=== PATIENT | male | born 1940 | race Caucasian/White ===

== ENCOUNTER → 2017-03-27 | Outpatient (CLI) | payer MEDICARE ==
[~2017-03-27] MED LIST: ASPI81TA7 PO; CARB25TA PO; CEPALOZ2 PO; FISHOIL PO; LEVO750T PO; OSEL75CA PO; TYLE325T5 PO; VIT250TA PO; VITAD1000T PO; [UNRECOGNIZED DRUG - OTHER] PO
--- NOTE | 2017-03-27 19:00 | REP ---
MRI study of the right elbow without contrast: History: Right elbow pain. Question distal biceps tendon rupture. Comparison MRI study of the forearm is from [facility] dated 03/20/2017. Comparison radiographs are from 03/13/2017. Technique: Axial, coronal, and sagittal imaging planes are utilized. T1, proton density and T2-weighted scans were obtained in the usual fashion with without fat saturation. MRI findings: Cortical and medullary bone signal intensity are normal. No fracture is seen. There is a small amount of elbow joint fluid. No cartilaginous lesion is seen. The medial and lateral collateral ligaments at the elbow are intact. There is evidence of partial disruption of the distal biceps tendon, approximately 12 mm from the insertion on the proximal radial tuberosity. There is some surrounding T2 hyperintense fluid and edema with a rounded nubbin of discontinuous tendon visible. Brachialis tendon appears to be intact. There is edema at the biceps tendon musculotendinous junction more proximally in the distal arm as well. Exam is otherwise unremarkable. Triceps tendon appears intact. Impression: High grade partial tear distal biceps tendon. Signed by Albert Osborne MD 03/27/2017 07:14 P
== END ==
LOC: M RAD 16:37
PROVIDERS: ATTEND Physician Assistant Surgical
DX: S46.111A Strain of muscle, fascia and tendon of long head of biceps, right arm, initial encounter (principal); X58.XXXA Exposure to other specified factors, initial encounter; Y92.89 Other specified places as the place of occurrence of the external cause; Y93.89 Activity, other specified; Y99.8 Other external cause status

== ENCOUNTER → 2017-03-29 | Outpatient (CLI) | payer MEDICARE ==
--- NOTE | 2017-03-29 12:27 | REP ---
THREE-PHASE BONE SCAN OF THE ARMS: HISTORY: Contusion of the right forearm. Right forearm pain for 4 weeks. TECHNIQUE: 21.5 mCi of technetium 99m MDP is injected and three-phase imaging of the arms is acquired bilaterally. FINDINGS: The anterior and posterior flow images are unremarkable. Blood pool images demonstrate an ill-defined area of increased uptake in the proximal forearm on the right near the elbow. Delayed scan images demonstrate slightly increased uptake in this region as well in the area of the proximal radius and proximal ulna just distal to the elbow. I note that this is the area of the distal biceps tendon injury seen on MRI. Also noted on delayed images is some arthritic uptake in the radial aspect of the carpus on the left. No other abnormality is observed. IMPRESSION: Increased uptake on blood pool images in the proximal forearm on the right and to a lesser extent on delayed images in the area of the known soft tissue injury. Arthritic uptake on delayed scan images in the left wrist. Signed by Albert Osborne MD 03/29/2017 03:08 P
== END ==
LOC: M RAD 07:38
PROVIDERS: ATTEND Physician Assistant Surgical
DX: S50.11XD Contusion of right forearm, subsequent encounter (principal); X58.XXXA Exposure to other specified factors, initial encounter; Y92.89 Other specified places as the place of occurrence of the external cause; Y93.89 Activity, other specified; Y99.8 Other external cause status
CPT/HCPCS: 78315; A9503

== ENCOUNTER 2017-09-16 07:21 | Observation (INO) | payer MEDICARE ==
[~2017-09-16] VITALS: Ht 167.6 cm; Wt 91.4 kg
[2017-09-16] MEDS ORDERED: MULT1TAB8 PO (07:49)
[2017-09-16] MEDS ORDERED: COQ-400C PO (07:49)
[2017-09-16] MEDS ORDERED: ARIC1TAB2 PO (07:49)
--- NOTE | 2017-09-16 08:40 | REP ---
Clinical: Trauma. Technique: Internal rotation, external rotation, and Y view of the right shoulder. Findings: Moderate to early advanced degenerative changes primarily involving the acromioclavicular joint include cortical irregularity and spurring/osteophyte formation as well as decreased sub acromial space. No acute fracture dislocation. Glenohumeral joint is normal for age. Impression: Degenerative changes at the acromioclavicular joint. No acute fracture dislocation. Signed by Juan Antonio Proctor MD 09/16/2017 08:31 A
[2017-09-16 09:53] LABS: BASO # 0.1 10^3/uL (0.0-0.2); EOS # 0.1 10^3/uL (0.0-0.50); EOS % 2.4 % (0.0-3.0); IMMATURE GRANULOCYTE % 0.2 % (0-0); LYMPH # 1.2 10^3/uL (1.5-4.5); LYMPH % 24.2 % (24.0-44.0); MEAN CORPUSCULAR HEMOGLOBIN 32.9 pg (27.0-33.0); MEAN CORPUSCULAR HGB CONC 34.4 g/dl (32.0-36.5); MEAN CORPUSCULAR VOLUME 95.6 fl (80.0-96.0); MONO # 0.4 10^3/uL (0.0-0.8); MONO % 8.1 % (0.0-5.0); NEUTROPHILS # 3.2 10^3/uL (1.8-7.7); NEUTROPHILS % 64.1 % (36.0-66.0); PLATELET COUNT, AUTOMATED 135 10^3/uL (150-450); RED CELL DISTRIBUTION WIDTH 11.9 % (11.5-14.5)
--- NOTE | 2017-09-16 10:10 | REP ---
Clinical: Headache and dizziness. Comparison: 10/10/2012 . Findings: Age-related atrophy and microvascular ischemic changes are appreciated. The ventricles and sulci are symmetric. Thompson-white differentiation is maintained. There is no evidence for acute intracranial hemorrhage, mass/mass effect, pathology or infarction. No extra-axial fluid collection. Calvarium is intact. Paranasal sinuses and mastoid air cells are clear. Impression: Age related atrophy and microvascular ischemic changes. No acute intracranial hemorrhage, infarction, or mass/mass effect. Signed by Juan Antonio Proctor MD 09/16/2017 10:01 A
[2017-09-16 10:11] LABS: ANION GAP 8 MEQ/L (8-16); BLOOD UREA NITROGEN 21 MG/DL (7-18); CALCIUM LEVEL 8.9 MG/DL (8.8-10.2); CARBON DIOXIDE LEVEL 27 MEQ/L (21-32); CHLORIDE LEVEL 108 MEQ/L (98-107); CREATININE FOR GFR 1.01 MG/DL (0.70-1.30); GLOMERULAR FILTRATION RATE > 60.0 (>42); GLUCOSE, FASTING 101 MG/DL (83-110); POTASSIUM SERUM 3.9 MEQ/L (3.5-5.1); SODIUM LEVEL 143 MEQ/L (136-145)
[2017-09-16] MEDS ORDERED: NS 500 ML IV ONE (10:45)
[2017-09-16] MEDS ORDERED: DOXA1TAB42 PO (11:38)
[2017-09-16] MEDS ORDERED: ALEV220T22 PO (11:38)
[2017-09-16] MEDS ORDERED: CARB25TA PO ×2 (11:38→11:39)
[2017-09-16] MEDS ORDERED: FISH100049 PO (11:38)
[2017-09-16] MEDS ORDERED: ACETAMINOPHEN TAB 650MG DOSE (2X325MG) PO PRN (13:45)
[2017-09-16] MEDS ORDERED: ONDANSETRON 4MG/2ML VIAL (J2405) IV PRN (13:45)
--- NOTE | 2017-09-16 15:02 | HPE ---
DATE OF ADMISSION: 09/16/2017 PRIMARY CARE PROVIDER: Dr. Sunil Kulkarni in [place] HISTORY OF PRESENT ILLNESS: This patient is a 77-year-old male with a past medical history significant for Parkinson disease, presented to [facility] on 09/16/2017 after two falls. Patient stated the falls first occurred when he tried to walk from the restroom to the kitchen. During the ambulation, he felt dizzy and he fell down and hit the right shoulder. He tried to stand up, however, he started to feel very dizzy again and then he fell down and landed on the right shoulder again. After the second fall, he had difficulty getting up, therefore, he was brought to [facility] for further evaluation. Patient stated he felt dizzy and lightheaded. When symptoms occurred, he felt the room was spinning, most significant when he tried to stand or sit up. At the time of encounter, he is resting in the bed without any recurrence of the symptoms. Headache is not elicited during different head movements. Patient had a few similar episodes in the past. Patient has a history of Parkinson disease. At home, he has been using a cane, however, today before and after those two falls, he did not use any cane. Patient does not think he hit his head. He does not feel he had loss of consciousness, but he is not 100% sure. Denies any loss of bowel or bladder control. Denies any tongue biting. Patient lives alone. Denies any recent medication changes or lifestyle changes. Denies any cardiac history or lung history. PAST MEDICAL HISTORY: Parkinson disease. PAST SURGICAL HISTORY: Cholecystectomy. SOCIAL HISTORY: Patient denies smoking, drinks beer one almost daily. No recreational drug use. ALLERGIES: No known drug allergies. HOME MEDICATIONS: - Tylenol 650 mg by mouth every 4 hours as needed - aspirin 81 mg by mouth daily - carbidopa/levodopa 25 /100 mg 0.5 tab by mouth twice a day - carbidopa/levodopa 25/100 mg two tabs by mouth five times a day - Aricept 10 mg by mouth nightly - doxazosin 1 mg by mouth nightly - vitamin D 1000 unit by mouth daily - multivitamin one tab by mouth daily REVIEW OF SYSTEMS: GENERAL: Denies any fever or chill. HEENT: No vision changes No auditory changes. CARDIOVASCULAR: Denies any chest pain or palpitations. GASTROINTESTINAL (GI): No nausea. No vomiting. No abdominal pain. MUSCULOSKELETAL: Some muscle pain of the right shoulder, occurred after the fall. NEUROLOGICAL: Patient has fallen twice today prior to admission. Patient had been feeling dizzy and lightheadedness. Patient does have a history of Parkinson disease. OBJECTIVE: VITAL SIGNS: Temperature is 97, pulse 67, respirations 18, blood pressure 122/56, pulse oximetry 95% on room air. GENERAL: Fatigue. Alert and oriented times three. HEENT: Normocephalic. Atraumatic. Extraocular muscles grossly intact. CARDIOVASCULAR: Distant heart sounds. Positive S1, S2, regular rate. LUNGS: Clear to auscultation bilaterally. ABDOMEN: Soft, nontender, nondistended. Bowel sounds present. No rebound or guarding. EXTREMITIES: No edema. No cyanosis. NEUROLOGICAL: Sensation to fine touch grossly intact. Muscle strength 5/5. LABORATORY DATA: WBC is 5, hemoglobin 14.1, hematocrit 41, platelet count is 135. Sodium is 143, potassium 3.9, chloride 108, carbon dioxide 27, BUN 21, creatinine 1.01, GFR greater than 60, fasting glucose is 101, calcium is 8.9, total CK is 140, troponin I is less than 0.02. IMAGING STUDIES: A shoulder x-ray showed degenerative changes at the acromioclavicular joint. No acute fracture or dislocation. A CT of the head without contrast showed age-related atrophy and microvascular ischemic changes. No acute intracranial hemorrhage, infarction, or mass/mass effect. ASSESSMENT AND PLAN: 1. Near syncope with frequent falls. Patient admitted to medical-surgical with telemetry. Continue to rule out a possible cardiac cause for the fall. Based on the history, patient will have orthostatic measurement every 8 hours. Imaging studies were performed. There is no right shoulder fracture resulting from the fall, and there is no significant finding noted on CT of the brain. Patient will be working with physical therapy to assess function. 2. Parkinson disease. Patient's home medication will be reviewed and adjust accordingly if needed. 3. Deep venous thrombosis (DVT) prophylaxis. On heparin. MTDD
[2017-09-16 15:30] VITALS: BP 125/69
[2017-09-16] MEDS: SINEMET 25-100 MG TAB PO SCH ×3 (15:55→19:51)
[2017-09-16] MEDS: HEPARIN SOD (PORCINE) 5000 UNITS/ML VIAL SC SCH ×2 (15:56→22:05)
[2017-09-16] MEDS: VITAMIN D 1,000 INTERNATIONAL UNITS TABLET PO SCH (15:59)
[2017-09-16] MEDS: ASPIRIN 81 MG ENTERIC TAB PO SCH (16:00)
[2017-09-16 18:54] VITALS: BP 140/75
[2017-09-16] MEDS: DOXAZOSIN MESYLATE 1 MG TAB PO SCH (19:51)
[2017-09-16] MEDS: DONEPEZIL 5 MG TAB PO SCH (19:52)
[2017-09-16 22:00] VITALS: BP 163/82
[2017-09-17 06:00] VITALS: BP 155/82
[2017-09-17 06:02] LABS: MEAN CORPUSCULAR HEMOGLOBIN 32.5 pg (27.0-33.0); MEAN CORPUSCULAR HGB CONC 33.7 g/dl (32.0-36.5); MEAN CORPUSCULAR VOLUME 96.3 fl (80.0-96.0); PLATELET COUNT, AUTOMATED 153 10^3/uL (150-450); RED CELL DISTRIBUTION WIDTH 11.9 % (11.5-14.5); WHITE BLOOD COUNT 3.8 10^3/uL (4.0-10.0)
[2017-09-17 06:19] LABS: ANION GAP 8 MEQ/L (8-16); BLOOD UREA NITROGEN 17 MG/DL (7-18); CALCIUM LEVEL 9.1 MG/DL (8.8-10.2); CARBON DIOXIDE LEVEL 25 MEQ/L (21-32); CHLORIDE LEVEL 108 MEQ/L (98-107); CREATININE FOR GFR 0.92 MG/DL (0.70-1.30); GLOMERULAR FILTRATION RATE > 60.0 (>42); GLUCOSE, FASTING 91 MG/DL (83-110); POTASSIUM SERUM 3.9 MEQ/L (3.5-5.1); SODIUM LEVEL 141 MEQ/L (136-145)
[2017-09-17] MEDS: HEPARIN SOD (PORCINE) 5000 UNITS/ML VIAL SC SCH ×3 (06:36→21:57)
[2017-09-17] MEDS: SINEMET 25-100 MG TAB PO SCH ×7 (06:36→18:25)
[2017-09-17 06:53] VITALS: BP_SYST 150; BP_SYST 162; BP_SYST 164; BP_DIAS 79; BP_DIAS 85; BP_DIAS 88
--- NOTE | 2017-09-17 09:03 | ECGEPIP ---
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
[2017-09-17] MEDS: VITAMIN D 1,000 INTERNATIONAL UNITS TABLET PO SCH (10:25)
[2017-09-17] MEDS: LISINOPRIL 10 MG TAB PO SCH (10:26)
[2017-09-17] MEDS: ASPIRIN 81 MG ENTERIC TAB PO SCH (10:26)
[2017-09-17 14:00] VITALS: BP 122/62
[2017-09-17 15:45] VITALS: BP_SYST 135; BP_SYST 136; BP_SYST 140; BP_DIAS 76; BP_DIAS 82; BP_DIAS 85
--- NOTE | 2017-09-17 18:36 | IPN ---
DATE: 09/17/2017 SUBJECTIVE: The patient is seen and examined in the room today. The patient denies any recurrence of the lightheadedness. The patient is sitting comfortably in a chair. This morning during the encounter, the patient stated that the nurse told him that he already took his Parkinson's medication, but he does not feel that he actually got the dose this morning. Later we had a discussion for home medication use, the patient admits that there are incidents that he actually overdosed himself on the Parkinson's medication. There are a lot of time that he already took the medication at the scheduled time but he forgot that he actually did that and therefore he took an additional dose of the medication. OBJECTIVE: VITAL SIGNS: Temperature is 97.7, pulse is 75, respirations 18, blood pressure is 164/85, pulse oximetry is 96% on room air. GENERAL: No sign of acute distress. Alert and oriented times three. HEENT: Normocephalic, atraumatic. Extraocular motors are grossly intact. CARDIOVASCULAR: Positive S1, S2. Regular rate. LUNGS: Clear to auscultation bilaterally. ABDOMEN: Soft, nontender, nondistended. Bowel sounds present. No rebound or guarding. EXTREMITIES: No edema. No cyanosis. LABORATORY DATA: WBC 3.8, hemoglobin 13.9, hematocrit 41.2, platelet count is 153. Sodium is 141, potassium 3.9, chloride is 108, carbon dioxide is 25, BUN is 17, creatinine 0.92, GFR greater than 60, fasting glucose 91, calcium is 9.1, magnesium is 2. ASSESSMENT AND PLAN: 1. Near syncope episode. Based on the history and the objective findings and results, it seems that it is related to the patient's inconsistent usage of the Parkinson's medications. The patient admits that there are a few times that he took extra doses of the Parkinson's medication. He does have a caregiver. However, there are a few times that he feels that she has not been consistent in helping him in taking the correct medication at the correct time. The patient remains orthostatic negative. Vitals are stable. The patient continues to work with physical therapy (PT). 2. Hypertension. On Lisinopril. 3. Deep vein thrombosis (DVT) prophylaxis. On heparin.
[2017-09-17] MEDS: DONEPEZIL 5 MG TAB PO SCH (21:55)
[2017-09-17] MEDS: DOXAZOSIN MESYLATE 1 MG TAB PO SCH (21:56)
[2017-09-17 22:00] VITALS: BP 145/74
[2017-09-18] VITALS (7 sets, daily range): BP systolic 72–168; BP diastolic 40–83
[2017-09-18 06:23] LABS: MEAN CORPUSCULAR HEMOGLOBIN 32.7 pg (27.0-33.0); MEAN CORPUSCULAR HGB CONC 33.8 g/dl (32.0-36.5); MEAN CORPUSCULAR VOLUME 96.7 fl (80.0-96.0); PLATELET COUNT, AUTOMATED 154 10^3/uL (150-450); WHITE BLOOD COUNT 5.2 10^3/uL (4.0-10.0)
[2017-09-18] MEDS: SINEMET 25-100 MG TAB PO SCH ×7 (06:34→19:05)
[2017-09-18] MEDS: HEPARIN SOD (PORCINE) 5000 UNITS/ML VIAL SC SCH ×3 (06:34→21:09)
[2017-09-18 06:40] LABS: ANION GAP 9 MEQ/L (8-16); BLOOD UREA NITROGEN 19 MG/DL (7-18); CALCIUM LEVEL 9.5 MG/DL (8.8-10.2); CARBON DIOXIDE LEVEL 27 MEQ/L (21-32); CHLORIDE LEVEL 108 MEQ/L (98-107); CREATININE FOR GFR 1.05 MG/DL (0.70-1.30); GLOMERULAR FILTRATION RATE > 60.0 (>42); GLUCOSE, FASTING 92 MG/DL (83-110); MAGNESIUM LEVEL 2.1 MG/DL (1.8-2.4); POTASSIUM SERUM 3.9 MEQ/L (3.5-5.1); SODIUM LEVEL 144 MEQ/L (136-145)
[2017-09-18] MEDS ORDERED: INFLUENZA VIRUS VACCINE HIGH DOSE 0.5 ML SYRINGE (90662) IM ONE (09:00)
[2017-09-18] MEDS: VITAMIN D 1,000 INTERNATIONAL UNITS TABLET PO SCH (10:00)
[2017-09-18] MEDS: ASPIRIN 81 MG ENTERIC TAB PO SCH (10:00)
[2017-09-18] MEDS: LISINOPRIL 10 MG TAB PO SCH (10:01)
--- NOTE | 2017-09-18 17:57 | IPNPDOC ---
Text Note Date of Service The patient was seen on 09/18/17. NOTE SUBJECTIVE: The patient is seen and examined in the room today. The patient denies any recurrence of the lightheadedness. Patient just finished physical therapy section. The patient is sitting comfortably in a chair. No event is reported overnight OBJECTIVE: VITAL SIGNS: Listed below GENERAL: No sign of acute distress. Alert and oriented times three. HEENT: Normocephalic, atraumatic. Extraocular motors are grossly intact. CARDIOVASCULAR: Positive S1, S2. Regular rate. LUNGS: Clear to auscultation bilaterally. ABDOMEN: Soft, nontender, nondistended. Bowel sounds present. No rebound or guarding. EXTREMITIES: No edema. No cyanosis. LABORATORY DATA: Listed below ASSESSMENT AND PLAN: 1. Near syncope episode. Based on the history and the objective findings and results, it seems that it is related to the patient's inconsistent usage of the Parkinson's medications. The patient admits that there are a few times that he took extra doses of the Parkinson's medication. He does have a caregiver. However, there are a few times that he feels that she has not been consistent in helping him in taking the correct medication at the correct time. The patient remains orthostatic negative. Vitals are stable. The patient continues to work with physical therapy (PT). Physical therapy has not cleared the patient for discharge. 2. Hypertension. On Lisinopril. 3. Deep vein thrombosis (DVT) prophylaxis. On heparin. VS,Fishbone, I+O VS, Fishbone, I+O Laboratory Tests 09/18/17 05:29 Red Blood Count 4.19 L, Mean Corpuscular Volume 96.7 H, Mean Corpuscular Hemoglobin 32.7, Mean Corpuscular Hemoglobin Concent 33.8, Red Cell Distribution Width 12.0, Calcium Level 9.5 Vital Signs Date Time Temp Pulse Resp B/P (MAP) Pulse Ox O2 Delivery O2 Flow Rate FiO2 09/18/17 14:00 96.4 67 17 101/67 (78) 94 Room Air I&O- Last 24 Hours up to 6 AM 09/19/17 06:00 Intake Total 840 ml Output Total 700 ml Balance 140 ml SANDRA BABCOCK DO Sep 18, 2017 17:57
[2017-09-18] MEDS: DONEPEZIL 5 MG TAB PO SCH (21:08)
[2017-09-18] MEDS: DOXAZOSIN MESYLATE 1 MG TAB PO SCH (21:09)
[2017-09-19] VITALS (7 sets, daily range): BP systolic 117–168; BP diastolic 63–86
[2017-09-19 06:06] LABS: MEAN CORPUSCULAR HEMOGLOBIN 32.5 pg (27.0-33.0); MEAN CORPUSCULAR HGB CONC 33.9 g/dl (32.0-36.5); MEAN CORPUSCULAR VOLUME 95.7 fl (80.0-96.0); PLATELET COUNT, AUTOMATED 152 10^3/uL (150-450); RED CELL DISTRIBUTION WIDTH 11.9 % (11.5-14.5); WHITE BLOOD COUNT 5.1 10^3/uL (4.0-10.0)
[2017-09-19 06:23] LABS: ANION GAP 8 MEQ/L (8-16); BLOOD UREA NITROGEN 18 MG/DL (7-18); CALCIUM LEVEL 8.9 MG/DL (8.8-10.2); CARBON DIOXIDE LEVEL 26 MEQ/L (21-32); CHLORIDE LEVEL 110 MEQ/L (98-107); CREATININE FOR GFR 1.05 MG/DL (0.70-1.30); GLOMERULAR FILTRATION RATE > 60.0 (>42); GLUCOSE, FASTING 85 MG/DL (83-110); POTASSIUM SERUM 3.8 MEQ/L (3.5-5.1); SODIUM LEVEL 144 MEQ/L (136-145)
[2017-09-19] MEDS: SINEMET 25-100 MG TAB PO SCH ×7 (06:38→18:23)
[2017-09-19] MEDS: HEPARIN SOD (PORCINE) 5000 UNITS/ML VIAL SC SCH ×3 (06:38→21:32)
[2017-09-19] MEDS: LISINOPRIL 10 MG TAB PO SCH (09:00)
[2017-09-19] MEDS: VITAMIN D 1,000 INTERNATIONAL UNITS TABLET PO SCH (09:38)
[2017-09-19] MEDS: ASPIRIN 81 MG ENTERIC TAB PO SCH (09:38)
--- NOTE | 2017-09-19 10:17 | ECGEPIP ---
Stationary ECG Study [facility] Test Date: 2017-09-18 Pat Name: MILEY RICHARDSON Department: Room: [place] [address] Gender: M Casting Room Helper: EDELMIRA : 1940 Requested By: SANDRA BABCOCK Order Number: [id number] Reading MD: Gabriella Pettit Measurements Intervals [place] Rate: 54 P: 43 MD: 192 QRS: 102 QRSD: 183 T: 86 QT: 450 QTc: 427 Interpretive Statements SINUS BRADYCARDIA MARKED RIGHT AXIS DEVIATION RIGHT BUNDLE BRANCH BLOCK LPHB 1st DEEGREE BLOCK TRIFASICULAR BLOCK Left anterior fascicular block RESOLVED LPHB 1st DEGREE BLOCK NEW NEW ST ABN laterally Electronically Signed On 09-19-2017 10:17:34 EST by Gabriella Pettit
[2017-09-19] MEDS ORDERED: LISI10TA4 PO (16:02)
--- NOTE | 2017-09-19 18:25 | MHCR ---
DATE OF CONSULTATION: 09/19/2017 CONSULTATION REPORT FOR: Dr. Julisa Cheng HISTORY: I have been asked to evaluate this patient for capacity. He is a 77-year-old male with history of Parkinson's disease and a brain CT scan that shows microvascular ischemic changes who was admitted to the medical floor on 09/16/2017 after two falls. Apparently, the patient forgot that he already had taken the Parkinson medication and repeated the dosage again so he felt dizzy and fell to the floor. The patient admits to the above. The patient also says that he has a person that has been helping for the last eight years to take care of him. This person is no longer going to be able to so since she is moving to another state. The patient reports that he has a primary care provider, Dr. Sunil Kulkarni, in [place] and also has a psychologist, Dr. Otoole, that he feels very comfortable working with them. Today, I was called because the patient wanted to leave the hospital. During the interview, the patient reports that he is very upset with the treatment that he is getting and wants to go home. I discussed with the patient the fact that now he does not nobody to take care of him and the family is not living nearby and I asked him how he is going to manage if he needs help. He says that he has the device that he can press the button or the device detects automatically if he falls and he wants to get back home. I explore his memory, attention and concentration and they are within normal limits at this time based on the age and the fact that he has Parkinson's and these microvascular ischemic changes. The patient denies any feelings of depression. The patient denies suicidal or homicidal ideation. There is no evidence of psychotic symptoms. No auditory or visual hallucinations. The patient would like to continue to live independently at this point. PAST PSYCHIATRIC HISTORY: The patient denies any psychiatric problems. PAST MEDICAL HISTORY: The patient has been diagnosed with Parkinson's disease and again CT scan shows microvascular ischemic changes and atrophic changes typical of his age. SOCIAL HISTORY: The patient lives alone. The patient is fairly active. He says that he drives, that he goes to physical therapy. He goes to his Parkinson's support groups and keeps himself active. SUBSTANCE ABUSE HISTORY: The patient denies any current or past problems with drugs or alcohol. MENTAL STATUS EXAMINATION: The patient is dressed in casual clothes. The patient is calm and cooperative. His speech is somewhat slow but coherent and is spontaneous. The patient has fair eye contact. Mood is euthymic. Affect is somewhat restricted due to Parkinson's. Memory, attention and concentration are appropriate for his age. He is able to recall three objects in five minutes. He is oriented times four. He does not have auditory or visual hallucinations. The patient does not have paranoid, persecutory, somatic, grandiose, or restoration delusions. The patient is denying suicidal or homicidal ideation. Insight and judgment are fair. DIAGNOSES: AXIS I: No psychiatric diagnosis. AXIS II: Deferred. AXIS III: Parkinson's disease. RECOMMENDATIONS: After talking to the patient, the patient was agreeable to wait until tomorrow until the health and social care teacher can get a hold of the family, and he and the family have a meeting and decide how the aftercare is going to be managed. At this point, the patient prefers to live independently. The patient does not want to be placed in a jail. The patient says that he wants to continue with his normal lifestyle as he was before coming to the hospital and go to physical therapy as outpatient and to his Parkinson's support group. He is planning to get an appointment with Dr. Kulkarni in [place] and also an appointment with Dr. Torito Otoole, who is his psychologist.
--- NOTE | 2017-09-19 18:47 | IPNPDOC ---
Text Note Date of Service The patient was seen on 09/19/17. NOTE SUBJECTIVE: The patient is seen and examined in the room today. Patient does complain about intermittent dizziness. There multiple incidences where patient does not remember if he already take his Parkinson's disease medications. OBJECTIVE: VITAL SIGNS: Listed below GENERAL: No sign of acute distress. Alert and oriented times three. HEENT: Normocephalic, atraumatic. Extraocular motors are grossly intact. CARDIOVASCULAR: Positive S1, S2. Regular rate. LUNGS: Clear to auscultation bilaterally. ABDOMEN: Soft, nontender, nondistended. Bowel sounds present. No rebound or guarding. EXTREMITIES: No edema. No cyanosis. LABORATORY DATA: Listed below ASSESSMENT AND PLAN: 1. Near syncope episode. Based on the history and the objective findings and results, it seems that it is related to the patient's inconsistent usage of the Parkinson's medications. The patient admitted previously that there were a few times that he took extra doses of the Parkinson's medication. Patient is cleared by PT and OT for discharge on 09/19/17. However, there is concern for home safety. Patient lives alone. Daughter lives close by. When reaching out to the daughter , she states she would not be able to provide care to the patient. There are multiple incidences when patient demonstrate sign of memory issue. There is concern for capacity and discharge safety. Therefore, psychiatrist was consulted. After long discussion, patient finally agrees for stay in hospital. Tomorrow there will be a meeting with patient, patient's family and social service to discuss home situation. 2. Hypertension. On Lisinopril. 3. Deep vein thrombosis (DVT) prophylaxis. On heparin. Disposition: currently home safety is uncertain. Patient has high chance of re- admission. Will arrange family meeting tomorrow. VS,Fishbone, I+O VS, Fishbone, I+O Laboratory Tests 09/19/17 05:19 Red Blood Count 4.16 L, Mean Corpuscular Volume 95.7, Mean Corpuscular Hemoglobin 32.5, Mean Corpuscular Hemoglobin Concent 33.9, Red Cell Distribution Width 11.9, Calcium Level 8.9 Vital Signs Date Time Temp Pulse Resp B/P (MAP) Pulse Ox O2 Delivery O2 Flow Rate FiO2 09/19/17 14:00 97.1 83 16 136/65 (88) 99 Room Air I&O- Last 24 Hours up to 6 AM 09/20/17 06:00 Intake Total 1000 ml Output Total 0 ml Balance 1000 ml SANDRA BABCOCK DO Sep 19, 2017 18:47
[2017-09-19] MEDS: DOXAZOSIN MESYLATE 1 MG TAB PO SCH (20:23)
[2017-09-19] MEDS: DONEPEZIL 5 MG TAB PO SCH (20:31)
[2017-09-20 02:00] VITALS: BP 136/82
[2017-09-20 05:56] LABS: MEAN CORPUSCULAR HEMOGLOBIN 32.2 pg (27.0-33.0); MEAN CORPUSCULAR HGB CONC 33.7 g/dl (32.0-36.5); MEAN CORPUSCULAR VOLUME 95.5 fl (80.0-96.0); PLATELET COUNT, AUTOMATED 141 10^3/uL (150-450); WHITE BLOOD COUNT 5.2 10^3/uL (4.0-10.0)
[2017-09-20 06:00] VITALS: BP 145/87
[2017-09-20] MEDS: SINEMET 25-100 MG TAB PO SCH ×6 (06:13→16:32)
[2017-09-20] MEDS: HEPARIN SOD (PORCINE) 5000 UNITS/ML VIAL SC SCH ×2 (06:13→14:22)
[2017-09-20 06:17] LABS: ANION GAP 6 MEQ/L (8-16); BLOOD UREA NITROGEN 22 MG/DL (7-18); CALCIUM LEVEL 8.7 MG/DL (8.8-10.2); CARBON DIOXIDE LEVEL 28 MEQ/L (21-32); CHLORIDE LEVEL 111 MEQ/L (98-107); CREATININE FOR GFR 1.09 MG/DL (0.70-1.30); GLOMERULAR FILTRATION RATE > 60.0 (>42); GLUCOSE, FASTING 84 MG/DL (83-110); POTASSIUM SERUM 3.7 MEQ/L (3.5-5.1); SODIUM LEVEL 145 MEQ/L (136-145)
[2017-09-20 09:25] VITALS: BP 149/74
[2017-09-20] MEDS: ASPIRIN 81 MG ENTERIC TAB PO SCH (09:25)
[2017-09-20] MEDS: LISINOPRIL 10 MG TAB PO SCH (09:25)
[2017-09-20] MEDS: VITAMIN D 1,000 INTERNATIONAL UNITS TABLET PO SCH (09:25)
[2017-09-20 10:00] VITALS: BP 149/74
[2017-09-20 12:00] VITALS: BP_SYST 145; BP_SYST 146; BP_SYST 148; BP_DIAS 76; BP_DIAS 77; BP_DIAS 80
[2017-09-20 14:00] VITALS: BP 133/67
--- NOTE | 2017-09-25 22:16 | DSES ---
DATE OF ADMISSION: 09/16/2017 DATE OF DISCHARGE: 09/20/2017 PRIMARY CARE PROVIDER: Sunil Kulkarni in [place]. DISCHARGE DIAGNOSES: 1. Near syncope episode secondary to Parkinson's medications. 2. Hypertension. 3. Parkinson's disease. HOSPITALIZATION COURSE: The patient is a 77-year-old male, presented to [facility] on 09/16/2017 with a near syncope episode and a history of frequent falls. The patient was admitted to the medical-surgical floor with telemetry. Through the history and physical, it seems the patient is likely to have those frequent falls and near syncopal episodes due to his Parkinson medications. The patient's regimen is confirmed by the pharmacy. The patient was instructed to take the Parkinson medication five times a day. However, the patient admitted there were multiple incidents he forgot he already took his Parkinson medication; therefore it resulted in additional medications taken than instructed. During the hospitalization stay, the patient was evaluated by physical therapy. Due to signs of dementia related to his baseline Parkinson's, psychiatry has been consulted to evaluate the patient. Multiple meetings were arranged with the patient's family to ensure the safe home environment and on 09/20/2017, the patient was discharged home. VITAL SIGNS ON THE DAY OF DISCHARGE: Temperature 97.4, pulse is 69, respirations 18, blood pressure 133/67, pulse oximetry is 97% in room air. LABORATORY DATA: WBC 5.2, hemoglobin 13.6, hematocrit 40.4, platelet count is 141. Sodium is 145, potassium 3.7, chloride is 111, carbon dioxide is 28, BUN is 22, creatinine 1.09, GFR greater than 60, fasting glucose is 84, calcium is 8.7, magnesium 2. IMAGING STUDIES: Complete right shoulder x-ray showed degenerative changes at the acromioclavicular joint. No acute fracture or dislocation. CT of the head without contrast showed age-related atrophy and microvascular ischemic changes. No acute intracranial hemorrhage, infarction or mass/mass effect. DISCHARGE MEDICATIONS: - lisinopril 10 mg by mouth daily - Tylenol 650 mg by mouth every 4 hours as needed - Aleve 220 mg by mouth twice a day as needed for pain - aspirin 81 mg by mouth daily - carbidopa-levadopa 25-100, two tablets by mouth five times a day - carbidopa-levadopa 25-100, 0.5 mg tablet by mouth twice a day - CoQ10 daily - Aricept 10 mg by mouth nightly - doxazosin 1 mg by mouth nightly - multivitamin one tablet by mouth daily DISCHARGE INSTRUCTIONS: Discontinue line. Discharge home with home services. Activity as tolerated. Diet as tolerated. Patient should followup with his primary care provider in 1-2 weeks. DISCHARGE CONDITION: Stable. DISCHARGE TIME: Greater than 30 minutes.
== END 2017-09-20 17:26 | disposition home health service (06) ==
LOC: EDBD 07:21 → M ED 07:21 → INTOOBSV 12:11 → M ED INP 12:11 → M MS5PR 14:58 → M MSPAV 18:29
PROVIDERS: ADMIT Internal Medicine; ATTEND Internal Medicine
DX: R55 Syncope and collapse (principal); I10 Essential (primary) hypertension; G20 Parkinson's disease; S40.011A Contusion of right shoulder, initial encounter; W19.XXXA Unspecified fall, initial encounter; Y92.098 Other place in other non-institutional residence as the place of occurrence of the external cause; Y93.01 Activity, walking, marching and hiking; Y99.8 Other external cause status; Z91.14 Patient's other noncompliance with medication regimen; Z79.899 Other long term (current) drug therapy; Z79.82 Long term (current) use of aspirin
CPT/HCPCS: 36415; 70450; 73030; 80048; 82550; 82553; 82746; 83735; 84425; 84484; 85025; 85027; 93005; 93041; 94760; 96372; 97161; 97165; 97530; 97535; 99285; G0378; G8978; G8979; G8980; G8987; G8988; G8989

== ENCOUNTER 2018-10-16 17:17 | Inpatient (IN) | payer MEDICARE ==
[~2018-10-16] VITALS: Ht 167.6 cm; Wt 101.3 kg
[~2018-10-16 17:17] MED LIST changes: +ALEV220T22 PO; +ARIC1TAB2 PO; +CARB25TA9 PO; +COQ-400C PO; +DOXA1TAB42 PO; +FISH100049 PO; +LISI10TA4 PO; +MULT1TAB8 PO
[2018-10-16] MEDS ORDERED: ONDANSETRON 4MG/2ML VIAL (J2405) IV ONE (17:45)
[2018-10-16] MEDS ORDERED: MORPHINE 2 MG/ML 1ML SYRINGE (J2270) IV ONE (17:45)
--- NOTE | 2018-10-16 18:05 | REP ---
Clinical: Trauma. Technique: AP view of the pelvis with neutral and cross-table views of the left hip. Findings: There is a minimally displaced transverse fracture through the left femoral neck and possible nondisplaced fracture along the left greater trochanter. Diffuse osteopenia and degenerative changes noted throughout the pelvis and hips. Impression: Transverse minimally displaced fracture through the left femoral neck and possible nondisplaced fracture of the left greater trochanter. Electronically Signed by Juan Antonio Proctor MD 10/16/2018 05:56 P
--- NOTE | 2018-10-16 18:06 | REP ---
Clinical: Trauma. Preoperative assessment . Comparison: 10/28/2017 . Findings: The mediastinum and cardiac silhouette are stable and within normal limits for portable technique. The lung viramontes demonstrate chronic changes without acute consolidation, effusion, or pneumothorax. Skeletal structures are intact. Impression: No acute cardiopulmonary process appreciated. Electronically Signed by Juan Antonio Proctor MD 10/16/2018 05:57 P
[2018-10-16 18:46] LABS: BASO % 0.2 % (0.0-1.0); EOS % 0.2 % (0.0-3.0); HEMATOCRIT 41.5 % (42.0-52.0); HEMOGLOBIN 14.3 g/dl (13.5-17.5); LYMPH # 0.8 10^3/uL (1.5-4.5); LYMPH % 5.8 % (24.0-44.0); MEAN CORPUSCULAR HEMOGLOBIN 32.2 pg (27.0-33.0); MEAN CORPUSCULAR HGB CONC 34.5 g/dl (32.0-36.5); MEAN CORPUSCULAR VOLUME 93.5 fl (80.0-96.0); MONO # 0.6 10^3/uL (0.0-0.8); MONO % 4.7 % (0.0-5.0); NEUTROPHILS # 11.7 10^3/uL (1.8-7.7); NEUTROPHILS % 88.6 % (36.0-66.0); PLATELET COUNT, AUTOMATED 130 10^3/uL (150-450); RED BLOOD COUNT 4.44 10^6/uL (4.30-6.10); WHITE BLOOD COUNT 13.2 10^3/uL (4.0-10.0)
[2018-10-16 18:58] LABS: INR 1.06; PARTIAL THROMBOPLASTIN TIME 28.5 SECONDS (25.4-37.6)
[2018-10-16 19:07] LABS: BLOOD UREA NITROGEN 28 MG/DL (7-18); CALCIUM LEVEL 8.8 MG/DL (8.8-10.2); CARBON DIOXIDE LEVEL 23 MEQ/L (21-32); CHLORIDE LEVEL 110 MEQ/L (98-107); CPK CREATINE PHOSPHOKINASE 171 U/L (39-308); CREATININE FOR GFR 1.12 MG/DL (0.70-1.30); GLOMERULAR FILTRATION RATE > 60.0 (>42); GLUCOSE, FASTING 136 MG/DL (70-100); MB/CK RELATIVE INDEX 1.17 (< OR =4); POTASSIUM SERUM 4.1 MEQ/L (3.5-5.1); SODIUM LEVEL 141 MEQ/L (136-145); TROPONIN I < 0.02 NG/ML (< 0.10)
--- NOTE | 2018-10-16 19:23 | REP ---
Clinical: Trauma. Technique: AP and cross-table lateral views of the femur. Findings: There is a minimally displaced transverse fracture through the femoral neck. Age-related osteopenia and degenerative changes are noted throughout the visualized left hip. Impression: Transverse minimally displaced femoral neck fracture. Electronically Signed by Juan Antonio Proctor MD 10/16/2018 07:15 P
[2018-10-16] MEDS ORDERED: NS 1,000 ML IV SCH (20:06)
[2018-10-16] MEDS ORDERED: BISACODYL 5 MG TAB PO PRN (20:15)
[2018-10-16] MEDS ORDERED: BISACODYL 10 MG SUPP PR PRN (20:15)
[2018-10-16] MEDS ORDERED: ONDANSETRON 4MG/2ML VIAL (J2405) IV PRN (20:15)
--- NOTE | 2018-10-16 20:37 | HPEPDOC ---
[facility] Medical History & Physical Date of Admission Oct 16, 2018 Attending Physician: TERI LOPES MD History and Physical CHIEF COMPLAINT: [Left hip pain] HISTORY OF PRESENT ILLNESS: [78-year-old gentleman was in a few past medical history of Parkinson's disease only who had right hip fracture in the past status post surgical intervention who presented today after falling in complaining of left hip pain. Patient was going to his wall to adjust his furnace on the wall monitor when he fell and landed on the left side. Subsequently he had pain on this left side therefore came to the emergency room for further evaluation. Patient denies of any precipitating factors such as chest pain, shortness of breath, dizziness, headache, or any pain demented contributed to this. Patient also denies of any prodrome illness recently the chest fever, cough, abdominal pain, diarrhea or dysuria admitted injury to his fall today. Patient does usually template with a walker. He believes that he just had a mechanical fall due to loss of balance. Patient today had physical therapy which she uses 2-3 times a week. Patient on occasion will have shortness of breath versus with severe activity at PT but otherwise no complaint of chest pain. Patient states that he tolerates going to physical therapy without any difficulty. Patient denies any history of stroke, denies of any diabetes, denies of any CVA, denies of any CHF history, and also denies of any renal dysfunction. Patient does not smoke. Currently patient is resting comfortably in the emergency room with any complaining of shortness of breath or chest pain. Review system: 12 point review systems negative other than those described in HPI Past medical history: Parkinson Surgical history: Cholecystectomy, right hip fracture status post surgery, eye surgery does not) cataract surgery Social history:Denies of smoking, occasionally will drink but not recent consum ption, denies of any IV drug abuse Family medical history: Noncontributory ALLERGIES: Please see below. HOME MEDICATIONS: Please see below. PHYSICAL EXAMINATION: VITAL SIGNS: Please see below GENERAL APPEARANCE: Resting comfortably HEENT: Normocephalic, PERRLA, Mucous moist, CARDIOVASCULAR: S1,S2, pulse present, regularly, regular LUNGS: Equal air entry b/l, no wheezes or crackle ABDOMEN: Soft, BS present, no tenderness, no guarding EXTREMITIES: B/L minimal trace edema, capillary refill present SKIN: Warm, No fever NEUROLOGICAL: Cranial nerves grossly intact PSYCHIATRIC: Normal mood and affect for current situation, granddaughter at the bedside HOME MEDICATIONS: Please see below. LABORATORY DATA: See below. IMAGING: [CXR:No acute cardiopulmonary process appreciated. Left femur xray:Transverse minimally displaced femoral neck fracture. Hip/pelvic fracture Transverse minimally displaced fracture through the left femoral neck and possible nondisplaced fracture of the left greater trochanter. EKG: Heart rate of 100, sinus tachycardia, right bundle branch block, LVH MICROBIOLOGY: Please see below. Assessment and plan Pleasant 78-year-old gentleman with only past medical history of Parkinson and is currently in physical therapy 2-3 times a week (had physical therapy today) to see who had a mechanical fall resulting in the left hip fracture. Left hip fracture Further management as per Dr. Chrsi orthopedic surgeon Plan for surgery 10/17/2018 Nothing by mouth after midnight Patient able to work with physical therapy 2-3 times a week and had PT today Patient no history of CVA, diabetes, CAD, CHF, renal dysfunction, nonsmoker Patient medically optimized but this possible for this low to moderate risk patient for intermediate surgery Hold asa, defer anti-coagulant to ortho HTN treat pain Murillo PRN hydralazine Parkinson Resume home regimen DVT prophylaxis as per surgery Vital Signs Vital Signs Date Time Temp Pulse Resp B/P (MAP) Pulse Ox O2 Delivery O2 Flow Rate FiO2 10/16/18 19:00 101 20 172/79 (110) 96 Room Air 10/16/18 17:36 96.2 Laboratory Data Labs 24H Laboratory Tests 2 10/16/18 18:33: Immature Granulocyte % (Auto) 0.5, White Blood Count 13.2H, Red Blood Count 4.44, Hemoglobin 14.3, Hematocrit 41.5L, Mean Corpuscular Volume 93.5, Mean Corpuscular Hemoglobin 32.2, Mean Corpuscular Hemoglobin Concent 34.5, Red Cell Distribution Width 12.3, Platelet Count 130L, Neutrophils (%) (Auto) 88.6H, Lymphocytes (%) (Auto) 5.8L, Monocytes (%) (Auto) 4.7, Eosinophils (%) (Auto) 0.2, Basophils (%) (Auto) 0.2, Neutrophils # (Auto) 11.7H, Lymphocytes # (Auto) 0.8L, Monocytes # (Auto) 0.6, Eosinophils # (Auto) 0.0, Basophils # (Auto) 0.0, Nucleated Red Blood Cells % (auto) 0.0, Prothrombin Time 14.0, Prothromb Time International Ratio 1.06, Activated Partial Thromboplast Time 28.5, Anion Gap 8, Glomerular Filtration Rate > 60.0, Blood Urea Nitrogen 28H, Creatinine 1.12, Sodium Level 141, Potassium Level 4.1, Chloride Level 110H, Carbon Dioxide Level 23, Calcium Level 8.8, Total Creatine Kinase 171, Creatine Kinase MB 2.0, Creatine Kinase MB Relative Index 1.17, Troponin I < 0.02 CBC/BMP Laboratory Tests 10/16/18 18:33 Red Blood Count 4.44, Mean Corpuscular Volume 93.5, Mean Corpuscular Hemoglobin 32.2, Mean Corpuscular Hemoglobin Concent 34.5, Red Cell Distribution Width 12.3, Neutrophils (%) (Auto) 88.6 H, Lymphocytes (%) (Auto) 5.8 L, Monocytes (%) (Auto) 4.7, Eosinophils (%) (Auto) 0.2, Basophils (%) (Auto) 0.2, Neutrophils # (Auto) 11.7 H, Lymphocytes # (Auto) 0.8 L, Monocytes # (Auto) 0.6, Eosinophils # (Auto) 0.0, Basophils # (Auto) 0.0, Calcium Level 8.8, Total Creatine Kinase 171 Home Medications Scheduled (Multi Vitamin Daily) 1 Tab Tab, 1 TAB PO DAILY Aspirin (Aspir-81) 81 Mg Tab, 81 MG PO DAILY Carbidopa/Levodopa (Carbidopa/Levodopa 25-100 mg) 1 Tab Tab, 2 TAB PO 5XD TAKES AT 0700/1000/1300/1500/1900 Cholecalciferol (Vitamin D-3) 2,000 Unit Tab, 2,000 UNIT PO DAILY Coenzyme Q10 (Co Q 10) 10 Mg Cap, 40 MG PO DAILY Allergies Coded Allergies: No Known Drug Allergy (Verified Allergy, Unknown, 01/24/13) ROGERS JEAN MD Oct 16, 2018 20:37
[2018-10-16] MEDS: MORPHINE 4 MG/ML 1ML VIAL/SYRINGE (J2270) IV PRN ×2 (20:53→23:21)
[2018-10-16 21:20] VITALS: BP 157/96
[2018-10-16] MEDS: hydrALAZINE INJ 20 MG/ML VIAL IV PRN (22:03)
[2018-10-16 22:22] VITALS: BP 142/74
[2018-10-16] MEDS: ACETAMINOPHEN TAB 650MG DOSE (2X325MG) PO PRN (22:42)
[2018-10-16] MEDS ORDERED: VITA200038 PO (23:12)
[2018-10-16] MEDS ORDERED: ASPI81TA85 PO (23:12)
[2018-10-16] MEDS ORDERED: CO Q10CA PO (23:12)
[2018-10-17] VITALS (12 sets, daily range): BP systolic 126–178; BP diastolic 68–98
[2018-10-17] MEDS: MORPHINE 4 MG/ML 1ML VIAL/SYRINGE (J2270) IV PRN ×5 (03:48→14:49)
[2018-10-17] MEDS: hydrALAZINE INJ 20 MG/ML VIAL IV PRN ×2 (05:24→22:50)
[2018-10-17 05:54] LABS: HEMATOCRIT 41.8 % (42.0-52.0); HEMOGLOBIN 13.9 g/dl (13.5-17.5); MEAN CORPUSCULAR HEMOGLOBIN 31.7 pg (27.0-33.0); MEAN CORPUSCULAR HGB CONC 33.3 g/dl (32.0-36.5); MEAN CORPUSCULAR VOLUME 95.4 fl (80.0-96.0); PLATELET COUNT, AUTOMATED 114 10^3/uL (150-450); RED BLOOD COUNT 4.38 10^6/uL (4.30-6.10); WHITE BLOOD COUNT 9.5 10^3/uL (4.0-10.0)
[2018-10-17] MEDS: SINEMET 25-100 MG TAB PO SCH ×5 (06:00→23:16)
[2018-10-17 06:14] LABS: BLOOD UREA NITROGEN 26 MG/DL (7-18); CALCIUM LEVEL 8.7 MG/DL (8.8-10.2); CARBON DIOXIDE LEVEL 24 MEQ/L (21-32); CHLORIDE LEVEL 109 MEQ/L (98-107); CREATININE FOR GFR 0.94 MG/DL (0.70-1.30); GLOMERULAR FILTRATION RATE > 60.0 (>42); GLUCOSE, FASTING 120 MG/DL (70-100); POTASSIUM SERUM 3.8 MEQ/L (3.5-5.1); SODIUM LEVEL 141 MEQ/L (136-145)
[2018-10-17] MEDS: ACETAMINOPHEN TAB 650MG DOSE (2X325MG) PO PRN (06:40)
--- NOTE | 2018-10-17 09:00 | REP ---
Clinical: Evaluate for possible fracture of the greater trochanter. Technique: Axial noncontrast images through the left hip with coronal and sagittal re-formations. Findings: There is a transverse minimally angulated fracture through the femoral neck. Underlying age-related osteodystrophy and degenerative changes are appreciated. There is no fracture of the greater trochanter and the suspected nondisplaced fracture of the greater trochanter on initial x-ray evaluation likely represented irregular lucency and cortical irregularities related to underlying arthritic changes and overlying soft tissue densities. The surrounding musculature and soft tissues of the hip are essentially intact and there is no obvious significant hematoma. Incidental note is made of a fat containing left inguinal hernia extending into the left silvia scrotum. Moderate fecal impaction at the rectum which is distended to approximately 7.1 cm noted along with Murillo catheter in collapsed bladder. Impression: Mildly angulated transverse fracture through the femoral neck. Underlying osteopenia and degenerative changes noted. No evidence for greater trochanter fracture to the proximal femur. Electronically Signed by Juan Antonio Proctor MD 10/17/2018 08:51 A
--- NOTE | 2018-10-17 13:09 | ECGEPIP ---
Stationary ECG Study [facility] - ED Test Date: 2018-10-16 Pat Name: MILEY RICHARDSON Department: Room: [place] [address] Gender: M [place] Man: clarice : [id number] Requested By: Marcello Calderón Order Number: [id number] Reading MD: Marcello Hernandez Measurements Intervals [place] Rate: 100 P: 23 [place]: 194 QRS: -47 QRSD: 170 T: -23 QT: 380 QTc: 492 Interpretive Statements SINUS TACHYCARDIA RIGHT BUNDLE BRANCH BLOCK LEFT ANTERIOR FASCICULAR BLOCK MINIMAL VOLTAGE CRITERIA FOR LVH, CONSIDER NORMAL VARIANT SIMILAR TO 10/28/17 Electronically Signed On 10-17-2018 13:08:37 EST by Marcello Hernandez
--- NOTE | 2018-10-17 13:51 | IPNPDOC ---
Subjective Date Seen The patient was seen on 10/17/18. Subjective Chief Complaint/HPI Patient seen and examined at bedside. Reports that his left hip pain is relatively well controlled. He is scheduled for the OR at some point today. Objective Physical Examination General Exam: Positive: Alert, Cooperative, No Acute Distress ENT Exam: Positive: Atraumatic, Mucous membr. moist/pink Neck Exam: Negative: JVD Chest Exam: Positive: Clear to auscultation, Normal air movement Heart Exam: Positive: Rate Normal, Normal S1, Normal S2 Abdomen Exam: Positive: Soft; Negative: Tenderness Extremity Exam: Positive: Other (left hip with limited range of motion secondary to fracture. Extremity neurovascularly intact distally.) Assessment /Plan Plan/VTE VTE Prophylaxis Ordered?: Yes Plan Left hip fracture 2/2 Mechanical Fall Surgical Intervention, DVT Prophylaxis, and Pain mgmt as per Ortho HTN Cont regimen as ordered Parkinson Resume home regimen DVT prophylaxis As per surgery VS, I&O, 24H, Fishbone Vital Signs/I&O Vital Signs Date Time Temp Pulse Resp B/P (MAP) Pulse Ox O2 Delivery O2 Flow Rate FiO2 10/17/18 11:21 18 Room Air 10/17/18 08:44 95.0 10/17/18 08:00 97.9 93 158/76 (103) 95 I&O- Last 24 Hours up to 6 AM 10/17/18 06:00 Intake Total 220 ml Output Total 350 ml Balance -130 ml Laboratory Data 24H LABS Laboratory Tests 2 10/16/18 18:33: Immature Granulocyte % (Auto) 0.5, White Blood Count 13.2H, Red Blood Count 4.44, Hemoglobin 14.3, Hematocrit 41.5L, Mean Corpuscular Volume 93.5, Mean Co rpuscular Hemoglobin 32.2, Mean Corpuscular Hemoglobin Concent 34.5, Red Cell Distribution Width 12.3, Platelet Count 130L, Neutrophils (%) (Auto) 88.6H, Lymphocytes (%) (Auto) 5.8L, Monocytes (%) (Auto) 4.7, Eosinophils (%) (Auto) 0.2, Basophils (%) (Auto) 0.2, Neutrophils # (Auto) 11.7H, Lymphocytes # (Auto) 0.8L, Monocytes # (Auto) 0.6, Eosinophils # (Auto) 0.0, Basophils # (Auto) 0.0, Nucleated Red Blood Cells % (auto) 0.0, Prothrombin Time 14.0, Prothromb Time International Ratio 1.06, Activated Partial Thromboplast Time 28.5, Anion Gap 8, Glomerular Filtration Rate > 60.0, Blood Urea Nitrogen 28H, Creatinine 1.12, Sodium Level 141, Potassium Level 4.1, Chloride Level 110H, Carbon Dioxide Level 23, Calcium Level 8.8, Total Creatine Kinase 171, Creatine Kinase MB 2.0, Creatine Kinase MB Relative Index 1.17, Troponin I < 0.02 10/17/18 05:20: Nucleated Red Blood Cells % (auto) 0.0, Anion Gap 8, Glomerular Filtration Rate > 60.0, Blood Urea Nitrogen 26H, Creatinine 0.94, Sodium Level 141, Potassium Level 3.8, Chloride Level 109H, Carbon Dioxide Level 24, Calcium Level 8.7L CBC/BMP Laboratory Tests 10/16/18 18:33 Red Blood Count 4.44, Mean Corpuscular Volume 93.5, Mean Corpuscular Hemoglobin 32.2, Mean Corpuscular Hemoglobin Concent 34.5, Red Cell Distribution Width 12.3, Neutrophils (%) (Auto) 88.6 H, Lymphocytes (%) (Auto) 5.8 L, Monocytes (%) (Auto) 4.7, Eosinophils (%) (Auto) 0.2, Basophils (%) (Auto) 0.2, Neutrophils # (Auto) 11.7 H, Lymphocytes # (Auto) 0.8 L, Monocytes # (Auto) 0.6, Eosinophils # (Auto) 0.0, Basophils # (Auto) 0.0, Calcium Level 8.8, Total Creatine Kinase 171 10/17/18 05:20 Red Blood Count 4.38, Mean Corpuscular Volume 95.4, Mean Corpuscular Hemoglobin 31.7, Mean Corpuscular Hemoglobin Concent 33.3, Red Cell Distribution Width 12.4, Calcium Level 8.7 L TERI LOPES MD Oct 17, 2018 13:51
[2018-10-17] MEDS ORDERED: NS 1,000 ML IV SCH (16:30)
[2018-10-17] MEDS ORDERED: BUPIVACAINE/EPIN 0.25% 30 ML VIAL As Ordered ONE (18:02)
[2018-10-17] MEDS ORDERED: EPINEPHrine INJ 1 MG/ML 1ML AMP As Ordered ONE ×2 (18:02→19:39)
[2018-10-17] MEDS ORDERED: ceFAZolin 1GM INJ (J0690 PER 500MG) As Ordered ONE (18:02)
[2018-10-17] MEDS ORDERED: TRANEXAMIC ACID 100 MG/ML 10ML VIAL As Ordered ONE (18:02)
[2018-10-17] MEDS ORDERED: LIDOCAINE 2% INJ 100 MG/5 ML SDV (FOR ANES.) As Ordered ONE (18:55)
[2018-10-17] MEDS ORDERED: PROPOFOL 200 MG/20 ML VIAL As Ordered ONE (18:55)
[2018-10-17] MEDS ORDERED: KETAMINE HCL 200 MG/20 ML VIAL As Ordered ONE (18:55)
[2018-10-17] MEDS ORDERED: MIDAZOLAM INJ 2 MG/2 ML VIAL (J2250) As Ordered ONE (18:55)
[2018-10-17] MEDS ORDERED: fentaNYL 100 MCG/2 ML INJECTION (J3010) As Ordered ONE (18:55)
[2018-10-17] MEDS ORDERED: BUPIVACAINE HCL 0.5% 30 ML VIAL As Ordered ONE (19:32)
[2018-10-17] MEDS ORDERED: HYDROMORPHONE HCL 0.5 MG/ 0.5 ML SYRINGE (J1170 PER 1) IV PRN (21:00)
[2018-10-17] MEDS ORDERED: PERCOCET 5MG/325MG TAB PO PRN (21:00)
[2018-10-17] MEDS ORDERED: ONDANSETRON 4MG/2ML VIAL (J2405) IV PRN (21:00)
[2018-10-17] MEDS ORDERED: LR 1,000 ML IV SCH (21:00)
[2018-10-17] MEDS ORDERED: fentaNYL 100 MCG/2 ML INJECTION (J3010) IV PRN (21:00)
[2018-10-17] MEDS: NS 1,000 ML IV SCH (21:45)
[2018-10-18] VITALS (9 sets, daily range): BP systolic 92–148; BP diastolic 60–78
[2018-10-18] MEDS: PERCOCET 5MG/325MG TAB PO PRN ×4 (00:21→19:26)
[2018-10-18] MEDS: ceFAZolin SOD 1 GM in D5W MINI-BAG PLUS 50 ML IV SCH ×2 (02:00→09:35)
[2018-10-18 02:42] LABS: APPEARANCE, URINE CLEAR (CLEAR); BACTERIA, URINE AUTO NEGATIVE (NEGATIVE); BILIRUBIN, URINE AUTO NEGATIVE (NEGATIVE); BLOOD, URINE BLOOD 1+ (NEGATIVE); COLOR, URINE AMBER (YELLOW); GLUCOSE, URINE (UA) AUTO NEGATIVE (NEGATIVE); KETONE, URINE AUTO 1+ mg/dL (NEGATIVE); LEUKOCYTE ESTERASE, URINE AUTO NEGATIVE (NEGATIVE); MUCUS, URINE SMALL (NEGATIVE); NITRITE, URINE AUTO NEGATIVE (NEGATIVE); PROTEIN, URINE AUTO 1+ mg/dL (NEGATIVE); RBC, URINE AUTO 27 /HPF (0-3); SQUAMOUS EPITHELIAL CELL UR AU 0 /HPF (0-6); UROBILINOGEN, URINE AUTO 0.2 mg/dL (0.0-2.0); WBC, URINE AUTO 4 /HPF (0-3)
[2018-10-18 06:04] LABS: HEMATOCRIT 36.8 % (42.0-52.0); HEMOGLOBIN 12.1 g/dl (13.5-17.5); MEAN CORPUSCULAR HEMOGLOBIN 32.3 pg (27.0-33.0); MEAN CORPUSCULAR HGB CONC 32.9 g/dl (32.0-36.5); MEAN CORPUSCULAR VOLUME 98.1 fl (80.0-96.0); PLATELET COUNT, AUTOMATED 104 10^3/uL (150-450); RED BLOOD COUNT 3.75 10^6/uL (4.30-6.10); WHITE BLOOD COUNT 10.4 10^3/uL (4.0-10.0)
[2018-10-18] MEDS: SINEMET 25-100 MG TAB PO SCH ×5 (06:14→20:17)
[2018-10-18 06:25] LABS: BLOOD UREA NITROGEN 21 MG/DL (7-18); CALCIUM LEVEL 8.1 MG/DL (8.8-10.2); CARBON DIOXIDE LEVEL 22 MEQ/L (21-32); CHLORIDE LEVEL 111 MEQ/L (98-107); CREATININE FOR GFR 0.95 MG/DL (0.70-1.30); GLOMERULAR FILTRATION RATE > 60.0 (>42); GLUCOSE, FASTING 102 MG/DL (70-100); POTASSIUM SERUM 3.7 MEQ/L (3.5-5.1); SODIUM LEVEL 142 MEQ/L (136-145)
--- NOTE | 2018-10-18 08:01 | REP ---
Clinical: Status post arthroplasty. Technique: AP and cross-table lateral views. Findings: The patient is status post left hip replacement with normal positioning and appearance to the femoral and acetabular components. Overlying postsurgical changes appreciated. Impression: Satisfactory left hip replacement radiographs. Electronically Signed by Juan Antonio Proctor MD 10/18/2018 07:52 A
--- NOTE | 2018-10-18 08:28 | HPE ---
DATE OF ADMISSION: 10/16/2018 CHIEF COMPLAINT: Left hip pain. HISTORY OF PRESENT ILLNESS: The patient at about 2:30 this afternoon fell at home, tripped over some carpet injuring his left hip. He was unable to bear weight after that and the caregiver called the ambulance and brought him to [facility]. He is complaining of pain isolated to the left hip joint. He has significant Parkinson's disease but he does typically ambulate at home with the use of a walker. PAST MEDICAL HISTORY: As above. PAST SURGICAL HISTORY: He had right hip fracture repair approximately 1 year ago and did recover fairly well from that. Additionally, he has had eye surgery and gallbladder surgery. MEDICATIONS: He takes a combination levodopa/carbidopa 25/100. ALLERGIES: None known. SOCIAL HISTORY: Denies tobacco or alcohol use currently. His white blood cell count is slightly elevated at 13.2, a hemoglobin 14.3, hematocrit of 41.5, platelets of 130. INR 1.06. EXAMINATION: He is awake, alert and oriented times three, resting comfortably in bed. His speech is quite slow typical with Parkinson's but there is no sign of dementia or change in his mental status. Cardiovascular: Regular rate and rhythm. Pulmonary: No increased work of breathing. Abdomen is soft, nontender, nondistended. Focus examination of the left lower extremity there is swelling and low grade tenderness about the left hip joint. Distally he has 2+ dorsalis pedis and posterior tibialis pulse with sensation intact to light touch in all of his toes. He is able to dorsiflex and plantar flex his left foot freely, somewhat limited due to his Parkinson's but at his baseline. The ipsilateral thigh, knee, leg and foot is grossly nontender and atraumatic and he does have a positive log roll on the left. The right lower extremity negative log roll, negative heel tap. He is grossly neurovascular intact into the right foot. The bilateral upper extremities, he is moving his shoulders, elbow, wrist and hand at his baseline. Cervical spine range of motion is full normal and pain free. X-rays of the pelvis and left hip show displaced left femoral neck fracture. There is postsurgical changes on the right hip consistent with fracture repair with slight varus deformity with no acute fracture seen there. It does appear to be well remodeled. Additionally on the left hip, there is suggestion of a possible nondisplaced fracture of the tip of the greater trochanter. Left femur x-rays otherwise negative. ASSESSMENT: Left femoral neck fracture. Patient with Parkinson's disease. PLAN: Discussion with the hospitalist, they will admit the patient. He should be medically cleared to proceed forward with surgery. They will manage his medical issues as well. I discussed the risks and benefits of operative and nonoperative management with the patient as well as this caregivers and one of his daughters and he has elected to go forward with left hip hemiarthroplasty to optimize his chances for good pain control and the ability to mobilize again back to his baseline using the walker. He is not n.p.o. and so the plan is that he will be kept n.p.o. past midnight and will proceed with surgical planning possibly for tomorrow or as soon as possible. All of his questions were answered and he is satisfied with the treatment at this time.
[2018-10-18] MEDS: MORPHINE 4 MG/ML 1ML VIAL/SYRINGE (J2270) IV PRN ×2 (09:36→16:33)
[2018-10-18] MEDS: MOM 30ML SUSPENSION UDC PO SCH (09:37)
[2018-10-18] MEDS: SENOKOT S TAB PO SCH ×2 (09:37→20:24)
[2018-10-18] MEDS: MIRALAX *UNIT DOSE* 17GM PACKET PO SCH (09:37)
[2018-10-18] MEDS: NS 1,000 ML IV SCH ×2 (09:38→19:59)
--- NOTE | 2018-10-18 14:40 | HPE ---
DATE OF ADMISSION: 10/16/2018 CHIEF COMPLAINT: Left hip pain status post fall. HISTORY OF PRESENT ILLNESS: The patient on the day of admission to the hospital tripped at home on a rug. Following this, he was unable to bear weight and he was brought promptly into the emergency room by his caregiver. He does have 24-hour care due to significant Parkinson's disease and was brought in complaining of pain isolated left hip joint. X-rays were obtained which diagnosed a left femoral neck fracture and I was contacted for evaluation to see the patient promptly. Yesterday, I did dictate a note as well at that time, but this appears to have been lost in the dictation system and so this is a back up dictation to that. On my examination, yesterday, the patient was complaining of pain isolated to the left hip joint. No other active complaints. He typically is an ambulator at home with the use of a walker. PAST MEDICAL HISTORY: Significant for Parkinson's disease. PAST SURGICAL HISTORY: He has had eye surgery, gallbladder and additionally had a right hip fracture repair approximately 1 year ago and he did recover fairly well from that. MEDICATIONS: He takes combination levodopa/carbidopa. ALLERGIES: No known drug allergies. SOCIAL HISTORY: Denies tobacco or alcohol use. EXAMINATION Awake, alert and oriented times three, well-appearing male. He does have advanced Parkinson's and communication is quite difficult, but he is at his baseline mental status with no significant dementia at this time as confirmed by his caregiver and his daughter. CARDIOVASCULAR: Regular rate and rhythm. PULMONARY: No increased work of breathing. ABDOMEN: Soft, nontender, nondistended. FOCUSED EXAMINATION OF LEFT LOWER EXTREMITY: There is pain and tenderness and low grade swelling about the left hip joint. The left lower extremity is held in a somewhat shortened externally rotated position. Distally he has 2+ dorsalis pedis and posterior tibialis pulse with sensation intact to light touch and less than 2 seconds capillary refill on all of his toes. He is able to dorsiflex and plantar flex his foot, somewhat limited due to his Parkinson's disease, but does appear to be neurovascularly intact in the left lower extremity. The right lower extremity is quite rigid and stiff, but fairly pain free log roll and heel tap and there is no tenderness about the right hip joint at his previous surgical site. The pelvis is stable. BILATERAL UPPER EXTREMITY EXAMINATION: He is grossly moving his bilateral upper extremities at baseline freely and without obvious pain. Cervical spine range of motion is full, normal and pain free. X-rays and CT scan of the left hip show a displaced femoral neck fracture. Followup CT scan did show no evidence of greater trochanteric fracture. There are postsurgical changes on the right consistent with cephalomedullary nailing with abundant remodeling and callus formation. ASSESSMENT: Left femoral neck fracture in a patient with Parkinson's disease. PLAN: The patient was admitted on the day of presentation to the hospital by the hospitalist, Dr. Ernst who did medically optimize the patient and her note is available for review in the electronic medical record. He was kept n.p.o. overnight and I did discuss the risks and benefits of operative and nonoperative management with the patient as well as his caregiver and his daughter. He did sign the surgical consent electing to go forward with left hip cemented hemiarthroplasty and we will proceed forward with that when available.
--- NOTE | 2018-10-18 15:02 | IPNPDOC ---
Subjective Date Seen The patient was seen on 10/18/18. Subjective Chief Complaint/HPI Patient seen and examined at the bedside. Status post surgical intervention by orthopedic team yesterday. No acute overnight events noted. Objective Physical Examination General Exam: Positive: Alert, Cooperative, No Acute Distress ENT Exam: Positive: Atraumatic, Mucous membr. moist/pink Neck Exam: Negative: JVD Chest Exam: Positive: Clear to auscultation, Normal air movement Heart Exam: Positive: Rate Normal, Normal S1, Normal S2 Abdomen Exam: Positive: Soft; Negative: Tenderness Extremity Exam: Positive: Other (left hip with limited range of motion seconda ry to fracture repair. Extremity neurovascularly intact distally.) Assessment /Plan Plan/VTE VTE Prophylaxis Ordered?: Yes Plan Left hip fracture 2/2 Mechanical Fall Post-operative follow up, DVT Prophylaxis, and Pain mgmt as per Ortho HTN Cont regimen as ordered Parkinson Resume home regimen DVT prophylaxis Xarelto as per surgery VS, I&O, 24H, Fishbone Vital Signs/I&O Vital Signs Date Time Temp Pulse Resp B/P (MAP) Pulse Ox O2 Delivery O2 Flow Rate FiO2 10/18/18 14:54 18 10/18/18 12:00 99.9 104 124/76 (92) 95 Room Air 10/17/18 22:40 1.0 I&O- Last 24 Hours up to 6 AM 10/18/18 06:00 Intake Total 2825 ml Output Total 1075 ml Balance 1750 ml Laboratory Data 24H LABS Laboratory Tests 2 10/18/18 02:29: Urine Appearance CLEAR, Urine Color RADHA, Urine pH 5.0, Urine Specific [place] 1.030, Urine Protein 1+H, Urine Glucose (UA) NEGATIVE, Urine Ketones 1+H, Urine Urobilinogen 0.2, Urine Bilirubin NEGATIVE, Urine Leukocyte Esterase NEGATIVE, Urine Blood 1+H, Urine Nitrite NEGATIVE, Urine WBC (Auto) 4H, Urine RBC (Auto) 27H, Urine Hyaline Casts (Auto) 0, Urine Bacteria (Auto) NEGATIVE, Urine Squamous Epithelial Cells 0, Urine Mucus (Auto) SMALL, Urine Sperm (Auto) 10/18/18 05:40: Nucleated Red Blood Cells % (auto) 0.0, Anion Gap 9, Glomerular Filtration Rate > 60.0, Blood Urea Nitrogen 21H, Creatinine 0.95, Sodium Level 142, Potassium Level 3.7, Chloride Level 111H, Carbon Dioxide Level 22, Calcium Level 8.1L CBC/BMP Laboratory Tests 10/18/18 05:40 Red Blood Count 3.75 L, Mean Corpuscular Volume 98.1 H, Mean Corpuscular Hemoglobin 32.3, Mean Corpuscular Hemoglobin Concent 32.9, Red Cell Distribution Width 12.5, Calcium Level 8.1 L TERI LOPES MD Oct 18, 2018 15:02
[2018-10-18] MEDS ORDERED: SLF 3 ML SYR IV PRN (16:00)
[2018-10-18] MEDS: RIVAROXABAN 10 MG TAB (XARELTO) PO SCH (16:32)
[2018-10-18 18:19] LABS: APPEARANCE, URINE HAZY (CLEAR); BACTERIA, URINE AUTO NEGATIVE (NEGATIVE); BILIRUBIN, URINE AUTO NEGATIVE (NEGATIVE); BLOOD, URINE BLOOD 1+ (NEGATIVE); COLOR, URINE AMBER (YELLOW); GLUCOSE, URINE (UA) AUTO NEGATIVE (NEGATIVE); KETONE, URINE AUTO 1+ mg/dL (NEGATIVE); LEUKOCYTE ESTERASE, URINE AUTO NEGATIVE (NEGATIVE); MUCUS, URINE SMALL (NEGATIVE); NITRITE, URINE AUTO NEGATIVE (NEGATIVE); PROTEIN, URINE AUTO 1+ mg/dL (NEGATIVE); RBC, URINE AUTO 5 /HPF (0-3); SPECIFIC GRAVITY URINE AUTO 1.025 (1.002-1.035); SQUAMOUS EPITHELIAL CELL UR AU 0 /HPF (0-6); UROBILINOGEN, URINE AUTO 0.2 mg/dL (0.0-2.0); WBC, URINE AUTO 2 /HPF (0-3)
[2018-10-18] MEDS ORDERED: NS 1,000 ML IV ONE (18:30)
[2018-10-18 18:34] LABS: HEMATOCRIT 36.2 % (42.0-52.0); HEMOGLOBIN 12.3 g/dl (13.5-17.5); MEAN CORPUSCULAR HEMOGLOBIN 32.4 pg (27.0-33.0); MEAN CORPUSCULAR VOLUME 95.3 fl (80.0-96.0); WHITE BLOOD COUNT 11.7 10^3/uL (4.0-10.0)
[2018-10-18 18:35] LABS: PLATELET COUNT, AUTOMATED 74 10^3/uL (150-450)
--- NOTE | 2018-10-18 18:38 | IPNPDOC ---
Text Note Date of Service The patient was seen on 10/18/18. NOTE I was paged to patient, because patient had a heart rate of 140 on monitor, with a temperature 101, blood pressure was 92/60. On evaluation patient was arousable, oriented to location and place, however, had difficulty answering other questions. He was lying in bed. He denied any chest pain, denies any breathing issues, denied any cough, denied any nausea and vomiting. PE GENERAL APPEARANCE: Arousable, lying in bed SKIN: Warm, well perfused. ENT: Dry mucous membranes THORAX: Symmetrical. LUNGS: Clear to auscultation bilaterally. HEART: Normal S1, S2. No murmurs, no rubs, no gallops ABDOMEN: Soft. No masses. Bowel sounds are present. EXTREMITIES: Moves all extremities equally. No gross deformities. PULSES: 2+ upper and lower extremity Assessment and plan Patient is a 78-year-old man status post left hip fracture from mechanical fall, status post left hip hemiarthroplasty performed on October 18, by Dr. Torito Chris. , Now presenting with a fever of 101. --EKG showed a rate of 144, that was sinus tachycardia, --Rule out infection with UA (negative), chest x-ray, blood cultures, CBC and BMP have been order -- Lactic acid order --Started on Zosyn for empiric coverage --1 L bolus of normal saline ordered, followed by normal saline. He rate of 100 mL per hour --DVT is unlikely given patients compression stockings, as well as Xarelto -- Use acetaminophen for temperature control. VS,Terabone, I+O VS, Fishbone, I+O Laboratory Tests 10/18/18 05:40 Red Blood Count 3.75 L, Mean Corpuscular Volume 98.1 H, Mean Corpuscular Hemoglobin 32.3, Mean Corpuscular Hemoglobin Concent 32.9, Red Cell Distribution Width 12.5, Calcium Level 8.1 L Vital Signs Date Time Temp Pulse Resp B/P (MAP) Pulse Ox O2 Delivery O2 Flow Rate FiO2 10/18/18 16:33 20 Room Air 10/18/18 16:00 101.1 75 140/62 (88) 91 10/17/18 22:40 1.0 I&O- Last 24 Hours up to 6 AM 10/18/18 06:00 Intake Total 2825 ml Output Total 1075 ml Balance 1750 ml GME ATTESTATION GME ATTESTATION My faculty preceptor for this patient encounter was physically present during the encounter and was fully available. All aspects of the patient interview, examination, medical decision making process, and medical care plan development were reviewed and approved by the faculty preceptor. The faculty preceptor is aware and concurs with the plan as stated in the body of this note and will attest to such by his/her cosignature. PHIL RIOJAS DO Oct 18, 2018 18:38
--- NOTE | 2018-10-18 19:04 | REP ---
Clinical: Fever. Comparison: 10/16/2018. Findings: Examination is limited by portable technique, underpenetration, and poor inspiratory effort which accentuate the pulmonary vasculature and interstitium. As such, pulmonary vascular congestion and interstitial edema cannot definitively be excluded. No effusion. No obvious consolidation. No pneumothorax. Skeletal structures intact. Impression: Limited examination. No obvious acute process. Electronically Signed by Juan Antonio Proctor MD 10/18/2018 06:55 P
[2018-10-18 19:07] LABS: BLOOD UREA NITROGEN 19 MG/DL (7-18); CALCIUM LEVEL 8.5 MG/DL (8.8-10.2); CARBON DIOXIDE LEVEL 20 MEQ/L (21-32); CHLORIDE LEVEL 109 MEQ/L (98-107); CREATININE FOR GFR 1.04 MG/DL (0.70-1.30); GLOMERULAR FILTRATION RATE > 60.0 (>42); GLUCOSE, FASTING 107 MG/DL (70-100); SODIUM LEVEL 139 MEQ/L (136-145)
[2018-10-18] MEDS: PIPERACILLIN/TAZOBACTAM SOD 3.375 GM in D5W MINI-BAG PLUS 50 ML IV SCH (20:17)
[2018-10-18] MEDS: SLF 3 ML SYR IV SCH (21:56)
[2018-10-19] VITALS (7 sets, daily range): BP systolic 112–150; BP diastolic 57–84
[2018-10-19] MEDS: PIPERACILLIN/TAZOBACTAM SOD 3.375 GM in D5W MINI-BAG PLUS 50 ML IV SCH ×2 (00:04→06:03)
[2018-10-19] MEDS: SLF 3 ML SYR IV SCH ×3 (05:27→21:54)
[2018-10-19] MEDS: SINEMET 25-100 MG TAB PO SCH ×5 (06:03→18:22)
--- NOTE | 2018-10-19 07:28 | ECGEPIP ---
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
--- NOTE | 2018-10-19 08:17 | IPNPDOC ---
Date Seen The patient was seen on 10/19/18. Progress Note Orthopedic post op consult note Procedure: L hip hemiarthroplasty DOS 17 Oct 2018 SUBJECTIVE: Patient is a 78 y/o male s/p above procedure. Yesterday patient had a one time temperature of 101.1 F and was placed on broad spectrum antibiotics and had fever workup which is pending. Patient denies any increased pain to the left hip, and has no acute complaints this morning. OBJECTIVE PHYSICAL EXAMINATION: VITAL SIGNS: Please see below. GENERAL: Lying comfortably in bed, no acute complaints CARDIOVASCULAR: RRR, 2+ DP/PT pulse LLE. RESPIRATORY: nonlabored breathing. EXTREMITIES: L hip dressing in place, c/d/i. No surrounding erythema or drainage. No induration. Able to independently flex/extend toes. LABORATORY DATA, IMAGING STUDIES, MICROBIOLOGY: Please see below. DVT prophylaxis ordered?: yes ASSESSMENT: This is a 78 y/o male s/p above procedure, with one measured temp 101 F in acute post op phase. This likely represents an acute phase inflammatory response and not a post op infection Recommendations: 1. Recommend discontinuing antibiotics unless there is a confirmed alternate source of infection. Temperature up to 101.6 in acute postop phase is normal and extremely unlikely to represent an acute post op infection with a normal looking wound. 2. Recommend against any advanced imaging of hip. This is a normal acute phase reaction and should normalize 3. WBAT LLE 4. Daily PT as prescribed 5. Will continue to follow peripherally while in house. Staple removal required in 10-14 days DISPOSITION: Discharge per medicine team when criteria met. VS, I&O, 24H, Fishbone Vital Signs/I&O Vital Signs Date Time Temp Pulse Resp B/P (MAP) Pulse Ox O2 Delivery O2 Flow Rate FiO2 10/19/18 06:11 2.0 10/19/18 04:10 20 10/19/18 04:00 99.3 94 150/84 (106) 96 Nasal Cannula I&O- Last 24 Hours up to 6 AM 10/19/18 06:00 Intake Total 1530 ml Output Total 1325 ml Balance 205 ml Laboratory Data 24H LABS Laboratory Tests 2 10/18/18 18:02: Urine Appearance HAZY, Urine Color RADHA, Urine pH 5.0, Urine Specific [place] 1.025, Urine Protein 1+H, Urine Glucose (UA) NEGATIVE, Urine Ketones 1+H, Urine Urobilinogen 0.2, Urine Bilirubin NEGATIVE, Urine Leukocyte Esterase NEGATIVE, Urine Blood 1+H, Urine Nitrite NEGATIVE, Urine WBC (Auto) 2, Urine RBC (Auto) 5H, Urine Hyaline Casts (Auto) 0, Urine Bacteria (Auto) NEGATIVE, Urine Squamous Epithelial Cells 0, Urine Mucus (Auto) SMALL, Urine Sperm (Auto) 10/18/18 18:22: Nucleated Red Blood Cells % (auto) 0.0, Immature Platelet Fraction 1.2, Anion Gap 10, Glomerular Filtration Rate > 60.0, Blood Urea Nitrogen 19H, Creatinine 1.04, Sodium Level 139, Potassium Level 4.0, Chloride Level 109H, Carbon Dioxide Level 20L, Calcium Level 8.5L 10/18/18 18:24: Lactic Acid Level 1.8 CBC/BMP Laboratory Tests 10/18/18 18:22 Red Blood Count 3.80 L, Mean Corpuscular Volume 95.3, Mean Corpuscular Hemoglobin 32.4, Mean Corpuscular Hemoglobin Concent 34.0, Red Cell Distribution Width 12.7, Calcium Level 8.5 L Microbiology Microbiology 10/18/18 Blood Culture, Received Pending 10/18/18 Respiratory Virus Panel (PCR) (NADINE) - Final, Complete PITA VENTURA MD Oct 19, 2018 08:08
[2018-10-19] MEDS: MOM 30ML SUSPENSION UDC PO SCH (09:00)
[2018-10-19] MEDS: MIRALAX *UNIT DOSE* 17GM PACKET PO SCH (09:00)
[2018-10-19] MEDS: SENOKOT S TAB PO SCH ×2 (09:00→21:54)
[2018-10-19] MEDS: NS 1,000 ML IV SCH (09:15)
[2018-10-19 09:27] LABS: HEMOGLOBIN 10.8 g/dl (13.5-17.5); MEAN CORPUSCULAR HEMOGLOBIN 32.2 pg (27.0-33.0); MEAN CORPUSCULAR HGB CONC 33.8 g/dl (32.0-36.5); MEAN CORPUSCULAR VOLUME 95.5 fl (80.0-96.0); PLATELET COUNT, AUTOMATED 102 10^3/uL (150-450); RED BLOOD COUNT 3.35 10^6/uL (4.30-6.10)
[2018-10-19 09:47] LABS: BLOOD UREA NITROGEN 16 MG/DL (7-18); CALCIUM LEVEL 8.1 MG/DL (8.8-10.2); CARBON DIOXIDE LEVEL 21 MEQ/L (21-32); CHLORIDE LEVEL 111 MEQ/L (98-107); CREATININE FOR GFR 0.94 MG/DL (0.70-1.30); GLOMERULAR FILTRATION RATE > 60.0 (>42); GLUCOSE, FASTING 108 MG/DL (70-100); POTASSIUM SERUM 3.7 MEQ/L (3.5-5.1); SODIUM LEVEL 142 MEQ/L (136-145)
[2018-10-19] MEDS: PERCOCET 5MG/325MG TAB PO PRN ×2 (10:04→18:22)
--- NOTE | 2018-10-19 12:53 | IPNPDOC ---
Subjective Date Seen The patient was seen on 10/19/18. Subjective Chief Complaint/HPI Patient seen and examined at the bedside this morning. He does not offer any acute complaints aside from generalized weakness. He notes that his pain is relatively controlled at this time. Of note, the patient did spike a temperature of 101.1 yesterday, additionally the patient was also noted to be tachycardic with a heart rate of 144, and a blood pressure of 90/60 systolic. A sepsis workup was ordered, the patient was started on empiric antibiotic therapy. However, at this time there has been no focal source of infection identified, and the patient's hemodynamic parameters have normalized. Empiric IV Abx coverage has been discontinued. Objective Physical Examination General Exam: Positive: Alert, Cooperative, No Acute Distress ENT Exam: Positive: Atraumatic, Mucous membr. moist/pink Neck Exam: Negative: JVD Chest Exam: Positive: Clear to auscultation, Normal air movement Heart Exam: Positive: Rate Normal, Normal S1, Normal S2 Abdomen Exam: Positive: Soft; Negative: Tenderness Extremity Exam: Positive: Other (left hip with limited range of motion s econdary to fracture repair. Extremity neurovascularly intact distally.) Assessment /Plan Plan/VTE VTE Prophylaxis Ordered?: Yes Plan Episode of Fever, Tachycardia, Hypotension, and Disorientation of Unclear Etiology, Resolved Sepsis work up unrevealing Patient feeling better this morning, and his hemodynamic parameters, as well as his fever curve has normalized IV Abx therapy has been discontinued Left hip fracture 2/2 Mechanical Fall Post-operative follow up, DVT Prophylaxis, and Pain mgmt as per Ortho HTN Cont regimen as ordered Parkinson Resume home regimen DVT prophylaxis Xarelto as per surgery VS, I&O, [facility] Vital Signs/I&O Vital Signs Date Time Temp Pulse Resp B/P (MAP) Pulse Ox O2 Delivery O2 Flow Rate FiO2 10/19/18 12:02 2.0 10/19/18 12:00 98.6 82 20 132/64 (86) 97 Nasal Cannula I&O- Last 24 Hours up to 6 AM 10/19/18 06:00 Intake Total 1530 ml Output Total 1325 ml Balance 205 ml Laboratory Data 24H LABS Laboratory Tests 2 10/18/18 18:02: Urine Appearance HAZY, Urine Color RADHA, Urine pH 5.0, Urine Specific [place] 1.025, Urine Protein 1+H, Urine Glucose (UA) NEGATIVE, Urine Ketones 1+H, Urine Urobilinogen 0.2, Urine Bilirubin NEGATIVE, Urine Leukocyte Esterase NEGATIVE, Urine Blood 1+H, Urine Nitrite NEGATIVE, Urine WBC (Auto) 2, Urine RBC (Auto) 5H, Urine Hyaline Casts (Auto) 0, Urine Bacteria (Auto) NEGATIVE, Urine Squamous Epithelial Cells 0, Urine Mucus (Auto) SMALL, Urine Sperm (Auto) 10/18/18 18:22: Nucleated Red Blood Cells % (auto) 0.0, Immature Platelet Fraction 1.2, Anion Gap 10, Glomerular Filtration Rate > 60.0, Blood Urea Nitrogen 19H, Creatinine 1.04, Sodium Level 139, Potassium Level 4.0, Chloride Level 109H, Carbon Dioxide Level 20L, Calcium Level 8.5L 10/18/18 18:24: Lactic Acid Level 1.8 10/19/18 08:56: Nucleated Red Blood Cells % (auto) 0.0, Anion Gap 10, Glomerular Filtration Rate > 60.0, Blood Urea Nitrogen 16, Creatinine 0.94, Sodium Level 142, Potassium Level 3.7, Chloride Level 111H, Carbon Dioxide Level 21, Calcium Level 8.1L CBC/BMP Laboratory Tests 10/18/18 18:22 Red Blood Count 3.80 L, Mean Corpuscular Volume 95.3, Mean Corpuscular Hemoglobin 32.4, Mean Corpuscular Hemoglobin Concent 34.0, Red Cell Distribution Width 12.7, Calcium Level 8.5 L 10/19/18 08:56 Red Blood Count 3.35 L, Mean Corpuscular Volume 95.5, Mean Corpuscular Hemoglobin 32.2, Mean Corpuscular Hemoglobin Concent 33.8, Red Cell Distribution Width 12.5, Calcium Level 8.1 L Microbiology Microbiology 10/18/18 Blood Culture, Received Pending 10/18/18 Respiratory Virus Panel (PCR) (NADINE) - Final, Complete TERI LOPES MD Oct 19, 2018 12:53
[2018-10-19] MEDS: RIVAROXABAN 10 MG TAB (XARELTO) PO SCH (18:19)
[2018-10-20] MEDS: PERCOCET 5MG/325MG TAB PO PRN ×3 (02:41→14:25)
[2018-10-20 06:00] VITALS: BP 170/87
[2018-10-20] MEDS: SLF 3 ML SYR IV SCH ×3 (06:00→20:55)
[2018-10-20] MEDS: SINEMET 25-100 MG TAB PO SCH ×5 (06:05→17:29)
[2018-10-20 06:17] LABS: HEMOGLOBIN 10.2 g/dl (13.5-17.5); MEAN CORPUSCULAR HEMOGLOBIN 31.7 pg (27.0-33.0); MEAN CORPUSCULAR HGB CONC 32.9 g/dl (32.0-36.5); MEAN CORPUSCULAR VOLUME 96.3 fl (80.0-96.0); PLATELET COUNT, AUTOMATED 108 10^3/uL (150-450); RED BLOOD COUNT 3.22 10^6/uL (4.30-6.10); WHITE BLOOD COUNT 8.2 10^3/uL (4.0-10.0)
[2018-10-20 06:43] LABS: BLOOD UREA NITROGEN 17 MG/DL (7-18); CALCIUM LEVEL 8.3 MG/DL (8.8-10.2); CARBON DIOXIDE LEVEL 25 MEQ/L (21-32); CHLORIDE LEVEL 110 MEQ/L (98-107); GLOMERULAR FILTRATION RATE > 60.0 (>42); GLUCOSE, FASTING 93 MG/DL (70-100); POTASSIUM SERUM 3.6 MEQ/L (3.5-5.1); SODIUM LEVEL 141 MEQ/L (136-145)
--- NOTE | 2018-10-20 08:36 | IPNPDOC ---
Date Seen The patient was seen on 10/20/18. Progress Note Orthopedic post op consult note Procedure: L hip hemiarthroplasty DOS 17 Oct 2018 SUBJECTIVE: Patient is a 78 y/o male s/p above procedure. Overnight, patient reportedly had episodes of confusion, but no deviation in vital signs. This morning, patient inquiring about length of hospital stay and has concerns about overall treatment course. States no issues with hip. Has not yet gotten up to ambulate. Antibiotics were discontinued yesterday and patient has has no fevers or worsening symptoms. OBJECTIVE PHYSICAL EXAMINATION: VITAL SIGNS: Please see below. GENERAL: Lying comfortably in bed, no acute complaints CARDIOVASCULAR: RRR, 2+ DP/PT pulse LLE. RESPIRATORY: nonlabored breathing. EXTREMITIES: L hip dressing in place, c/d/i. No surrounding erythema or drainage. No induration. Able to independently flex/extend toes and ankle. No pain with logroll LABORATORY DATA, IMAGING STUDIES, MICROBIOLOGY: Please see below. DVT prophylaxis ordered?: yes ASSESSMENT: This is a 78 y/o male s/p above procedure, with likely post op delirium, alert this morning. No new fevers after discontinuing antibiotics. Recommendations: 1. WBAT LLE 2. Daily PT as prescribed. Patient encouraged on importance of mobilization to minimize risks of complications related to immobilization/ 3. OOBTC TID 4. Will continue to follow peripherally while in house. DISPOSITION: Discharge per medicine team when criteria met. VS, [facility]&O, [facility]O Vital Signs Date Time Temp Pulse Resp B/P (MAP) Pulse Ox O2 Delivery O2 Flow Rate FiO2 10/20/18 06:00 97.2 88 20 170/87 (114) 96 Nasal Cannula 2.0 I&O- Last 24 Hours up to 6 AM 10/20/18 05:59 Intake Total 1335 ml Output Total 550 ml Balance 785 ml Laboratory Data 24H LABS Laboratory Tests 2 10/19/18 08:56: Nucleated Red Blood Cells % (auto) 0.0, Anion Gap 10, Glomerular Filtration Rate > 60.0, Blood Urea Nitrogen 16, Creatinine 0.94, Sodium Level 142, Potassium Level 3.7, Chloride Level 111H, Carbon Dioxide Level 21, Calcium Level 8.1L 10/20/18 05:41: Nucleated Red Blood Cells % (auto) 0.0, Anion Gap 6L, Glomerular Filtration Rate > 60.0, Blood Urea Nitrogen 17, Creatinine 0.90, Sodium Level 141, Potassium Level 3.6, Chloride Level 110H, Carbon Dioxide Level 25, Calcium Level 8.3L CBC/BMP Laboratory Tests 10/19/18 08:56 Red Blood Count 3.35 L, Mean Corpuscular Volume 95.5, Mean Corpuscular Hemoglobin 32.2, Mean Corpuscular Hemoglobin Concent 33.8, Red Cell Distribution Width 12.5, Calcium Level 8.1 L 10/20/18 05:41 Red Blood Count 3.22 L, Mean Corpuscular Volume 96.3 H, Mean Corpuscular H emoglobin 31.7, Mean Corpuscular Hemoglobin Concent 32.9, Red Cell Distribution Width 12.2, Calcium Level 8.3 L Microbiology Microbiology 10/18/18 Blood Culture - Preliminary, Resulted No growth after 24 hours . All specim... 10/18/18 Respiratory Virus Panel (PCR) (NADINE) - Final, Complete PITA VENTURA MD Oct 20, 2018 08:36
[2018-10-20] MEDS: SENOKOT S TAB PO SCH ×2 (08:38→20:55)
[2018-10-20] MEDS: MOM 30ML SUSPENSION UDC PO SCH (08:38)
[2018-10-20] MEDS: MIRALAX *UNIT DOSE* 17GM PACKET PO SCH (08:38)
[2018-10-20 10:00] VITALS: BP 158/81
--- NOTE | 2018-10-20 12:16 | IPNPDOC ---
Subjective Date Seen The patient was seen on 10/20/18. Subjective Chief Complaint/HPI Patient seen and examined at the bedside. Denies any acute complaints at this time. He remained afebrile and hemodynamically stable overnight. Objective Physical Examination General Exam: Positive: Alert, Cooperative, No Acute Distress ENT Exam: Positive: Atraumatic, Mucous membr. moist/pink Neck Exam: Negative: JVD Chest Exam: Positive: Clear to auscultation, Normal air movement Heart Exam: Positive: Rate Normal, Normal S1, Normal S2 Abdomen Exam: Positive: Soft; Negative: Tenderness Extremity Exam: Positive: Other (left hip with limited range of motion sec ondary to fracture repair. Extremity neurovascularly intact distally.) Assessment /Plan Plan/VTE VTE Prophylaxis Ordered?: Yes Plan Left hip fracture 2/2 Mechanical Fall Post-operative follow up, DVT Prophylaxis, and Pain mgmt as per Ortho HTN Cont regimen as ordered Parkinson Resume home regimen DVT prophylaxis Xarelto as per surgery VS, I&O, 24H, Fishbone Vital Signs/I&O Vital Signs Date Time Temp Pulse Resp B/P (MAP) Pulse Ox O2 Delivery O2 Flow Rate FiO2 10/20/18 10:00 98.7 81 20 158/81 (106) 97 Nasal Cannula 2.0 I&O- Last 24 Hours up to 6 AM 10/20/18 06:00 Intake Total 1695 ml Output Total 1200 ml Balance 495 ml Laboratory Data 24H LABS Laboratory Tests 2 10/20/18 05:41: Nucleated Red Blood Cells % (auto) 0.0, Anion Gap 6L, Glomerular Filtration Rate > 60.0, Blood Urea Nitrogen 17, Creatinine 0.90, Sodium Level 141, Potassium Level 3.6, Chloride Level 110H, Carbon Dioxide Level 25, Calcium Level 8.3L CBC/BMP Laboratory Tests 10/20/18 05:41 Red Blood Count 3.22 L, Mean Corpuscular Volume 96.3 H, Mean Corpuscular Hemoglobin 31.7, Mean Corpuscular Hemoglobin Concent 32.9, Red Cell Distribution Width 12.2, Calcium Level 8.3 L Microbiology Microbiology 10/18/18 Blood Culture - Preliminary, Resulted No growth after 24 hours . All specim... 10/18/18 Respiratory Virus Panel (PCR) (NADINE) - Final, Complete TERI LOPES MD Oct 20, 2018 12:16
[2018-10-20 14:00] VITALS: BP 146/67
[2018-10-20] MEDS: RIVAROXABAN 10 MG TAB (XARELTO) PO SCH (17:29)
[2018-10-20] MEDS: ACETAMINOPHEN TAB 650MG DOSE (2X325MG) PO PRN (20:55)
[2018-10-20] MEDS ORDERED: ANALGESIC BALM CRM 120 GM TOP SCH (21:00)
[2018-10-20 22:00] VITALS: BP 136/63
[2018-10-20] MEDS ORDERED: CHLORASEPTIC SPRAY MT PRN (23:30)
[2018-10-21 02:00] VITALS: BP 143/70
[2018-10-21 06:00] VITALS: BP 135/74
--- NOTE | 2018-10-21 06:02 | RO ---
DATE OF PROCEDURE: 10/17/2018 PREPROCEDURE DIAGNOSIS: Left hip femoral neck fracture. POSTPROCEDURE DIAGNOSIS: Left hip femoral neck fracture. PROCEDURE: Left hip hemiarthroplasty. SURGEON: Dr. Austin Jain. DEMOLITIONIST: Dr. Torito Chris. ANESTHESIA: Spinal. ESTIMATED BLOOD LOSS: Less than 200 mL replaced with Crystalloid. COMPLICATIONS: None. COMPONENTS USED INCLUDE: DePuy [place] system cemented hemiarthroplasty size 5 femoral component, size 0 neck length, size 52 mm femoral head. The appropriate cementralizer and cement restrictor is also utilized. Tobramycin cement was utilized. INDICATIONS: 78-year-old gentleman with severe Parkinson's but previous ambulator who fell fracturing his hip. Consent reviewed in detail with the patient's power of staff attorney as well as the patient when he was cognitive and he wanted to proceed with surgical intervention. OPERATIVE COURSE: Identified in holding area, site side verified, brought to the operating room. Once spinal anesthesia was administered, he was positioned by Dr. Chris and myself on the Adam table for the modified [place] approach in the lateral position exposing the left hip. Next, once I and the circus hand were comfortable with the patient's positioning, he was then sterilely prepped and draped in the usual fashion for the modified [place] approach. Next, incision was outlined with a marking pen infiltrated with 0.25% Marcaine and with epinephrine. Dr. Chris made the incision with a #10 blade knife and we developed the incision down through skin and subcuticular tissues to the lateral fascia over the hip. A hot knife was utilized to create a rent in the lateral fashion. I continued this dissection using a Osborne scissor proximally and distally splitting lateral fascia. Once this was accomplished, we were able to split the abductor mechanism at the anterior one-third position and continued the dissection down the femoral neck splitting the minimus and capsular tissues. Next a cuff of tissue was left on the greater trochanter for later repair as the abductor mechanism was reflected anteriorly. Vastus lateralis was also split longitudinally to expose the lesser trochanter. Next, we were able to sublux and position the greater trochanter, allow for retrieval of the femoral head using the corkscrew device. The femoral head was measured for a size 52. We inspected the acetabulum and removed the acetabular ligament fragment. Next the canal opening reamer was then utilized followed by the canal finding reamer and the canal lateralizing reamer. We then placed the template. I made the femoral neck cut using the oscillating saw so that the lesser trochanter could be palpated to be about one fingerbreadths. Rasps were utilized through a size 5 rasp which seemed to fit appropriately. We trialed off with a size 5 with a -3 neck length as well as a zero neck length, zero neck length fit appropriately. Next, once this was accomplished, we used a calcar planer to further contour the calcar. We placed the cement restrictor size 3. Dr. Chris then packed the femoral canal with an epinephrine soaked vag pack while I prepared the bone cement. Next we pressurized the bone cement into the femoral canal when it was the appropriate consistency and placed the non-trial size 5 cemented stem. Excess cement was cleared with curettes. Next the non-trial femoral head and neck collar were secured and impacted when the cement hard hardened. The hip was reduced. Legs were placed through range of motion assured to be stable. Next, irrigation was accomplished using pulse lavage as well as TXA solution. The capsule and minimus tissues were reapproximated with interrupted stitch and the abductor mechanism was reapproximated to the greater trochanter using interrupted stitch. Vastus lateralis reapproximated using interrupted stitch. Lateral fascia was reapproximated using interrupted stitch as well as a running Stratafix stitch. Deep dermis was reapproximated using interrupted stitch. Pernio dressing applied. At the conclusion the case, the patient was removed from the [place] table, moved to the supine position on the hospital bed and was able to be moved to the recovery room in good condition. For further details, please refer to the medical record.
[2018-10-21 06:22] LABS: HEMATOCRIT 30.8 % (42.0-52.0); HEMOGLOBIN 10.5 g/dl (13.5-17.5); MEAN CORPUSCULAR HEMOGLOBIN 32.2 pg (27.0-33.0); MEAN CORPUSCULAR HGB CONC 34.1 g/dl (32.0-36.5); MEAN CORPUSCULAR VOLUME 94.5 fl (80.0-96.0); PLATELET COUNT, AUTOMATED 129 10^3/uL (150-450); RED BLOOD COUNT 3.26 10^6/uL (4.30-6.10); WHITE BLOOD COUNT 7.1 10^3/uL (4.0-10.0)
[2018-10-21] MEDS: SINEMET 25-100 MG TAB PO SCH ×3 (06:27→12:39)
[2018-10-21] MEDS: ACETAMINOPHEN TAB 650MG DOSE (2X325MG) PO PRN (06:27)
[2018-10-21] MEDS: SLF 3 ML SYR IV SCH (06:28)
[2018-10-21 06:49] LABS: BLOOD UREA NITROGEN 16 MG/DL (7-18); CALCIUM LEVEL 8.5 MG/DL (8.8-10.2); CARBON DIOXIDE LEVEL 23 MEQ/L (21-32); CHLORIDE LEVEL 109 MEQ/L (98-107); CREATININE FOR GFR 0.83 MG/DL (0.70-1.30); GLOMERULAR FILTRATION RATE > 60.0 (>42); GLUCOSE, FASTING 104 MG/DL (70-100); POTASSIUM SERUM 3.4 MEQ/L (3.5-5.1); SODIUM LEVEL 140 MEQ/L (136-145)
[2018-10-21] MEDS ORDERED: XARE10TA PO (07:44)
[2018-10-21] MEDS: MOM 30ML SUSPENSION UDC PO SCH (09:19)
[2018-10-21] MEDS: MIRALAX *UNIT DOSE* 17GM PACKET PO SCH (09:20)
[2018-10-21] MEDS: SENOKOT S TAB PO SCH (09:20)
[2018-10-21 10:00] VITALS: BP 122/69
[2018-10-21] MEDS ORDERED: POTASSIUM CHLORIDE 10% LIQ 20 MEQ/15 ML UDC PO ONE (10:00)
--- NOTE | 2018-10-21 13:28 | DS.PDOC ---
Discharge Summary General Date of Admission Oct 16, 2018 at 20:01 Date of Discharge 10/21/18 Specialist/Consultants Involve Dr. Corona and Dr. Jain of Orthopedic Surgery Discharge Summary PROCEDURES PERFORMED DURING STAY: Left Hip Fracture Repair by Dr. Jain of Orthopedic Surgery ADMITTING/DISCHARGE DIAGNOSES: Left hip fracture secondary to mechanical fall Hypertension Parkinson's disease COMPLICATIONS/CHIEF COMPLAINT: Hip Fx, Left. HISTORY OF PRESENT ILLNESS: . 78-year-old male with past medical history of Parkinson's disease presents to the ER with left hip pain. The patient stated that he was adjusting the furnace thermostat when he fell and landed on his left side. The patient states that he had a mechanical fall, and denied any prodromal symptoms of lightheadedness, dizziness, chest pain, palpitations, abdominal pain, abdominal pain, or any nausea/vomiting/diarrhea. In the ER, imaging revealed a left hip fracture. The patient was admitted under the hospitalist service, and a consult was placed for orthopedic surgery for further evaluation and management. During hospitalization, the patient underwent repair of the left hip on 10/18 by orthopedic surgery. There were no significant postoperative complications. At this time, physical therapy has recommended continued rehabilitation. The patient will be transferred to the acute rehabilitation unit. I have advised patient follow-up with primary care physician within 7 days. The patient is also to follow up with orthopedic surgery as scheduled. Lastly, the patient has been advised to return to the ER for any acute emergencies. DISCHARGE MEDICATIONS: Please see below. ALLERGIES: Please see below. PHYSICAL EXAMINATION ON DISCHARGE: VITAL SIGNS: Please see below. General Exam: Positive: Alert, Cooperative, No Acute Distress ENT Exam: Positive: Atraumatic, Mucous membr. moist/pink Neck Exam: Negative: JVD Chest Exam: Positive: Clear to auscultation, Normal air movement Heart Exam: Positive: Rate Normal, Normal S1, Normal S2 Abdomen Exam: Positive: Soft; Negative: Tenderness Extremity Exam: Positive: Other (left hip with limited range of motion secondary to fracture repair. Extremity neurovascularly intact distally.) LABORATORY DATA: Please see below. IMAGING: Clinical: Trauma. Preoperative assessment . Comparison: 10/28/2017 . Findings: The mediastinum and cardiac silhouette are stable and within normal limits for portable technique. The lung viramontes demonstrate chronic changes without acute consolidation, effusion, or pneumothorax. Skeletal structures are intact. Impression: No acute cardiopulmonary process appreciated. Clinical: Trauma. Technique: AP and cross-table lateral views of the femur. Findings: There is a minimally displaced transverse fracture through the femoral neck. Age-related osteopenia and degenerative changes are noted throughout the visualized left hip. Impression: Transverse minimally displaced femoral neck fracture. Clinical: Evaluate for possible fracture of the greater trochanter. Technique: Axial noncontrast images through the left hip with coronal and sagittal re-formations. Findings: There is a transverse minimally angulated fracture through the femoral neck. Underlying age-related osteodystrophy and degenerative changes are appreciated. There is no fracture of the greater trochanter and the suspected nondisplaced fracture of the greater trochanter on initial x-ray evaluation likely represented irregular lucency and cortical irregularities related to underlying arthritic changes and overlying soft tissue densities. The surrounding musculature and soft tissues of the hip are essentially intact and there is no obvious significant hematoma. Incidental note is made of a fat containing left inguinal hernia extending into the left silvia scrotum. Moderate fecal impaction at the rectum which is distended to approximately 7.1 cm noted along with Murillo catheter in collapsed bladder. Impression: Mildly angulated transverse fracture through the femoral neck. Underlying osteopenia and degenerative changes noted. No evidence for greater trochanter fracture to the proximal femur. Clinical: Status post arthroplasty. Technique: AP and cross-table lateral views. Findings: The patient is status post left hip replacement with normal positioning and appearance to the femoral and acetabular components. Overlying postsurgical changes appreciated. Impression: Satisfactory left hip replacement radiographs. Clinical: Fever. Comparison: 10/16/2018. Findings: Examination is limited by portable technique, underpenetration, and poor inspiratory effort which accentuate the pulmonary vasculature and interstitium. As such, pulmonary vascular congestion and interstitial edema cannot definitively be excluded. No effusion. No obvious consolidation. No pneumothorax. Skeletal structures intact. Impression: Limited examination. No obvious acute process. Clinical: Trauma. Technique: AP view of the pelvis with neutral and cross-table views of the left hip. Findings: There is a minimally displaced transverse fracture through the left femoral neck and possible nondisplaced fracture along the left greater trochanter. Diffuse osteopenia and degenerative changes noted throughout the pelvis and hips. Impression: Transverse minimally displaced fracture through the left femoral neck and possible nondisplaced fracture of the left greater trochanter. PROGNOSIS: Fair ACTIVITY: As tolerated. DIET: 2 g low sodium diet DISCHARGE PLAN: DISPOSITION: . ARU DISCHARGE INSTRUCTIONS: The patient will be transferred to the acute rehabilitation unit. I have advised patient follow-up with primary care physician within 7 days. The patient is also to follow up with orthopedic surgery as scheduled. Lastly, the patient has been advised to return to the ER for any acute emergencies. DISCHARGE CONDITION: Stable. TIME SPENT ON DISCHARGE: Greater than 30 minutes. Vital Signs/I&Os Vital Signs Date Time Temp Pulse Resp B/P (MAP) Pulse Ox O2 Delivery O2 Flow Rate FiO2 10/21/18 10:00 97.9 85 20 122/69 (86) 94 Room Air 10/20/18 14:00 2.0 I&O- Last 24 Hours up to 6 AM 10/21/18 05:59 Intake Total 1680 ml Output Total 1250 ml Balance 430 ml Laboratory Data Labs 24H Laboratory Tests 2 10/21/18 05:57: Nucleated Red Blood Cells % (auto) 0.0, Anion Gap 8, Glomerular Filtration Rate > 60.0, Blood Urea Nitrogen 16, Creatinine 0.83, Sodium Level 140, Potassium Level 3.4L, Chloride Level 109H, Carbon Dioxide Level 23, Calcium Level 8.5L CBC/BMP Laboratory Tests 10/21/18 05:57 Red Blood Count 3.26 L, Mean Corpuscular Volume 94.5, Mean Corpuscular Hemoglobin 32.2, Mean Corpuscular Hemoglobin Concent 34.1, Red Cell Distribution Width 12.1, Calcium Level 8.5 L Microbiology Microbiology 10/18/18 Blood Culture - Preliminary, Resulted No Growth after 48 hours. All Specime... 10/18/18 Respiratory Virus Panel (PCR) (NADINE) - Final, Complete Discharge Medications Scheduled (Multi Vitamin Daily) 1 Tab Tab, 1 TAB PO DAILY, (Reported) Carbidopa/Levodopa (Carbidopa/Levodopa 25-100 mg) 1 Tab Tab, 2 TAB PO 5XD, (Reported) TAKES AT 0700/1000/1300/1500/1900 Cholecalciferol (Vitamin D-3) 2,000 Unit Tab, 2,000 UNIT PO DAILY, (Reported) Coenzyme Q10 (Co Q 10) 10 Mg Cap, 40 MG PO DAILY, (Reported) Rivaroxaban (Xarelto) 10 Mg Tab, 10 MG PO DAILY Allergies Coded Allergies: No Known Drug Allergy (Verified Allergy, Unknown, 01/24/13) TERI LOPES MD Oct 21, 2018 13:28
== END 2018-10-21 13:50 | DRG 470 ==
LOC: EDBD 17:17 → M ED 17:17 → M ED INP 20:01 → M PCU 21:19 → M MS5PR 10-19 18:47
PROVIDERS: ADMIT Internal Medicine; ATTEND Internal Medicine
PROC: 0SRS0J9 Replacement of Left Hip Joint, Femoral Surface with Synthetic Substitute, Cemented, Open Approach (ICD-10-PCS; principal; 2018-10-17 19:00)
DX: S72.402A Unspecified fracture of lower end of left femur, initial encounter for closed fracture (principal); F05 Delirium due to known physiological condition; W18.09XA Striking against other object with subsequent fall, initial encounter; Y92.019 Unspecified place in single-family (private) house as the place of occurrence of the external cause; R50.82 Postprocedural fever; G20 Parkinson's disease; I10 Essential (primary) hypertension; Z79.82 Long term (current) use of aspirin; Z98.49 Cataract extraction status, unspecified eye; Z79.899 Other long term (current) drug therapy

== ENCOUNTER 2018-10-21 13:04 | Inpatient (IN) | payer MEDICARE ==
[~2018-10-21] VITALS: Ht 167.6 cm; Wt 84.7 kg
[~2018-10-21 13:04] MED LIST changes: +ASPI81TA85 PO; +CO Q10CA PO; +VITA200038 PO; +XARE10TA PO
[2018-10-21 13:55] VITALS: BP_SYST 125; BP_SYST 130; BP_DIAS 62; BP_DIAS 64
[2018-10-21] MEDS ORDERED: ONDANSETRON 4 MG TAB (S0181) PO PRN (15:45)
[2018-10-21] MEDS ORDERED: BISACODYL 10 MG SUPP PR PRN (15:45)
[2018-10-21] MEDS ORDERED: IPRATROPIUM 0.5MG/ALBUTEROL 2.5MG INH SOL UD 3ML (DUONEB)(J7620) NEB PRN (15:45)
[2018-10-21] MEDS ORDERED: ACETAMINOPHEN TAB 650MG DOSE (2X325MG) PO PRN (15:45)
[2018-10-21] MEDS ORDERED: SINEMET 25-100 MG TAB PO SCH (15:45)
[2018-10-21] MEDS ORDERED: PERCOCET 5MG/325MG TAB PO PRN (15:45)
[2018-10-21] MEDS ORDERED: CHLORASEPTIC SPRAY MT PRN (15:45)
--- NOTE | 2018-10-21 16:24 | HPEPDOC ---
[facility] Note DATE OF ADMISSION: Oct 21, 2018 at 13:55 SOURCE OF ADMISSION INFORMATION: Patient and [facility] records CHIEF COMPLAINT: left hip fracture HISTORY OF PRESENT ILLNESS: 78M pmh Parkinsons disease who fell at home onto his left side on 10-16-18 and was brought to [facility] ED complaining of hip pain and unable to bear weight. X-ray of his hip showed, Transverse minimally displaced fracture through the left femoral neck and possible nondisplaced fracture of the left greater trochanter. He was evaluated by orthopedics and decided to undergo a left hip silvia- arthroplasty. CT LE on 10-17-18 showed, Mildly angulated transverse fracture through the femoral neck. Underlying osteopenia and degenerative changes noted. No evidence for greater trochanter fracture to the proximal femur. He was cleared by medicine, EKG showing sinus tachycardia with a right bundle branch block, and he underwent the silvia-arthroplasty on 10-17-18 without significant complications. Follow-up X-ray showed, The patient is status post left hip replacement with normal positioning and appearance to the femoral and acetabular components. He had some blood loss anemia and leukocytosis, was started on Xarelto for DVT prophylaxis, CXR and blood cultures negative. He also was found to have significant ambulation and ADL deficits, so deemed medically appropriate for discharge to ARU on 10-21-18 REVIEW OF SYSTEMS: The following is a completed review of systems and has been reviewed. Review of systems otherwise unremarkable. PAIN: left hip pain EYES: Negative EARS, NOSE, & THROAT:+ sore throat CARDIOVASCULAR: ni chest pain or palpitations PULMONARY: Negative. Denies shortness of breath GASTROINTESTINAL: Negative for urinary or fecal incontinence, negative constipation, +loose stools GENITOURINARY: Negative urinary retention or dysuria MUSCULOSKELETAL: left hip silvia-arthroplasty NEUROLOGICAL: +Parkinsons with hallucinations, athetosis HEMATOLOGICAL: +Bilat upper extremity ecchymosis SKIN: +left hip incision All other review of systems found to be negative. PAST MEDICAL HISTORY: Parkinson's PAST SURGICAL HISTORY: right hip fracture s/p repair, cholecystectomy ALLERGIES: Please see below. MEDICATIONS: Please see below. SOCIAL HISTORY: Lives alone with [facility] care, retired [employer], denies ETOH, smoking, or illicit drugs DIET:mechanical soft PHYSICAL EXAMINATION: VITAL SIGNS: Please see below. GENERAL: Pleasant and cooperative. No acute distress. HEENT: PERRL. Extraocular grossly movements intact. Clear conjunctiva CARDIOVASCULAR: Regular rate and rhythm. No murmurs, rubs, or gallops. LUNGS: Clear to auscultation bilaterally. No wheezes. No rhonchi. ABDOMEN:Soft, nontender, mildly distended. Positive bowel sounds NEUROLOGICAL: Alert and oriented to self and place, not to time Cranial nerves II through XII grossly intact. Sensation grossly intact +athetosis and tardive dyskinesia EXTREMITIES:5/5 strength bilateral upper extremities. 5-\5 strength right lower extremity. 5-/5 strength in left lower extremity, hip flexion not tested given recent surgery . SKIN: left hip incision C/D/I IMAGING: Imaging documentation personally reviewed by record. FUNCTIONAL STATUS: Premorbid: Ambulate with RW and has some assistance with ADLs, 24h home supervis ion On Admission: Moderate assist for functional transfers, able to ambulate 25 ft with RW with moderate assist. Goals: Mod-I for ambulation, stair negotiation, upper and lower body dressing, grooming, bathing. Family training, medical optimization, assess for DME needs. ASSESSMENT:78-year-old M with past medical history of Parkinson's who presents status post fall with left femur fracture. PLAN: 1. Rehab: PT/OT, assess for DME 2. Neuro: pmh Parkinsons, continue Sinemet 5x a day and titrate as needed -remove any deliriogenic medications -concerned about tardive dyskinesia and hallucinations, per raj his Sinemet dose ahd been decreased then increased, will discuss medcations with [facility] neurologist 3. Ortho: s/p left hip silvia-arthroplasty, Total hip precautions, WBAT, ortho consult 4. Cardio: no significant pmh, monitor BPs- will consult medicine 5. Resp: prevent atelectasis with incentive spirometry 6. Heme: recent blood loss anemia, monitor and add Iron 7. DVT ppx: on xarelto 10 mg, will order Doppler to r/o DVT 8. : f/u admission UA and Ucx, monitor PVRs 9. Pain: Tylenol and Percocet prn 10. GI ppx: Protonix POST ADMISSION PHYSICIAN EVALUATION: Medical and functional status: Description of medical status, medical assessment: As above. Rehabilitation diagnosis and current and prior cold morbid medical conditions as above. Risk of complications and plans to mitigate them as above. Description of functional status current status is as above. Prior status as above. Status compared to preadmission: There are no clinically significant differences between the patient's current status and the information described on the preadmission screening document. Treatment plan anticipated: Treatment plan is as described above. Required disciplines including physical therapy, occupational therapy, others as noted above Intensity of services: 3hours a day, 6 days a week. Special considerations: There are no specific special or safety considerations that would likely preclude immediate implementation of an intensive rehabilitation program or subsequently influence the plan of care ATTESTATION: Considering all the information above, it is my best judgment that this patient requires intensive rehabilitation therapy as described above and an inpatient hospital environment due to the complexity of nursing, medical, and rehabilitation needs required by the patient. Furthermore, this patient can reasonably be expected to participate in an benefit from an inpatient rehabilitation stay with an interdisciplinary team approach to the delivery of rehabilitation care under the direction and supervision of rehabilitation physician PROGNOSIS: good ESTIMATED LENGTH OF STAY:14-18 days. PROJECTED DISCHARGE DESTINATION: Home with family support and any durable medical equipment required to increase functional safety and mobility TIME SPENT COUNSELING AND COORDINATING INITIAL CARE: Greater than 70 minutes. Vital Signs Vital Sign - Last 24 Hours 10/21/18 13:55 Temp 97.7 Pulse 84 Resp 19 B/P (MAP) 130/62 (84) Home Medications Scheduled (Multi Vitamin Daily) 1 Tab Tab, 1 TAB PO DAILY, (Reported) Carbidopa/Levodopa (Carbidopa/Levodopa 25-100 mg) 1 Tab Tab, 2 TAB PO 5XD, (Reported) TAKES AT 0700/1000/1300/1500/1900 Cholecalciferol (Vitamin D-3) 2,000 Unit Tab, 2,000 UNIT PO DAILY, (Reported) Coenzyme Q10 (Co Q 10) 10 Mg Cap, 40 MG PO DAILY, (Reported) Rivaroxaban (Xarelto) 10 Mg Tab, 10 MG PO DAILY Allergies Coded Allergies: No Known Drug Allergy (Verified Allergy, Unknown, 01/24/13) JALEN SCHUMACHER MD Oct 21, 2018 15:36
[2018-10-21] MEDS: SINEMET 25-100 MG TAB PO SCH ×2 (16:48→21:19)
--- NOTE | 2018-10-21 17:45 | REP ---
Clinical: Hip surgery . Technique: Thompson scale and color Doppler evaluation using linear high frequency transducer. Findings: Ultrasound examination of the right and left lower extremity deep venous structures from the common femoral vein to the popliteal vein demonstrates normal compressibility flow and wave patterns in response to respiration and augmentation. There is no evidence for deep venous thrombosis. Impression: No evidence for deep venous thrombosis bilateral lower extremities . Electronically Signed by Juan Antonio Proctor MD 10/21/2018 05:37 P
[2018-10-21] MEDS: RIVAROXABAN 10 MG TAB (XARELTO) PO SCH (18:00)
[2018-10-21] MEDS: FUROSEMIDE 20 MG TAB PO SCH (18:00)
[2018-10-21 20:00] VITALS: BP 155/73
[2018-10-21] MEDS: FERROUS GLUCONATE 324 MG TAB PO SCH (21:19)
[2018-10-21] MEDS: SENNA 8.6 MG TAB (SENOKOT) PO SCH (21:19)
[2018-10-21] MEDS: ACETAMINOPHEN 500 MG TAB PO SCH (21:20)
[2018-10-21] MEDS: SENOKOT S TAB PO SCH (21:20)
[2018-10-22] MEDS: traZODone 25MG PER 1/2 TABLET PO PRN ×2 (00:56→20:19)
[2018-10-22] MEDS: SINEMET 25-100 MG TAB PO SCH ×5 (05:56→18:37)
[2018-10-22 06:00] VITALS: BP 150/80
[2018-10-22 07:15] LABS: BASO % 0.5 % (0.0-1.0); EOS # 0.2 10^3/uL (0.0-0.50); EOS % 2.8 % (0.0-3.0); HEMATOCRIT 33.3 % (42.0-52.0); HEMOGLOBIN 11.1 g/dl (13.5-17.5); LYMPH % 12.9 % (24.0-44.0); MEAN CORPUSCULAR HEMOGLOBIN 31.8 pg (27.0-33.0); MEAN CORPUSCULAR HGB CONC 33.3 g/dl (32.0-36.5); MEAN CORPUSCULAR VOLUME 95.4 fl (80.0-96.0); MONO # 0.8 10^3/uL (0.0-0.8); NEUTROPHILS # 5.5 10^3/uL (1.8-7.7); PLATELET COUNT, AUTOMATED 176 10^3/uL (150-450); RED BLOOD COUNT 3.49 10^6/uL (4.30-6.10); WHITE BLOOD COUNT 7.5 10^3/uL (4.0-10.0)
[2018-10-22 07:31] LABS: ALBUMIN 2.7 GM/DL (3.2-5.2); ALT/SGPT 7 U/L (12-78); BLOOD UREA NITROGEN 18 MG/DL (7-18); CALCIUM LEVEL 8.6 MG/DL (8.8-10.2); CARBON DIOXIDE LEVEL 27 MEQ/L (21-32); CHLORIDE LEVEL 106 MEQ/L (98-107); CREATININE FOR GFR 0.94 MG/DL (0.70-1.30); GLOMERULAR FILTRATION RATE > 60.0 (>42); GLUCOSE, FASTING 105 MG/DL (70-100); POTASSIUM SERUM 3.5 MEQ/L (3.5-5.1); SODIUM LEVEL 142 MEQ/L (136-145); TOTAL PROTEIN 6.8 GM/DL (6.4-8.2)
[2018-10-22] MEDS ORDERED: MULTIVITAMINS/MINERALS THERAP 1 TAB PO SCH (09:00)
[2018-10-22] MEDS: PYRIDOXINE 50 MG TAB PO SCH (09:18)
[2018-10-22] MEDS: CO-ENZYME Q10 50 MG CAP PO SCH (09:18)
[2018-10-22] MEDS: MULTIVITAMINS/MINERALS THERAP 1 TAB PO SCH (09:18)
[2018-10-22] MEDS: SENOKOT S TAB PO SCH ×2 (09:19→20:17)
[2018-10-22] MEDS: PANTOPRAZOLE 40MG TAB (PROTONIX) PO SCH (09:19)
[2018-10-22] MEDS: FUROSEMIDE 20 MG TAB PO SCH (09:19)
[2018-10-22] MEDS: FERROUS GLUCONATE 324 MG TAB PO SCH ×2 (09:20→20:19)
[2018-10-22] MEDS: ACETAMINOPHEN 500 MG TAB PO SCH ×3 (09:20→20:19)
[2018-10-22 10:46] LABS: APPEARANCE, URINE CLEAR (CLEAR); BACTERIA, URINE AUTO NEGATIVE (NEGATIVE); BILIRUBIN, URINE AUTO NEGATIVE (NEGATIVE); BLOOD, URINE BLOOD NEGATIVE (NEGATIVE); COLOR, URINE YELLOW (YELLOW); GLUCOSE, URINE (UA) AUTO NEGATIVE (NEGATIVE); KETONE, URINE AUTO TRACE mg/dL (NEGATIVE); LEUKOCYTE ESTERASE, URINE AUTO NEGATIVE (NEGATIVE); MUCUS, URINE SMALL (NEGATIVE); NITRITE, URINE AUTO NEGATIVE (NEGATIVE); PROTEIN, URINE AUTO NEGATIVE (NEGATIVE); RBC, URINE AUTO 1 /HPF (0-3); SPECIFIC GRAVITY URINE AUTO 1.018 (1.002-1.035); SQUAMOUS EPITHELIAL CELL UR AU 0 /HPF (0-6); UROBILINOGEN, URINE AUTO 0.2 mg/dL (0.0-2.0); WBC, URINE AUTO 0 /HPF (0-3)
[2018-10-22 13:58] VITALS: BP 129/67
--- NOTE | 2018-10-22 15:23 | IPN ---
DATE: 10/22/2018 SUBJECTIVE: The patient is seen and examined in the room today. The patient does not have any acute complaints. OBJECTIVE: VITAL SIGNS: Temperature is 97.7, pulse is 81, respiratory rate is 18, blood pressure 150/80, oxygen saturation is 97% in room air. GENERAL: The patient is alert and awake. HEENT: Normocephalic, atraumatic. Extraocular motor grossly intact. CARDIOVASCULAR: Positive S1, S2, regular rate. LUNGS: Clear to auscultation bilaterally. ABDOMEN: Soft, nontender, nondistended. Bowel sounds present. EXTREMITIES: No edema appreciated. LABORATORY DATA: WBC is 7.5, hemoglobin 11.1, hematocrit 33.3, platelet count is 176. Sodium is 142, potassium 3.5, chloride 106, carbon dioxide 27, BUN 18, creatinine 0.94, GFR greater than 60, fasting glucose 105, calcium is 8.6, total bilirubin is 1, AST 41, ALT 7, alkaline phosphatase is 77, total protein 6.7, albumin 2.7. ASSESSMENT AND PLAN: 1. Left hip fracture. The patient is in acute rehabilitation unit (ARU) for acute rehabilitation. Activity per rehabilitation instructions. The patient had left hemiarthroplasty on 10/17/2018. 2. Hypertension. Blood pressure in the satisfactory range. The patient is on Lasix. 3. Parkinson's disease. Continue home medications. 4. Deep vein thrombosis (DVT) prophylaxis. The patient is on Xarelto.
[2018-10-22] MEDS: RIVAROXABAN 10 MG TAB (XARELTO) PO SCH (17:12)
[2018-10-22 20:00] VITALS: BP 143/74
[2018-10-22] MEDS: SENNA 8.6 MG TAB (SENOKOT) PO SCH (20:17)
[2018-10-23 05:56] VITALS: BP 146/66
[2018-10-23] MEDS: SINEMET 25-100 MG TAB PO SCH ×5 (06:39→18:01)
[2018-10-23] MEDS: MULTIVITAMINS/MINERALS THERAP 1 TAB PO SCH (08:02)
[2018-10-23] MEDS: PANTOPRAZOLE 40MG TAB (PROTONIX) PO SCH (08:02)
[2018-10-23] MEDS: FUROSEMIDE 20 MG TAB PO SCH (08:03)
[2018-10-23] MEDS: ACETAMINOPHEN 500 MG TAB PO SCH ×3 (08:03→20:38)
[2018-10-23] MEDS: SENOKOT S TAB PO SCH ×2 (08:03→20:38)
[2018-10-23] MEDS: FERROUS GLUCONATE 324 MG TAB PO SCH ×2 (08:03→20:38)
[2018-10-23] MEDS: CO-ENZYME Q10 50 MG CAP PO SCH (08:03)
[2018-10-23] MEDS: PYRIDOXINE 50 MG TAB PO SCH (08:04)
--- NOTE | 2018-10-23 13:16 | IPNPDOC ---
Date Seen The patient was seen on 10/23/18. Progress Note HPI: 78-year-old male with past medical history of Parkinson's disease presents to the ER with left hip pain. The patient stated that he was adjusting the furnace thermostat when he fell and landed on his left side. The patient denied any prodromal symptoms of lightheadedness, dizziness, chest pain, palpitations, abdominal pain, abdominal pain, or any nausea/vomiting/diarrhea. In the ER, imaging revealed a left hip fracture, s/p repair as per Orthopedic surgery. The pt was transferred to the care of [facility], 10/21/18. No acute medical complaints today. The pt is OOB to chair. Denies any fevers, chills, weakness, fatigue, Headache, Chest Pain, Shortness of breath, cough, palpitations, abdominal pain, N/V/D or changes in bowel or bladder habits. PMHx: Parkinson's disease HTN Unsteady gait PSHX: right hip fracture s/p repair, cholecystectomy PE: GEN: 78yoM, appears stated age. No acute distress. Alert and oriented x 3. HEENT: Normocephalic, atraumatic. Pupils are equal, round, and reactive to l ight. Extraocular movements are intact. No nystagmus appreciated. Sclera are nonicteric. No facial asymmetry. Moist mucous membranes.Pharynx pink and moist, no cobblestoning. Neck supple, trachea midline. No lymphadenopathy or thyromegaly appreciated. CHEST: Regular rate and rhythm, +S1, +S2 LUNGS: Clear to auscultation bilaterally. No wheezes, rales, or rhonchi. Breathing appears symmetric and easy. Patient is speaking in full sentences. No accessory muscle use. ABD: Round, soft, non-tender, non-distended. +Bowel sounds throughout. No rebound or guarding. No costovertebral angle tenderness. EXT: Pulses 2+ bilaterally dorsalis pedis and radial. No lower extremity edema appreciated. SKIN: [place], dry, warm. Capillary refill <2sec. No rashes. NEURO: Reduced facial expressions, no tremor noted. No focal deficits appreciated. A&P: 78-year-old male with past medical history of Parkinson's disease presents to the ER with left hip pain. The patient stated that he was adjusting the furnace thermostat when he fell and landed on his left side. The patient denied any prodromal symptoms of lightheadedness, dizziness, chest pain, palpitations, abdominal pain, abdominal pain, or any nausea/vomiting/diarrhea. In the ER, imaging revealed a left hip fracture, s/p repair as per Orthopedic surgery. The pt was transferred to the care of Dr Bender, [facility], 10/21/18. 1. Left hip fracture/ S/P left hemiarthroplasty 10/17/2018. Mgmt as per Orthopedic Surgery. Mgmt as per ARU. PT/OT as per ARU ST as per ARU pain control as per ARU Bowel care as per ARU DVT px. Pt is on Xarelto. 2. Hypertension. SBP 129-146. Lasix on hold. 3. Parkinson's disease. Continue home medications. 4. GERD. Protonix. 5. Anemia. Likely acute blood loss. Hgb trend improved. Fe supplement BID. Monitor. VS, I&O, 24H, Fishbone Vital Signs/I&O Vital Signs Date Time Temp Pulse Resp B/P (MAP) Pulse Ox O2 Delivery O2 Flow Rate FiO2 10/23/18 05:56 98.3 73 18 146/66 (92) 96 Room Air I&O- Last 24 Hours up to 6 AM 10/23/18 05:59 Intake Total 920 ml Output Total 1276 ml Balance -356 ml Laboratory Data Microbiology Microbiology 10/22/18 Urine Culture - Final, Complete Shanice Cox Oct 23, 2018 13:16
[2018-10-23 14:09] VITALS: BP 109/88
--- NOTE | 2018-10-23 14:51 | IPNPDOC ---
PM&R Progress Note DATE OF SERVICE: Oct 23, 2018 [employer] Progress Note Subjective: Patient reports very little pain, has a good appetite and reports he is enjoying therapy. REVIEW OF SYSTEMS: The following is a completed review of systems and has been reviewed. Review of systems otherwise unremarkable. PAIN: left hip pain EYES: Negative EARS, NOSE, & THROAT:+ sore throat CARDIOVASCULAR: no chest pain or palpitations PULMONARY: Negative. Denies shortness of breath GASTROINTESTINAL: Negative for urinary or fecal incontinence, negative constipation GENITOURINARY: Negative urinary retention or dysuria, +incontinence MUSCULOSKELETAL: left hip silvia-arthroplasty NEUROLOGICAL: +Parkinsons with hallucinations, athetosis HEMATOLOGICAL: +Bilat upper extremity ecchymosis SKIN: +left hip incision All other review of systems found to be negative. PHYSICAL EXAMINATION: VITAL SIGNS: Please see below. GENERAL: Pleasant and cooperative. No acute distress. HEENT: PERRL. Extraocular grossly movements intact. Clear conjunctiva CARDIOVASCULAR: Regular rate and rhythm. No murmurs, rubs, or gallops. LUNGS: Clear to auscultation bilaterally. No wheezes. No rhonchi. ABDOMEN:Soft, nontender, mildly distended. Positive bowel sounds NEUROLOGICAL: Alert and oriented to self and place, not to time Cranial nerves II through XII grossly intact. Sensation grossly intact +athetosis and tardive dyskinesia EXTREMITIES:5/5 strength bilateral upper extremities. 5-\5 strength right lower extremity. 5-/5 strength in left lower extremity, hip flexion not tested given recent surgery . SKIN: left hip incision C/D/I ASSESSMENT:78-year-old M with past medical history of Parkinson's who presents status post fall with left femur fracture. PLAN: 1. Rehab: PT/OT, assess for DME- PATIENT ACCOUNT REPRESENTATIVE ordered today 2. Neuro: pmh Parkinsons, continue Sinemet 5x a day and titrate as needed -remove any deliriogenic medications -concerned about tardive dyskinesia and hallucinations, per daughter his Sinemet dose had been decreased then increased, will discuss medications with [place] neurologist- will decrease evening dose -started B6 for tardive dyskinesia- off label treatment and monitor -will start Donepezil for dementia 3. Ortho: s/p left hip silvia-arthroplasty, Total hip precautions, WBAT, ortho consult 4. Cardio: no significant pmh, monitor BPs- will consult medicine 5. Resp: prevent atelectasis with incentive spirometry 6. Heme: recent blood loss anemia, monitor and continue Iron 7. DVT ppx: on xarelto 10 mg, admission Doppler negative for DVT 8. : admission UA and Ucx negative, monitor PVRs 9. Pain: Tylenol prn 10. GI ppx: Protonix 11. Dispo: tbd Allergies Coded Allergies: No Known Drug Allergy (Verified Allergy, Unknown, 01/24/13) Vital Signs Vital Signs Date Time Temp Pulse Resp B/P (MAP) Pulse Ox O2 Delivery O2 Flow Rate FiO2 10/23/18 14:09 97.8 85 18 109/88 (95) 96 Room Air Microbiology Microbiology 10/22/18 Urine Culture - Final, Complete Current Medications Current Medications Current Medications Acetaminophen (Tylenol Tab) 650 mg Q4HP PRN PO fever/ MILD PAIN (PS 1-4); Start 10/21/18 at 15:45; Stop 10/21/18 at 16:30; Status DC Acetaminophen (Tylenol Tab) 1,000 mg TID PO Last administered on 10/23/18at 08:03; Start 10/21/18 at 21:00 Albuterol/ Ipratropium (Duoneb (Ipr 0.5mg/Alb 2.5mg)) 3 ml Q4HP PRN NEB SOB /WHEEZING; Start 10/21/18 at 15:45 Bisacodyl (Dulcolax Suppository) 10 mg DAILYPRN PRN [place] CONSTIPATION; Start 10/21/18 at 15:45 Carbidopa/Levodopa (Sinemet 25/100) 1 tab ASDIRECTED PO ; Start 10/21/18 at 15:45; Stop 10/21/18 at 15:50; Status DC Carbidopa/Levodopa (Sinemet 25/100) 2 tab 0700,1000,1300 PO Last administered on 10/23/18at 12:57; Start 10/22/18 at 07:00 Carbidopa/Levodopa (Sinemet 25/100) 2 tab 1600,1900 PO Last administered on 10/22/18at 18:37; Start 10/21/18 at 16:00 Coenzyme Q10 (Coenzyme Q10) 50 mg DAILY PO Last administered on 10/23/18at 08:03; Start 10/22/18 at 09:00; Stop 11/21/18 at 08:59 Ferrous Gluconate (Fergon) 324 mg BID PO Last administered on 10/23/18 08:03; Start 10/21/18 at 21:00 Furosemide (Lasix) 20 mg DAILY PO Last administered on 10/23/18 08:03; Start 10/21/18 at 16:00; Stop 10/23/18 at 09:01; Status DC Home Med (Med Rec Complete!) ASDIRECTED XX ; Start 10/22/18 at 10:45; Stop 10/22/18 at 10:45; Status DC Multivitamins (Theragram-M) 1 tab DAILY PO Last administered on 10/23/18 08:02; Start 10/22/18 at 09:00 Multivitamins (Theragram-M) 1 tab DAILY PO ; Start 10/22/18 at 09:00; Status UNV Ondansetron HCl (Zofran) 4 mg Q6HP PRN PO NAUSEA; Start 10/21/18 at 15:45 Oxycodone/ Acetaminophen (Percocet 5mg/ 325mg Tablet) 1 tab Q4HP PRN PO MODERATE PAIN (PS 7-10); Start 10/21/18 at 15:45; Stop 10/21/18 at 16:30; Status DC Pantoprazole Sodium (Protonix) 40 mg DAILY PO Last administered on 10/23/18 08:02; Start 10/22/18 at 09:00 Phenol (Chloraseptic [place]) 1 spray Q2HP PRN [place] SORE THROAT; Start 10/21/18 at 15:45 Pyridoxine HCl (Vitamin B6) 50 mg DAILY PO Last administered on 10/23/18 08:04; Start 10/22/18 at 09:00 Rivaroxaban (Xarelto) 10 mg DAILY@1800 PO Last administered on 10/22/18at 17:12; Start 10/21/18 at 18:00 Senna (Senokot) 1 tab QHS PO Last administered on 10/21/18at 21:19; Start 10/21/18 at 21:00 Senna/Docusate Sodium (Senokot S) 1 tab BID PO Last administered on 10/23/18 08:03; Start 10/21/18 at 21:00 Trazodone HCl (Desyrel) 25 mg QHSP PRN PO INSOMNIA Last administered on 10/22/18at 20:19; Start 10/21/18 at 16:00 JALEN SCHUMACHER MD Oct 23, 2018 14:51
[2018-10-23] MEDS: DONEPEZIL 5 MG TAB PO SCH (15:24)
--- NOTE | 2018-10-23 16:24 | CR ---
DATE OF CONSULTATION: 10/23/2018 REQUESTING PHYSICIAN: Dr. Bender This is a 78-year-old male with a history of Parkinson's disease who fell at home and sustained a fracture of his left hip. He underwent a hemiarthroplasty on 10/17/2018 without complication. He was placed on Xarelto for deep vein thrombosis (DVT) prophylaxis and he was hemodynamically stable and discharged to the acute rehabilitation unit for rehabilitation on 10/21/2018. ALLERGIES: No known drug allergies. PAST MEDICAL HISTORY: 1. Parkinson's disease. 2. Hypertension. HOME MEDICATIONS: - aspirin 81 mg by mouth daily - carbidopa levodopa 25/100 two tablets by mouth five times a day - vitamin D 2000 units daily - CoQ10 11 mg by mouth daily PAST SURGICAL HISTORY: 1. Cholecystectomy. 2. Right hip fracture, status post repair. 3. Left hip fracture, status post repair. SOCIAL HISTORY: He lives alone. He has 24-hour care. He does not smoke cigarettes. He does not drink alcohol and does not use recreational drugs. REVIEW OF SYSTEMS: Essentially unremarkable other than left hip discomfort. PHYSICAL EXAMINATION: 78-year-old cooperative male in no acute distress. Blood pressure is 130/62, pulse 84, respirations 20, temperature 97. The patient is alert and oriented. HEENT: Pharynx, gums and tongue pink and moist. Tongue is midline. NECK: Supple without lymphadenopathy. CHEST: Clear to auscultation . HEART: Regular. ABDOMEN: Benign. Bowel sounds positive. GENITOURINARY/RECTAL: Not done. EXTREMITIES: No clubbing, cyanosis, and edema. Left hip dressing dry and intact. Peripheral pulses palpable bilaterally. IMPRESSION/PLAN: 1. Status post left hip fracture. Activity as per rehabilitation. 2. Hypertension. Blood pressure is stable. Continue Lasix. 3. Parkinson's disease. Continue Sinemet and home medications. 4. Deep vein thrombosis (DVT) prophylaxis. The patient is on Xarelto. We will follow as needed. The patient will be followed by Dr. Cheng hospitalist. DLEMA
[2018-10-23] MEDS: RIVAROXABAN 10 MG TAB (XARELTO) PO SCH (18:01)
[2018-10-23 20:00] VITALS: BP 156/70
[2018-10-23] MEDS: SENNA 8.6 MG TAB (SENOKOT) PO SCH (20:38)
[2018-10-24 06:00] VITALS: BP_SYST 147; BP_SYST 158; BP_DIAS 79; BP_DIAS 80
[2018-10-24] MEDS: SINEMET 25-100 MG TAB PO SCH ×5 (06:16→20:41)
[2018-10-24 06:44] LABS: BASO # 0.1 10^3/uL (0.0-0.2); BASO % 0.7 % (0.0-1.0); EOS # 0.3 10^3/uL (0.0-0.50); EOS % 4.2 % (0.0-3.0); HEMATOCRIT 31.7 % (42.0-52.0); HEMOGLOBIN 10.6 g/dl (13.5-17.5); LYMPH # 1.5 10^3/uL (1.5-4.5); MEAN CORPUSCULAR HEMOGLOBIN 31.3 pg (27.0-33.0); MEAN CORPUSCULAR HGB CONC 33.4 g/dl (32.0-36.5); MEAN CORPUSCULAR VOLUME 93.5 fl (80.0-96.0); MONO # 0.6 10^3/uL (0.0-0.8); MONO % 8.6 % (0.0-5.0); NEUTROPHILS # 4.5 10^3/uL (1.8-7.7); NEUTROPHILS % 64.9 % (36.0-66.0); PLATELET COUNT, AUTOMATED 212 10^3/uL (150-450); RED BLOOD COUNT 3.39 10^6/uL (4.30-6.10)
[2018-10-24 07:05] LABS: BLOOD UREA NITROGEN 16 MG/DL (7-18); CALCIUM LEVEL 8.7 MG/DL (8.8-10.2); CARBON DIOXIDE LEVEL 27 MEQ/L (21-32); CHLORIDE LEVEL 106 MEQ/L (98-107); CREATININE FOR GFR 1.02 MG/DL (0.70-1.30); GLOMERULAR FILTRATION RATE > 60.0 (>42); GLUCOSE, FASTING 105 MG/DL (70-100); POTASSIUM SERUM 3.6 MEQ/L (3.5-5.1); SODIUM LEVEL 141 MEQ/L (136-145)
[2018-10-24] MEDS: MULTIVITAMINS/MINERALS THERAP 1 TAB PO SCH (08:27)
[2018-10-24] MEDS: DONEPEZIL 5 MG TAB PO SCH (08:28)
[2018-10-24] MEDS: PYRIDOXINE 50 MG TAB PO SCH (08:28)
[2018-10-24] MEDS: CO-ENZYME Q10 50 MG CAP PO SCH (08:28)
[2018-10-24] MEDS: ACETAMINOPHEN 500 MG TAB PO SCH ×3 (08:28→20:42)
[2018-10-24] MEDS: PANTOPRAZOLE 40MG TAB (PROTONIX) PO SCH (08:28)
[2018-10-24] MEDS: SENOKOT S TAB PO SCH ×2 (08:28→20:40)
[2018-10-24] MEDS: FERROUS GLUCONATE 324 MG TAB PO SCH ×2 (08:28→20:40)
[2018-10-24 14:00] VITALS: BP 103/57
--- NOTE | 2018-10-24 14:05 | NUR ---
Pt w/ mild oral phase dysphagia characterized by poor oral motor coordination and bolus formation. Pt w/ impulsive bite size and difficulty using utensils to cut food. Recommend level 3 mechanical soft diet (NDD) w/ food cut bite size. Recommend thin liquids. Dysphagia tx to f/u diet tolerance and for family education regarding diet modifications. Addendum: 10/24/[address] [facility] Amended: Links added.
--- NOTE | 2018-10-24 14:18 | NUR ---
Pt w/ moderate cognitive impairment. Per daughter, deficits in memory and orientation which are a decline from his baseline cognitive status. Recommend cognitive tx targeting memory, problem-solving, attention, orientation, and safety awareness. Addendum: 10/24/18 at [address] [facility] Amended: Links added.
[2018-10-24] MEDS: RIVAROXABAN 10 MG TAB (XARELTO) PO SCH (17:27)
[2018-10-24 20:00] VITALS: BP 139/73
--- NOTE | 2018-10-24 20:07 | IPNPDOC ---
PM&R Progress Note DATE OF SERVICE: Oct 24, 2018 [employer] Specialist Progress Note Subjective: Patient would like his children to visit him. He would like to give evening dose of Amantadine a try and recalls being on it at the beginning of his Parkinso nisms, but cannot recall why he stopped taking it. REVIEW OF SYSTEMS: The following is a completed review of systems and has been reviewed. Review of systems otherwise unremarkable. PAIN: left hip pain EYES: Negative EARS, NOSE, & THROAT:+ sore throat CARDIOVASCULAR: no chest pain or palpitations PULMONARY: Negative. Denies shortness of breath GASTROINTESTINAL: Negative for urinary or fecal incontinence, negative constipation GENITOURINARY: Negative urinary retention or dysuria, +incontinence MUSCULOSKELETAL: left hip silvia-arthroplasty NEUROLOGICAL: +Parkinsons with hallucinations, athetosis HEMATOLOGICAL: +Bilat upper extremity ecchymosis SKIN: +left hip incision All other review of systems found to be negative. PHYSICAL EXAMINATION: VITAL SIGNS: Please see below. GENERAL: Pleasant and cooperative. No acute distress. HEENT: PERRL. Extraocular grossly movements intact. Clear conjunctiva CARDIOVASCULAR: Regular rate and rhythm. No murmurs, rubs, or gallops. LUNGS: Clear to auscultation bilaterally. No wheezes. No rhonchi. ABDOMEN:Soft, nontender, mildly distended. Positive bowel sounds NEUROLOGICAL: Alert and oriented to self and place, not to time Cranial nerves II through XII grossly intact. Sensation grossly intact +athetosis and tardive dyskinesia EXTREMITIES:5/5 strength bilateral upper extremities. 5-\5 strength right lower extremity. 5-/5 strength in left lower extremity, hip flexion not tested given recent surgery . SKIN: left hip incision C/D/I ASSESSMENT:78-year-old M with past medical history of Parkinson's who presents status post fall with left femur fracture. PLAN: 1. Rehab: PT/OT, assess for DME- HIV COUNSELOR, able to do sit to stands with SBA today in his room 2. 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 Ortho: s/p left hip silvia-arthroplasty, Total hip precautions, WBAT, ortho consult 4. Cardio: no significant pmh, monitor BPs- consult medicine 5. Resp: prevent atelectasis with incentive spirometry 6. Heme: recent blood loss anemia, monitor and continue Iron 7. DVT ppx: on xarelto 10 mg, admission Doppler negative for DVT 8. : admission UA and Ucx negative, monitor PVRs 9. Pain: Tylenol prn 10. GI ppx: Protonix 11. Dispo: tbd, progressing towards goals Allergies Coded Allergies: No Known Drug Allergy (Verified Allergy, Unknown, 01/24/13) Vital Signs Vital Signs Date Time Temp Pulse Resp B/P (MAP) Pulse Ox O2 Delivery O2 Flow Rate FiO2 10/24/18 06:00 98.5 72 18 158/79 (105) 96 Room Air Laboratory Data CBC/BMP Laboratory Tests 10/24/18 06:24 Red Blood Count 3.39 L, Mean Corpuscular Volume 93.5, Mean Corpuscular Hemoglobin 31.3, Mean Corpuscular Hemoglobin Concent 33.4, Red Cell Distribution Width 12.1, Neutrophils (%) (Auto) 64.9, Lymphocytes (%) (Auto) 21.0 L, Monocytes (%) (Auto) 8.6 H, Eosinophils (%) (Auto) 4.2 H, Basophils (%) (Auto) 0.7, Neutrophils # (Auto) 4.5, Lymphocytes # (Auto) 1.5, Monocytes # (Auto) 0.6, Eosinophils # (Auto) 0.3, Basophils # (Auto) 0.1, Calcium Level 8.7 L Labs 24H Laboratory Tests 2 10/24/18 06:24: Immature Granulocyte % (Auto) 0.6, White Blood Count 7.0, Red Blood Count 3.39L, Hemoglobin 10.6L, Hematocrit 31.7L, Mean Corpuscular Volume 93.5, Mean Corpuscular Hemoglobin 31.3, Mean Corpuscular Hemoglobin Concent 33.4, Red Cell Distribution Width 12.1, Platelet Count 212, Neutrophils (%) (Auto) 64.9, Lymphocytes (%) (Auto) 21.0L, Monocytes (%) (Auto) 8.6H, Eosinophils (%) (Auto) 4.2H, Basophils (%) (Auto) 0.7, Neutrophils # (Auto) 4.5, Lymphocytes # (Auto) 1.5, Monocytes # (Auto) 0.6, Eosinophils # (Auto) 0.3, Basophils # (Auto) 0.1, Nucleated Red Blood Cells % (auto) 0.0, Anion Gap 8, Glomerular Filtration Rate > 60.0, Blood Urea Nitrogen 16, Creatinine 1.02, Sodium Level 141, Potassium Level 3.6, Chloride Level 106, Carbon Dioxide Level 27, Calcium Level 8.7L Microbiology Microbiology 10/22/18 Urine Culture - Final, Complete Current Medications Current Medications Current Medications Acetaminophen (Tylenol Tab) 650 mg Q4HP PRN PO fever/ MILD PAIN (PS 1-4); Start 10/21/18 at 15:45; Stop 10/21/18 at 16:30; Status DC Acetaminophen (Tylenol Tab) 1,000 mg TID PO Last administered on 10/24/18at 17:27; Start 10/21/18 at 21:00 Albuterol/ Ipratropium (Duoneb (Ipr 0.5mg/Alb 2.5mg)) 3 ml Q4HP PRN NEB SOB/W HEEZING; Start 10/21/18 at 15:45 Amantadine HCl (Symmetrel) 100 mg QHS PO ; Start 10/24/18 at 21:00 Bisacodyl (Dulcolax Suppository) 10 mg DAILYPRN PRN [place] CONSTIPATION; Start 10/21/18 at 15:45 Carbidopa/Levodopa (Sinemet 25/100) 1 tab 1600,1900 PO Last administered on 10/24/18at 17:27; Start 10/23/18 at 16:00 Carbidopa/Levodopa (Sinemet 25/100) 1 tab ASDIRECTED PO ; Start 10/21/18 at 15:45; Stop 10/21/18 at 15:50; Status DC Carbidopa/Levodopa (Sinemet 25/100) 2 tab 0700,1000,1300 PO Last administered on 10/24/18 12:38; Start 10/22/18 at 07:00 Carbidopa/Levodopa (Sinemet 25/100) 2 tab 1600,1900 PO Last administered on 10/22/18 18:37; Start 10/21/18 at 16:00; Stop 10/23/18 at 14:53; Status DC Coenzyme Q10 (Coenzyme Q10) 50 mg DAILY PO Last administered on 10/24/18 08:28; Start 10/22/18 at 09:00; Stop 11/21/18 at 08:59 Donepezil HCl (AriCEPT) 5 mg DAILY PO Last administered on 10/24/18 08:28; Start 10/23/18 at 09:00 Ferrous Gluconate (Fergon) 324 mg BID PO Last administered on 10/24/18 08:28; Start 10/21/18 at 21:00 Furosemide (Lasix) 20 mg DAILY PO Last administered on 10/23/18 08:03; Start 10/21/18 at 16:00; Stop 10/23/18 at 09:01; Status DC Home Med (Med Rec Complete!) ASDIRECTED XX ; Start 10/22/18 at 10:45; Stop 10/22/18 at 10:45; Status DC Multivitamins (Theragram-M) 1 tab DAILY PO Last administered on 10/24/18 08:27; Start 10/22/18 at 09:00 Multivitamins (Theragram-M) 1 tab DAILY PO ; Start 10/22/18 at 09:00; Status UNV Ondansetron HCl (Zofran) 4 mg Q6HP PRN PO NAUSEA; Start 10/21/18 at 15:45 Oxycodone/ Acetaminophen (Percocet 5mg/ 325mg Tablet) 1 tab Q4HP PRN PO MODERATE PAIN (PS 7-10); Start 10/21/18 at 15:45; Stop 10/21/18 at 16:30; Status DC Pantoprazole Sodium (Protonix) 40 mg DAILY PO Last administered on 10/24/18 08:28; Start 10/22/18 at 09:00 Phenol (Chloraseptic [place]) 1 spray Q2HP PRN MT SORE THROAT; Start 10/21/18 at 15:45 Pyridoxine HCl (Vitamin B6) 50 mg DAILY PO Last administered on 10/24/18 08:28; Start 10/22/18 at 09:00 Rivaroxaban (Xarelto) 10 mg DAILY@1800 PO Last administered on 10/24/18 17:27; Start 10/21/18 at 18:00 Senna (Senokot) 1 tab QHS PO Last administered on 10/23/18 20:38; Start 10/21/18 at 21:00 Senna/Docusate Sodium (Senokot S) 1 tab BID PO Last administered on 10/24/18 08:28; Start 10/21/18 at 21:00 Trazodone HCl (Desyrel) 25 mg QHSP PRN PO INSOMNIA Last administered on 10/22/18 20:19; Start 10/21/18 at 16:00 JALEN SCHUMACHER MD Oct 24, 2018 20:07
[2018-10-24] MEDS ORDERED: traZODone 50 MG TAB PO PRN (20:15)
[2018-10-24] MEDS: AMANTADINE 100 MG CAP PO SCH (20:40)
[2018-10-24] MEDS: SENNA 8.6 MG TAB (SENOKOT) PO SCH (20:40)
[2018-10-25 06:00] VITALS: BP 140/65
[2018-10-25] MEDS: SINEMET 25-100 MG TAB PO SCH ×5 (06:12→20:36)
[2018-10-25] MEDS: MULTIVITAMINS/MINERALS THERAP 1 TAB PO SCH (08:52)
[2018-10-25] MEDS: ACETAMINOPHEN 500 MG TAB PO SCH ×3 (08:53→20:35)
[2018-10-25] MEDS: SENOKOT S TAB PO SCH ×2 (08:53→20:35)
[2018-10-25] MEDS: PANTOPRAZOLE 40MG TAB (PROTONIX) PO SCH (08:53)
[2018-10-25] MEDS: PYRIDOXINE 50 MG TAB PO SCH (08:53)
[2018-10-25] MEDS: CO-ENZYME Q10 50 MG CAP PO SCH (08:53)
[2018-10-25] MEDS: FERROUS GLUCONATE 324 MG TAB PO SCH ×2 (08:54→20:36)
[2018-10-25] MEDS: DONEPEZIL 5 MG TAB PO SCH (08:54)
--- NOTE | 2018-10-25 09:49 | IPNPDOC ---
Text Note Date of Service The patient was seen on 10/25/18. NOTE SUBJECTIVE: Patient was examined at bedside. He had no complaints. OBJECTIVE: GENERAL: The patient is alert and awake. HEENT: Normocephalic, atraumatic. Extraocular motor grossly intact. CARDIOVASCULAR: Positive S1, S2, regular rate. LUNGS: Clear to auscultation bilaterally. ABDOMEN: Soft, nontender, nondistended. Bowel sounds present. EXTREMITIES: No edema appreciated. ASSESSMENT AND PLAN: 1. Left hip fracture. left hemiarthroplasty on 10/17/2018. Continues rehab 2. Hypertension. -well controlled 3. Parkinson's disease. Continue home medications. 4. Deep vein thrombosis (DVT) prophylaxis. The patient is on Xarelto. VS,Fishbone, I+O VS, Fishbone, I+O Vital Signs Date Time Temp Pulse Resp B/P (MAP) Pulse Ox O2 Delivery O2 Flow Rate FiO2 10/25/18 06:00 98.1 68 18 140/65 (90) 93 Room Air I&O- Last 24 Hours up to 6 AM 10/25/18 06:00 Intake Total 720 ml Output Total 200 ml Balance 520 ml GME ATTESTATION GME ATTESTATION My faculty preceptor for this patient encounter was physically present during the encounter and was fully available. All aspects of the patient interview, examination, medical decision making process, and medical care plan development were reviewed and approved by the faculty preceptor. The faculty preceptor is aware and concurs with the plan as stated in the body of this note and will attest to such by his/her cosignature. PHIL RIOJAS DO Oct 25, 2018 08:15
[2018-10-25 14:00] VITALS: BP 115/61
--- NOTE | 2018-10-25 15:13 | IPNPDOC ---
PM&R Progress Note DATE OF SERVICE: Oct 25, 2018 [employer] Progress Note Subjective: Patient rpeorts he did not sleep well, but was feeling well overall today with less tardive dyskinesia. REVIEW OF SYSTEMS: The following is a completed review of systems and has been reviewed. Review of systems otherwise unremarkable. PAIN: left hip pain EYES: Negative EARS, NOSE, & THROAT: no rinorrhea, no more throat pain CARDIOVASCULAR: no chest pain or palpitations PULMONARY: Negative. Denies shortness of breath GASTROINTESTINAL: Negative for urinary or fecal incontinence, negative const ipation GENITOURINARY: Negative urinary retention or dysuria MUSCULOSKELETAL: left hip silvia-arthroplasty NEUROLOGICAL: +Parkinsons with hallucinations, athetosis(improved today) HEMATOLOGICAL: +Bilat upper extremity ecchymosis SKIN: +left hip incision All other review of systems found to be negative. PHYSICAL EXAMINATION: VITAL SIGNS: Please see below. GENERAL: Pleasant and cooperative. No acute distress. HEENT: PERRL. Extraocular grossly movements intact. Clear conjunctiva CARDIOVASCULAR: Regular rate and rhythm. No murmurs, rubs, or gallops. LUNGS: Clear to auscultation bilaterally. No wheezes. No rhonchi. ABDOMEN:Soft, nontender, mildly distended. Positive bowel sounds NEUROLOGICAL: Alert and oriented to self and place, not to time Cranial nerves II through XII grossly intact. Sensation grossly intact +athetosis and tardive dyskinesia EXTREMITIES:5/5 strength bilateral upper extremities. 5-\5 strength right lower extremity. 5-/5 strength in left lower extremity, hip flexion not tested given recent surgery . SKIN: left hip incision C/D/I ASSESSMENT:78-year-old M with past medical history of Parkinson's who presents status post fall with left femur fracture. PLAN: 1. Rehab: PT/OT, assess for DME- MORNING SHOW HOST, able to do sit to stands with SBA today in his room, ambulating a few feet with RW 2. 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 Ortho: s/p left hip silvia-arthroplasty, Total hip precautions, WBAT, ortho consult 4. Cardio: no significant pmh, monitor BPs- consult medicine 5. Resp: prevent atelectasis with incentive spirometry 6. Heme: recent blood loss anemia, monitor and continue Iron 7. DVT ppx: on xarelto 10 mg, admission Doppler negative for DVT 8. : admission UA and Ucx negative, monitor PVRs 9. Pain: Tylenol prn 10. GI ppx: Protonix 11. insomnia: temazepam and trazodone prn 11. Dispo: tbd, progressing towards goals Allergies Coded Allergies: No Known Drug Allergy (Verified Allergy, Unknown, 01/24/13) Vital Signs Vital Signs Date Time Temp Pulse Resp B/P (MAP) Pulse Ox O2 Delivery O2 Flow Rate FiO2 10/25/18 14:00 97.3 84 18 115/61 (79) 93 Room Air Microbiology Microbiology 10/22/18 Urine Culture - Final, Complete Current Medications Current Medications Current Medications Acetaminophen (Tylenol Tab) 650 mg Q4HP PRN PO fever/ MILD PAIN (PS 1-4); Start 10/21/18 at 15:45; Stop 10/21/18 at 16:30; Status DC Acetaminophen (Tylenol Tab) 1,000 mg TID PO Last administered on 10/25/18at 08:53; Start 10/21/18 at 21:00 Albuterol/ Ipratropium (Duoneb (Ipr 0.5mg/Alb 2.5mg)) 3 ml Q4HP PRN NEB SOB/WHEEZING; Start 10/21/18 at 15:45 Amantadine HCl (Symmetrel) 100 mg QHS PO Last administered on 10/24/18at 20:40; Start 10/24/18 at 21:00 Bisacodyl (Dulcolax Suppository) 10 mg DAILYPRN PRN [place] CONSTIPATION; Start 10/21/18 at 15:45 Carbidopa/Levodopa (Sinemet 25/100) 1 tab 1600,1900 PO Last administered on 10/24/18at 20:41; Start 10/23/18 at 16:00 Carbidopa/Levodopa (Sinemet 25/100) 1 tab ASDIRECTED PO ; Start 10/21/18 at 15:45; Stop 10/21/18 at 15:50; Status DC Carbidopa/Levodopa (Sinemet 25/100) 2 tab 0700,1000,1300 PO Last administered on 10/25/18at 13:12; Start 10/22/18 at 07:00 Carbidopa/Levodopa (Sinemet 25/100) 2 tab 1600,1900 PO Last administered on 10/22/18 18:37; Start 10/21/18 at 16:00; Stop 10/23/18 at 14:53; Status DC Coenzyme Q10 (Coenzyme Q10) 50 mg DAILY PO Last administered on 10/25/18 08:53; Start 10/22/18 at 09:00; Stop 11/21/18 at 08:59 Donepezil HCl (AriCEPT) 5 mg DAILY PO Last administered on 10/25/18 08:54; Start 10/23/18 at 09:00 Ferrous Gluconate (Fergon) 324 mg BID PO Last administered on 10/25/18 08:54; Start 10/21/18 at 21:00 Furosemide (Lasix) 20 mg DAILY PO Last administered on 10/23/18 08:03; Start 10/21/18 at 16:00; Stop 10/23/18 at 09:01; Status DC Home Med (Med Rec Complete!) ASDIRECTED XX ; Start 10/22/18 at 10:45; Stop 10/22/18 at 10:45; Status DC Multivitamins (Theragram-M) 1 tab DAILY PO Last administered on 10/25/18 08:52; Start 10/22/18 at 09:00 Multivitamins (Theragram-M) 1 tab DAILY PO ; Start 10/22/18 at 09:00; Status UNV Ondansetron HCl (Zofran) 4 mg Q6HP PRN PO NAUSEA; Start 10/21/18 at 15:45; Stop 10/24/18 at 20:03; Status DC Oxycodone/ Acetaminophen (Percocet 5mg/ 325mg Tablet) 1 tab Q4HP PRN PO MODERATE PAIN (PS 7-10); Start 10/21/18 at 15:45; Stop 10/21/18 at 16:30; Status DC Pantoprazole Sodium (Protonix) 40 mg DAILY PO Last administered on 10/25/18 08:53; Start 10/22/18 at 09:00 Phenol (Chloraseptic [place]) 1 spray Q2HP PRN [place] SORE THROAT; Start 10/21/18 at 15:45 Pyridoxine HCl (Vitamin B6) 50 mg DAILY PO Last administered on 10/25/18 08:53; Start 10/22/18 at 09:00 Rivaroxaban (Xarelto) 10 mg DAILY@1800 PO Last administered on 10/24/18 17:27; Start 10/21/18 at 18:00 Senna (Senokot) 1 tab QHS PO Last administered on 10/24/18 20:40; Start 10/21/18 at 21:00 Senna/Docusate Sodium (Senokot S) 1 tab BID PO Last administered on 10/25/18 08:53; Start 10/21/18 at 21:00 Trazodone HCl (Desyrel) 25 mg QHSP PRN PO INSOMNIA Last administered on 10/22/18 20:19; Start 10/21/18 at 16:00 Trazodone HCl (Desyrel) 50 mg Q4HP PRN PO AGITATION; Start 10/24/18 at 20:15 JALEN SCHUMACHER MD Oct 25, 2018 15:13
[2018-10-25] MEDS: RIVAROXABAN 10 MG TAB (XARELTO) PO SCH (18:00)
[2018-10-25 20:00] VITALS: BP 139/69
[2018-10-25] MEDS: TEMAZEPAM 7.5 MG CAP PO SCH (20:35)
[2018-10-25] MEDS: SENNA 8.6 MG TAB (SENOKOT) PO SCH (20:35)
[2018-10-25] MEDS: AMANTADINE 100 MG CAP PO SCH (20:35)
[2018-10-26 06:00] VITALS: BP 144/70
[2018-10-26] MEDS: SINEMET 25-100 MG TAB PO SCH ×5 (06:04→18:48)
[2018-10-26] MEDS: FERROUS GLUCONATE 324 MG TAB PO SCH ×2 (08:24→20:50)
[2018-10-26] MEDS: DONEPEZIL 5 MG TAB PO SCH (08:24)
[2018-10-26] MEDS: CO-ENZYME Q10 50 MG CAP PO SCH (08:24)
[2018-10-26] MEDS: PANTOPRAZOLE 40MG TAB (PROTONIX) PO SCH (08:25)
[2018-10-26] MEDS: SENOKOT S TAB PO SCH ×2 (08:25→20:51)
[2018-10-26] MEDS: PYRIDOXINE 50 MG TAB PO SCH (08:25)
[2018-10-26] MEDS: ACETAMINOPHEN 500 MG TAB PO SCH ×3 (08:25→20:50)
[2018-10-26] MEDS: MULTIVITAMINS/MINERALS THERAP 1 TAB PO SCH (08:25)
--- NOTE | 2018-10-26 10:04 | IPNPDOC ---
Text Note Date of Service The patient was seen on 10/26/18. NOTE SUBJECTIVE: Patient was examined at bedside. He complained of hip pain, about 7 out of 10. States that his pain medication helps OBJECTIVE: GENERAL: Alert, elderly gentleman CARDIOVASCULAR: Positive S1, S2, regular rate. LUNGS: Clear to auscultation bilaterally. ABDOMEN: Soft, nontender, nondistended. Bowel sounds present. EXTREMITIES: No edema appreciated. ASSESSMENT AND PLAN: 1. Left hip fracture. left hemiarthroplasty on 10/17/2018. Continues rehab. 2. Hypertension. -well controlled 3. Parkinson's disease. Continue home medications. -Follow with out patient at [facility] 4. Deep vein thrombosis (DVT) prophylaxis. The patient is on Xarelto. 5. Dementia -Continue Donepezil VS,Fishbone, I+O VS, Fishbone, I+O Vital Signs Date Time Temp Pulse Resp B/P (MAP) Pulse Ox O2 Delivery O2 Flow Rate FiO2 10/26/18 06:00 97.6 62 18 144/70 (94) 99 Room Air I&O- Last 24 Hours up to 6 AM 10/26/18 06:00 Intake Total 720 ml Output Total 125 ml Balance 595 ml GME ATTESTATION GME ATTESTATION My faculty preceptor for this patient encounter was physically present during the encounter and was fully available. All aspects of the patient interview, examination, medical decision making process, and medical care plan development were reviewed and approved by the faculty preceptor. The faculty preceptor is aware and concurs with the plan as stated in the body of this note and will attest to such by his/her cosignature. PHIL RIOJAS DO Oct 26, 2018 10:04 SANDRA BABCOCK DO Nov 12, 2018 21:30
[2018-10-26 14:00] VITALS: BP 132/67
[2018-10-26] MEDS: RIVAROXABAN 10 MG TAB (XARELTO) PO SCH (17:56)
[2018-10-26 20:00] VITALS: BP 113/64
[2018-10-26] MEDS: TEMAZEPAM 7.5 MG CAP PO SCH (20:50)
[2018-10-26] MEDS: AMANTADINE 100 MG CAP PO SCH (20:50)
[2018-10-26] MEDS: SENNA 8.6 MG TAB (SENOKOT) PO SCH (20:51)
[2018-10-27 06:00] VITALS: BP 146/69
[2018-10-27] MEDS: SINEMET 25-100 MG TAB PO SCH ×5 (06:18→20:10)
[2018-10-27] MEDS: MULTIVITAMINS/MINERALS THERAP 1 TAB PO SCH (09:17)
[2018-10-27] MEDS: SENOKOT S TAB PO SCH ×2 (09:17→20:10)
[2018-10-27] MEDS: DONEPEZIL 5 MG TAB PO SCH (09:17)
[2018-10-27] MEDS: PANTOPRAZOLE 40MG TAB (PROTONIX) PO SCH (09:17)
[2018-10-27] MEDS: PYRIDOXINE 50 MG TAB PO SCH (09:17)
[2018-10-27] MEDS: CO-ENZYME Q10 50 MG CAP PO SCH (09:17)
[2018-10-27] MEDS: ACETAMINOPHEN 500 MG TAB PO SCH ×3 (09:17→20:11)
[2018-10-27] MEDS: FERROUS GLUCONATE 324 MG TAB PO SCH ×2 (09:17→20:10)
[2018-10-27 14:00] VITALS: BP 141/69
[2018-10-27] MEDS: RIVAROXABAN 10 MG TAB (XARELTO) PO SCH (17:27)
[2018-10-27 20:00] VITALS: BP 156/76
[2018-10-27] MEDS: SENNA 8.6 MG TAB (SENOKOT) PO SCH (20:10)
[2018-10-27] MEDS: TEMAZEPAM 7.5 MG CAP PO SCH (20:10)
[2018-10-27] MEDS: AMANTADINE 100 MG CAP PO SCH (20:10)
[2018-10-28 06:00] VITALS: BP 156/87
[2018-10-28] MEDS: SINEMET 25-100 MG TAB PO SCH ×5 (06:22→20:38)
[2018-10-28] MEDS: FERROUS GLUCONATE 324 MG TAB PO SCH ×2 (08:18→20:38)
[2018-10-28] MEDS: PYRIDOXINE 50 MG TAB PO SCH (08:18)
[2018-10-28] MEDS: DONEPEZIL 5 MG TAB PO SCH (08:18)
[2018-10-28] MEDS: MULTIVITAMINS/MINERALS THERAP 1 TAB PO SCH (08:18)
[2018-10-28] MEDS: PANTOPRAZOLE 40MG TAB (PROTONIX) PO SCH (08:18)
[2018-10-28] MEDS: SENOKOT S TAB PO SCH ×2 (08:18→20:39)
[2018-10-28] MEDS: ACETAMINOPHEN 500 MG TAB PO SCH ×3 (08:18→20:39)
[2018-10-28] MEDS: CO-ENZYME Q10 50 MG CAP PO SCH (08:18)
[2018-10-28 14:00] VITALS: BP 126/75
--- NOTE | 2018-10-28 15:59 | IPN ---
DATE OF VISIT: 10/27/2018 SUBJECTIVE: The patient is seen and examined in the room in the afternoon. The patient was taking a nap at the time. The patient denied any acute complaints. He denied any fevers or chills. The left hip pain is under control. No issues with oral intake. OBJECTIVE: VITAL SIGNS: Temperature 97.8, pulse is 65, respirations 18, blood pressure is 146/69, pulse oximetry is 98% on room air. GENERAL: No signs of acute distress. The patient is alert and awake. Comfortable. HEENT: Normocephalic, atraumatic. Extraocular motor grossly intact. The patient wears corrective lenses. CARDIOVASCULAR: Positive S1, S2, regular rate. RESPIRATORY: Clear to auscultation bilaterally. ABDOMEN: Soft, nontender, nondistended. EXTREMITIES: No edema. LABORATORY DATA: The most recent laboratory data was from October 24, 2018. Laboratory results reviewed. ASSESSMENT AND PLAN: 1. Left hip fracture status post hemiarthroplasty on October 17, 2018. Continue acute rehabilitation. 2. A history of hypertension. Blood pressure in the satisfactory range. Currently, the patient is not on any blood pressure medications. 3. Parkinson's disease. Sinemet. 4. Deep venous thrombosis (DVT) prophylaxis: On Xarelto.
[2018-10-28] MEDS ORDERED: traZODone 50 MG TAB PO PRN (16:30)
--- NOTE | 2018-10-28 16:31 | IPNPDOC ---
PM&R Progress Note DATE OF SERVICE: Oct 28, 2018 [employer] Progress Note Subjective: Patient reports he is sleeping well and feels much better overall with the addition of amantadine. REVIEW OF SYSTEMS: The following is a completed review of systems and has been reviewed. Review of systems otherwise unremarkable. PAIN: left hip pain EYES: Negative EARS, NOSE, & THROAT: no rinorrhea, no more throat pain CARDIOVASCULAR: no chest pain or palpitations PULMONARY: Negative. Denies shortness of breath GASTROINTESTINAL: Negative for urinary or fecal incontinence, negative constipation GENITOURINARY: Negative urinary retention or dysuria MUSCULOSKELETAL: left hip silvia-arthroplasty NEUROLOGICAL: +Parkinsons with hallucinations, athetosis(improved today) HEMATOLOGICAL: +Bilat upper extremity ecchymosis SKIN: +left hip incision All other review of systems found to be negative. PHYSICAL EXAMINATION: VITAL SIGNS: Please see below. GENERAL: Pleasant and cooperative. No acute distress. HEENT: PERRL. Extraocular grossly movements intact. Clear conjunctiva CARDIOVASCULAR: Regular rate and rhythm. No murmurs, rubs, or gallops. LUNGS: Clear to auscultation bilaterally. No wheezes. No rhonchi. ABDOMEN:Soft, nontender, mildly distended. Positive bowel sounds NEUROLOGICAL: Alert and oriented to self and place, not to time Cranial nerves II through XII grossly intact. Sensation grossly intact +athetosis and tardive dyskinesia EXTREMITIES:5/5 strength bilateral upper extremities. 5-\5 strength right lower extremity. 5-/5 strength in left lower extremity, hip flexion not tested given recent surgery . SKIN: left hip incision C/D/I ASSESSMENT:78-year-old M with past medical history of Parkinson's who presents status post fall with left femur fracture. PLAN: 1. 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 Neuro: pmh Parkinsons with Van body features such as significant dementia with visual hallucinations complicated by akathisias and tardive dyskniesia -remove any deliriogenic medications -started B6 for tardive dyskinesia- off label treatment and monitor -will increase Donepezil for dementia to 10mg daily -continue Amantadine for L-dopa induced dyskinesia while tapering Sinemet, recommended dose 247mg qHS, started at 100mg qHS without significant side effects, dyskinesias improving, will trial 150mg qHS tonight and continue to taper down Sinemet 3. Ortho: s/p left hip silvia-arthroplasty, Total hip precautions, WBAT, ortho consult 4. Cardio: no significant pmh, monitor BPs- consult medicine, recs appreciated 5. Resp: prevent atelectasis with incentive spirometry 6. Heme: recent blood loss anemia, monitor and continue Iron 7. DVT ppx: on xarelto 10 mg, admission Doppler negative for DVT 8. : admission UA and Ucx negative, monitor PVRs 9. Pain: Tylenol prn 10. GI ppx: Protonix 11. insomnia: temazepam and trazodone prn 11. Dispo: 11-12-18 , progressing towards goals Allergies Coded Allergies: No Known Drug Allergy (Verified Allergy, Unknown, 01/24/13) Vital Signs Vital Signs Date Time Temp Pulse Resp B/P (MAP) Pulse Ox O2 Delivery O2 Flow Rate FiO2 10/28/18 14:00 97.7 94 18 126/75 (92) 99 Room Air Microbiology Microbiology 10/22/18 Urine Culture - Final, Complete Current Medications Current Medications Current Medications Acetaminophen (Tylenol Tab) 650 mg Q4HP PRN PO fever/ MILD PAIN (PS 1-4); Start 10/21/18 at 15:45; Stop 10/21/18 at 16:30; Status DC Acetaminophen (Tylenol Tab) 1,000 mg TID PO Last administered on 10/28/18at 08:18; Start 10/21/18 at 21:00 Albuterol/ Ipratropium (Duoneb (Ipr 0.5mg/Alb 2.5mg)) 3 ml Q4HP PRN NEB SOB/WHEEZING; Start 10/21/18 at 15:45 Amantadine HCl (Symmetrel) 100 mg QHS PO Last administered on 10/27/18at 20:10; Start 10/24/18 at 21:00 Bisacodyl (Dulcolax Suppository) 10 mg DAILYPRN PRN [place] CONSTIPATION; Start 10/21/18 at 15:45 Carbidopa/Levodopa (Sinemet 25/100) 1 tab 1600,1900 PO Last administered on 10/27/18at 20:10; Start 10/23/18 at 16:00 Carbidopa/Levodopa (Sinemet 25/100) 1 tab ASDIRECTED PO ; Start 10/21/18 at 15:45; Stop 10/21/18 at 15:50; Status DC Carbidopa/Levodopa (Sinemet 25/100) 2 tab 0700,1000,1300 PO Last administered on 10/28/18at 12:41; Start 10/22/18 at 07:00 Carbidopa/Levodopa (Sinemet 25/100) 2 tab 1600,1900 PO Last administered on 10/22/18at 18:37; Start 10/21/18 at 16:00; Stop 10/23/18 at 14:53; Status DC Coenzyme Q10 (Coenzyme Q10) 50 mg DAILY PO Last administered on 10/28/18 08:18; Start 10/22/18 at 09:00; Stop 11/21/18 at 08:59 Donepezil HCl (AriCEPT) 5 mg DAILY PO Last administered on 10/28/18 08:18; Start 10/23/18 at 09:00 Ferrous Gluconate (Fergon) 324 mg BID PO Last administered on 10/28/18 08:18; Start 10/21/18 at 21:00 Furosemide (Lasix) 20 mg DAILY PO Last administered on 10/23/18 08:03; Start 10/21/18 at 16:00; Stop 10/23/18 at 09:01; Status DC Home Med (Med Rec Complete!) ASDIRECTED XX ; Start 10/22/18 at 10:45; Stop 10/22/18 at 10:45; Status DC Miscellaneous (Unresolved Clarification Entry) SEE LABEL COMMENTS DAILY XX ; Start 10/27/18 at 09:00; Stop 10/28/18 at 11:32; Status DC Multivitamins (Theragram-M) 1 tab DAILY PO Last administered on 10/28/18at 08:18; Start 10/22/18 at 09:00 Multivitamins (Theragram-M) 1 tab DAILY PO ; Start 10/22/18 at 09:00; Status UNV Ondansetron HCl (Zofran) 4 mg Q6HP PRN PO NAUSEA; Start 10/21/18 at 15:45; Stop 10/24/18 at 20:03; Status DC Oxycodone/ Acetaminophen (Percocet 5mg/ 325mg Tablet) 1 tab Q4HP PRN PO MODERATE PAIN (PS 7-10); Start 10/21/18 at 15:45; Stop 10/21/18 at 16:30; Status DC Pantoprazole Sodium (Protonix) 40 mg DAILY PO Last administered on 10/28/18 08:18; Start 10/22/18 at 09:00 Phenol (Chloraseptic [place]) 1 spray Q2HP PRN [place] SORE THROAT; Start 10/21/18 at 15:45 Pyridoxine HCl (Vitamin B6) 50 mg DAILY PO Last administered on 10/28/18 08:18; Start 10/22/18 at 09:00 Rivaroxaban (Xarelto) 10 mg DAILY@1800 PO Last administered on 10/27/18 17:27; Start 10/21/18 at 18:00 Senna (Senokot) 1 tab QHS PO Last administered on 10/27/18 20:10; Start 10/21/18 at 21:00 Senna/Docusate Sodium (Senokot S) 1 tab BID PO Last administered on 10/28/18 08:18; Start 10/21/18 at 21:00 Temazepam (Restoril) 7.5 mg QHS PO Last administered on 10/27/18 20:10; Start 10/25/18 at 21:00 Trazodone HCl (Desyrel) 25 mg QHSP PRN PO INSOMNIA Last administered on 10/22/18 20:19; Start 10/21/18 at 16:00 Trazodone HCl (Desyrel) 50 mg Q4HP PRN PO AGITATION; Start 10/24/18 at 20:15 JALEN SCHUMACHER MD Oct 28, 2018 16:31
[2018-10-28] MEDS: RIVAROXABAN 10 MG TAB (XARELTO) PO SCH (17:07)
[2018-10-28] MEDS: AMANTADINE 100MG/10ML SYRUP UDC PO SCH (20:37)
[2018-10-28] MEDS: TEMAZEPAM 7.5 MG CAP PO SCH (20:38)
[2018-10-28] MEDS: SENNA 8.6 MG TAB (SENOKOT) PO SCH (20:40)
[2018-10-29 06:00] VITALS: BP 136/72
[2018-10-29] MEDS: SINEMET 25-100 MG TAB PO SCH ×5 (06:11→18:08)
[2018-10-29] MEDS: PANTOPRAZOLE 40MG TAB (PROTONIX) PO SCH (09:26)
[2018-10-29] MEDS: CO-ENZYME Q10 50 MG CAP PO SCH (09:26)
[2018-10-29] MEDS: PYRIDOXINE 50 MG TAB PO SCH (09:26)
[2018-10-29] MEDS: FERROUS GLUCONATE 324 MG TAB PO SCH ×2 (09:26→21:24)
[2018-10-29] MEDS: DONEPEZIL 5 MG TAB PO SCH (09:27)
[2018-10-29] MEDS: SENOKOT S TAB PO SCH ×2 (09:28→21:00)
[2018-10-29] MEDS: MULTIVITAMINS/MINERALS THERAP 1 TAB PO SCH (09:28)
[2018-10-29] MEDS: ACETAMINOPHEN 500 MG TAB PO SCH ×3 (09:28→21:25)
--- NOTE | 2018-10-29 13:43 | IPNPDOC ---
Date Seen The patient was seen on 10/29/18. Progress Note HPI: 78-year-old male with past medical history of Parkinson's disease presents to the ER with left hip pain. The patient stated that he was adjusting the furnace thermostat when he fell and landed on his left side. The patient denied any prodromal symptoms of lightheadedness, dizziness, chest pain, palpitations, abdominal pain, abdominal pain, or any nausea/vomiting/diarrhea. In the ER, imaging revealed a left hip fracture, s/p repair as per Orthopedic surgery. The pt was transferred to the care of CONSTANCE Swift, 10/21/18. The pt is OOB to chair. No verbalized concerns. Denies any fevers, chills, weakness, fatigue, Headache, Chest Pain, Shortness of breath, cough, palpitations, abdominal pain, N/V/D or changes in bowel or bladder habits. PMHx: Parkinson's disease HTN Unsteady gait PSHX: right hip fracture s/p repair, cholecystectomy PE: GEN: 78yoM, appears stated age. No acute distress. Alert and oriented x 3. HEENT: Normocephalic, atraumatic. Sclera are nonicteric. No facial asymmetry. Moist mucous membranes.Pharynx pink and moist. CHEST: Regular rate and rhythm, +S1, +S2 LUNGS: Clear to auscultation bilaterally. No wheezes, rales, or rhonchi. Breathing appears symmetric and easy. Patient is speaking in full sentences. No accessory muscle use. ABD: Round, soft, non-tender, non-distended. +Bowel sounds throughout. No rebound or guarding. No costovertebral angle tenderness. EXT: Pulses 2+ bilaterally dorsalis pedis and radial. No lower extremity edema appreciated. SKIN: [place], dry, warm. No rashes. NEURO: Reduced facial expressions, no tremor noted. No focal deficits appreciated. A&P: 78-year-old male with past medical history of Parkinson's disease presents to the ER with left hip pain. The patient stated that he was adjusting the furnace thermostat when he fell and landed on his left side. The patient denied any prodromal symptoms of lightheadedness, dizziness, chest pain, palpitations, abdominal pain, abdominal pain, or any nausea/vomiting/diarrhea. In the ER, imaging revealed a left hip fracture, s/p repair as per Orthopedic surgery. The pt was transferred to the care of Dr Bendre, ARU, 10/21/18. 1. Left hip fracture/ S/P left hemiarthroplasty 10/17/2018. Mgmt as per Orthopedic Surgery. Mgmt as per ARU. PT/OT as per ARU ST as per ARU pain control as per ARU Bowel care as per ARU DVT px. Pt is on Xarelto. 2. Hypertension. SBP 129-146. Lasix remains on hold. 3. Parkinson's disease. Continue home medications. 4. GERD. Protonix. 5. Anemia. Likely acute blood loss. Hgb 10.6. Fe supplement VS, I&O, 24H, Fishbone Vital Signs/I&O Vital Signs Date Time Temp Pulse Resp B/P (MAP) Pulse Ox O2 Delivery O2 Flow Rate FiO2 10/29/18 06:00 98.1 95 18 136/72 (93) 98 Room Air I&O- Last 24 Hours up to 6 AM 10/29/18 06:00 Intake Total 1050 ml Output Total 725 ml Balance 325 ml Laboratory Data Microbiology Microbiology 10/22/18 Urine Culture - Final, Complete Shanice Cox Oct 29, 2018 13:43
[2018-10-29 14:00] VITALS: BP 114/65
[2018-10-29] MEDS ORDERED: ACETAMINOPHEN TAB 650MG DOSE (2X325MG) PO PRN (14:15)
--- NOTE | 2018-10-29 16:48 | IPNPDOC ---
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 REVIEW OF SYSTEMS: The following is a completed review of systems and has been reviewed. Review of systems otherwise unremarkable. PAIN: left hip pain-improving EYES: Negative EARS, NOSE, & THROAT: no rinorrhea, no more throat pain CARDIOVASCULAR: no chest pain or palpitations PULMONARY: Negative. Denies shortness of breath GASTROINTESTINAL: Negative for urinary or fecal incontinence, negative constipation GENITOURINARY: Negative urinary retention or dysuria MUSCULOSKELETAL: left hip silvia-arthroplasty NEUROLOGICAL: +Parkinsons with hallucinations-resolved, athetosis-resolved HEMATOLOGICAL: +Bilat upper extremity ecchymosis SKIN: +left hip incision All other review of systems found to be negative. PHYSICAL EXAMINATION: VITAL SIGNS: Please see below. GENERAL: Pleasant and cooperative. No acute distress. HEENT: PERRL. Extraocular grossly movements intact. Clear conjunctiva CARDIOVASCULAR: Regular rate and rhythm. No murmurs, rubs, or gallops. LUNGS: Clear to auscultation bilaterally. No wheezes. No rhonchi. ABDOMEN:Soft, nontender, mildly distended. Positive bowel sounds NEUROLOGICAL: Alert and oriented to self and place, not to time Cranial nerves II through XII grossly intact. Sensation grossly intact no akathisias or athetosis EXTREMITIES:5/5 strength bilateral upper extremities. 5-\5 strength right lower extremity. 5-/5 strength in left lower extremity, hip flexion not tested given recent surgery . SKIN: left hip incision C/D/I ASSESSMENT:78-year-old M with past medical history of Parkinson's who presents status post fall with left femur fracture. PLAN: 1. 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 Neuro: [facility] Parkinsons with Lewy body features such as significant dementia with visual hallucinations complicated by akathisias and tardive dyskniesia -remove any deliriogenic medications -continue B6 for tardive dyskinesia- off label treatment and monitor- improving -will increase Donepezil for dementia to 10mg daily -continue Amantadine for L-dopa induced dyskinesia while tapering Sinemet, recommended dose 247mg qHS, started at 100mg qHS without significant side effects, dyskinesias improving, continue at higher [id number] qHS and continue to taper down Sinemet-patient tolerating well 3. Ortho: s/p left hip silvia-arthroplasty, Total hip precautions, WBAT, ortho consult 4. Cardio: no significant pmh, monitor BPs- consult medicine, recs appreciated 5. Resp: prevent atelectasis with incentive spirometry 6. Heme: recent blood loss anemia, monitor and continue Iron 7. DVT ppx: on xarelto 10 mg, admission Doppler negative for DVT 8. : admission UA and Ucx negative, monitor PVRs 9. Pain: Tylenol prn 10. GI ppx: Protonix 11. insomnia: temazepam and trazodone prn 11. Dispo: 11-12-18 , progressing towards goals Allergies Coded Allergies: No Known Drug Allergy (Verified Allergy, Unknown, 01/24/13) Vital Signs Vital Signs Date Time Temp Pulse Resp B/P (MAP) Pulse Ox O2 Delivery O2 Flow Rate FiO2 10/29/18 14:00 97.5 90 16 114/65 (81) 98 Room Air Microbiology Microbiology 10/22/18 Urine Culture - Final, Complete Current Medications Current Medications Current Medications Acetaminophen (Tylenol Tab) 650 mg DAILY PRN PO pain ; Start 10/29/18 at 14:15 Acetaminophen (Tylenol Tab) 650 mg Q4HP PRN PO fever/ MILD PAIN (PS 1-4); Start 10/21/18 at 15:45; Stop 10/21/18 at 16:30; Status DC Acetaminophen (Tylenol Tab) 1,000 mg TID PO Last administered on 10/29/18at 15:06; Start 10/21/18 at 21:00 Albuterol/ Ipratropium (Duoneb (Ipr 0.5mg/Alb 2.5mg)) 3 ml Q4HP PRN NEB S OB/WHEEZING; Start 10/21/18 at 15:45 Amantadine HCl (Symmetrel Syrup) 150 mg QHS PO Last administered on 10/28/18at 20:37; Start 10/28/18 at 21:00 Amantadine HCl (Symmetrel) 100 mg QHS PO Last administered on 10/27/18at 20:10; Start 10/24/18 at 21:00; Stop 10/28/18 at 16:26; Status DC Bisacodyl (Dulcolax Suppository) 10 mg DAILYPRN PRN [place] CONSTIPATION; Start 10/21/18 at 15:45 Carbidopa/Levodopa (Sinemet 25/100) 1 tab 1600,1900 PO Last administered on 10/29/18at 15:05; Start 10/23/18 at 16:00 Carbidopa/Levodopa (Sinemet 25/100) 1 tab ASDIRECTED PO ; Start 10/21/18 at 15:45; Stop 10/21/18 at 15:50; Status DC Carbidopa/Levodopa (Sinemet 25/100) 1 tab DAILY@1300 PO Last administered on 10/29/18 12:42; Start 10/29/18 at 13:00 Carbidopa/Levodopa (Sinemet 25/100) 2 tab 0700,1000 PO Last administered on 10/29/18 09:26; Start 10/29/18 at 07:00 Carbidopa/Levodopa (Sinemet 25/100) 2 tab 0700,1000,1300 PO Last administered on 10/28/18at 12:41; Start 10/22/18 at 07:00; Stop 10/28/18 at 16:33; Status DC Carbidopa/Levodopa (Sinemet 25/100) 2 tab 1600,1900 PO Last administered on 10/22/18 18:37; Start 10/21/18 at 16:00; Stop 10/23/18 at 14:53; Status DC Coenzyme Q10 (Coenzyme Q10) 50 mg DAILY PO Last administered on 10/29/18 09:26; Start 10/22/18 at 09:00; Stop 11/21/18 at 08:59 Donepezil HCl (AriCEPT) 5 mg DAILY PO Last administered on 10/28/18 08:18; Start 10/23/18 at 09:00; Stop 10/28/18 at 16:26; Status DC Donepezil HCl (AriCEPT) 10 mg DAILY PO Last administered on 10/29/18 09:27; Start 10/29/18 at 09:00 Ferrous Gluconate (Fergon) 324 mg BID PO Last administered on 10/29/18 09:26; Start 10/21/18 at 21:00 Furosemide (Lasix) 20 mg DAILY PO Last administered on 10/23/18 08:03; Start 10/21/18 at 16:00; Stop 10/23/18 at 09:01; Status DC Home Med (Med Rec Complete!) ASDIRECTED XX ; Start 10/22/18 at 10:45; Stop 10/22/18 at 10:45; Status DC Miscellaneous (Unresolved Clarification Entry) SEE LABEL COMMENTS DAILY XX ; Start 10/27/18 at 09:00; Stop 10/28/18 at 11:32; Status DC Multivitamins (Theragram-M) 1 tab DAILY PO Last administered on 10/29/18 09:28; Start 10/22/18 at 09:00 Multivitamins (Theragram-M) 1 tab DAILY PO ; Start 10/22/18 at 09:00; Status UNV Ondansetron HCl (Zofran) 4 mg Q6HP PRN PO NAUSEA; Start 10/21/18 at 15:45; Stop 10/24/18 at 20:03; Status DC Oxycodone/ Acetaminophen (Percocet 5mg/ 325mg Tablet) 1 tab Q4HP PRN PO MODERATE PAIN (PS 7-10); Start 10/21/18 at 15:45; Stop 10/21/18 at 16:30; Status DC Pantoprazole Sodium (Protonix) 40 mg DAILY PO Last administered on 10/29/18at 09:26; Start 10/22/18 at 09:00 Phenol (Chloraseptic [place]) 1 spray Q2HP PRN MT SORE THROAT; Start 10/21/18 at 15:45 Pyridoxine HCl (Vitamin B6) 50 mg DAILY PO Last administered on 10/29/18 09:26; Start 10/22/18 at 09:00 Rivaroxaban (Xarelto) 10 mg DAILY@1800 PO Last administered on 10/28/18 17:07; Start 10/21/18 at 18:00 Senna (Senokot) 1 tab QHS PO Last administered on 10/27/18at 20:10; Start 10/21/18 at 21:00 Senna/Docusate Sodium (Senokot S) 1 tab BID PO Last administered on 10/28/18at 08:18; Start 10/21/18 at 21:00 Temazepam (Restoril) 7.5 mg QHS PO Last administered on 10/28/18at 20:38; Start 10/25/18 at 21:00 Trazodone HCl (Desyrel) 25 mg QHSP PRN PO INSOMNIA Last administered on 10/22/18at 20:19; Start 10/21/18 at 16:00; Stop 10/28/18 at 16:26; Status DC Trazodone HCl (Desyrel) 50 mg Q4HP PRN PO AGITATION; Start 10/24/18 at 20:15 Trazodone HCl (Desyrel) 50 mg QHSP PRN PO INSOMNIA; Start 10/28/18 at 16:30 JALEN SCHUMACHER MD Oct 29, 2018 16:48
[2018-10-29] MEDS: RIVAROXABAN 10 MG TAB (XARELTO) PO SCH (18:08)
[2018-10-29 20:22] VITALS: BP 117/65
[2018-10-29] MEDS: SENNA 8.6 MG TAB (SENOKOT) PO SCH (21:00)
[2018-10-29] MEDS: AMANTADINE 100MG/10ML SYRUP UDC PO SCH (21:00)
[2018-10-29] MEDS: TEMAZEPAM 7.5 MG CAP PO SCH (21:24)
[2018-10-30] MEDS: SINEMET 25-100 MG TAB PO SCH ×5 (06:02→20:53)
[2018-10-30 06:05] VITALS: BP 148/72
[2018-10-30 07:07] LABS: BASO # 0.1 10^3/uL (0.0-0.2); BASO % 0.8 % (0.0-1.0); EOS # 0.2 10^3/uL (0.0-0.50); EOS % 3.1 % (0.0-3.0); HEMATOCRIT 34.2 % (42.0-52.0); HEMOGLOBIN 11.2 g/dl (13.5-17.5); LYMPH # 1.5 10^3/uL (1.5-4.5); LYMPH % 20.5 % (24.0-44.0); MEAN CORPUSCULAR HEMOGLOBIN 31.1 pg (27.0-33.0); MEAN CORPUSCULAR HGB CONC 32.7 g/dl (32.0-36.5); MONO # 0.5 10^3/uL (0.0-0.8); MONO % 7.1 % (0.0-5.0); NEUTROPHILS # 4.9 10^3/uL (1.8-7.7); NEUTROPHILS % 67.9 % (36.0-66.0); PLATELET COUNT, AUTOMATED 315 10^3/uL (150-450); WHITE BLOOD COUNT 7.2 10^3/uL (4.0-10.0)
[2018-10-30 07:29] LABS: BLOOD UREA NITROGEN 15 MG/DL (7-18); CALCIUM LEVEL 8.9 MG/DL (8.8-10.2); CARBON DIOXIDE LEVEL 27 MEQ/L (21-32); CHLORIDE LEVEL 109 MEQ/L (98-107); CREATININE FOR GFR 0.93 MG/DL (0.70-1.30); GLOMERULAR FILTRATION RATE > 60.0 (>42); GLUCOSE, FASTING 105 MG/DL (70-100); POTASSIUM SERUM 3.8 MEQ/L (3.5-5.1); SODIUM LEVEL 141 MEQ/L (136-145)
[2018-10-30] MEDS: PANTOPRAZOLE 40MG TAB (PROTONIX) PO SCH (08:31)
[2018-10-30] MEDS: FERROUS GLUCONATE 324 MG TAB PO SCH ×2 (08:31→20:53)
[2018-10-30] MEDS: PYRIDOXINE 50 MG TAB PO SCH (08:31)
[2018-10-30] MEDS: CO-ENZYME Q10 50 MG CAP PO SCH (08:31)
[2018-10-30] MEDS: SENOKOT S TAB PO SCH ×3 (08:31→20:54)
[2018-10-30] MEDS: MULTIVITAMINS/MINERALS THERAP 1 TAB PO SCH (08:31)
[2018-10-30] MEDS: DONEPEZIL 5 MG TAB PO SCH (08:31)
[2018-10-30] MEDS: ACETAMINOPHEN 500 MG TAB PO SCH ×3 (08:32→20:54)
[2018-10-30] MEDS: SENNA 8.6 MG TAB (SENOKOT) PO SCH ×2 (09:15→20:54)
[2018-10-30 14:00] VITALS: BP 121/58
[2018-10-30] MEDS ORDERED: NS 1,000 ML IV ONE (14:00)
--- NOTE | 2018-10-30 14:41 | IPNPDOC ---
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 He says he feels restless and had loose stools with abdominal discomfort today. He was instructed to rest and will be given IVF. REVIEW OF SYSTEMS: The following is a completed review of systems and has been reviewed. Review of systems otherwise unremarkable. PAIN: left hip pain-improving EYES: Negative EARS, NOSE, & THROAT: no rinorrhea, no more throat pain CARDIOVASCULAR: no chest pain or palpitations PULMONARY: Negative. Denies shortness of breath GASTROINTESTINAL: Negative for urinary or fecal incontinence, negative constipation, +diarrhea and nausea GENITOURINARY: Negative urinary retention or dysuria MUSCULOSKELETAL: left hip silvia-arthroplasty NEUROLOGICAL: +Parkinsons with hallucinations-resolved, athetosis-resolved HEMATOLOGICAL: +Bilat upper extremity ecchymosis SKIN: +left hip incision All other review of systems found to be negative. PHYSICAL EXAMINATION: VITAL SIGNS: Please see below. GENERAL: Pleasant and cooperative. No acute distress. HEENT: PERRL. Extraocular grossly movements intact. Clear conjunctiva CARDIOVASCULAR: Regular rate and rhythm. No murmurs, rubs, or gallops. LUNGS: Clear to auscultation bilaterally. No wheezes. No rhonchi. ABDOMEN:Soft, nontender, mildly distended. Positive bowel sounds NEUROLOGICAL: Alert and oriented to self and place, not to time Cranial nerves II through XII grossly intact. Sensation grossly intact no akathisias or athetosis EXTREMITIES:5/5 strength bilateral upper extremities. 5-\5 strength right lower extremity. 5-/5 strength in left lower extremity, hip flexion not tested given recent surgery . SKIN: left hip incision C/D/I ASSESSMENT:78-year-old M with past medical history of Parkinson's who presents status post fall with left femur fracture. PLAN: 1. 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 Neuro: pm Parkinsons with Lewy body features such as significant dementia with visual hallucinations complicated by akathisias and tardive dyskniesia -remove any deliriogenic medications -continue B6 for tardive dyskinesia- off label treatment and monitor- improving -will increase Donepezil for dementia to 10mg daily -continue Amantadine for L-dopa induced dyskinesia while tapering Sinemet, recommended dose 247mg qHS, started at 100mg qHS without significant side effects, dyskinesias improving, letty doing ok at higher dose 150mg qHS, however having difficulty sleeping, will decrease back to 100mg and optimize sleep aids at this time, continue to taper down Sinemet- 3. Ortho: s/p left hip silvia-arthroplasty, Total hip precautions, WBAT, ortho consult 4. Cardio: no significant pmh, monitor BPs- consult medicine, recs appreciated 5. Resp: prevent atelectasis with incentive spirometry 6. Heme: recent blood loss anemia, monitor and continue Iron 7. DVT ppx: on xarelto 10 mg, admission Doppler negative for DVT 8. : admission UA and Ucx negative, monitor PVRs- will repeat UA 9. Pain: Tylenol prn 10. GI ppx: Protonix, patient with loose stool and reports feeling nauseous, will give IVF and monitor for leukocytosis, not concerned for C. diff at this time 11. insomnia: poor sleep, will increase Temazepam to 15mg 11. Dispo: 11-12-18 , progressing towards goals Allergies Coded Allergies: No Known Drug Allergy (Verified Allergy, Unknown, 01/24/13) Vital Signs Vital Signs Date Time Temp Pulse Resp B/P (MAP) Pulse Ox O2 Delivery O2 Flow Rate FiO2 10/30/18 06:05 97.6 66 18 148/72 (97) 96 Room Air Laboratory Data CBC/BMP Laboratory Tests 10/30/18 06:34 Red Blood Count 3.60 L, Mean Corpuscular Volume 95.0, Mean Corpuscular Hemoglobin 31.1, Mean Corpuscular Hemoglobin Concent 32.7, Red Cell Distribution Width 12.0, Neutrophils (%) (Auto) 67.9 H, Lymphocytes (%) (Auto) 20.5 L, Monocytes (%) (Auto) 7.1 H, Eosinophils (%) (Auto) 3.1 H, Basophils (%) (Auto) 0.8, Neutrophils # (Auto) 4.9, Lymphocytes # (Auto) 1.5, Monocytes # (Auto) 0.5, Eosinophils # (Auto) 0.2, Basophils # (Auto) 0.1, Calcium Level 8.9 Labs 24H Laboratory Tests 2 10/30/18 06:34: Immature Granulocyte % (Auto) 0.6, White Blood Count 7.2, Red Blood Count 3.60L, Hemoglobin 11.2L, Hematocrit 34.2L, Mean Corpuscular Volume 95.0, Mean Corpuscular Hemoglobin 31.1, Mean Corpuscular Hemoglobin Concent 32.7, Red Cell Distribution Width 12.0, Platelet Count 315, Neutrophils (%) (Auto) 67.9H, Lymphocytes (%) (Auto) 20.5L, Monocytes (%) (Auto) 7.1H, Eosinophils (%) (Auto) 3.1H, Basophils (%) (Auto) 0.8, Neutrophils # (Auto) 4.9, Lymphocytes # (Auto) 1.5, Monocytes # (Auto) 0.5, Eosinophils # (Auto) 0.2, Basophils # (Auto) 0.1, Nucleated Red Blood Cells % (auto) 0.0, Anion Gap 5L, Glomerular Filtration Rate > 60.0, Blood Urea Nitrogen 15, Creatinine 0.93, Sodium Level 141, Potassium Level 3.8, Chloride Level 109H, Carbon Dioxide Level 27, Calcium Level 8.9 Microbiology Microbiology 10/22/18 Urine Culture - Final, Complete Current Medications Current Medications Current Medications Acetaminophen (Tylenol Tab) 650 mg DAILY PRN PO pain ; Start 10/29/18 at 14:15 Acetaminophen (Tylenol Tab) 650 mg Q4HP PRN PO fever/ MILD PAIN (PS 1-4); Start 10/21/18 at 15:45; Stop 10/21/18 at 16:30; Status DC Acetaminophen (Tylenol Tab) 1,000 mg TID PO Last administered on 10/30/18at 08:3 2; Start 10/21/18 at 21:00 Albuterol/ Ipratropium (Duoneb (Ipr 0.5mg/Alb 2.5mg)) 3 ml Q4HP PRN NEB SOB/WHEEZING; Start 10/21/18 at 15:45 Amantadine HCl (Symmetrel Syrup) 100 mg QHS PO ; Start 10/30/18 at 21:00 Amantadine HCl (Symmetrel Syrup) 150 mg QHS PO Last administered on 10/29/18at 21:00; Start 10/28/18 at 21:00; Stop 10/30/18 at 13:45; Status DC Amantadine HCl (Symmetrel) 100 mg QHS PO Last administered on 10/27/18at 20:10; Start 10/24/18 at 21:00; Stop 10/28/18 at 16:26; Status DC Bisacodyl (Dulcolax Suppository) 10 mg DAILYPRN PRN [place] CONSTIPATION; Start 10/21/18 at 15:45 Carbidopa/Levodopa (Sinemet 25/100) 1 tab 1600,1900 PO Last administered on 10/29/18 18:08; Start 10/23/18 at 16:00 Carbidopa/Levodopa (Sinemet 25/100) 1 tab ASDIRECTED PO ; Start 10/21/18 at 15:45; Stop 10/21/18 at 15:50; Status DC Carbidopa/Levodopa (Sinemet 25/100) 1 tab DAILY@1300 PO Last administered on 10/30/18 12:21; Start 10/29/18 at 13:00 Carbidopa/Levodopa (Sinemet 25/100) 2 tab 0700,1000 PO Last administered on 10/30/18 09:15; Start 10/29/18 at 07:00 Carbidopa/Levodopa (Sinemet 25/100) 2 tab 0700,1000,1300 PO Last administered on 10/28/18 12:41; Start 10/22/18 at 07:00; Stop 10/28/18 at 16:33; Status DC Carbidopa/Levodopa (Sinemet 25/100) 2 tab 1600,1900 PO Last administered on 10/22/18 18:37; Start 10/21/18 at 16:00; Stop 10/23/18 at 14:53; Status DC Coenzyme Q10 (Coenzyme Q10) 50 mg DAILY PO Last administered on 10/30/18 08:31; Start 10/22/18 at 09:00; Stop 11/21/18 at 08:59 Donepezil HCl (AriCEPT) 5 mg DAILY PO Last administered on 10/28/18 08:18; Start 10/23/18 at 09:00; Stop 10/28/18 at 16:26; Status DC Donepezil HCl (AriCEPT) 10 mg DAILY PO Last administered on 10/30/18 08:31; Start 10/29/18 at 09:00 Ferrous Gluconate (Fergon) 324 mg BID PO Last administered on 10/30/18 08:31; Start 10/21/18 at 21:00 Furosemide (Lasix) 20 mg DAILY PO Last administered on 10/23/18 08:03; Start 10/21/18 at 16:00; Stop 10/23/18 at 09:01; Status DC Home Med (Med Rec Complete!) ASDIRECTED XX ; Start 10/22/18 at 10:45; Stop 10/22/18 at 10:45; Status DC Miscellaneous (Unresolved Clarification Entry) SEE LABEL COMMENTS DAILY XX ; Start 10/27/18 at 09:00; Stop 10/28/18 at 11:32; Status DC Multivitamins (Theragram-M) 1 tab DAILY PO Last administered on 10/30/18 08:31; Start 10/22/18 at 09:00 Multivitamins (Theragram-M) 1 tab DAILY PO ; Start 10/22/18 at 09:00; Status UNV Ondansetron HCl (Zofran) 4 mg Q6HP PRN PO NAUSEA; Start 10/21/18 at 15:45; Stop 10/24/18 at 20:03; Status DC Oxycodone/ Acetaminophen (Percocet 5mg/ 325mg Tablet) 1 tab Q4HP PRN PO MODERATE PAIN (PS 7-10); Start 10/21/18 at 15:45; Stop 10/21/18 at 16:30; Status DC Pantoprazole Sodium (Protonix) 40 mg DAILY PO Last administered on 10/30/18 08:31; Start 10/22/18 at 09:00 Phenol (Chloraseptic [place]) 1 spray Q2HP PRN MT SORE THROAT; Start 10/21/18 at 15:45 Pyridoxine HCl (Vitamin B6) 50 mg DAILY PO Last administered on 10/30/18 08:31; Start 10/22/18 at 09:00 Rivaroxaban (Xarelto) 10 mg DAILY@1800 PO Last administered on 10/29/18 18:08; Start 10/21/18 at 18:00 Senna (Senokot) 1 tab QHS PO Last administered on 10/27/18at 20:10; Start 10/21/18 at 21:00 Senna/Docusate Sodium (Senokot S) 1 tab BID PO Last administered on 10/28/18at 08:18; Start 10/21/18 at 21:00 Temazepam (Restoril) 7.5 mg QHS PO Last administered on 10/29/18at 21:24; Start 10/25/18 at 21:00; Stop 10/30/18 at 13:45; Status DC Temazepam (Restoril) 15 mg QHS PO ; Start 10/30/18 at 21:00 Trazodone HCl (Desyrel) 25 mg QHSP PRN PO INSOMNIA Last administered on 10/22/18at 20:19; Start 10/21/18 at 16:00; Stop 10/28/18 at 16:26; Status DC Trazodone HCl (Desyrel) 50 mg Q4HP PRN PO AGITATION; Start 10/24/18 at 20:15; Stop 10/30/18 at 13:45; Status DC Trazodone HCl (Desyrel) 50 mg QHSP PRN PO INSOMNIA; Start 10/28/18 at 16:30; Stop 10/30/18 at 13:45; Status DC JALEN SCHUMACHER MD Oct 30, 2018 14:41
[2018-10-30] MEDS: RIVAROXABAN 10 MG TAB (XARELTO) PO SCH (17:35)
[2018-10-30] MEDS ORDERED: TEMAZEPAM 15 MG CAP PO PRN (18:30)
[2018-10-30 20:00] VITALS: BP 124/68
[2018-10-30] MEDS: AMANTADINE 100 MG CAP PO SCH (20:53)
[2018-10-30] MEDS: TEMAZEPAM 7.5 MG CAP PO SCH (20:53)
[2018-10-30] MEDS: ANALGESIC BALM CRM 120 GM TOP SCH (20:54)
[2018-10-30] MEDS ORDERED: AMANTADINE 100MG/10ML SYRUP UDC PO SCH (21:00)
[2018-10-31 06:00] VITALS: BP 137/74
[2018-10-31] MEDS: ACETAMINOPHEN 500 MG TAB PO SCH ×3 (06:14→21:01)
[2018-10-31] MEDS: SINEMET 25-100 MG TAB PO SCH ×5 (06:14→19:55)
[2018-10-31] MEDS: ANALGESIC BALM CRM 120 GM TOP SCH ×3 (09:00→21:02)
[2018-10-31] MEDS: PANTOPRAZOLE 40MG TAB (PROTONIX) PO SCH (09:53)
[2018-10-31] MEDS: MULTIVITAMINS/MINERALS THERAP 1 TAB PO SCH (09:54)
[2018-10-31] MEDS: SENOKOT S TAB PO SCH ×2 (09:54→21:00)
[2018-10-31] MEDS: CO-ENZYME Q10 50 MG CAP PO SCH (09:55)
[2018-10-31] MEDS: FERROUS GLUCONATE 324 MG TAB PO SCH ×2 (09:55→21:01)
[2018-10-31] MEDS: DONEPEZIL 5 MG TAB PO SCH (09:55)
[2018-10-31] MEDS: PYRIDOXINE 50 MG TAB PO SCH (09:55)
--- NOTE | 2018-10-31 12:11 | IPNPDOC ---
Date Seen The patient was seen on 10/31/18. Progress Note HPI: 78-year-old male with past medical history of Parkinson's disease presents to the ER with left hip pain. The patient stated that he was adjusting the furnace thermostat when he fell and landed on his left side. The patient denied any prodromal symptoms of lightheadedness, dizziness, chest pain, palpitations, abdominal pain, abdominal pain, or any nausea/vomiting/diarrhea. In the ER, imaging revealed a left hip fracture, s/p repair as per Orthopedic surgery. The pt was transferred to the care of CONST[facility] Swift, 10/21/18. The pt is OOB to W/C and just finished OT session. No verbalized concerns. Denies any fevers, chills, weakness, fatigue, Headache, Chest Pain, Shortness of breath, cough, palpitations, abdominal pain, N/V/D or changes in bowel or bladder habits. PMHx: Parkinson's disease HTN Unsteady gait PSHX: right hip fracture s/p repair, cholecystectomy PE: GEN: 78yoM, appears stated age. Alert and oriented x 3. HEENT: Normocephalic, atraumatic. Sclera are nonicteric. No facial asymmetry. Moist mucous membranes.Pharynx pink and moist. CHEST: Regular rate and rhythm, +S1, +S2 LUNGS: Clear to auscultation bilaterally. No wheezes, rales, or rhonchi. ABD: Round, soft, non-tender, non-distended. +Bowel sounds throughout. No rebound or guarding. EXT: No lower extremity edema appreciated. SKIN: [place], dry, warm. No rashes. NEURO: Reduced facial expressions, no tremor noted. No focal deficits appreciated. A&P: 78-year-old male with past medical history of Parkinson's disease presents to the ER with left hip pain. The patient stated that he was adjusting the furnace thermostat when he fell and landed on his left side. The patient denied any prodromal symptoms of lightheadedness, dizziness, chest pain, palpitations, abdominal pain, abdominal pain, or any nausea/vomiting/diarrhea. In the ER, imaging revealed a left hip fracture, s/p repair as per Orthopedic surgery. The pt was transferred to the care of CONSTANCE Swift, 10/21/18. 1. Left hip fracture/ S/P left hemiarthroplasty 10/17/2018. Mgmt as per Orthopedic Surgery. Mgmt as per ARU. PT/OT as per ARU ST as per ARU pain control as per ARU Bowel care as per ARU DVT px. Pt is on Xarelto. 2. Hypertension. SBP 121-148. Lasix remains on hold. S/P IVF x [address] Bender 10/30/18. No signs of decompensation at this time, continue to monitor. 3. Parkinson's disease. Sinemet, Aricept, Amantadine. Dr Bender adjusting. 4. GERD. Protonix. 5. Anemia. Likely acute blood loss. Hgb 11.2. Fe supplement VS, I&O, 24H, Fishbone Vital Signs/I&O Vital Signs Date Time Temp Pulse Resp B/P (MAP) Pulse Ox O2 Delivery O2 Flow Rate FiO2 10/31/18 06:00 97.4 69 17 137/74 (95) 99 Room Air I&O- Last 24 Hours up to 6 AM0 10/31/18 06:00 Intake Total 660 ml Output Total 825 ml Balance -165 ml Laboratory Data Microbiology Microbiology 10/22/18 Urine Culture - Final, Complete Shanice Cox Oct 31, 2018 12:11
[2018-10-31 14:00] VITALS: BP 140/73
[2018-10-31] MEDS: RIVAROXABAN 10 MG TAB (XARELTO) PO SCH (19:55)
[2018-10-31 20:00] VITALS: BP_SYST 105; BP_SYST 169; BP_DIAS 60; BP_DIAS 70
[2018-10-31] MEDS: SENNA 8.6 MG TAB (SENOKOT) PO SCH (21:00)
[2018-10-31] MEDS: TEMAZEPAM 7.5 MG CAP PO SCH (21:01)
[2018-10-31] MEDS: AMANTADINE 100 MG CAP PO SCH (21:01)
[2018-11-01 06:00] VITALS: BP 169/74
[2018-11-01] MEDS: SINEMET 25-100 MG TAB PO SCH ×5 (06:03→18:35)
[2018-11-01] MEDS: ACETAMINOPHEN 500 MG TAB PO SCH ×3 (06:04→20:31)
[2018-11-01] MEDS: FERROUS GLUCONATE 324 MG TAB PO SCH ×2 (08:51→20:31)
[2018-11-01] MEDS: PANTOPRAZOLE 40MG TAB (PROTONIX) PO SCH (08:51)
[2018-11-01] MEDS: CO-ENZYME Q10 50 MG CAP PO SCH (08:51)
[2018-11-01] MEDS: SENOKOT S TAB PO SCH ×2 (08:51→20:32)
[2018-11-01] MEDS: MULTIVITAMINS/MINERALS THERAP 1 TAB PO SCH (08:51)
[2018-11-01] MEDS: DONEPEZIL 5 MG TAB PO SCH (08:51)
[2018-11-01] MEDS: ANALGESIC BALM CRM 120 GM TOP SCH ×3 (08:52→20:33)
[2018-11-01] MEDS: PYRIDOXINE 50 MG TAB PO SCH (08:52)
--- NOTE | 2018-11-01 10:55 | IPNPDOC ---
Date Seen The patient was seen on 11/01/18. Progress Note HPI: 78-year-old male with past medical history of Parkinson's disease presents to the ER with left hip pain. The patient stated that he was adjusting the furnace thermostat when he fell and landed on his left side. The patient denied any prodromal symptoms of lightheadedness, dizziness, chest pain, palpitations, abdominal pain, abdominal pain, or any nausea/vomiting/diarrhea. In the ER, imaging revealed a left hip fracture, s/p repair as per Orthopedic surgery. The pt was transferred to the care of CONSTANCE Swift, 10/21/18. The pt is OOB with PT. Denies any fevers, chills, weakness, fatigue, Headache, Chest Pain, Shortness of breath, cough, palpitations, abdominal pain, N/V/D or changes in bowel or bladder habits. PMHx: Parkinson's disease HTN Unsteady gait PSHX: right hip fracture s/p repair, cholecystectomy PE: GEN: 78yoM, appears stated age. Alert and oriented x 3. HEENT: Normocephalic, atraumatic. Sclera are nonicteric. No facial asymmetry. Moist mucous membranes.Pharynx pink and moist. CHEST: Regular rate and rhythm, +S1, +S2 LUNGS: Clear to auscultation bilaterally. No wheezes, rales, or rhonchi. ABD: Round, soft, non-tender, non-distended. +Bowel sounds throughout. No rebound or guarding. EXT: No lower extremity edema appreciated. SKIN: [place], dry, warm. No rashes. NEURO: Reduced facial expressions, no tremor noted. No focal deficits appreciated. A&P: 78-year-old male with past medical history of Parkinson's disease presents to the ER with left hip pain. The patient stated that he was adjusting the furnace thermostat when he fell and landed on his left side. The patient denied any prodromal symptoms of lightheadedness, dizziness, chest pain, palpitations, abdominal pain, abdominal pain, or any nausea/vomiting/diarrhea. In the ER, imaging revealed a left hip fracture, s/p repair as per Orthopedic surgery. The pt was transferred to the care of CONSTANCE Swift, 10/21/18. 1. Left hip fracture/ S/P left hemiarthroplasty 10/17/2018. Mgmt as per Orthopedic Surgery. Mgmt as per ARU. PT/OT as per ARU ST as per ARU pain control as per ARU Bowel care as per ARU DVT px. Pt is on Xarelto. 2. Hypertension. SBP 121-148. Lasix remains on hold. S/P IVF x [address] Bender 10/30/18. No signs of decompensation at this time, continue to monitor. 3. Parkinson's disease. Sinemet, Aricept, Amantadine. Dr Bender has been adjusting meds for his parkinson's. Today the Pt reports he felt as though he was doing better on his previous regimen of Sinemet 2 tab 5 x per day at 7A/10A/1P/3P/7P. Pt follows with [facility] [place]. 4. GERD. Protonix. 5. Anemia. Likely acute blood loss. Hgb 11.2. Fe supplement VS, I&O, 24H, Fishbone Vital Signs/I&O Vital Signs Date Time Temp Pulse Resp B/P (MAP) Pulse Ox O2 Delivery O2 Flow Rate FiO2 11/01/18 06:00 97.5 69 18 169/74 (105) 99 Room Air I&O- Last 24 Hours up to 6 AM 11/01/18 06:00 Intake Total 1110 ml Output Total 1150 ml Balance -40 ml Laboratory Data Microbiology Microbiology 10/22/18 Urine Culture - Final, Complete Shanice Cox Nov 01, 2018 10:55
--- NOTE | 2018-11-01 12:44 | IPNPDOC ---
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 REVIEW OF SYSTEMS: The following is a completed review of systems and has been reviewed. Review of systems otherwise unremarkable. PAIN: left hip pain-improving EYES: Negative EARS, NOSE, & THROAT: no rhinorrhea, no more throat pain CARDIOVASCULAR: no chest pain or palpitations PULMONARY: Negative. Denies shortness of breath GASTROINTESTINAL: Negative for urinary or fecal incontinence, negative constipation, +diarrhea and nausea GENITOURINARY: Negative urinary retention or dysuria MUSCULOSKELETAL: left hip silvia-arthroplasty NEUROLOGICAL: +Parkinsons with hallucinations-resolved, athetosis-resolved HEMATOLOGICAL: +Bilat upper extremity ecchymosis SKIN: +left hip incision All other review of systems found to be negative. PHYSICAL EXAMINATION: VITAL SIGNS: Please see below. GENERAL: Pleasant and cooperative. No acute distress. HEENT: PERRL. Extraocular grossly movements intact. Clear conjunctiva CARDIOVASCULAR: Regular rate and rhythm. No murmurs, rubs, or gallops. LUNGS: Clear to auscultation bilaterally. No wheezes. No rhonchi. ABDOMEN:Soft, nontender, mildly distended. Positive bowel sounds NEUROLOGICAL: Alert and oriented to self and place, not to time Cranial nerves II through XII grossly intact. Sensation grossly intact no akathisias or athetosis EXTREMITIES:5/5 strength bilateral upper extremities. 5-\5 strength right lower extremity. 5-/5 strength in left lower extremity, hip flexion not tested given recent surgery . SKIN: left hip incision C/D/I ASSESSMENT:78-year-old M with past medical history of Parkinson's who presents status post fall with left femur fracture. PLAN: 1. 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 Neuro: pmh Parkinsons with Lewy body features such as significant dementia with visual hallucinations complicated by akathisias and tardive dyskniesia -remove any deliriogenic medications -continue B6 for tardive dyskinesia- off label treatment and monitor- improving -will increase Donepezil for dementia to 10mg daily -continue Amantadine for L-dopa induced dyskinesia while tapering Sinemet, recommended dose 247mg qHS, started at 100mg qHS without significant side effects, dyskinesias improving, was doing ok at higher dose 150mg qHS, however having difficulty sleeping, will decrease back to 100mg and optimize sleep aids at this time, continue to taper down Sinemet- 3. Ortho: s/p left hip silvia-arthroplasty, Total hip precautions, WBAT, ortho consult 4. Cardio: no significant pmh, monitor BPs- consult medicine, recs appreciated 5. Resp: prevent atelectasis with incentive spirometry 6. Heme: recent blood loss anemia, monitor and continue Iron 7. DVT ppx: on xarelto 10 mg, admission Doppler negative for DVT 8. : admission UA and Ucx negative, monitor PVRs- repeat UA negative 9. Pain: Tylenol prn 10. GI ppx: Protonix, loose stool resolved, feeling better today 11. insomnia: sleep better, continue Temazepam to 15mg and additional 15mg prn 11. Dispo: 11-12-18 , progressing towards goals Allergies Coded Allergies: No Known Drug Allergy (Verified Allergy, Unknown, 01/24/13) Vital Signs Vital Signs Date Time Temp Pulse Resp B/P (MAP) Pulse Ox O2 Delivery O2 Flow Rate FiO2 11/01/18 06:00 97.5 69 18 169/74 (105) 99 Room Air Microbiology Microbiology 10/22/18 Urine Culture - Final, Complete Current Medications Current Medications Current Medications Acetaminophen (Tylenol Tab) 650 mg DAILY PRN PO pain Last administered on 10/31/18at 09:53; Start 10/29/18 at 14:15 Acetaminophen (Tylenol Tab) 650 mg Q4HP PRN PO fever/ MILD PAIN (PS 1-4); Start 10/21/18 at 15:45; Stop 10/21/18 at 16:30; Status DC Acetaminophen (Tylenol Tab) 1,000 mg TID PO Last administered on 10/30/18at 17:35; Start 10/21/18 at 21:00; Stop 10/30/18 at 18:15; Status DC Acetaminophen (Tylenol Tab) 1,000 mg TID@0600,1400,2000 PO Last administered on 11/01/18at 06:04; Start 10/30/18 at 20:00 Albuterol/ Ipratropium (Duoneb (Ipr 0.5mg/Alb 2.5mg)) 3 ml Q4HP PRN NEB SOB/WHEEZING; Start 10/21/18 at 15:45 Amantadine HCl (Symmetrel Syrup) 100 mg QHS PO ; Start 10/30/18 at 21:00; Stop 10/30/18 at 21:00; Status DC Amantadine HCl (Symmetrel Syrup) 150 mg QHS PO Last administered on 10/29/18at 21:00; Start 10/28/18 at 21:00; Stop 10/30/18 at 13:45; Status DC Amantadine HCl (Symmetrel) 100 mg QHS PO Last administered on 10/27/18at 20:10; Start 10/24/18 at 21:00; Stop 10/28/18 at 16:26; Status DC Amantadine HCl (Symmetrel) 100 mg QHS PO Last administered on 10/31/18at 21:01; Start 10/30/18 at 21:00 Bisacodyl (Dulcolax Suppository) 10 mg DAILYPRN PRN [place] CONSTIPATION; Start 10/21/18 at 15:45 Carbidopa/Levodopa (Sinemet 25/100) 1 tab 1600,1900 PO Last administered on 10/31/18at 19:55; Start 10/23/18 at 16:00 Carbidopa/Levodopa (Sinemet 25/100) 1 tab ASDIRECTED PO ; Start 10/21/18 at 15:45; Stop 10/21/18 at 15:50; Status DC Carbidopa/Levodopa (Sinemet 25/100) 1 tab DAILY@1300 PO Last administered on 10/31/18at 14:10; Start 10/29/18 at 13:00 Carbidopa/Levodopa (Sinemet 25/100) 2 tab 0700,1000 PO Last administered on 11/01/18at 08:51; Start 10/29/18 at 07:00 Carbidopa/Levodopa (Sinemet 25/100) 2 tab 0700,1000,1300 PO Last administered on 10/28/18at 12:41; Start 10/22/18 at 07:00; Stop 10/28/18 at 16:33; Status DC Carbidopa/Levodopa (Sinemet 25/100) 2 tab 1600,1900 PO Last administered on 10/22/18at 18:37; Start 10/21/18 at 16:00; Stop 10/23/18 at 14:53; Status DC Coenzyme Q10 (Coenzyme Q10) 50 mg DAILY PO Last administered on 11/01/18 08:51; Start 10/22/18 at 09:00; Stop 11/21/18 at 08:59 Donepezil HCl (AriCEPT) 5 mg DAILY PO Last administered on 10/28/18at 08:18; Start 10/23/18 at 09:00; Stop 10/28/18 at 16:26; Status DC Donepezil HCl (AriCEPT) 10 mg DAILY PO Last administered on 11/01/18 08:51; Start 10/29/18 at 09:00 Ferrous Gluconate (Fergon) 324 mg BID PO Last administered on 11/01/18 08:51; Start 10/21/18 at 21:00 Furosemide (Lasix) 20 mg DAILY PO Last administered on 10/23/18 08:03; Start 10/21/18 at 16:00; Stop 10/23/18 at 09:01; Status DC Home Med (Med Rec Complete!) ASDIRECTED XX ; Start 10/22/18 at 10:45; Stop 10/22/18 at 10:45; Status DC Menthol/Methyl Salicylate (Bengay Cream) low back TID TOP Last administered on 11/01/18at 08:52; Start 10/30/18 at 21:00 Miscellaneous (Unresolved Clarification Entry) SEE LABEL COMMENTS DAILY XX ; Start 10/27/18 at 09:00; Stop 10/28/18 at 11:32; Status DC Multivitamins (Theragram-M) 1 tab DAILY PO Last administered on 11/01/18at 08:51; Start 10/22/18 at 09:00 Multivitamins (Theragram-M) 1 tab DAILY PO ; Start 10/22/18 at 09:00; Status UNV Ondansetron HCl (Zofran) 4 mg Q6HP PRN PO NAUSEA; Start 10/21/18 at 15:45; Stop 10/24/18 at 20:03; Status DC Oxycodone/ Acetaminophen (Percocet 5mg/ 325mg Tablet) 1 tab Q4HP PRN PO MODERATE PAIN (PS 7-10); Start 10/21/18 at 15:45; Stop 10/21/18 at 16:30; Status DC Pantoprazole Sodium (Protonix) 40 mg DAILY PO Last administered on 11/01/18 08 :51; Start 10/22/18 at 09:00 Phenol (Chloraseptic [place]) 1 spray Q2HP PRN [place] SORE THROAT; Start 10/21/18 at 15:45 Pyridoxine HCl (Vitamin B6) 50 mg DAILY PO Last administered on 11/01/18 08:52; Start 10/22/18 at 09:00 Rivaroxaban (Xarelto) 10 mg DAILY@1800 PO Last administered on 10/31/18 19:55; Start 10/21/18 at 18:00 Senna (Senokot) 1 tab QHS PO Last administered on 10/27/18 20:10; Start 10/21/18 at 21:00 Senna/Docusate Sodium (Senokot S) 1 tab BID PO Last administered on 11/01/18 08:51; Start 10/21/18 at 21:00 Temazepam (Restoril) 7.5 mg QHS PO Last administered on 10/29/18at 21:24; Start 10/25/18 at 21:00; Stop 10/30/18 at 13:45; Status DC Temazepam (Restoril) 15 mg QHS PO Last administered on 10/31/18 21:01; Start 10/30/18 at 21:00 Temazepam (Restoril) 15 mg QHSP PRN PO INSOMNIA; Start 10/30/18 at 18:30 Trazodone HCl (Desyrel) 25 mg QHSP PRN PO INSOMNIA Last administered on 10/22/18 20:19; Start 10/21/18 at 16:00; Stop 10/28/18 at 16:26; Status DC Trazodone HCl (Desyrel) 50 mg Q4HP PRN PO AGITATION; Start 10/24/18 at 20:15; Stop 10/30/18 at 13:45; Status DC Trazodone HCl (Desyrel) 50 mg QHSP PRN PO INSOMNIA; Start 10/28/18 at 16:30; Stop 10/30/18 at 13:45; Status DC JALEN SCHUMACHER MD Nov 01, 2018 12:44
--- NOTE | 2018-11-01 12:46 | IPNPDOC ---
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 REVIEW OF SYSTEMS: The following is a completed review of systems and has been reviewed. Review of systems otherwise unremarkable. PAIN: left hip pain-improving EYES: Negative EARS, NOSE, & THROAT: no rhinorrhea, no more throat pain CARDIOVASCULAR: no chest pain or palpitations PULMONARY: Negative. Denies shortness of breath GASTROINTESTINAL: Negative for urinary or fecal incontinence, negative constipation, +diarrhea and nausea GENITOURINARY: Negative urinary retention or dysuria MUSCULOSKELETAL: left hip silvia-arthroplasty NEUROLOGICAL: +Parkinsons with hallucinations-resolved, athetosis-resolved HEMATOLOGICAL: +Bilat upper extremity ecchymosis SKIN: +left hip incision All other review of systems found to be negative. PHYSICAL EXAMINATION: VITAL SIGNS: Please see below. GENERAL: Pleasant and cooperative. No acute distress. HEENT: PERRL. Extraocular grossly movements intact. Clear conjunctiva CARDIOVASCULAR: Regular rate and rhythm. No murmurs, rubs, or gallops. LUNGS: Clear to auscultation bilaterally. No wheezes. No rhonchi. ABDOMEN:Soft, nontender, mildly distended. Positive bowel sounds NEUROLOGICAL: Alert and oriented to self and place, not to time Cranial nerves II through XII grossly intact. Sensation grossly intact no akathisias or athetosis EXTREMITIES:5/5 strength bilateral upper extremities. 5-\5 strength right lower extremity. 5-/5 strength in left lower extremity, hip flexion not tested given recent surgery . SKIN: left hip incision C/D/I ASSESSMENT:78-year-old M with past medical history of Parkinson's who presents status post fall with left femur fracture. PLAN: 1. 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 Neuro: [facility] Parkinsons with Lewy body features such as significant dementia with visual hallucinations complicated by akathisias and tardive dyskniesia -remove any deliriogenic medications -continue B6 for tardive dyskinesia- off label treatment and monitor- improving -will increase Donepezil for dementia to 10mg daily -continue Amantadine for L-dopa induced dyskinesia while tapering Sinemet, recommended dose 247mg qHS, started at 100mg qHS without significant side effects, dyskinesias improving, was doing ok at higher dose 150mg qHS, however having difficulty sleeping, decreased back to 100mg, however tardive dyskinesia worse today,w ill return to 150mg and optimize sleep aids at this time- and co ntinue adjusting Sinemet 3. Ortho: s/p left hip silvia-arthroplasty, Total hip precautions, WBAT, ortho consult 4. Cardio: no significant pmh, monitor BPs- consult medicine, recs appreciated 5. Resp: prevent atelectasis with incentive spirometry 6. Heme: recent blood loss anemia, monitor and continue Iron 7. DVT ppx: on xarelto 10 mg, admission Doppler negative for DVT 8. : admission UA and Ucx negative, monitor PVRs- repeat UA negative 9. Pain: Tylenol prn 10. GI ppx: Protonix, loose stool resolved, feeling better today 11. insomnia: slept better continue Temazepam to 15mg and additional 15mg prn 11. Dispo: 11-12-18 , progressing towards goals Allergies Coded Allergies: No Known Drug Allergy (Verified Allergy, Unknown, 01/24/13) Vital Signs Vital Signs Date Time Temp Pulse Resp B/P (MAP) Pulse Ox O2 Delivery O2 Flow Rate FiO2 11/01/18 06:00 97.5 69 18 169/74 (105) 99 Room Air Microbiology Microbiology 10/22/18 Urine Culture - Final, Complete Current Medications Current Medications Current Medications Acetaminophen (Tylenol Tab) 650 mg DAILY PRN PO pain Last administered on 10/31/18at 09:53; Start 10/29/18 at 14:15 Acetaminophen (Tylenol Tab) 650 mg Q4HP PRN PO fever/ MILD PAIN (PS 1-4); Start 10/21/18 at 15:45; Stop 10/21/18 at 16:30; Status DC Acetaminophen (Tylenol Tab) 1,000 mg TID PO Last administered on 10/30/18at 17:35; Start 10/21/18 at 21:00; Stop 10/30/18 at 18:15; Status DC Acetaminophen (Tylenol Tab) 1,000 mg TID@0600,1400,2000 PO Last administered on 11/01/18at 06:04; Start 10/30/18 at 20:00 Albuterol/ Ipratropium (Duoneb (Ipr 0.5mg/Alb 2.5mg)) 3 ml Q4HP PRN NEB SOB/WHEEZING; Start 10/21/18 at 15:45 Amantadine HCl (Symmetrel Syrup) 100 mg QHS PO ; Start 10/30/18 at 21:00; Stop 10/30/18 at 21:00; Status DC Amantadine HCl (Symmetrel Syrup) 150 mg QHS PO Last administered on 10/29/18at 21:00; Start 10/28/18 at 21:00; Stop 10/30/18 at 13:45; Status DC Amantadine HCl (Symmetrel) 100 mg QHS PO Last administered on 10/27/18at 20:10; Start 10/24/18 at 21:00; Stop 10/28/18 at 16:26; Status DC Amantadine HCl (Symmetrel) 100 mg QHS PO Last administered on 10/31/18at 21:01; Start 10/30/18 at 21:00 Bisacodyl (Dulcolax Suppository) 10 mg DAILYPRN PRN [place] CONSTIPATION; Start 10/21/18 at 15:45 Carbidopa/Levodopa (Sinemet 25/100) 1 tab 1600,1900 PO Last administered on 10/31/18at 19:55; Start 10/23/18 at 16:00 Carbidopa/Levodopa (Sinemet 25/100) 1 tab ASDIRECTED PO ; Start 10/21/18 at 15:45; Stop 10/21/18 at 15:50; Status DC Carbidopa/Levodopa (Sinemet 25/100) 1 tab DAILY@1300 PO Last administered on 10/31/18at 14:10; Start 10/29/18 at 13:00 Carbidopa/Levodopa (Sinemet 25/100) 2 tab 0700,1000 PO Last administered on 11/01/18at 08:51; Start 10/29/18 at 07:00 Carbidopa/Levodopa (Sinemet 25/100) 2 tab 0700,1000,1300 PO Last administered on 10/28/18at 12:41; Start 10/22/18 at 07:00; Stop 10/28/18 at 16:33; Status DC Carbidopa/Levodopa (Sinemet 25/100) 2 tab 1600,1900 PO Last administered on 10/22/18at 18:37; Start 10/21/18 at 16:00; Stop 10/23/18 at 14:53; Status DC Coenzyme Q10 (Coenzyme Q10) 50 mg DAILY PO Last administered on 11/01/18at 08:51; Start 10/22/18 at 09:00; Stop 11/21/18 at 08:59 Donepezil HCl (AriCEPT) 5 mg DAILY PO Last administered on 10/28/18at 08:18; Start 10/23/18 at 09:00; Stop 10/28/18 at 16:26; Status DC Donepezil HCl (AriCEPT) 10 mg DAILY PO Last administered on 11/01/18 08:51; Start 10/29/18 at 09:00 Ferrous Gluconate (Fergon) 324 mg BID PO Last administered on 11/01/18 08:51; Start 10/21/18 at 21:00 Furosemide (Lasix) 20 mg DAILY PO Last administered on 10/23/18 08:03; Start 10/21/18 at 16:00; Stop 10/23/18 at 09:01; Status DC Home Med (Med Rec Complete!) ASDIRECTED XX ; Start 10/22/18 at 10:45; Stop 10/22/18 at 10:45; Status DC Menthol/Methyl Salicylate (Bengay Cream) low back TID TOP Last administered on 11/01/18at 08:52; Start 10/30/18 at 21:00 Miscellaneous (Unresolved Clarification Entry) SEE LABEL COMMENTS DAILY XX ; Start 10/27/18 at 09:00; Stop 10/28/18 at 11:32; Status DC Multivitamins (Theragram-M) 1 tab DAILY PO Last administered on 11/01/18at 08:51; Start 10/22/18 at 09:00 Multivitamins (Theragram-M) 1 tab DAILY PO ; Start 10/22/18 at 09:00; Status UNV Ondansetron HCl (Zofran) 4 mg Q6HP PRN PO NAUSEA; Start 10/21/18 at 15:45; Stop 10/24/18 at 20:03; Status DC Oxycodone/ Acetaminophen (Percocet 5mg/ 325mg Tablet) 1 tab Q4HP PRN PO MODERATE PAIN (PS 7-10); Start 10/21/18 at 15:45; Stop 10/21/18 at 16:30; Status DC Pantoprazole Sodium (Protonix) 40 mg DAILY PO Last administered on 11/01/18 08:51; Start 10/22/18 at 09:00 Phenol (Chloraseptic [place]) 1 spray Q2HP PRN [place] SORE THROAT; Start 10/21/18 at 15:45 Pyridoxine HCl (Vitamin B6) 50 mg DAILY PO Last administered on 11/01/18 08:52; Start 10/22/18 at 09:00 Rivaroxaban (Xarelto) 10 mg DAILY@1800 PO Last administered on 10/31/18 19:55; Start 10/21/18 at 18:00 Senna (Senokot) 1 tab QHS PO Last administered on 10/27/18 20:10; Start 10/21/18 at 21:00 Senna/Docusate Sodium (Senokot S) 1 tab BID PO Last administered on 11/01/18 08:51; Start 10/21/18 at 21:00 Temazepam (Restoril) 7.5 mg QHS PO Last administered on 10/29/18 21:24; Start 10/25/18 at 21:00; Stop 10/30/18 at 13:45; Status DC Temazepam (Restoril) 15 mg QHS PO Last administered on 10/31/18 21:01; Start 10/30/18 at 21:00 Temazepam (Restoril) 15 mg QHSP PRN PO INSOMNIA; Start 10/30/18 at 18:30 Trazodone HCl (Desyrel) 25 mg QHSP PRN PO INSOMNIA Last administered on 10/22/18 20:19; Start 10/21/18 at 16:00; Stop 10/28/18 at 16:26; Status DC Trazodone HCl (Desyrel) 50 mg Q4HP PRN PO AGITATION; Start 10/24/18 at 20:15; Stop 10/30/18 at 13:45; Status DC Trazodone HCl (Desyrel) 50 mg QHSP PRN PO INSOMNIA; Start 10/28/18 at 16:30; Stop 10/30/18 at 13:45; Status DC JALEN SCHUMACHER MD Nov 01, 2018 12:46
[2018-11-01 14:00] VITALS: BP 137/75
[2018-11-01] MEDS: RIVAROXABAN 10 MG TAB (XARELTO) PO SCH (17:29)
[2018-11-01 20:30] VITALS: BP 140/84
[2018-11-01] MEDS: TEMAZEPAM 7.5 MG CAP PO SCH (20:31)
[2018-11-01] MEDS: SENNA 8.6 MG TAB (SENOKOT) PO SCH (20:32)
[2018-11-01] MEDS: AMANTADINE 100MG/10ML SYRUP UDC PO SCH ×2 (20:32→20:37)
[2018-11-02 06:00] VITALS: BP 158/82
[2018-11-02] MEDS: ACETAMINOPHEN 500 MG TAB PO SCH ×3 (06:20→20:22)
[2018-11-02] MEDS: SINEMET 25-100 MG TAB PO SCH ×5 (06:20→18:33)
[2018-11-02] MEDS: PANTOPRAZOLE 40MG TAB (PROTONIX) PO SCH (09:51)
[2018-11-02] MEDS: FERROUS GLUCONATE 324 MG TAB PO SCH ×2 (09:51→20:22)
[2018-11-02] MEDS: MULTIVITAMINS/MINERALS THERAP 1 TAB PO SCH (09:51)
[2018-11-02] MEDS: CO-ENZYME Q10 50 MG CAP PO SCH (09:52)
[2018-11-02] MEDS: SENOKOT S TAB PO SCH ×2 (09:52→20:24)
[2018-11-02] MEDS: PYRIDOXINE 50 MG TAB PO SCH (09:52)
[2018-11-02] MEDS: DONEPEZIL 5 MG TAB PO SCH (09:52)
[2018-11-02] MEDS: ANALGESIC BALM CRM 120 GM TOP SCH ×3 (09:52→20:24)
[2018-11-02 14:00] VITALS: BP 138/69
[2018-11-02] MEDS: RIVAROXABAN 10 MG TAB (XARELTO) PO SCH (18:33)
[2018-11-02 20:00] VITALS: BP 150/79
[2018-11-02] MEDS: LIDOCAINE 5% (LIDODERM) PATCH TD SCH (20:20)
[2018-11-02] MEDS: TEMAZEPAM 7.5 MG CAP PO SCH (20:23)
[2018-11-02] MEDS: AMANTADINE 100MG/10ML SYRUP UDC PO SCH (20:23)
[2018-11-02] MEDS: SENNA 8.6 MG TAB (SENOKOT) PO SCH (20:24)
[2018-11-02] MEDS ORDERED: **NOTE PATIENT COMMENT** MISC XX SCH (21:00)
[2018-11-03] MEDS: SINEMET 25-100 MG TAB PO SCH ×5 (05:21→18:40)
[2018-11-03] MEDS: ACETAMINOPHEN 500 MG TAB PO SCH ×3 (05:22→20:00)
[2018-11-03] MEDS: PYRIDOXINE 50 MG TAB PO SCH (09:18)
[2018-11-03] MEDS: CO-ENZYME Q10 50 MG CAP PO SCH (09:19)
[2018-11-03] MEDS: FERROUS GLUCONATE 324 MG TAB PO SCH ×2 (09:19→20:14)
[2018-11-03] MEDS: DONEPEZIL 5 MG TAB PO SCH (09:19)
[2018-11-03] MEDS: SENOKOT S TAB PO SCH (09:19)
[2018-11-03] MEDS: MULTIVITAMINS/MINERALS THERAP 1 TAB PO SCH (09:19)
[2018-11-03] MEDS: ANALGESIC BALM CRM 120 GM TOP SCH ×3 (09:19→20:18)
[2018-11-03] MEDS: PANTOPRAZOLE 40MG TAB (PROTONIX) PO SCH (09:19)
[2018-11-03] MEDS: **NOTE PATIENT COMMENT** MISC XX SCH (09:20)
[2018-11-03 14:00] VITALS: BP 110/68
[2018-11-03] MEDS ORDERED: LOPERAMIDE 2 MG CAP PO PRN (17:00)
[2018-11-03] MEDS: RIVAROXABAN 10 MG TAB (XARELTO) PO SCH (18:40)
[2018-11-03 20:00] VITALS: BP 142/84
[2018-11-03] MEDS: SENNA 8.6 MG TAB (SENOKOT) PO SCH (20:14)
[2018-11-03] MEDS: LIDOCAINE 5% (LIDODERM) PATCH TD SCH (20:15)
[2018-11-03] MEDS: TEMAZEPAM 7.5 MG CAP PO SCH (20:15)
[2018-11-03] MEDS: AMANTADINE 100MG/10ML SYRUP UDC PO SCH (21:41)
[2018-11-04 06:00] VITALS: BP 175/84
[2018-11-04] MEDS: ACETAMINOPHEN 500 MG TAB PO SCH ×3 (06:24→20:00)
[2018-11-04] MEDS: SINEMET 25-100 MG TAB PO SCH ×5 (06:24→18:32)
[2018-11-04 06:30] LABS: BASO # 0.1 10^3/uL (0.0-0.2); BASO % 1.1 % (0.0-1.0); EOS # 0.2 10^3/uL (0.0-0.50); EOS % 3.2 % (0.0-3.0); HEMOGLOBIN 11.3 g/dl (13.5-17.5); LYMPH % 27.2 % (24.0-44.0); MEAN CORPUSCULAR HGB CONC 33.2 g/dl (32.0-36.5); MEAN CORPUSCULAR VOLUME 93.4 fl (80.0-96.0); MONO # 0.6 10^3/uL (0.0-0.8); MONO % 8.5 % (0.0-5.0); NEUTROPHILS # 4.3 10^3/uL (1.8-7.7); NEUTROPHILS % 59.6 % (36.0-66.0); PLATELET COUNT, AUTOMATED 285 10^3/uL (150-450); RED BLOOD COUNT 3.64 10^6/uL (4.30-6.10); WHITE BLOOD COUNT 7.2 10^3/uL (4.0-10.0)
[2018-11-04 06:41] LABS: BLOOD UREA NITROGEN 18 MG/DL (7-18); CALCIUM LEVEL 8.9 MG/DL (8.8-10.2); CARBON DIOXIDE LEVEL 26 MEQ/L (21-32); CHLORIDE LEVEL 107 MEQ/L (98-107); CREATININE FOR GFR 0.98 MG/DL (0.70-1.30); GLOMERULAR FILTRATION RATE > 60.0 (>42); GLUCOSE, FASTING 95 MG/DL (70-100); SODIUM LEVEL 141 MEQ/L (136-145)
[2018-11-04] MEDS: ANALGESIC BALM CRM 120 GM TOP SCH ×3 (06:47→20:42)
[2018-11-04] MEDS: PANTOPRAZOLE 40MG TAB (PROTONIX) PO SCH (08:31)
[2018-11-04] MEDS: PYRIDOXINE 50 MG TAB PO SCH (08:31)
[2018-11-04] MEDS: CO-ENZYME Q10 50 MG CAP PO SCH (08:31)
[2018-11-04] MEDS: FERROUS GLUCONATE 324 MG TAB PO SCH ×2 (08:31→20:41)
[2018-11-04] MEDS: MULTIVITAMINS/MINERALS THERAP 1 TAB PO SCH (08:31)
[2018-11-04] MEDS: DONEPEZIL 5 MG TAB PO SCH (08:32)
[2018-11-04] MEDS: **NOTE PATIENT COMMENT** MISC XX SCH (08:32)
--- NOTE | 2018-11-04 12:55 | IPNPDOC ---
Date Seen The patient was seen on 11/04/18. Progress Note HPI: 78-year-old male with past medical history of Parkinson's disease presents to the ER with left hip pain. The patient stated that he was adjusting the furnace thermostat when he fell and landed on his left side. The patient denied any prodromal symptoms of lightheadedness, dizziness, chest pain, palpitations, abdominal pain, abdominal pain, or any nausea/vomiting/diarrhea. In the ER, imaging revealed a left hip fracture, s/p repair as per Orthopedic surgery. The pt was transferred to the care of CONSTANCE Swift, 10/21/18. The pt states he is doing well, denies any concerns at this time. Denies any fevers, chills, weakness, fatigue, Headache, Chest Pain, Shortness of breath, cough, palpitations, abdominal pain, N/V/D or changes in bowel or bladder habits. PMHx: Parkinson's disease HTN Unsteady gait PSHX: right hip fracture s/p repair, cholecystectomy PE: GEN: 78yoM, appears stated age. Alert and oriented x 3. HEENT: Normocephalic, atraumatic. Sclera are nonicteric. No facial asymmetry. Moist mucous membranes.Pharynx pink and moist. CHEST: Regular rate and rhythm, +S1, +S2 LUNGS: Clear to auscultation bilaterally. No wheezes, rales, or rhonchi. ABD: Round, soft, non-tender, non-distended. +Bowel sounds throughout. No rebound or guarding. EXT: No lower extremity edema appreciated. SKIN: [place], dry, warm. No rashes. NEURO: Reduced facial expressions, no tremor noted. No focal deficits appreciated. A&P: 78-year-old male with past medical history of Parkinson's disease presents to the ER with left hip pain. The patient stated that he was adjusting the furnace thermostat when he fell and landed on his left side. The patient denied any prodromal symptoms of lightheadedness, dizziness, chest pain, palpitations, abdominal pain, abdominal pain, or any nausea/vomiting/diarrhea. In the ER, imaging revealed a left hip fracture, s/p repair as per Orthopedic surgery. The pt was transferred to the care of CONSTANCE Swift, 12/31/18. 1. Left hip fracture/ S/P left hemiarthroplasty 10/17/2018. Mgmt as per Orthopedic Surgery. Mgmt as per ARU. PT/OT as per ARU ST as per ARU pain control as per ARU Bowel care as per ARU DVT px. Pt is on Xarelto. 2. Hypertension. BP 110-158. Lasix remains on hold. S/P IVF x [address] Bender 10/30/18. No signs of decompensation at this time, continue to monitor. 3. Parkinson's disease. Sinemet, Aricept, Amantadine. Dr Bender has been adjusting his Parkinson's regimen. Previous outpt regimen was Sinemet 2 tab 5 x per day at 7A/10A/1P/3P/7P. Pt follows with [facility] [place]. 4. GERD. Protonix. 5. Anemia. Likely acute blood loss. Hgb 11.3. Fe supplement VS, I&O, 24H, Fishbone Vital Signs/I&O Vital Signs Date Time Temp Pulse Resp B/P (MAP) Pulse Ox O2 Delivery O2 Flow Rate FiO2 11/04/18 06:00 97.3 69 20 175/84 (114) 98 Room Air I&O- Last 24 Hours up to 6 AM 11/04/18 06:00 Intake Total 940 ml Output Total 150 ml Balance 790 ml Laboratory Data 24H LABS Laboratory Tests 2 11/04/18 05:55: Immature Granulocyte % (Auto) 0.4, White Blood Count 7.2, Red Blood Count 3.64L, Hemoglobin 11.3L, Hematocrit 34.0L, Mean Corpuscular Volume 93.4, Mean Corpuscular Hemoglobin 31.0, Mean Corpuscular Hemoglobin Concent 33.2, Red Cell Distribution Width 12.4, Platelet Count 285, Neutrophils (%) (Auto) 59.6, Ly mphocytes (%) (Auto) 27.2, Monocytes (%) (Auto) 8.5H, Eosinophils (%) (Auto) 3.2H, Basophils (%) (Auto) 1.1H, Neutrophils # (Auto) 4.3, Lymphocytes # (Auto) 2.0, Monocytes # (Auto) 0.6, Eosinophils # (Auto) 0.2, Basophils # (Auto) 0.1, Nucleated Red Blood Cells % (auto) 0.0, Anion Gap 8, Glomerular Filtration Rate > 60.0, Blood Urea Nitrogen 18, Creatinine 0.98, Sodium Level 141, Potassium Level 4.0, Chloride Level 107, Carbon Dioxide Level 26, Calcium Level 8.9 CBC/BMP Laboratory Tests 11/04/18 05:55 Red Blood Count 3.64 L, Mean Corpuscular Volume 93.4, Mean Corpuscular Hemoglobin 31.0, Mean Corpuscular Hemoglobin Concent 33.2, Red Cell Distribution Width 12.4, Neutrophils (%) (Auto) 59.6, Lymphocytes (%) (Auto) 27.2, Monocytes (%) (Auto) 8.5 H, Eosinophils (%) (Auto) 3.2 H, Basophils (%) (Auto) 1.1 H, Neutrophils # (Auto) 4.3, Lymphocytes # (Auto) 2.0, Monocytes # (Auto) 0.6, Eosinophils # (Auto) 0.2, Basophils # (Auto) 0.1, Calcium Level 8.9 Shanice Cox Nov 04, 2018 12:55
[2018-11-04 14:05] VITALS: BP 150/81
[2018-11-04] MEDS: RIVAROXABAN 10 MG TAB (XARELTO) PO SCH (17:00)
[2018-11-04 20:00] VITALS: BP 143/60
[2018-11-04] MEDS: AMANTADINE 100MG/10ML SYRUP UDC PO SCH (20:41)
[2018-11-04] MEDS: LIDOCAINE 5% (LIDODERM) PATCH TD SCH (20:42)
[2018-11-04] MEDS: TEMAZEPAM 15 MG CAP PO SCH (20:52)
[2018-11-04] MEDS: TEMAZEPAM 7.5 MG CAP PO SCH (20:52)
[2018-11-04] MEDS: SENNA 8.6 MG TAB (SENOKOT) PO SCH (20:52)
[2018-11-05 06:00] VITALS: BP 148/88
[2018-11-05] MEDS: ACETAMINOPHEN 500 MG TAB PO SCH ×3 (06:00→20:00)
[2018-11-05] MEDS: SINEMET 25-100 MG TAB PO SCH ×5 (06:43→18:03)
[2018-11-05] MEDS: PYRIDOXINE 50 MG TAB PO SCH (09:45)
[2018-11-05] MEDS: PANTOPRAZOLE 40MG TAB (PROTONIX) PO SCH (09:45)
[2018-11-05] MEDS: DONEPEZIL 5 MG TAB PO SCH (09:45)
[2018-11-05] MEDS: CO-ENZYME Q10 50 MG CAP PO SCH (09:45)
[2018-11-05] MEDS: MULTIVITAMINS/MINERALS THERAP 1 TAB PO SCH (09:45)
[2018-11-05] MEDS: FERROUS GLUCONATE 324 MG TAB PO SCH ×2 (09:45→21:00)
[2018-11-05] MEDS: ANALGESIC BALM CRM 120 GM TOP SCH ×3 (09:46→21:23)
[2018-11-05] MEDS: **NOTE PATIENT COMMENT** MISC XX SCH (09:46)
--- NOTE | 2018-11-05 10:47 | IPNPDOC ---
Date Seen The patient was seen on 11/05/18. Progress Note HPI: 78-year-old male with past medical history of Parkinson's disease presents to the ER with left hip pain. The patient stated that he was adjusting the furnace thermostat when he fell and landed on his left side. The patient denied any prodromal symptoms of lightheadedness, dizziness, chest pain, palpitations, abdominal pain, abdominal pain, or any nausea/vomiting/diarrhea. In the ER, imaging revealed a left hip fracture, s/p repair as per Orthopedic surgery. The pt was transferred to the care of [facility], 10/21/18. The pt is OOB to chair, states he feels tired. Denies any fevers, chills, weakness, fatigue, Headache, Chest Pain, Shortness of breath, cough, palpitations, abdominal pain, N/V/D or changes in bowel or bladder habits. PMHx: Parkinson's disease HTN Unsteady gait PSHX: right hip fracture s/p repair, cholecystectomy PE: GEN: 78yoM, appears stated age. Alert and oriented x 3. HEENT: Normocephalic, atraumatic. Sclera are nonicteric. No facial asymmetry. Moist mucous membranes.Pharynx pink and moist. CHEST: Regular rate and rhythm, +S1, +S2 LUNGS: Clear to auscultation bilaterally. No wheezes, rales, or rhonchi. ABD: Round, soft, non-tender, non-distended. +Bowel sounds throughout. No rebound or guarding. EXT: No lower extremity edema appreciated. SKIN: No rashes. NEURO: Reduced facial expressions, no tremor noted. No focal deficits appreciated. A&P: 78-year-old male with past medical history of Parkinson's disease presents to the ER with left hip pain. The patient stated that he was adjusting the furnace thermostat when he fell and landed on his left side. The patient denied any prodromal symptoms of lightheadedness, dizziness, chest pain, palpitations, abdominal pain, abdominal pain, or any nausea/vomiting/diarrhea. In the ER, imaging revealed a left hip fracture, s/p repair as per Orthopedic surgery. The pt was transferred to the care of [facility], 10/21/18. 1. Left hip fracture/ S/P left hemiarthroplasty 10/17/2018. Mgmt as per Orthopedic Surgery. Mgmt as per ARU. PT/OT as per ARU ST as per ARU pain control as per ARU Bowel care as per ARU DVT px. Pt is on Xarelto. 2. Hypertension. Lasix remains on hold. S/P IVF x [address] Bender 10/30/18. No signs of decompensation at this time, continue to monitor. 3. Parkinson's disease. Sinemet, Aricept, Amantadine. Dr Bender has been adjusting his Parkinson's regimen. Previous outpt regimen was Sinemet 2 tab 5 x per day at 7A/10A/1P/3P/7P. Pt follows with [facility]. 4. GERD. Protonix. 5. Anemia. Likely acute blood loss. Hgb 11.3. Continue Fe supplement Update CBC in AM. VS, I&O, 24H, Fishbone Vital Signs/I&O Vital Signs Date Time Temp Pulse Resp B/P (MAP) Pulse Ox O2 Delivery O2 Flow Rate FiO2 11/05/18 06:00 97.3 74 18 148/88 (108) 95 Room Air I&O- Last 24 Hours up to 6 AM 11/05/18 06:00 Intake Total 1080 ml Output Total 675 ml Balance 405 ml Shanice Cox Nov 05, 2018 10:47
[2018-11-05] MEDS ORDERED: PYRIDOXINE 50 MG TAB PO SCH (12:00)
--- NOTE | 2018-11-05 12:44 | IPNPDOC ---
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 REVIEW OF SYSTEMS: The following is a completed review of systems and has been reviewed. Review of systems otherwise unremarkable. PAIN: left hip pain-improving EYES: Negative EARS, NOSE, & THROAT: no rhinorrhea, no more throat pain CARDIOVASCULAR: no chest pain or palpitations PULMONARY: Negative. Denies shortness of breath GASTROINTESTINAL: Negative for urinary or fecal incontinence, negative constipation, +diarrhea and nausea GENITOURINARY: Negative urinary retention or dysuria MUSCULOSKELETAL: left hip silvia-arthroplasty NEUROLOGICAL: +Parkinsons with hallucinations-resolved, athetosis-resolved HEMATOLOGICAL: +Bilat upper extremity ecchymosis SKIN: +left hip incision All other review of systems found to be negative. PHYSICAL EXAMINATION: VITAL SIGNS: Please see below. GENERAL: Pleasant and cooperative. No acute distress. HEENT: PERRL. Extraocular grossly movements intact. Clear conjunctiva CARDIOVASCULAR: Regular rate and rhythm. No murmurs, rubs, or gallops. LUNGS: Clear to auscultation bilaterally. No wheezes. No rhonchi. ABDOMEN:Soft, nontender, mildly distended. Positive bowel sounds NEUROLOGICAL: Alert and oriented to self and place, not to time Cranial nerves II through XII grossly intact. Sensation grossly intact no akathisias or athetosis EXTREMITIES:5/5 strength bilateral upper extremities. 5-\5 strength right lower extremity. 5-/5 strength in left lower extremity, hip flexion not tested given recent surgery . SKIN: left hip incision C/D/I ASSESSMENT:78-year-old M with past medical history of Parkinson's who presents status post fall with left femur fracture. PLAN: 1. Rehab: PT/OT, assess for DME- [employer], ambulating about 100-120 ft with RW,improving transfers 2. Neuro: pmh Parkinsons with Lewy body features such as significant dementia with visual hallucinations complicated by akathisias and tardive dyskniesia -remove any deliriogenic medications -continue B6 for tardive dyskinesia- off label treatment and monitor- improving -continue Donepezil for dementia to 10mg daily -continue Amantadine for L-dopa induced dyskinesia while tapering Sinemet, recommended dose 247mg qHS, stable now at 150 qHS 3. Ortho: s/p left hip silvia-arthroplasty, Total hip precautions, WBAT, ortho consult 4. Cardio: no significant pmh, monitor BPs- consult medicine, recs appreciated 5. Resp: prevent atelectasis with incentive spirometry 6. Heme: recent blood loss anemia, monitor and continue Iron- stable 7. DVT ppx: on xarelto 10 mg, admission Doppler negative for DVT 8. : admission UA and Ucx negative, monitor PVRs- repeat UA negative 9. Pain: Tylenol standing and lidoderm patch for low back 10. GI ppx: Protonix, loose stool resolved, stopped laxatives 11. insomnia: sleeping better with 22.5mg Temazepam 11. Dispo: 11-12-18 , progressing towards goals Allergies Coded Allergies: No Known Drug Allergy (Verified Allergy, Unknown, 01/24/13) Vital Signs Vital Signs Date Time Temp Pulse Resp B/P (MAP) Pulse Ox O2 Delivery O2 Flow Rate FiO2 11/05/18 06:00 97.3 74 18 148/88 (108) 95 Room Air Current Medications Current Medications Current Medications Acetaminophen (Tylenol Tab) 650 mg DAILY PRN PO pain Last administered on 10/31/18at 09:53; Start 10/29/18 at 14:15 Acetaminophen (Tylenol Tab) 650 mg Q4HP PRN PO fever/ MILD PAIN (PS 1-4); Start 10/21/18 at 15:45; Stop 10/21/18 at 16:30; Status DC Acetaminophen (Tylenol Tab) 1,000 mg TID PO Last administered on 10/30/18at 17:35; Start 10/21/18 at 21:00; Stop 10/30/18 at 18:15; Status DC Acetaminophen (Tylenol Tab) 1,000 mg TID@0600,1400,2000 PO Last administered on 11/04/18at 13:09; Start 10/30/18 at 20:00 Albuterol/ Ipratropium (Duoneb (Ipr 0.5mg/Alb 2.5mg)) 3 ml Q4HP PRN NEB SOB/WHEEZING; Start 10/21/18 at 15:45 Amantadine HCl (Symmetrel Syrup) 100 mg QHS PO ; Start 10/30/18 at 21:00; Stop 10/30/18 at 21:00; Status DC Amantadine HCl (Symmetrel Syrup) 150 mg QHS PO Last administered on 11/04/18at 20:41; Start 11/01/18 at 21:00 Amantadine HCl (Symmetrel Syrup) 150 mg QHS PO Last administered on 10/29/18at 21:00; Start 10/28/18 at 21:00; Stop 10/30/18 at 13:45; Status DC Amantadine HCl (Symmetrel) 100 mg QHS PO Last administered on 10/27/18at 20:10; Start 10/24/18 at 21:00; Stop 10/28/18 at 16:26; Status DC Amantadine HCl (Symmetrel) 100 mg QHS PO Last administered on 10/31/18at 21:01; Start 10/30/18 at 21:00; Stop 11/01/18 at 12:42; Status DC Bisacodyl (Dulcolax Suppository) 10 mg DAILYPRN PRN [place] CONSTIPATION; Start 10/21/18 at 15:45 Carbidopa/Levodopa (Sinemet 25/100) 1 tab 1600,1900 PO Last administered on 11/04/18at 18:32; Start 10/23/18 at 16:00 Carbidopa/Levodopa (Sinemet 25/100) 1 tab ASDIRECTED PO ; Start 10/21/18 at 15:45; Stop 10/21/18 at 15:50; Status DC Carbidopa/Levodopa (Sinemet 25/100) 1 tab DAILY@1300 PO Last administered on 10/31/18at 14:10; Start 10/29/18 at 13:00; Stop 11/01/18 at 12:42; Status DC Carbidopa/Levodopa (Sinemet 25/100) 2 tab 0700,1000 PO Last administered on 11/05/18 09:45; Start 10/29/18 at 07:00 Carbidopa/Levodopa (Sinemet 25/100) 2 tab 0700,1000,1300 PO Last administered on 10/28/18at 12:41; Start 10/22/18 at 07:00; Stop 10/28/18 at 16:33; Status DC Carbidopa/Levodopa (Sinemet 25/100) 2 tab 1600,1900 PO Last administered on 10/22/18 18:37; Start 10/21/18 at 16:00; Stop 10/23/18 at 14:53; Status DC Carbidopa/Levodopa (Sinemet 25/100) 2 tab DAILY@1300 PO Last administered on 11/04/18at 13:09; Start 11/01/18 at 13:00 Coenzyme Q10 (Coenzyme Q10) 50 mg DAILY PO Last administered on 11/05/18 09:45; Start 10/22/18 at 09:00; Stop 11/21/18 at 08:59 Donepezil HCl (AriCEPT) 5 mg DAILY PO Last administered on 10/28/18at 08:18; Start 10/23/18 at 09:00; Stop 10/28/18 at 16:26; Status DC Donepezil HCl (AriCEPT) 10 mg DAILY PO Last administered on 11/05/18at 09:45; Start 10/29/18 at 09:00 Ferrous Gluconate (Fergon) 324 mg BID PO Last administered on 11/04/18at 20:41; Start 10/21/18 at 21:00 Furosemide (Lasix) 20 mg DAILY PO Last administered on 10/23/18 08:03; Start 10/21/18 at 16:00; Stop 10/23/18 at 09:01; Status DC Home Med (Med Rec Complete!) ASDIRECTED XX ; Start 10/22/18 at 10:45; Stop 10/22/18 at 10:45; Status DC Lidocaine (Lidoderm Patch) 1 patch QHS TD Last administered on 11/04/18at 20:42; Start 11/02/18 at 21:00 Loperamide HCl (Imodium) 2 mg ASDIRECTED PRN PO DIARRHEA; Start 11/03/18 at 17:00 Menthol/Methyl Salicylate (Bengay Cream) low back TID TOP Last administered on 11/05/18at 09:46; Start 10/30/18 at 21:00 Miscellaneous (Unresolved Clarification Entry) SEE LABEL COMMENTS DAILY XX ; Start 11/03/18 at 09:00; Stop 11/03/18 at 16:13; Status DC Miscellaneous (Unresolved Clarification Entry) SEE LABEL COMMENTS DAILY XX ; Start 10/27/18 at 09:00; Stop 10/28/18 at 11:32; Status DC Multivitamins (Theragram-M) 1 tab DAILY PO Last administered on 11/05/18at 09:45; Start 10/22/18 at 09:00 Multivitamins (Theragram-M) 1 tab DAILY PO ; Start 10/22/18 at 09:00; Status UNV Non-Formulary Medication ( See Comment Field Below ) REMOVE LIDODERM PATCH DAILY@0900 XX Last administered on 11/05/18at 09:46; Start 11/03/18 at 09:00 Non-Formulary Medication ( See Comment Field Below ) REMOVE LIDODERM PATCH DAILY@21 XX ; Start 11/02/18 at 21:00; Stop 11/02/18 at 21:39; Status DC Ondansetron HCl (Zofran) 4 mg Q6HP PRN PO NAUSEA; Start 10/21/18 at 15:45; Stop 10/24/18 at 20:03; Status DC Oxycodone/ Acetaminophen (Percocet 5mg/ 325mg Tablet) 1 tab Q4HP PRN PO MODERA TE PAIN (PS 7-10); Start 10/21/18 at 15:45; Stop 10/21/18 at 16:30; Status DC Pantoprazole Sodium (Protonix) 40 mg DAILY PO Last administered on 11/04/18at 08:31; Start 10/22/18 at 09:00 Phenol (Chloraseptic [place]) 1 spray Q2HP PRN MT SORE THROAT; Start 10/21/18 at 15:45 Pyridoxine HCl (Vitamin B6) 50 mg DAILY PO Last administered on 11/04/18at 08:31; Start 10/22/18 at 09:00 Rivaroxaban (Xarelto) 10 mg DAILY@1800 PO Last administered on 11/04/18 17:00; Start 10/21/18 at 18:00 Senna (Senokot) 1 tab QHS PO Last administered on 10/27/18at 20:10; Start 10/21/18 at 21:00 Senna/Docusate Sodium (Senokot S) 1 tab BID PO Last administered on 11/03/18 09:19; Start 10/21/18 at 21:00; Stop 11/03/18 at 16:54; Status DC Temazepam (Restoril) 7.5 mg QHS PO Last administered on 11/04/18at 20:52; Start 11/04/18 at 21:00 Temazepam (Restoril) 7.5 mg QHS PO Last administered on 10/29/18 21:24; Start 10/25/18 at 21:00; Stop 10/30/18 at 13:45; Status DC Temazepam (Restoril) 15 mg QHS PO Last administered on 11/04/18at 20:52; Start 11/04/18 at 21:00 Temazepam (Restoril) 15 mg QHS PO Last administered on 11/01/18at 20:31; Start 10/30/18 at 21:00; Stop 11/02/18 at 14:50; Status DC Temazepam (Restoril) 15 mg QHSP PRN PO INSOMNIA; Start 10/30/18 at 18:30; Status Cancel Temazepam (Restoril) 22.5 mg QHS PO Last administered on 11/03/18at 20:15; Start 11/02/18 at 21:00; Stop 11/04/18 at 20:23; Status DC Trazodone HCl (Desyrel) 25 mg QHSP PRN PO INSOMNIA Last administered on 10/22/18 20:19; Start 10/21/18 at 16:00; Stop 10/28/18 at 16:26; Status DC Trazodone HCl (Desyrel) 50 mg Q4HP PRN PO AGITATION; Start 10/24/18 at 20:15; Stop 10/30/18 at 13:45; Status DC Trazodone HCl (Desyrel) 50 mg QHSP PRN PO INSOMNIA; Start 10/28/18 at 16:30; Stop 10/30/18 at 13:45; Status DC JALEN SCHUMACHER MD Nov 05, 2018 12:44
[2018-11-05 14:00] VITALS: BP 107/52
[2018-11-05] MEDS: RIVAROXABAN 10 MG TAB (XARELTO) PO SCH (18:03)
[2018-11-05 20:00] VITALS: BP 146/65
[2018-11-05] MEDS: TEMAZEPAM 15 MG CAP PO SCH (21:00)
[2018-11-05] MEDS: TEMAZEPAM 7.5 MG CAP PO SCH (21:00)
[2018-11-05] MEDS: AMANTADINE 100MG/10ML SYRUP UDC PO SCH (21:22)
[2018-11-05] MEDS: LIDOCAINE 5% (LIDODERM) PATCH TD SCH (21:22)
[2018-11-06 06:00] VITALS: BP 153/82
[2018-11-06] MEDS: ACETAMINOPHEN 500 MG TAB PO SCH ×3 (06:00→21:15)
[2018-11-06] MEDS: SINEMET 25-100 MG TAB PO SCH ×5 (06:38→18:00)
[2018-11-06] MEDS: DONEPEZIL 5 MG TAB PO SCH (08:21)
[2018-11-06] MEDS: CO-ENZYME Q10 50 MG CAP PO SCH (08:21)
[2018-11-06] MEDS: ANALGESIC BALM CRM 120 GM TOP SCH ×3 (08:22→21:00)
[2018-11-06] MEDS: FERROUS GLUCONATE 324 MG TAB PO SCH ×2 (08:22→21:00)
[2018-11-06] MEDS: MULTIVITAMINS/MINERALS THERAP 1 TAB PO SCH (08:22)
[2018-11-06] MEDS: **NOTE PATIENT COMMENT** MISC XX SCH (08:27)
[2018-11-06] MEDS: PYRIDOXINE 50 MG TAB PO SCH (12:41)
[2018-11-06 14:00] VITALS: BP 92/70
[2018-11-06] MEDS: RIVAROXABAN 10 MG TAB (XARELTO) PO SCH (17:59)
--- NOTE | 2018-11-06 18:08 | IPNPDOC ---
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 He felt his caregiver training went well today and is feeling optimistic about returning home. REVIEW OF SYSTEMS: The following is a completed review of systems and has been reviewed. Review of systems otherwise unremarkable. PAIN: left hip pain-improving EYES: Negative EARS, NOSE, & THROAT: no rhinorrhea, no more throat pain CARDIOVASCULAR: no chest pain or palpitations PULMONARY: Negative. Denies shortness of breath GASTROINTESTINAL: Negative for urinary or fecal incontinence, negative constipation, +diarrhea and nausea GENITOURINARY: Negative urinary retention or dysuria MUSCULOSKELETAL: left hip silvia-arthroplasty NEUROLOGICAL: +Parkinsons with hallucinations-resolved, athetosis-resolved HEMATOLOGICAL: +Bilat upper extremity ecchymosis SKIN: +left hip incision All other review of systems found to be negative. PHYSICAL EXAMINATION: VITAL SIGNS: Please see below. GENERAL: Pleasant and cooperative. No acute distress. HEENT: PERRL. Extraocular grossly movements intact. Clear conjunctiva CARDIOVASCULAR: Regular rate and rhythm. No murmurs, rubs, or gallops. LUNGS: Clear to auscultation bilaterally. No wheezes. No rhonchi. ABDOMEN:Soft, nontender, mildly distended. Positive bowel sounds NEUROLOGICAL: Alert and oriented to self and place, not to time Cranial nerves II through XII grossly intact. Sensation grossly intact no akathisias or athetosis EXTREMITIES:5/5 strength bilateral upper extremities. 5-\5 strength right lower extremity. 5-/5 strength in left lower extremity, hip flexion not tested given recent surgery . SKIN: left hip incision C/D/I ASSESSMENT:78-year-old M with past medical history of Parkinson's who presents status post fall with left femur fracture. PLAN: 1. Rehab: PT/OT, assess for DME- [employer], ambulating about 100-120 ft with RW,improving transfers, freezing with stairs, however caregiver training underway 2. Neuro: pmh Parkinsons with Lewy body features such as significant dementia with visual hallucinations complicated by akathisias and tardive dyskniesia -remove any deliriogenic medications -continue B6 for tardive dyskinesia- off label treatment and monitor- and continue Amantadine for L-dopa induced dyskinesia while tapering Sinemet, recommended dose 247mg qHS, stable now at 150 qHS -continue Donepezil for dementia to 10mg daily 3. Ortho: s/p left hip silvia-arthroplasty, Total hip precautions, WBAT, ortho consult 4. Cardio: no significant pmh, monitor BPs- consult medicine, recs appreciated 5. Resp: prevent atelectasis with incentive spirometry 6. Heme: recent blood loss anemia, monitor and continue Iron- stable 7. DVT ppx: on xarelto 10 mg, admission Doppler negative for DVT 8. : admission UA and Ucx negative, monitor PVRs- repeat UA negative 9. Pain: Tylenol standing and lidoderm patch for low back- improving 10. GI ppx: Protonix, loose stool resolved, stopped laxatives 11. insomnia: sleeping better with 22.5mg Temazepam 11. Dispo: 11-12-18 , progressing towards goals Allergies Coded Allergies: No Known Drug Allergy (Verified Allergy, Unknown, 01/24/13) Vital Signs Vital Signs Date Time Temp Pulse Resp B/P (MAP) Pulse Ox O2 Delivery O2 Flow Rate FiO2 11/06/18 14:00 97.6 95 16 92/70 (77) 96 Room Air Current Medications Current Medications Current Medications Acetaminophen (Tylenol Tab) 650 mg DAILY PRN PO pain Last administered on 10/31/18at 09:53; Start 10/29/18 at 14:15 Acetaminophen (Tylenol Tab) 650 mg Q4HP PRN PO fever/ MILD PAIN (PS 1-4); Start 10/21/18 at 15:45; Stop 10/21/18 at 16:30; Status DC Acetaminophen (Tylenol Tab) 1,000 mg TID PO Last administered on 10/30/18at 17:35; Start 10/21/18 at 21:00; Stop 10/30/18 at 18:15; Status DC Acetaminophen (Tylenol Tab) 1,000 mg TID@0600,1400,2000 PO Last administered on 11/04/18at 13:09; Start 10/30/18 at 20:00 Albuterol/ Ipratropium (Duoneb (Ipr 0.5mg/Alb 2.5mg)) 3 ml Q4HP PRN NEB SOB/WHEEZING; Start 10/21/18 at 15:45 Amantadine HCl (Symmetrel Syrup) 100 mg QHS PO ; Start 10/30/18 at 21:00; Stop 10/30/18 at 21:00; Status DC Amantadine HCl (Symmetrel Syrup) 150 mg QHS PO Last administered on 11/05/18at 21:22; Start 11/01/18 at 21:00 Amantadine HCl (Symmetrel Syrup) 150 mg QHS PO Last administered on 10/29/18at 21:00; Start 10/28/18 at 21:00; Stop 10/30/18 at 13:45; Status DC Amantadine HCl (Symmetrel) 100 mg QHS PO Last administered on 10/27/18at 20:10; Start 10/24/18 at 21:00; Stop 10/28/18 at 16:26; Status DC Amantadine HCl (Symmetrel) 100 mg QHS PO Last administered on 10/31/18at 21:01; Start 10/30/18 at 21:00; Stop 11/01/18 at 12:42; Status DC Bisacodyl (Dulcolax Suppository) 10 mg DAILYPRN PRN [place] CONSTIPATION; Start 10/21/18 at 15:45 Carbidopa/Levodopa (Sinemet 25/100) 1 tab 1600,1900 PO Last administered on 11/06/18at 18:00; Start 10/23/18 at 16:00 Carbidopa/Levodopa (Sinemet 25/100) 1 tab ASDIRECTED PO ; Start 10/21/18 at 15:45; Stop 10/21/18 at 15:50; Status DC Carbidopa/Levodopa (Sinemet 25/100) 1 tab DAILY@1300 PO Last administered on 10/31/18at 14:10; Start 10/29/18 at 13:00; Stop 11/01/18 at 12:42; Status DC Carbidopa/Levodopa (Sinemet 25/100) 2 tab 0700,1000 PO Last administered on 11/06/18at 09:47; Start 10/29/18 at 07:00 Carbidopa/Levodopa (Sinemet 25/100) 2 tab 0700,1000,1300 PO Last administered on 10/28/18at 12:41; Start 10/22/18 at 07:00; Stop 10/28/18 at 16:33; Status DC Carbidopa/Levodopa (Sinemet 25/100) 2 tab 1600,1900 PO Last administered on 10/22/18 18:37; Start 10/21/18 at 16:00; Stop 10/23/18 at 14:53; Status DC Carbidopa/Levodopa (Sinemet 25/100) 2 tab DAILY@1300 PO Last administered on 11/06/18at 12:41; Start 11/01/18 at 13:00 Coenzyme Q10 (Coenzyme Q10) 50 mg DAILY PO Last administered on 11/06/18at 08:21; Start 10/22/18 at 09:00; Stop 11/21/18 at 08:59 Donepezil HCl (AriCEPT) 5 mg DAILY PO Last administered on 10/28/18 08:18; Start 10/23/18 at 09:00; Stop 10/28/18 at 16:26; Status DC Donepezil HCl (AriCEPT) 10 mg DAILY PO Last administered on 11/06/18 08:21; Start 10/29/18 at 09:00 Ferrous Gluconate (Fergon) 324 mg BID PO Last administered on 11/04/18at 20:41; Start 10/21/18 at 21:00 Furosemide (Lasix) 20 mg DAILY PO Last administered on 10/23/18 08:03; Start 10/21/18 at 16:00; Stop 10/23/18 at 09:01; Status DC Home Med (Med Rec Complete!) ASDIRECTED XX ; Start 10/22/18 at 10:45; Stop 10/22/18 at 10:45; Status DC Lidocaine (Lidoderm Patch) 1 patch QHS TD Last administered on 11/05/18at 21:22; Start 11/02/18 at 21:00 Loperamide HCl (Imodium) 2 mg ASDIRECTED PRN PO DIARRHEA; Start 11/03/18 at 1 7:00 Menthol/Methyl Salicylate (Bengay Cream) low back TID TOP Last administered on 11/06/18at 15:24; Start 10/30/18 at 21:00 Miscellaneous (Unresolved Clarification Entry) SEE LABEL COMMENTS DAILY XX ; Start 11/03/18 at 09:00; Stop 11/03/18 at 16:13; Status DC Miscellaneous (Unresolved Clarification Entry) SEE LABEL COMMENTS DAILY XX ; Start 10/27/18 at 09:00; Stop 10/28/18 at 11:32; Status DC Multivitamins (Theragram-M) 1 tab DAILY PO Last administered on 11/06/18at 08:22; Start 10/22/18 at 09:00 Multivitamins (Theragram-M) 1 tab DAILY PO ; Start 10/22/18 at 09:00; Status UNV Non-Formulary Medication ( See Comment Field Below ) REMOVE LIDODERM PATCH DAILY@0900 XX Last administered on 11/06/18at 08:27; Start 11/03/18 at 09:00 Non-Formulary Medication ( See Comment Field Below ) REMOVE LIDODERM PATCH DAILY@21 XX ; Start 11/02/18 at 21:00; Stop 11/02/18 at 21:39; Status DC Ondansetron HCl (Zofran) 4 mg Q6HP PRN PO NAUSEA; Start 10/21/18 at 15:45; Stop 10/24/18 at 20:03; Status DC Oxycodone/ Acetaminophen (Percocet 5mg/ 325mg Tablet) 1 tab Q4HP PRN PO MODERATE PAIN (PS 7-10); Start 10/21/18 at 15:45; Stop 10/21/18 at 16:30; Status DC Pantoprazole Sodium (Protonix) 40 mg DAILY PO Last administered on 11/04/18at 08:31; Start 10/22/18 at 09:00; Stop 11/05/18 at 12:42; Status DC Phenol (Chloraseptic [place]) 1 spray Q2HP PRN MT SORE THROAT; Start 10/21/18 at 15:45 Pyridoxine HCl (Vitamin B6) 50 mg DAILY PO Last administered on 11/04/18at 08:31; Start 10/22/18 at 09:00; Stop 11/05/18 at 12:42; Status DC Pyridoxine HCl (Vitamin B6) 50 mg DAILY@1200 PO ; Start 11/05/18 at 12:00; Stop 11/05/18 at 12:50; Status DC Pyridoxine HCl (Vitamin B6) 50 mg DAILY@1200 PO Last administered on 11/06/18at 12:41; Start 11/06/18 at 12:00 Rivaroxaban (Xarelto) 10 mg DAILY@1800 PO Last administered on 11/06/18at 17:59; Start 10/21/18 at 18:00 Senna (Senokot) 1 tab QHS PO Last administered on 10/27/18 20:10; Start 10/21/18 at 21:00; Stop 11/05/18 at 12:42; Status DC Senna/Docusate Sodium (Senokot S) 1 tab BID PO Last administered on 11/03/18 09:19; Start 10/21/18 at 21:00; Stop 11/03/18 at 16:54; Status DC Temazepam (Restoril) 7.5 mg QHS PO Last administered on 11/04/18 20:52; Start 11/04/18 at 21:00 Temazepam (Restoril) 7.5 mg QHS PO Last administered on 10/29/18 21:24; Start 10/25/18 at 21:00; Stop 10/30/18 at 13:45; Status DC Temazepam (Restoril) 15 mg QHS PO Last administered on 11/04/18at 20:52; Start 11/04/18 at 21:00 Temazepam (Restoril) 15 mg QHS PO Last administered on 11/01/18at 20:31; Start 10/30/18 at 21:00; Stop 11/02/18 at 14:50; Status DC Temazepam (Restoril) 15 mg QHSP PRN PO INSOMNIA; Start 10/30/18 at 18:30; Status Cancel Temazepam (Restoril) 22.5 mg QHS PO Last administered on 11/03/18 20:15; Start 11/02/18 at 21:00; Stop 11/04/18 at 20:23; Status DC Trazodone HCl (Desyrel) 25 mg QHSP PRN PO INSOMNIA Last administered on 10/22/18 20:19; Start 10/21/18 at 16:00; Stop 10/28/18 at 16:26; Status DC Trazodone HCl (Desyrel) 50 mg Q4HP PRN PO AGITATION; Start 10/24/18 at 20:15; Stop 10/30/18 at 13:45; Status DC Trazodone HCl (Desyrel) 50 mg QHSP PRN PO INSOMNIA; Start 10/28/18 at 16:30; Stop 10/30/18 at 13:45; Status DC JALEN SCHUMACHER MD Nov 06, 2018 18:08
[2018-11-06 20:15] VITALS: BP 139/77
[2018-11-06] MEDS: TEMAZEPAM 7.5 MG CAP PO SCH (21:14)
[2018-11-06] MEDS: TEMAZEPAM 15 MG CAP PO SCH (21:14)
[2018-11-06] MEDS: LIDOCAINE 5% (LIDODERM) PATCH TD SCH (21:16)
[2018-11-06] MEDS: AMANTADINE 100MG/10ML SYRUP UDC PO SCH (21:16)
[2018-11-07] MEDS: ACETAMINOPHEN 500 MG TAB PO SCH ×3 (05:24→20:00)
[2018-11-07 06:00] VITALS: BP 152/79
[2018-11-07] MEDS: SINEMET 25-100 MG TAB PO SCH ×5 (06:16→17:56)
[2018-11-07] MEDS: CO-ENZYME Q10 50 MG CAP PO SCH (07:55)
[2018-11-07] MEDS: FERROUS GLUCONATE 324 MG TAB PO SCH ×2 (07:55→21:00)
[2018-11-07] MEDS: DONEPEZIL 5 MG TAB PO SCH (07:55)
[2018-11-07] MEDS: MULTIVITAMINS/MINERALS THERAP 1 TAB PO SCH (07:55)
[2018-11-07] MEDS: **NOTE PATIENT COMMENT** MISC XX SCH (07:56)
[2018-11-07] MEDS: ANALGESIC BALM CRM 120 GM TOP SCH ×3 (07:56→21:00)
[2018-11-07] MEDS: PYRIDOXINE 50 MG TAB PO SCH (10:35)
[2018-11-07 14:00] VITALS: BP 115/61
[2018-11-07] MEDS: RIVAROXABAN 10 MG TAB (XARELTO) PO SCH (17:56)
[2018-11-07 19:59] VITALS: BP 131/63
--- NOTE | 2018-11-07 20:55 | IPNPDOC ---
PM&R Progress Note DATE OF SERVICE: Nov 07, 2018 [employer] Progress Note Subjective: Patient reports he slept well and felt alert this morning. He is concerned about his Calcium levels and would like to know if he needs to take supplements. REVIEW OF SYSTEMS: The following is a completed review of systems and has been reviewed. Review of systems otherwise unremarkable. PAIN: left hip pain-improving EYES: Negative EARS, NOSE, & THROAT: no rhinorrhea, no more throat pain CARDIOVASCULAR: no chest pain or palpitations PULMONARY: Negative. Denies shortness of breath GASTROINTESTINAL: Negative for urinary or fecal incontinence, negative constipation, +diarrhea and nausea GENITOURINARY: Negative urinary retention or dysuria MUSCULOSKELETAL: left hip silvia-arthroplasty NEUROLOGICAL: +Parkinsons with hallucinations-resolved, athetosis-resolved HEMATOLOGICAL: +Bilat upper extremity ecchymosis SKIN: +left hip incision All other review of systems found to be negative. PHYSICAL EXAMINATION: VITAL SIGNS: Please see below. GENERAL: Pleasant and cooperative. No acute distress. HEENT: PERRL. Extraocular grossly movements intact. Clear conjunctiva CARDIOVASCULAR: Regular rate and rhythm. No murmurs, rubs, or gallops. LUNGS: Clear to auscultation bilaterally. No wheezes. No rhonchi. ABDOMEN:Soft, nontender, mildly distended. Positive bowel sounds NEUROLOGICAL: Alert and oriented to self and place, not to time Cranial nerves II through XII grossly intact. Sensation grossly intact no akathisias or athetosis EXTREMITIES:5/5 strength bilateral upper extremities. 5-\5 strength right lower extremity. 5-/5 strength in left lower extremity, hip flexion not tested given recent surgery . SKIN: left hip incision C/D/I ASSESSMENT:78-year-old M with past medical history of Parkinson's who presents status post fall with left femur fracture. PLAN: 1. Rehab: PT/OT, assess for DME- [employer], ambulating about 100-120 ft with RW,improving transfers, freezing with stairs, however caregiver training underway- will trial weighted ankle training to improve scissoring when ambulating 2. Neuro: pmh Parkinsons with Lewy body features such as significant dementia with visual hallucinations complicated by akathisias and tardive dyskniesia -remove any deliriogenic medications -continue B6 for tardive dyskinesia- off label treatment and monitor- and continue Amantadine for L-dopa induced dyskinesia while tapering Sinemet, recommended dose 247mg qHS, stable now at 150 qHS, decreased 1pm dose to 1 tab out of concern of low sBPs at 2pm, will check for increased freezing, otherwise stable -continue Donepezil for dementia to 10mg daily 3. Ortho: s/p left hip silvia-arthroplasty, Total hip precautions, WBAT, ortho consult 4. Cardio: no significant pmh, monitor BPs- consult medicine, recs appreciated 5. Resp: prevent atelectasis with incentive spirometry 6. Heme: recent blood loss anemia, monitor and continue Iron- stable 7. DVT ppx: on xarelto 10 mg, admission Doppler negative for DVT 8. : admission UA and Ucx negative, monitor PVRs- repeat UA negative 9. Pain: Tylenol standing and lidoderm patch for low back- improving 10. GI ppx: Protonix, loose stool resolved, stopped laxatives 11. insomnia: sleeping better with 22.5mg Temazepam 11. Dispo: 11-12-18 , progressing towards goals Allergies Coded Allergies: No Known Drug Allergy (Verified Allergy, Unknown, 01/24/13) Vital Signs Vital Signs Date Time Temp Pulse Resp B/P (MAP) Pulse Ox O2 Delivery O2 Flow Rate FiO2 11/07/18 19:59 97.7 90 18 131/63 (85) 97 Room Air Current Medications Current Medications Current Medications Acetaminophen (Tylenol Tab) 650 mg DAILY PRN PO pain Last administered on 10/31/18at 09:53; Start 10/29/18 at 14:15 Acetaminophen (Tylenol Tab) 650 mg Q4HP PRN PO fever/ MILD PAIN (PS 1-4); Start 10/21/18 at 15:45; Stop 10/21/18 at 16:30; Status DC Acetaminophen (Tylenol Tab) 1,000 mg TID PO Last administered on 10/30/18at 17:35; Start 10/21/18 at 21:00; Stop 10/30/18 at 18:15; Status DC Acetaminophen (Tylenol Tab) 1,000 mg TID@0600,1400,2000 PO Last administered on 11/07/18at 07:55; Start 10/30/18 at 20:00 Albuterol/ Ipratropium (Duoneb (Ipr 0.5mg/Alb 2.5mg)) 3 ml Q4HP PRN NEB SOB/WHEEZING; Start 10/21/18 at 15:45 Amantadine HCl (Symmetrel Syrup) 100 mg QHS PO ; Start 10/30/18 at 21:00; Stop 10/30/18 at 21:00; Status DC Amantadine HCl (Symmetrel Syrup) 150 mg QHS PO Last administered on 11/06/18at 21:16; Start 11/01/18 at 21:00 Amantadine HCl (Symmetrel Syrup) 150 mg QHS PO Last administered on 10/29/18at 21:00; Start 10/28/18 at 21:00; Stop 10/30/18 at 13:45; Status DC Amantadine HCl (Symmetrel) 100 mg QHS PO Last administered on 10/27/18at 20:10; Start 10/24/18 at 21:00; Stop 10/28/18 at 16:26; Status DC Amantadine HCl (Symmetrel) 100 mg QHS PO Last administered on 10/31/18at 21:01; Start 10/30/18 at 21:00; Stop 11/01/18 at 12:42; Status DC Bisacodyl (Dulcolax Suppository) 10 mg DAILYPRN PRN MO CONSTIPATION; Start 10/21/18 at 15:45 Carbidopa/Levodopa (Sinemet 25/100) 1 tab 1600,1900 PO Last administered on 11/07/18at 17:56; Start 10/23/18 at 16:00 Carbidopa/Levodopa (Sinemet 25/100) 1 tab ASDIRECTED PO ; Start 10/21/18 at 15:45; Stop 10/21/18 at 15:50; Status DC Carbidopa/Levodopa (Sinemet 25/100) 1 tab DAILY@1300 PO Last administered on 11/07/18at 13:10; Start 11/07/18 at 13:00 Carbidopa/Levodopa (Sinemet 25/100) 1 tab DAILY@1300 PO Last administered on 10/31/18at 14:10; Start 10/29/18 at 13:00; Stop 11/01/18 at 12:42; Status DC Carbidopa/Levodopa (Sinemet 25/100) 2 tab 0700,1000 PO Last administered on 11/07/18at 10:35; Start 10/29/18 at 07:00 Carbidopa/Levodopa (Sinemet 25/100) 2 tab 0700,1000,1300 PO Last administered on 10/28/18at 12:41; Start 10/22/18 at 07:00; Stop 10/28/18 at 16:33; Status DC Carbidopa/Levodopa (Sinemet 25/100) 2 tab 1600,1900 PO Last administered on 10/22/18at 18:37; Start 10/21/18 at 16:00; Stop 10/23/18 at 14:53; Status DC Carbidopa/Levodopa (Sinemet 25/100) 2 tab DAILY@1300 PO Last administered on 11/06/18at 12:41; Start 11/01/18 at 13:00; Stop 11/06/18 at 18:06; Status DC Coenzyme Q10 (Coenzyme Q10) 50 mg DAILY PO Last administered on 11/07/18at 07:55; Start 10/22/18 at 09:00; Stop 11/21/18 at 08:59 Donepezil HCl (AriCEPT) 5 mg DAILY PO Last administered on 10/28/18at 08:18; Start 10/23/18 at 09:00; Stop 10/28/18 at 16:26; Status DC Donepezil HCl (AriCEPT) 10 mg DAILY PO Last administered on 11/07/18at 07:55; Start 10/29/18 at 09:00 Ferrous Gluconate (Fergon) 324 mg BID PO Last administered on 11/04/18at 20:41; Start 10/21/18 at 21:00 Furosemide (Lasix) 20 mg DAILY PO Last administered on 10/23/18at 08:03; Start 10/21/18 at 16:00; Stop 10/23/18 at 09:01; Status DC Home Med (Med Rec Complete!) ASDIRECTED XX ; Start 10/22/18 at 10:45; Stop 10/22/18 at 10:45; Status DC Lidocaine (Lidoderm Patch) 1 patch QHS TD Last administered on 11/06/18at 21:16; Start 11/02/18 at 21:00 Loperamide HCl (Imodium) 2 mg ASDIRECTED PRN PO DIARRHEA; Start 11/03/18 at 17:00 Menthol/Methyl Salicylate (Bengay Cream) low back TID TOP Last administered on 11/07/18at 15:20; Start 10/30/18 at 21:00 Miscellaneous (Unresolved Clarification Entry) SEE LABEL COMMENTS DAILY XX ; Start 11/03/18 at 09:00; Stop 11/03/18 at 16:13; Status DC Miscellaneous (Unresolved Clarification Entry) SEE LABEL COMMENTS DAILY XX ; Start 10/27/18 at 09:00; Stop 10/28/18 at 11:32; Status DC Multivitamins (Theragram-M) 1 tab DAILY PO Last administered on 11/07/18at 07:55; Start 10/22/18 at 09:00 Multivitamins (Theragram-M) 1 tab DAILY PO ; Start 10/22/18 at 09:00; Status UNV Non-Formulary Medication ( See Comment Field Below ) REMOVE LIDODERM PATCH DAILY@0900 XX Last administered on 11/07/18at 07:56; Start 11/03/18 at 09:00 Non-Formulary Medication ( See Comment Field Below ) REMOVE LIDODERM PATCH DAILY@21 XX ; Start 11/02/18 at 21:00; Stop 11/02/18 at 21:39; Status DC Ondansetron HCl (Zofran) 4 mg Q6HP PRN PO NAUSEA; Start 10/21/18 at 15:45; Stop 10/24/18 at 20:03; Status DC Oxycodone/ Acetaminophen (Percocet 5mg/ 325mg Tablet) 1 tab Q4HP PRN PO MODERATE PAIN (PS 7-10); Start 10/21/18 at 15:45; Stop 10/21/18 at 16:30; Status DC Pantoprazole Sodium (Protonix) 40 mg DAILY PO Last administered on 11/04/18at 08:31; Start 10/22/18 at 09:00; Stop 11/05/18 at 12:42; Status DC Phenol (Chloraseptic [place]) 1 spray Q2HP PRN MT SORE THROAT; Start 10/21/18 at 15:45 Pyridoxine HCl (Vitamin B6) 50 mg DAILY PO Last administered on 11/04/18at 08:31; Start 10/22/18 at 09:00; Stop 11/05/18 at 12:42; Status DC Pyridoxine HCl (Vitamin B6) 50 mg DAILY@1200 PO ; Start 11/05/18 at 12:00; Stop 11/05/18 at 12:50; Status DC Pyridoxine HCl (Vitamin B6) 50 mg DAILY@1200 PO Last administered on 11/07/18at 10:35; Start 11/06/18 at 12:00 Rivaroxaban (Xarelto) 10 mg DAILY@1800 PO Last administered on 11/07/18 17:56; Start 10/21/18 at 18:00 Senna (Senokot) 1 tab QHS PO Last administered on 10/27/18 20:10; Start 10/21/18 at 21:00; Stop 11/05/18 at 12:42; Status DC Senna/Docusate Sodium (Senokot S) 1 tab BID PO Last administered on 11/03/18 09:19; Start 10/21/18 at 21:00; Stop 11/03/18 at 16:54; Status DC Temazepam (Restoril) 7.5 mg QHS PO Last administered on 11/06/18at 21:14; Start 11/04/18 at 21:00 Temazepam (Restoril) 7.5 mg QHS PO Last administered on 10/29/18 21:24; Start 10/25/18 at 21:00; Stop 10/30/18 at 13:45; Status DC Temazepam (Restoril) 15 mg QHS PO Last administered on 11/06/18 21:14; Start 11/04/18 at 21:00 Temazepam (Restoril) 15 mg QHS PO Last administered on 11/01/18 20:31; Start 10/30/18 at 21:00; Stop 11/02/18 at 14:50; Status DC Temazepam (Restoril) 15 mg QHSP PRN PO INSOMNIA; Start 10/30/18 at 18:30; Status Cancel Temazepam (Restoril) 22.5 mg QHS PO Last administered on 11/03/18 20:15; Start 11/02/18 at 21:00; Stop 11/04/18 at 20:23; Status DC Trazodone HCl (Desyrel) 25 mg QHSP PRN PO INSOMNIA Last administered on 10/22/18 20:19; Start 10/21/18 at 16:00; Stop 10/28/18 at 16:26; Status DC Trazodone HCl (Desyrel) 50 mg Q4HP PRN PO AGITATION; Start 10/24/18 at 20:15; Stop 10/30/18 at 13:45; Status DC Trazodone HCl (Desyrel) 50 mg QHSP PRN PO INSOMNIA; Start 10/28/18 at 16:30; Stop 10/30/18 at 13:45; Status DC JALEN SCHUMACHER MD Nov 07, 2018 20:55
[2018-11-07] MEDS: TEMAZEPAM 15 MG CAP PO SCH (21:13)
[2018-11-07] MEDS: TEMAZEPAM 7.5 MG CAP PO SCH (21:13)
[2018-11-07] MEDS: LIDOCAINE 5% (LIDODERM) PATCH TD SCH (21:14)
[2018-11-07] MEDS: AMANTADINE 100MG/10ML SYRUP UDC PO SCH (21:17)
[2018-11-08] MEDS: SINEMET 25-100 MG TAB PO SCH ×5 (06:05→19:43)
[2018-11-08] MEDS: ACETAMINOPHEN 500 MG TAB PO SCH ×3 (06:06→20:00)
[2018-11-08 06:16] VITALS: BP 162/86
[2018-11-08 07:21] LABS: BASO # 0.1 10^3/uL (0.0-0.2); BASO % 1.1 % (0.0-1.0); EOS # 0.2 10^3/uL (0.0-0.50); EOS % 3.5 % (0.0-3.0); HEMATOCRIT 34.5 % (42.0-52.0); HEMOGLOBIN 11.3 g/dl (13.5-17.5); LYMPH # 1.6 10^3/uL (1.5-4.5); LYMPH % 29.5 % (24.0-44.0); MEAN CORPUSCULAR HEMOGLOBIN 31.2 pg (27.0-33.0); MEAN CORPUSCULAR HGB CONC 32.8 g/dl (32.0-36.5); MEAN CORPUSCULAR VOLUME 95.3 fl (80.0-96.0); MONO # 0.5 10^3/uL (0.0-0.8); MONO % 8.7 % (0.0-5.0); NEUTROPHILS # 3.1 10^3/uL (1.8-7.7); NEUTROPHILS % 56.8 % (36.0-66.0); PLATELET COUNT, AUTOMATED 194 10^3/uL (150-450); RED BLOOD COUNT 3.62 10^6/uL (4.30-6.10); WHITE BLOOD COUNT 5.5 10^3/uL (4.0-10.0)
[2018-11-08 07:38] LABS: BLOOD UREA NITROGEN 18 MG/DL (7-18); CALCIUM LEVEL 8.8 MG/DL (8.8-10.2); CARBON DIOXIDE LEVEL 26 MEQ/L (21-32); CHLORIDE LEVEL 107 MEQ/L (98-107); CREATININE FOR GFR 1.03 MG/DL (0.70-1.30); GLOMERULAR FILTRATION RATE > 60.0 (>42); GLUCOSE, FASTING 105 MG/DL (70-100); SODIUM LEVEL 140 MEQ/L (136-145)
[2018-11-08] MEDS: **NOTE PATIENT COMMENT** MISC XX SCH (09:00)
[2018-11-08] MEDS: ANALGESIC BALM CRM 120 GM TOP SCH ×3 (09:00→22:53)
[2018-11-08] MEDS: CO-ENZYME Q10 50 MG CAP PO SCH (09:17)
[2018-11-08] MEDS: FERROUS GLUCONATE 324 MG TAB PO SCH ×2 (09:17→22:53)
[2018-11-08] MEDS: MULTIVITAMINS/MINERALS THERAP 1 TAB PO SCH (09:17)
[2018-11-08] MEDS: DONEPEZIL 5 MG TAB PO SCH (09:17)
--- NOTE | 2018-11-08 12:36 | IPNPDOC ---
Date Seen The patient was seen on 11/08/18. Progress Note HPI: 78-year-old male with past medical history of Parkinson's disease presents to the ER with left hip pain. The patient stated that he was adjusting the furnace thermostat when he fell and landed on his left side. The patient denied any prodromal symptoms of lightheadedness, dizziness, chest pain, palpitations, abdominal pain, abdominal pain, or any nausea/vomiting/diarrhea. In the ER, imaging revealed a left hip fracture, s/p repair as per Orthopedic surgery. The pt was transferred to the care of [facility], 10/21/18. The pt is OOB with therapy. Denies any fevers, chills, weakness, fatigue, Headache, Chest Pain, Shortness of breath, cough, palpitations, abdominal pain, N/V/D or changes in bowel or bladder habits. PMHx: Parkinson's disease HTN Unsteady gait PSHX: right hip fracture s/p repair, cholecystectomy PE: GEN: 78yoM, appears stated age. Alert and oriented x 3. HEENT: Normocephalic, atraumatic. Sclera are nonicteric. No facial asymmetry. Moist mucous membranes.Pharynx pink and moist. CHEST: Regular rate and rhythm, +S1, +S2 LUNGS: Clear to auscultation bilaterally. No wheezes, rales, or rhonchi. ABD: Round, soft, non-tender, non-distended. +Bowel sounds throughout. No rebound or guarding. EXT: No lower extremity edema appreciated. SKIN: No rashes. NEURO: Reduced facial expressions, no tremor noted. No focal deficits claudia reciated. A&P: 78-year-old male with past medical history of Parkinson's disease presents to the ER with left hip pain. The patient stated that he was adjusting the furnace thermostat when he fell and landed on his left side. The patient denied any prodromal symptoms of lightheadedness, dizziness, chest pain, palpitations, abdominal pain, abdominal pain, or any nausea/vomiting/diarrhea. In the ER, imaging revealed a left hip fracture, s/p repair as per Orthopedic surgery. The pt was transferred to the care of [facility], 10/21/18. 1. Left hip fracture/ S/P left hemiarthroplasty 10/17/2018. Mgmt as per Orthopedic Surgery. Mgmt as per ARU. PT/OT as per ARU ST as per ARU pain control as per ARU Bowel care as per ARU DVT px. Pt is on Xarelto. 2. Hypertension. Lasix remains on hold. S/P IVF x [address] Bender 10/30/18. No signs of decompensation at this time, continue to monitor. 3. Parkinson's disease. Sinemet, Aricept, Amantadine. Dr Bender has been adjusting his Parkinson's regimen. Previous outpt regimen was Sinemet 2 tab 5 x per day at 7A/10A/1P/3P/7P. Pt follows with [facility] [place]. 4. GERD. Protonix. 5. Anemia. Likely acute blood loss. Hgb 11.3, stable. Continue Fe supplement BID Update CBC in AM. VS, I&O, 24H, Fishbone Vital Signs/I&O Vital Signs Date Time Temp Pulse Resp B/P (MAP) Pulse Ox O2 Delivery O2 Flow Rate FiO2 11/08/18 06:16 98.5 70 14 162/86 (111) 94 Room Air I&O- Last 24 Hours up to 6 AM 11/08/18 06:00 Intake Total 1080 ml Output Total 675 ml Balance 405 ml Laboratory Data 24H LABS Laboratory Tests 2 11/08/18 07:00: Immature Granulocyte % (Auto) 0.4, White Blood Count 5.5, Red Blood Count 3.62L, Hemoglobin 11.3L, Hematocrit 34.5L, Mean Corpuscular Volume 95.3, Mean Corpuscular Hemoglobin 31.2, Mean Corpuscular Hemoglobin Concent 32.8, Red Cell Distribution Width 12.4, Platelet Count 194, Neutrophils (%) (Auto) 56.8, Lymphocytes (%) (Auto) 29.5, Monocytes (%) (Auto) 8.7H, Eosinophils (%) (Auto) 3.5H, Basophils (%) (Auto) 1.1H, Neutrophils # (Auto) 3.1, Lymphocytes # (Auto) 1.6, Monocytes # (Auto) 0.5, Eosinophils # (Auto) 0.2, Basophils # (Auto) 0.1, Nucleated Red Blood Cells % (auto) 0.0, Anion Gap 7L, Glomerular Filtration Rate > 60.0, Blood Urea Nitrogen 18, Creatinine 1.03, Sodium Level 140, Potassium Level 4.0, Chloride Level 107, Carbon Dioxide Level 26, Calcium Level 8.8 CBC/BMP Laboratory Tests 11/08/18 07:00 Red Blood Count 3.62 L, Mean Corpuscular Volume 95.3, Mean Corpuscular Hemoglobin 31.2, Mean Corpuscular Hemoglobin Concent 32.8, Red Cell Distribution Width 12.4, Neutrophils (%) (Auto) 56.8, Lymphocytes (%) (Auto) 29.5, Monocytes (%) (Auto) 8.7 H, Eosinophils (%) (Auto) 3.5 H, Basophils (%) (Auto) 1.1 H, Neutrophils # (Auto) 3.1, Lymphocytes # (Auto) 1.6, Monocytes # (Auto) 0.5, Eosinophils # (Auto) 0.2, Basophils # (Auto) 0.1, Calcium Level 8.8 Shanice Cox Nov 08, 2018 12:36
[2018-11-08] MEDS: PYRIDOXINE 50 MG TAB PO SCH (13:07)
[2018-11-08 14:00] VITALS: BP 154/78
[2018-11-08] MEDS: RIVAROXABAN 10 MG TAB (XARELTO) PO SCH (16:56)
[2018-11-08 20:00] VITALS: BP 138/72
[2018-11-08] MEDS: LIDOCAINE 5% (LIDODERM) PATCH TD SCH (22:49)
[2018-11-08] MEDS: AMANTADINE 100MG/10ML SYRUP UDC PO SCH (22:51)
[2018-11-08] MEDS: TEMAZEPAM 15 MG CAP PO SCH (22:52)
[2018-11-08] MEDS: TEMAZEPAM 7.5 MG CAP PO SCH (22:52)
[2018-11-09 06:00] VITALS: BP 159/83
[2018-11-09] MEDS: ACETAMINOPHEN 500 MG TAB PO SCH ×4 (06:00→20:44)
[2018-11-09] MEDS: SINEMET 25-100 MG TAB PO SCH ×5 (06:20→18:06)
[2018-11-09] MEDS: FERROUS GLUCONATE 324 MG TAB PO SCH ×2 (08:30→20:50)
[2018-11-09] MEDS: MULTIVITAMINS/MINERALS THERAP 1 TAB PO SCH (08:30)
[2018-11-09] MEDS: DONEPEZIL 5 MG TAB PO SCH (08:31)
[2018-11-09] MEDS: ANALGESIC BALM CRM 120 GM TOP SCH ×3 (08:31→20:55)
[2018-11-09] MEDS: CO-ENZYME Q10 50 MG CAP PO SCH (08:31)
[2018-11-09] MEDS: **NOTE PATIENT COMMENT** MISC XX SCH (09:00)
[2018-11-09] MEDS: PYRIDOXINE 50 MG TAB PO SCH (13:10)
[2018-11-09 14:00] VITALS: BP 137/81
--- NOTE | 2018-11-09 15:53 | IPNPDOC ---
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 He was encouraged to work on his hip abductors to avoid scissoring with walking. REVIEW OF SYSTEMS: The following is a completed review of systems and has been reviewed. Review of systems otherwise unremarkable. PAIN: left hip pain-improving EYES: Negative EARS, NOSE, & THROAT: no rhinorrhea, no more throat pain CARDIOVASCULAR: no chest pain or palpitations PULMONARY: Negative. Denies shortness of breath GASTROINTESTINAL: Negative for urinary or fecal incontinence, negative constipation, +diarrhea and nausea GENITOURINARY: Negative urinary retention or dysuria MUSCULOSKELETAL: left hip silvia-arthroplasty NEUROLOGICAL: +Parkinsons with hallucinations-resolved, athetosis-resolved HEMATOLOGICAL: +Bilat upper extremity ecchymosis SKIN: +left hip incision All other review of systems found to be negative. PHYSICAL EXAMINATION: VITAL SIGNS: Please see below. GENERAL: Pleasant and cooperative. No acute distress. HEENT: PERRL. Extraocular grossly movements intact. Clear conjunctiva CARDIOVASCULAR: Regular rate and rhythm. No murmurs, rubs, or gallops. LUNGS: Clear to auscultation bilaterally. No wheezes. No rhonchi. ABDOMEN:Soft, nontender, mildly distended. Positive bowel sounds NEUROLOGICAL: Alert and oriented to self and place, not to time Cranial nerves II through XII grossly intact. Sensation grossly intact no akathisias or athetosis EXTREMITIES:5/5 strength bilateral upper extremities. 5-\5 strength right lower extremity. 5-/5 strength in left lower extremity, hip flexion not tested given recent surgery . SKIN: left hip incision C/D/I ASSESSMENT:78-year-old M with past medical history of Parkinson's who presents status post fall with left femur fracture. PLAN: 1. Rehab: PT/OT, assess for DME- [employer], ambulating about 100-120 ft with RW,improving transfers, freezing with stairs, however caregiver training underway- will trial weighted ankle training to improve scissoring when ambulating -able to do car trasnfers with family [facility]. [facility] Parkinsons with Lewy body features such as significant dementia with visual hallucinations complicated by akathisias and tardive dyskniesia -remove any deliriogenic medications -continue B6 for tardive dyskinesia- off label treatment and monitor- and continue Amantadine for L-dopa induced dyskinesia while tapering Sinemet, recommended dose 247mg qHS, stable now at 150 qHS, decreased 1pm dose to 1 tab out of concern of low sBPs at 2pm, no increased freezing, doing well -continue Donepezil for dementia to 10mg daily 3. Ortho: s/p left hip silvia-arthroplasty, Total hip precautions, WBAT, ortho consult 4. Cardio: no significant pmh, monitor BPs- consult medicine, recs appreciated 5. Resp: prevent atelectasis with incentive spirometry 6. Heme: recent blood loss anemia, monitor and continue Iron- stable 7. DVT ppx: on xarelto 10 mg, admission Doppler negative for DVT 8. : admission UA and Ucx negative, monitor PVRs- repeat UA negative 9. Pain: Tylenol standing and lidoderm patch for low back- improving 10. GI ppx: Protonix, loose stool resolved, stopped laxatives 11. insomnia: sleeping better with 22.5mg Temazepam 11. Dispo: 11-12-18 , progressing towards goals Allergies Coded Allergies: No Known Drug Allergy (Verified Allergy, Unknown, 01/24/13) Vital Signs Vital Signs Date Time Temp Pulse Resp B/P (MAP) Pulse Ox O2 Delivery O2 Flow Rate FiO2 11/09/18 06:00 99.0 75 18 159/83 (108) 98 Room Air Current Medications Current Medications Current Medications Acetaminophen (Tylenol Tab) 650 mg DAILY PRN PO pain Last administered on 10/31/18at 09:53; Start 10/29/18 at 14:15 Acetaminophen (Tylenol Tab) 650 mg Q4HP PRN PO fever/ MILD PAIN (PS 1-4); Start 10/21/18 at 15:45; Stop 10/21/18 at 16:30; Status DC Acetaminophen (Tylenol Tab) 1,000 mg TID PO Last administered on 10/30/18at 17:35; Start 10/21/18 at 21:00; Stop 10/30/18 at 18:15; Status DC Acetaminophen (Tylenol Tab) 1,000 mg TID@0600,1400,2000 PO Last administered on 11/09/18at 06:00; Start 10/30/18 at 20:00 Albuterol/ Ipratropium (Duoneb (Ipr 0.5mg/Alb 2.5mg)) 3 ml Q4HP PRN NEB SOB/WHEEZING; Start 10/21/18 at 15:45 Amantadine HCl (Symmetrel Syrup) 100 mg QHS PO ; Start 10/30/18 at 21:00; Stop 10/30/18 at 21:00; Status DC Amantadine HCl (Symmetrel Syrup) 150 mg QHS PO Last administered on 11/08/18at 22:51; Start 11/01/18 at 21:00 Amantadine HCl (Symmetrel Syrup) 150 mg QHS PO Last administered on 10/29/18at 21:00; Start 10/28/18 at 21:00; Stop 10/30/18 at 13:45; Status DC Amantadine HCl (Symmetrel) 100 mg QHS PO Last administered on 10/27/18at 20:10; Start 10/24/18 at 21:00; Stop 10/28/18 at 16:26; Status DC Amantadine HCl (Symmetrel) 100 mg QHS PO Last administered on 10/31/18at 21:01; Start 10/30/18 at 21:00; Stop 11/01/18 at 12:42; Status DC Bisacodyl (Dulcolax Suppository) 10 mg DAILYPRN PRN [place] CONSTIPATION; Start 10/21/18 at 15:45 Carbidopa/Levodopa (Sinemet 25/100) 1 tab 1600,1900 PO Last administered on 11/08/18at 19:43; Start 10/23/18 at 16:00 Carbidopa/Levodopa (Sinemet 25/100) 1 tab ASDIRECTED PO ; Start 10/21/18 at 15:45; Stop 10/21/18 at 15:50; Status DC Carbidopa/Levodopa (Sinemet 25/100) 1 tab DAILY@1300 PO Last administered on 11/09/18at 13:10; Start 11/07/18 at 13:00 Carbidopa/Levodopa (Sinemet 25/100) 1 tab DAILY@1300 PO Last administered on 10/31/18at 14:10; Start 10/29/18 at 13:00; Stop 11/01/18 at 12:42; Status DC Carbidopa/Levodopa (Sinemet 25/100) 2 tab 0700,1000 PO Last administered on 11/09/18at 10:25; Start 10/29/18 at 07:00 Carbidopa/Levodopa (Sinemet 25/100) 2 tab 0700,1000,1300 PO Last administered on 10/28/18at 12:41; Start 10/22/18 at 07:00; Stop 10/28/18 at 16:33; Status DC Carbidopa/Levodopa (Sinemet 25/100) 2 tab 1600,1900 PO Last administered on 10/22/18at 18:37; Start 10/21/18 at 16:00; Stop 10/23/18 at 14:53; Status DC Carbidopa/Levodopa (Sinemet 25/100) 2 tab DAILY@1300 PO Last administered on 11/06/18at 12:41; Start 11/01/18 at 13:00; Stop 11/06/18 at 18:06; Status DC Coenzyme Q10 (Coenzyme Q10) 50 mg DAILY PO Last administered on 11/09/18 08:31; Start 10/22/18 at 09:00; Stop 11/21/18 at 08:59 Donepezil HCl (AriCEPT) 5 mg DAILY PO Last administered on 10/28/18at 08:18; Start 10/23/18 at 09:00; Stop 10/28/18 at 16:26; Status DC Donepezil HCl (AriCEPT) 10 mg DAILY PO Last administered on 11/09/18at 08:31; Start 10/29/18 at 09:00 Ferrous Gluconate (Fergon) 324 mg BID PO Last administered on 11/09/18at 08:30; Start 10/21/18 at 21:00 Furosemide (Lasix) 20 mg DAILY PO Last administered on 10/23/18at 08:03; Start 10/21/18 at 16:00; Stop 10/23/18 at 09:01; Status DC Home Med (Med Rec Complete!) ASDIRECTED XX ; Start 10/22/18 at 10:45; Stop 10/22/18 at 10:45; Status DC Lidocaine (Lidoderm Patch) 1 patch QHS TD Last administered on 11/08/18at 22:49; Start 11/02/18 at 21:00 Loperamide HCl (Imodium) 2 mg ASDIRECTED PRN PO DIARRHEA; Start 11/03/18 at 17:00 Menthol/Methyl Salicylate (Bengay Cream) low back TID TOP Last administered on 11/09/18at 08:31; Start 10/30/18 at 21:00 Miscellaneous (Unresolved Clarification Entry) SEE LABEL COMMENTS DAILY XX ; Start 11/03/18 at 09:00; Stop 11/03/18 at 16:13; Status DC Miscellaneous (Unresolved Clarification Entry) SEE LABEL COMMENTS DAILY XX ; Start 10/27/18 at 09:00; Stop 10/28/18 at 11:32; Status DC Multivitamins (Theragram-M) 1 tab DAILY PO Last administered on 11/09/18at 08:30; Start 10/22/18 at 09:00 Multivitamins (Theragram-M) 1 tab DAILY PO ; Start 10/22/18 at 09:00; Status UNV Non-Formulary Medication ( See Comment Field Below ) REMOVE LIDODERM PATCH DAILY@0900 XX Last administered on 11/09/18at 09:00; Start 11/03/18 at 09:00 Non-Formulary Medication ( See Comment Field Below ) REMOVE LIDODERM PATCH DAILY@21 XX ; Start 11/02/18 at 21:00; Stop 11/02/18 at 21:39; Status DC Ondansetron HCl (Zofran) 4 mg Q6HP PRN PO NAUSEA; Start 10/21/18 at 15:45; Stop 10/24/18 at 20:03; Status DC Oxycodone/ Acetaminophen (Percocet 5mg/ 325mg Tablet) 1 tab Q4HP PRN PO MODERATE PAIN (PS 7-10); Start 10/21/18 at 15:45; Stop 10/21/18 at 16:30; Status DC Pantoprazole Sodium (Protonix) 40 mg DAILY PO Last administered on 11/04/18at 08:31; Start 10/22/18 at 09:00; Stop 11/05/18 at 12:42; Status DC Phenol (Chloraseptic [place]) 1 spray Q2HP PRN MT SORE THROAT; Start 10/21/18 at 15:45 Pyridoxine HCl (Vitamin B6) 50 mg DAILY PO Last administered on 11/04/18at 08:31; Start 10/22/18 at 09:00; Stop 11/05/18 at 12:42; Status DC Pyridoxine HCl (Vitamin B6) 50 mg DAILY@1200 PO ; Start 11/05/18 at 12:00; Stop 11/05/18 at 12:50; Status DC Pyridoxine HCl (Vitamin B6) 50 mg DAILY@1200 PO Last administered on 11/09/18at 13:10; Start 11/06/18 at 12:00 Rivaroxaban (Xarelto) 10 mg DAILY@1800 PO Last administered on 11/08/18at 16:56; Start 10/21/18 at 18:00 Senna (Senokot) 1 tab QHS PO Last administered on 10/27/18 20:10; Start 10/21/18 at 21:00; Stop 11/05/18 at 12:42; Status DC Senna/Docusate Sodium (Senokot S) 1 tab BID PO Last administered on 11/03/18 09:19; Start 10/21/18 at 21:00; Stop 11/03/18 at 16:54; Status DC Temazepam (Restoril) 7.5 mg QHS PO Last administered on 11/08/18at 22:52; Start 11/04/18 at 21:00 Temazepam (Restoril) 7.5 mg QHS PO Last administered on 10/29/18 21:24; Start 10/25/18 at 21:00; Stop 10/30/18 at 13:45; Status DC Temazepam (Restoril) 15 mg QHS PO Last administered on 11/08/18at 22:52; Start 11/04/18 at 21:00 Temazepam (Restoril) 15 mg QHS PO Last administered on 11/01/18 20:31; Start 10/30/18 at 21:00; Stop 11/02/18 at 14:50; Status DC Temazepam (Restoril) 15 mg QHSP PRN PO INSOMNIA; Start 10/30/18 at 18:30; Status Cancel Temazepam (Restoril) 22.5 mg QHS PO Last administered on 11/03/18at 20:15; Start 11/02/18 at 21:00; Stop 11/04/18 at 20:23; Status DC Trazodone HCl (Desyrel) 25 mg QHSP PRN PO INSOMNIA Last administered on 1/1/19at 20:19; Start 10/21/18 at 16:00; Stop 10/28/18 at 16:26; Status DC Trazodone HCl (Desyrel) 50 mg Q4HP PRN PO AGITATION; Start 10/24/18 at 20:15; Stop 10/30/18 at 13:45; Status DC Trazodone HCl (Desyrel) 50 mg QHSP PRN PO INSOMNIA; Start 10/28/18 at 16:30; Stop 10/30/18 at 13:45; Status DC JALEN SCHUMACHER MD Nov 09, 2018 15:53
[2018-11-09] MEDS: RIVAROXABAN 10 MG TAB (XARELTO) PO SCH (18:06)
[2018-11-09 20:00] VITALS: BP 143/70
[2018-11-09] MEDS: TEMAZEPAM 15 MG CAP PO SCH (20:37)
[2018-11-09] MEDS: TEMAZEPAM 7.5 MG CAP PO SCH (20:37)
[2018-11-09] MEDS: AMANTADINE 100MG/10ML SYRUP UDC PO SCH (20:49)
[2018-11-09] MEDS: LIDOCAINE 5% (LIDODERM) PATCH TD SCH (20:50)
[2018-11-10 06:00] VITALS: BP 147/83
[2018-11-10] MEDS: ACETAMINOPHEN 500 MG TAB PO SCH ×3 (06:00→21:31)
[2018-11-10] MEDS: SINEMET 25-100 MG TAB PO SCH ×5 (06:40→18:05)
[2018-11-10] MEDS: **NOTE PATIENT COMMENT** MISC XX SCH (09:00)
[2018-11-10] MEDS: MULTIVITAMINS/MINERALS THERAP 1 TAB PO SCH (09:26)
[2018-11-10] MEDS: DONEPEZIL 5 MG TAB PO SCH (09:26)
[2018-11-10] MEDS: FERROUS GLUCONATE 324 MG TAB PO SCH ×2 (09:26→21:31)
[2018-11-10] MEDS: CO-ENZYME Q10 50 MG CAP PO SCH (09:26)
[2018-11-10] MEDS: ANALGESIC BALM CRM 120 GM TOP SCH ×3 (09:27→21:32)
[2018-11-10 14:00] VITALS: BP 159/74
[2018-11-10] MEDS: PYRIDOXINE 50 MG TAB PO SCH (14:23)
[2018-11-10] MEDS: RIVAROXABAN 10 MG TAB (XARELTO) PO SCH (18:05)
[2018-11-10 20:00] VITALS: BP 163/83
[2018-11-10] MEDS: LIDOCAINE 5% (LIDODERM) PATCH TD SCH (21:28)
[2018-11-10] MEDS: TEMAZEPAM 7.5 MG CAP PO SCH (21:31)
[2018-11-10] MEDS: TEMAZEPAM 15 MG CAP PO SCH (21:31)
[2018-11-10] MEDS: AMANTADINE 100MG/10ML SYRUP UDC PO SCH (22:15)
[2018-11-11 06:00] VITALS: BP 152/84
[2018-11-11] MEDS: ACETAMINOPHEN 500 MG TAB PO SCH ×3 (06:00→20:21)
[2018-11-11] MEDS: SINEMET 25-100 MG TAB PO SCH ×5 (06:32→20:19)
[2018-11-11] MEDS: **NOTE PATIENT COMMENT** MISC XX SCH (09:00)
[2018-11-11] MEDS: FERROUS GLUCONATE 324 MG TAB PO SCH ×2 (09:29→20:21)
[2018-11-11] MEDS: ANALGESIC BALM CRM 120 GM TOP SCH ×3 (09:29→20:21)
[2018-11-11] MEDS: DONEPEZIL 5 MG TAB PO SCH (09:29)
[2018-11-11] MEDS: MULTIVITAMINS/MINERALS THERAP 1 TAB PO SCH (09:30)
[2018-11-11] MEDS: CO-ENZYME Q10 50 MG CAP PO SCH (09:30)
--- NOTE | 2018-11-11 11:47 | IPNPDOC ---
Date Seen The patient was seen on 11/11/18. Progress Note HPI: 78-year-old male with past medical history of Parkinson's disease presents to the ER with left hip pain. The patient stated that he was adjusting the furnace thermostat when he fell and landed on his left side. The patient denied any prodromal symptoms of lightheadedness, dizziness, chest pain, palpitations, abdominal pain, abdominal pain, or any nausea/vomiting/diarrhea. In the ER, imaging revealed a left hip fracture, s/p repair as per Orthopedic surgery. The pt was transferred to the care of [facility], 10/21/18. The pt is working with therapy. States he feels tired. Denies any fevers, chills, Headache, Chest Pain, Shortness of breath, cough, palpitations, abdominal pain, N/V/D or changes in bowel or bladder habits. PMHx: Parkinson's disease HTN Unsteady gait PSHX: right hip fracture s/p repair, cholecystectomy PE: GEN: 78yoM, appears stated age. Alert and oriented x 3. HEENT: Normocephalic, atraumatic. Sclera are nonicteric. No facial asymmetry. Moist mucous membranes.Pharynx pink and moist. CHEST: Regular rate and rhythm, +S1, +S2 LUNGS: Clear to auscultation bilaterally. No wheezes, rales, or rhonchi. ABD: Round, soft, non-tender, non-distended. +Bowel sounds throughout. No rebound or guarding. EXT: No lower extremity edema appreciated. SKIN: No rashes. NEURO: Reduced facial expressions, no tremor noted. No focal deficits appreciated. A&P: 78-year-old male with past medical history of Parkinson's disease presents to the ER with left hip pain. The patient stated that he was adjusting the furnace thermostat when he fell and landed on his left side. The patient denied any prodromal symptoms of lightheadedness, dizziness, chest pain, palpitations, abdominal pain, abdominal pain, or any nausea/vomiting/diarrhea. In the ER, imaging revealed a left hip fracture, s/p repair as per Orthopedic surgery. The pt was transferred to the care of [facility], 10/21/18. 1. Left hip fracture/ S/P left hemiarthroplasty 10/17/2018. Mgmt as per Orthopedic Surgery. Mgmt as per ARU. PT/OT as per ARU ST as per ARU pain control as per ARU Bowel care as per ARU DVT px. Pt is on Xarelto. 2. Hypertension. Lasix remains on hold. S/P IVF x [address] Bender 10/30/18. No signs of decompensation at this time, continue to monitor. 3. Parkinson's disease. Sinemet, Aricept, Amantadine. Dr Bender has been adjusting his Parkinson's regimen. Previous outpt regimen was Sinemet 2 tab 5 x per day at 7A/10A/1P/3P/7P. Pt follows with [facility] [place]. 4. GERD. Protonix. 5. Anemia. Likely acute blood loss. 11/08/18 Hgb 11.3, stable. Continue Fe supplement BID VS, I&O, 24H, Fishbone Vital Signs/I&O Vital Signs Date Time Temp Pulse Resp B/P (MAP) Pulse Ox O2 Delivery O2 Flow Rate FiO2 11/11/18 06:00 98.3 67 18 152/84 (106) 97 Room Air I&O- Last 24 Hours up to 6 AM 11/11/18 06:00 Intake Total 480 ml Output Total 100 ml Balance 380 ml Shanice Cox Nov 11, 2018 11:47
[2018-11-11] MEDS: PYRIDOXINE 50 MG TAB PO SCH (12:31)
[2018-11-11 14:00] VITALS: BP 147/71
[2018-11-11] MEDS: RIVAROXABAN 10 MG TAB (XARELTO) PO SCH (17:33)
--- NOTE | 2018-11-11 19:30 | IPNPDOC ---
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 REVIEW OF SYSTEMS: The following is a completed review of systems and has been reviewed. Review of systems otherwise unremarkable. PAIN: left hip pain-improving EYES: Negative EARS, NOSE, & THROAT: no rhinorrhea, no more throat pain CARDIOVASCULAR: no chest pain or palpitations PULMONARY: Negative. Denies shortness of breath GASTROINTESTINAL: Negative for urinary or fecal incontinence, negative constipation, +diarrhea and nausea GENITOURINARY: Negative urinary retention or dysuria MUSCULOSKELETAL: left hip silvia-arthroplasty NEUROLOGICAL: +Parkinsons with hallucinations-resolved, athetosis-resolved HEMATOLOGICAL: +Bilat upper extremity ecchymosis SKIN: +left hip incision All other review of systems found to be negative. PHYSICAL EXAMINATION: VITAL SIGNS: Please see below. GENERAL: Pleasant and cooperative. No acute distress. HEENT: PERRL. Extraocular grossly movements intact. Clear conjunctiva CARDIOVASCULAR: Regular rate and rhythm. No murmurs, rubs, or gallops. LUNGS: Clear to auscultation bilaterally. No wheezes. No rhonchi. ABDOMEN:Soft, nontender, mildly distended. Positive bowel sounds NEUROLOGICAL: Alert and oriented to self and place, not to time Cranial nerves I I through XII grossly intact. Sensation grossly intact no akathisias or athetosis EXTREMITIES:5/5 strength bilateral upper extremities. 5-\5 strength right lower extremity. 5-/5 strength in left lower extremity, hip flexion not tested given recent surgery . SKIN: left hip incision C/D/I ASSESSMENT:78-year-old M with past medical history of Parkinson's who presents status post fall with left femur fracture. PLAN: 1. Rehab: PT/OT, assess for DME- [employer], ambulating about 100-120 ft with RW,improving transfers, freezing with stairs, however caregiver training underway- will trial weighted ankle training to improve scissoring when ambulating -able to do car trasnfers with family 2. Neuro: [facility] Parkinsons with Lewy body features such as significant dementia with visual hallucinations complicated by akathisias and tardive dyskniesia -remove any deliriogenic medications -continue B6 for tardive dyskinesia- off label treatment and monitor- and continue Amantadine for L-dopa induced dyskinesia while tapering Sinemet, recommended dose 247mg qHS, stable now at 150 qHS, decreased 1pm dose to 1 tab out of concern of low sBPs at 2pm, no increased freezing, doing well -continue Donepezil for dementia to 10mg daily 3. Ortho: s/p left hip silvia-arthroplasty, Total hip precautions, WBAT, ortho consult 4. Cardio: no significant pmh, monitor BPs- consult medicine, recs appreciated 5. Resp: prevent atelectasis with incentive spirometry 6. Heme: recent blood loss anemia, monitor and continue Iron- stable 7. DVT ppx: on xarelto 10 mg, admission Doppler negative for DVT 8. : admission UA and Ucx negative, monitor PVRs- repeat UA negative 9. Pain: Tylenol standing and lidoderm patch for low back- improving 10. GI ppx: Protonix, loose stool resolved, stopped laxatives 11. insomnia: sleeping better with 22.5mg Temazepam 11. Dispo: 11-12-18 , progressing towards goals Allergies Coded Allergies: No Known Drug Allergy (Verified Allergy, Unknown, 01/24/13) Vital Signs Vital Signs Date Time Temp Pulse Resp B/P (MAP) Pulse Ox O2 Delivery O2 Flow Rate FiO2 11/11/18 14:00 98.3 77 19 147/71 (96) 96 11/11/18 06:00 Room Air Current Medications Current Medications Current Medications Acetaminophen (Tylenol Tab) 650 mg DAILY PRN PO pain Last administered on 10/31/18at 09:53; Start 10/29/18 at 14:15 Acetaminophen (Tylenol Tab) 650 mg Q4HP PRN PO fever/ MILD PAIN (PS 1-4); Start 10/21/18 at 15:45; Stop 10/21/18 at 16:30; Status DC Acetaminophen (Tylenol Tab) 1,000 mg TID PO Last administered on 10/30/18at 17:35; Start 10/21/18 at 21:00; Stop 10/30/18 at 18:15; Status DC Acetaminophen (Tylenol Tab) 1,000 mg TID@0600,1400,2000 PO Last administered on 11/10/18at 21:31; Start 10/30/18 at 20:00 Albuterol/ Ipratropium (Duoneb (Ipr 0.5mg/Alb 2.5mg)) 3 ml Q4HP PRN NEB SOB/ WHEEZING; Start 10/21/18 at 15:45 Amantadine HCl (Symmetrel Syrup) 100 mg QHS PO ; Start 10/30/18 at 21:00; Stop 10/30/18 at 21:00; Status DC Amantadine HCl (Symmetrel Syrup) 150 mg QHS PO Last administered on 11/10/18at 22:15; Start 11/01/18 at 21:00 Amantadine HCl (Symmetrel Syrup) 150 mg QHS PO Last administered on 10/29/18at 21:00; Start 10/28/18 at 21:00; Stop 10/30/18 at 13:45; Status DC Amantadine HCl (Symmetrel) 100 mg QHS PO Last administered on 10/27/18at 20:10; Start 10/24/18 at 21:00; Stop 10/28/18 at 16:26; Status DC Amantadine HCl (Symmetrel) 100 mg QHS PO Last administered on 10/31/18at 21:01; Start 10/30/18 at 21:00; Stop 11/01/18 at 12:42; Status DC Bisacodyl (Dulcolax Suppository) 10 mg DAILYPRN PRN [place] CONSTIPATION; Start 10/21/18 at 15:45 Carbidopa/Levodopa (Sinemet 25/100) 1 tab 1600,1900 PO Last administered on 11/11/18at 17:33; Start 10/23/18 at 16:00 Carbidopa/Levodopa (Sinemet 25/100) 1 tab ASDIRECTED PO ; Start 10/21/18 at 15:45; Stop 10/21/18 at 15:50; Status DC Carbidopa/Levodopa (Sinemet 25/100) 1 tab DAILY@1300 PO Last administered on 11/11/18at 12:31; Start 11/07/18 at 13:00 Carbidopa/Levodopa (Sinemet 25/100) 1 tab DAILY@1300 PO Last administered on 10/31/18at 14:10; Start 10/29/18 at 13:00; Stop 11/01/18 at 12:42; Status DC Carbidopa/Levodopa (Sinemet 25/100) 2 tab 0700,1000 PO Last administered on 11/11/18at 09:29; Start 10/29/18 at 07:00 Carbidopa/Levodopa (Sinemet 25/100) 2 tab 0700,1000,1300 PO Last administered on 10/28/18at 12:41; Start 10/22/18 at 07:00; Stop 10/28/18 at 16:33; Status DC Carbidopa/Levodopa (Sinemet 25/100) 2 tab 1600,1900 PO Last administered on 10/22/18at 18:37; Start 10/21/18 at 16:00; Stop 10/23/18 at 14:53; Status DC Carbidopa/Levodopa (Sinemet 25/100) 2 tab DAILY@1300 PO Last administered on 11/06/18at 12:41; Start 11/01/18 at 13:00; Stop 11/06/18 at 18:06; Status DC Coenzyme Q10 (Coenzyme Q10) 50 mg DAILY PO Last administered on 11/11/18at 09:30; Start 10/22/18 at 09:00; Stop 11/21/18 at 08:59 Donepezil HCl (AriCEPT) 5 mg DAILY PO Last administered on 10/28/18at 08:18; Start 10/23/18 at 09:00; Stop 10/28/18 at 16:26; Status DC Donepezil HCl (AriCEPT) 10 mg DAILY PO Last administered on 11/11/18at 09:29; Start 10/29/18 at 09:00 Ferrous Gluconate (Fergon) 324 mg BID PO Last administered on 11/11/18at 09:29; Start 10/21/18 at 21:00 Furosemide (Lasix) 20 mg DAILY PO Last administered on 10/23/18at 08:03; Start 10/21/18 at 16:00; Stop 10/23/18 at 09:01; Status DC Home Med (Med Rec Complete!) ASDIRECTED XX ; Start 10/22/18 at 10:45; Stop 10/22/18 at 10:45; Status DC Lidocaine (Lidoderm Patch) 1 patch QHS TD Last administered on 11/10/18at 21:28; Start 11/02/18 at 21:00 Loperamide HCl (Imodium) 2 mg ASDIRECTED PRN PO DIARRHEA; Start 11/03/18 at 17:00 Menthol/Methyl Salicylate (Bengay Cream) low back TID TOP Last administered on 11/11/18at 17:34; Start 10/30/18 at 21:00 Miscellaneous (Unresolved Clarification Entry) SEE LABEL COMMENTS DAILY XX ; Start 11/03/18 at 09:00; Stop 11/03/18 at 16:13; Status DC Miscellaneous (Unresolved Clarification Entry) SEE LABEL COMMENTS DAILY XX ; Start 11/11/18 at 09:00 Miscellaneous (Unresolved Clarification Entry) SEE LABEL COMMENTS DAILY XX ; Start 10/27/18 at 09:00; Stop 10/28/18 at 11:32; Status DC Miscellaneous (Unresolved Patient Own Med Order) SEE LABEL COMMENTS DAILY XX ; Start 11/09/18 at 09:00; Stop 11/10/18 at 07:26; Status DC Multivitamins (Theragram-M) 1 tab DAILY PO Last administered on 11/11/18at 09:30; Start 10/22/18 at 09:00 Multivitamins (Theragram-M) 1 tab DAILY PO ; Start 10/22/18 at 09:00; Status UNV Non-Formulary Medication ( See Comment Field Below ) REMOVE LIDODERM PATCH DAILY@0900 XX Last administered on 11/11/18at 09:00; Start 11/03/18 at 09:00 Non-Formulary Medication ( See Comment Field Below ) REMOVE LIDODERM PATCH DAILY@21 XX ; Start 11/02/18 at 21:00; Stop 11/02/18 at 21:39; Status DC Ondansetron HCl (Zofran) 4 mg Q6HP PRN PO NAUSEA; Start 10/21/18 at 15:45; Stop 10/24/18 at 20:03; Status DC Oxycodone/ Acetaminophen (Percocet 5mg/ 325mg Tablet) 1 tab Q4HP PRN PO MODERATE PAIN (PS 7-10); Start 10/21/18 at 15:45; Stop 10/21/18 at 16:30; Status DC Pantoprazole Sodium (Protonix) 40 mg DAILY PO Last administered on 11/04/18at 08:31; Start 10/22/18 at 09:00; Stop 11/05/18 at 12:42; Status DC Phenol (Chloraseptic [place]) 1 spray Q2HP PRN [place] SORE THROAT; Start 10/21/18 at 15:45 Pyridoxine HCl (Vitamin B6) 50 mg DAILY PO Last administered on 11/04/18 08:31; Start 10/22/18 at 09:00; Stop 11/05/18 at 12:42; Status DC Pyridoxine HCl (Vitamin B6) 50 mg DAILY@1200 PO ; Start 11/05/18 at 12:00; Stop 11/05/18 at 12:50; Status DC Pyridoxine HCl (Vitamin B6) 50 mg DAILY@1200 PO Last administered on 11/11/18at 12:31; Start 11/06/18 at 12:00 Rivaroxaban (Xarelto) 10 mg DAILY@1800 PO Last administered on 11/11/18 17:33; Start 10/21/18 at 18:00 Senna (Senokot) 1 tab QHS PO Last administered on 10/27/18 20:10; Start 10/21/18 at 21:00; Stop 11/05/18 at 12:42; Status DC Senna/Docusate Sodium (Senokot S) 1 tab BID PO Last administered on 11/03/18 09:19; Start 10/21/18 at 21:00; Stop 11/03/18 at 16:54; Status DC Temazepam (Restoril) 7.5 mg QHS PO Last administered on 11/10/18at 21:31; Start 11/04/18 at 21:00 Temazepam (Restoril) 7.5 mg QHS PO Last administered on 10/29/18 21:24; Start 10/25/18 at 21:00; Stop 10/30/18 at 13:45; Status DC Temazepam (Restoril) 15 mg QHS PO Last administered on 11/10/18 21:31; Start 11/04/18 at 21:00 Temazepam (Restoril) 15 mg QHS PO Last administered on 11/01/18 20:31; Start 10/30/18 at 21:00; Stop 11/02/18 at 14:50; Status DC Temazepam (Restoril) 15 mg QHSP PRN PO INSOMNIA; Start 10/30/18 at 18:30; Status Cancel Temazepam (Restoril) 22.5 mg QHS PO Last administered on 11/03/18at 20:15; Start 11/02/18 at 21:00; Stop 11/04/18 at 20:23; Status DC Trazodone HCl (Desyrel) 25 mg QHSP PRN PO INSOMNIA Last administered on 10/22/18at 20:19; Start 10/21/18 at 16:00; Stop 10/28/18 at 16:26; Status DC Trazodone HCl (Desyrel) 50 mg Q4HP PRN PO AGITATION; Start 10/24/18 at 20:15; Stop 10/30/18 at 13:45; Status DC Trazodone HCl (Desyrel) 50 mg QHSP PRN PO INSOMNIA; Start 10/28/18 at 16:30; S top 10/30/18 at 13:45; Status DC JALEN SCHUMACHER MD Nov 11, 2018 19:30
[2018-11-11] MEDS: LIDOCAINE 5% (LIDODERM) PATCH TD SCH (20:19)
[2018-11-11] MEDS: TEMAZEPAM 15 MG CAP PO SCH (20:20)
[2018-11-11] MEDS: TEMAZEPAM 7.5 MG CAP PO SCH (20:20)
[2018-11-11] MEDS: AMANTADINE 100MG/10ML SYRUP UDC PO SCH (20:21)
[2018-11-11 20:30] VITALS: BP 131/78
[2018-11-12 05:53] VITALS: BP 159/79
[2018-11-12] MEDS: SINEMET 25-100 MG TAB PO SCH ×3 (06:08→12:32)
[2018-11-12] MEDS: ACETAMINOPHEN 500 MG TAB PO SCH ×2 (06:09→14:05)
[2018-11-12] MEDS: ANALGESIC BALM CRM 120 GM TOP SCH (08:40)
[2018-11-12] MEDS: MULTIVITAMINS/MINERALS THERAP 1 TAB PO SCH (08:40)
[2018-11-12] MEDS: DONEPEZIL 5 MG TAB PO SCH (08:40)
[2018-11-12] MEDS: CO-ENZYME Q10 50 MG CAP PO SCH (08:40)
[2018-11-12] MEDS: **NOTE PATIENT COMMENT** MISC XX SCH (08:40)
[2018-11-12] MEDS: FERROUS GLUCONATE 324 MG TAB PO SCH (08:40)
[2018-11-12] MEDS ORDERED: XARE10TA PO (08:57)
[2018-11-12] MEDS ORDERED: FERR32TA PO (11:26)
[2018-11-12] MEDS ORDERED: ACET-683 PO (11:26)
[2018-11-12] MEDS ORDERED: VITA50TA49 PO (11:26)
[2018-11-12] MEDS ORDERED: ARIC1TAB PO (11:26)
[2018-11-12] MEDS ORDERED: CO-E50CA PO (11:26)
[2018-11-12] MEDS ORDERED: AMANTADINE PO (11:26)
[2018-11-12] MEDS ORDERED: CARB25TA9 PO ×3 (11:26)
[2018-11-12] MEDS: PYRIDOXINE 50 MG TAB PO SCH (12:32)
== END 2018-11-12 15:05 | disposition home health service (06) | DRG 560 ==
LOC: M PM&R 13:55
PROVIDERS: ADMIT Physical Medicine & Rehabilitation; ATTEND Physical Medicine & Rehabilitation
DX: S72.042D Displaced fracture of base of neck of left femur, subsequent encounter for closed fracture with routine healing (principal); D62 Acute posthemorrhagic anemia; S72.115D Nondisplaced fracture of greater trochanter of left femur, subsequent encounter for closed fracture with routine healing; M85.852 Other specified disorders of bone density and structure, left thigh; M16.12 Unilateral primary osteoarthritis, left hip; I10 Essential (primary) hypertension; G31.83 Neurocognitive disorder with Lewy bodies; R26.81 Unsteadiness on feet; G47.00 Insomnia, unspecified; Z90.49 Acquired absence of other specified parts of digestive tract; Z79.01 Long term (current) use of anticoagulants; Z79.899 Other long term (current) drug therapy; W18.09XD Striking against other object with subsequent fall, subsequent encounter; Y92.009 Unspecified place in unspecified non-institutional (private) residence as the place of occurrence of the external cause; Z96.642 Presence of left artificial hip joint; G24.01 Drug induced subacute dyskinesia; Z79.82 Long term (current) use of aspirin; F02.80 Dementia in other diseases classified elsewhere, unspecified severity, without behavioral disturbance, psychotic disturbance, mood disturbance, and anxiety

== ENCOUNTER 2019-01-28 13:05 | Emergency (ER) | payer MEDICARE ==
[~2019-01-28] VITALS: Ht 167.6 cm; Wt 88.6 kg
[~2019-01-28 13:05] MED LIST changes: +ACET-683 PO; +AMANTADINE PO; +ARIC1TAB PO; +CO-E50CA PO; +FERR32TA PO; +VITA50TA7 PO; +[UNRECOGNIZED DRUG - CODE] PO; -[UNRECOGNIZED DRUG - OTHER] PO
--- NOTE | 2019-01-28 13:59 | REP ---
Right lower extremity deep vein duplex ultrasound: The deep veins demonstrate normal compression, normal Doppler color flow and normal Doppler waveforms with respiration and augmentation from the popliteal vein to the common femoral vein. Impression: There is no right lower extremity deep vein thrombus. Electronically Signed by Wilfrid Antonio MD 01/28/2019 01:52 P
[2019-01-28 14:58] LABS: BASO # 0.1 10^3/uL (0.0-0.2); BASO % 0.9 % (0.0-1.0); BLOOD UREA NITROGEN 27 MG/DL (7-18); C REACTIVE PROTEIN QUANTITATIV 0.78 MG/DL (0.00-0.30); CALCIUM LEVEL 9.4 MG/DL (8.8-10.2); CARBON DIOXIDE LEVEL 26 MEQ/L (21-32); CHLORIDE LEVEL 108 MEQ/L (98-107); CREATININE FOR GFR 1.24 MG/DL (0.70-1.30); EOS # 0.3 10^3/uL (0.0-0.50); GLOMERULAR FILTRATION RATE > 60.0 (>42); GLUCOSE, FASTING 98 MG/DL (70-100); HEMATOCRIT 41.7 % (42.0-52.0); HEMOGLOBIN 13.3 g/dl (13.5-17.5); LYMPH # 1.6 10^3/uL (1.5-4.5); LYMPH % 23.8 % (24.0-44.0); MEAN CORPUSCULAR HEMOGLOBIN 29.9 pg (27.0-33.0); MEAN CORPUSCULAR HGB CONC 31.9 g/dl (32.0-36.5); MEAN CORPUSCULAR VOLUME 93.7 fl (80.0-96.0); MONO # 0.5 10^3/uL (0.0-0.8); MONO % 7.9 % (0.0-5.0); NEUTROPHILS # 4.3 10^3/uL (1.8-7.7); NEUTROPHILS % 63.1 % (36.0-66.0); PLATELET COUNT, AUTOMATED 177 10^3/uL (150-450); POTASSIUM SERUM 4.4 MEQ/L (3.5-5.1); RED BLOOD COUNT 4.45 10^6/uL (4.30-6.10); SODIUM LEVEL 139 MEQ/L (136-145); WHITE BLOOD COUNT 6.8 10^3/uL (4.0-10.0)
[2019-01-28 15:31] LABS: ERYTHROCYTE SEDIMENTATION RATE 41 mm/hr (0-20)
[2019-01-28] MEDS ORDERED: CVS10CAP7 PO (15:57)
[2019-01-28] MEDS ORDERED: AMAN100T PO (15:57)
[2019-01-28] MEDS ORDERED: ASPI81TA85 PO (15:57)
[2019-01-28] MEDS ORDERED: ACETAMINOPHEN 325 MG TAB PO ONE (16:00)
[2019-01-28] MEDS ORDERED: VOLT1GEL15 TOP (16:01)
[2019-01-28 16:05] VITALS: BP 136/88
== END 2019-01-28 16:09 | disposition home or self-care (01) ==
LOC: M ED 13:05
DX: S76.911A Strain of unspecified muscles, fascia and tendons at thigh level, right thigh, initial encounter (principal); M79.10 Myalgia, unspecified site; X58.XXXA Exposure to other specified factors, initial encounter; Y92.9 Unspecified place or not applicable; Y93.9 Activity, unspecified; Y99.9 Unspecified external cause status; Z86.73 Personal history of transient ischemic attack (TIA), and cerebral infarction without residual deficits; Z87.442 Personal history of urinary calculi; Z79.899 Other long term (current) drug therapy; Z79.82 Long term (current) use of aspirin

== ENCOUNTER 2019-02-02 19:49 | Emergency (ER) | payer MEDICARE ==
[~2019-02-02] VITALS: Ht 167.6 cm; Wt 88.6 kg
[~2019-02-02 19:49] MED LIST changes: +AMAN100T PO; +CVS10CAP7 PO; +VOLT1GEL15 TOP
[2019-02-02] MEDS ORDERED: FISH1000 PO (19:59)
[2019-02-02] MEDS ORDERED: ACETAMINOPH W/CODEINE #3 TAB UD PO ONE (20:45)
[2019-02-02 21:04] LABS: HEMATOCRIT 44.1 % (42.0-52.0); MEAN CORPUSCULAR HEMOGLOBIN 30.4 pg (27.0-33.0); MEAN CORPUSCULAR HGB CONC 31.7 g/dl (32.0-36.5); MEAN CORPUSCULAR VOLUME 95.7 fl (80.0-96.0); PLATELET COUNT, AUTOMATED 182 10^3/uL (150-450); RED BLOOD COUNT 4.61 10^6/uL (4.30-6.10); WHITE BLOOD COUNT 9.9 10^3/uL (4.0-10.0)
[2019-02-02 21:30] LABS: CALCIUM LEVEL 9.2 MG/DL (8.8-10.2); CREATININE FOR GFR 1.27 MG/DL (0.70-1.30); GLOMERULAR FILTRATION RATE 58.4 (>42); POTASSIUM SERUM 4.1 MEQ/L (3.5-5.1)
--- NOTE | 2019-02-02 22:30 | REPVR ---
EXAM: US Duplex Right Lower Extremity Veins, Limited EXAM DATE/TIME: 02/02/2019 10:17 PM CLINICAL HISTORY: 79 years old, male; Pain; Leg, upper and leg, lower and other: Knee; Right; Additional info: Red, pain, swelling TECHNIQUE: Imaging protocol: Real-time Duplex ultrasound of the Right Lower Extremity with 2-D middleton scale, color Doppler flow and spectral waveform analysis. Limited exam was focused on the right lower extremity veins. COMPARISON: US Duplex, Ext,LOWER veins,unilat 01/28/2019 1:34 PM FINDINGS: Right deep veins: Unremarkable. The common femoral, femoral and popliteal veins are patent without thrombus. Normal Doppler waveforms. Normal compressibility and/or augmentation response. Right superficial veins: Unremarkable. Saphenofemoral junction is patent without thrombus. Soft tissues: 4.5 x 1.2 x 3.3 cm popliteal cyst. IMPRESSION: 1. No sonographic evidence of deep vein thrombosis. 2. 4.5 x 1.2 x 3.3 cm popliteal cyst. Electronically signed by: Vahe Sanon On 02/02/2019 22:30:01 PM
[2019-02-02] MEDS ORDERED: TYLETAB14 PO (23:23)
[2019-02-02 23:28] VITALS: BP 148/67
--- NOTE | 2019-02-03 09:37 | REP ---
AP pelvis: Single view. History: Pain. Unable to bear weight. A comparison radiographs are from October 16, 2018. Findings: The left femoral head has been replaced since the prior study. There are is an old healed pinned fracture of the right hip unchanged. No acute fracture is seen. Bony pelvic ring is intact. No sacral fractures noted. There are degenerative spondylosis changes in the lumbosacral spine. Visualized bowel gas pattern is unremarkable. Impression: Status post pinned fracture right hip and left femoral head replacement. No acute abnormality. Electronically Signed by Albert Osborne MD 02/03/2019 07:48 A
--- NOTE | 2019-02-03 09:37 | REP ---
Right femur four views: Comparison is 10/28/2017. There has been gamma nail fixation of a right hip intertrochanteric fracture. The fracture appears healed. There are no lytic, blastic or destructive skeletal changes. The right hip is unremarkable. The mid and distal femur are unremarkable. Impression: Gamma nail fixation of the right hip. Otherwise, negative right femur. Electronically Signed by Wilfrid Antonio MD 02/03/2019 07:50 A
== END 2019-02-02 23:45 | disposition home or self-care (01) ==
LOC: M ED 19:49
DX: M71.21 Synovial cyst of popliteal space [Baker], right knee (principal); G20 Parkinson's disease; G89.29 Other chronic pain; M54.9 Dorsalgia, unspecified; Z79.899 Other long term (current) drug therapy; Z79.82 Long term (current) use of aspirin

== ENCOUNTER 2019-02-12 16:14 | Inpatient (IN) | payer MEDICARE ==
[~2019-02-12] VITALS: Ht 167.6 cm; Wt 84.0 kg
[~2019-02-12 16:14] MED LIST changes: +FISH1000 PO; +TYLETAB14 PO
--- NOTE | 2019-02-12 18:30 | REP ---
CT Head without contrast HISTORY: Altered mental status COMPARISON: 09/16/2017 Areas of decreased attenuation are present in the periventricular and subcortical white matter. This represents small-vessel ischemic disease. There is no intraparenchymal hemorrhage, acute infarct, mass or midline shift. The ventricular system and cortical sulci as well as subarachnoid space in the posterior fossa are dilated consistent with moderate volume loss. There is no extra cerebral collection. There is no fracture. The visualized sinuses are clear. IMPRESSION: 1. Small vessel ischemic disease. 2. Moderate volume loss. Electronically Signed by Sunil Suarez MD 02/12/2019 06:22 P
--- NOTE | 2019-02-12 18:31 | REPVR ---
EXAM: US Duplex Right Lower Extremity Veins, Limited EXAM DATE/TIME: 02/12/2019 6:26 PM CLINICAL HISTORY: 79 years old, male; Pain; Leg, lower; Right; Additional info: R leg pain R/O dvt TECHNIQUE: Imaging protocol: Real-time Duplex ultrasound of the Right Lower Extremity with 2-D middleton scale, color Doppler flow and spectral waveform analysis. Limited exam was focused on the right lower extremity veins. COMPARISON: US Duplex, Ext,LOWER veins,unilat RIGHT 02/02/2019 9:59 PM FINDINGS: Right deep veins: Unremarkable. The common femoral, femoral, proximal profunda femoral and popliteal veins are patent without thrombus. Normal Doppler waveforms. Normal compressibility and/or augmentation response. Right superficial veins: Unremarkable. Saphenofemoral junction is patent without thrombus. Soft tissues: Popliteal fossa cyst measures 4.3 x 1.1 x 3.5 cm. IMPRESSION: Popliteal fossa cyst. No DVT. Electronically signed by: Torito Singh On 02/12/2019 18:31:40 PM
--- NOTE | 2019-02-12 19:03 | REP ---
Chest two views HISTORY: Abdominal pain Comparison: 10/18/2018 The lungs are clear. The heart is normal in size. The pulmonary vasculature is normal in appearance. The bony structure is intact. IMPRESSION: No acute disease. Electronically Signed by Sunil Suarez MD 02/12/2019 06:54 P
[2019-02-12 19:14] LABS: BASO # 0.1 10^3/uL (0.0-0.2); BASO % 0.6 % (0.0-1.0); EOS # 0.2 10^3/uL (0.0-0.50); EOS % 1.9 % (0.0-3.0); HEMATOCRIT 41.8 % (42.0-52.0); HEMOGLOBIN 13.6 g/dl (13.5-17.5); LYMPH # 1.6 10^3/uL (1.5-4.5); LYMPH % 19.4 % (24.0-44.0); MEAN CORPUSCULAR HGB CONC 32.5 g/dl (32.0-36.5); MEAN CORPUSCULAR VOLUME 92.3 fl (80.0-96.0); MONO # 0.7 10^3/uL (0.0-0.8); MONO % 8.7 % (0.0-5.0); NEUTROPHILS # 5.9 10^3/uL (1.8-7.7); NEUTROPHILS % 69.2 % (36.0-66.0); PLATELET COUNT, AUTOMATED 197 10^3/uL (150-450); RED BLOOD COUNT 4.53 10^6/uL (4.30-6.10); WHITE BLOOD COUNT 8.5 10^3/uL (4.0-10.0)
[2019-02-12 19:28] LABS: INR 1.12; PROTHROMBIN TIME 14.6 SECONDS (12.1-14.4)
[2019-02-12 19:38] LABS: ALBUMIN 3.3 GM/DL (3.2-5.2); ALT/SGPT 7 U/L (12-78); BILIRUBIN,DIRECT 0.2 MG/DL (0.0-0.2); BILIRUBIN,TOTAL 0.8 MG/DL (0.2-1.0); BLOOD UREA NITROGEN 24 MG/DL (7-18); CALCIUM LEVEL 8.9 MG/DL (8.8-10.2); CARBON DIOXIDE LEVEL 29 MEQ/L (21-32); CHLORIDE LEVEL 105 MEQ/L (98-107); CPK CREATINE PHOSPHOKINASE 62 U/L (39-308); CREATININE FOR GFR 1.03 MG/DL (0.70-1.30); GLOMERULAR FILTRATION RATE > 60.0 (>42); GLUCOSE, FASTING 103 MG/DL (70-100); LIPASE 88 U/L (73-393); MB/CK RELATIVE INDEX 2.26 (< OR =4); POTASSIUM SERUM 4.2 MEQ/L (3.5-5.1); SODIUM LEVEL 141 MEQ/L (136-145); TOTAL PROTEIN 7.6 GM/DL (6.4-8.2); TROPONIN I < 0.02 NG/ML (< 0.10)
[2019-02-12] MEDS ORDERED: DONE10TA90 PO (20:37)
[2019-02-12] MEDS ORDERED: ACET500T15 PO (20:37)
[2019-02-12] MEDS ORDERED: CARB25TA9 PO ×2 (20:37)
[2019-02-12] MEDS ORDERED: PYRI50TA8 PO (20:38)
[2019-02-12] MEDS ORDERED: BIOF4GEL4 TOP (20:40)
[2019-02-12] MEDS ORDERED: AMANTADINE 100MG/10ML SYRUP UDC PO SCH (21:00)
[2019-02-12] MEDS ORDERED: AMANTADINE 100 MG CAP PO SCH (21:00)
--- NOTE | 2019-02-12 22:23 | ECGEPIP ---
Stationary ECG Study [facility] - ED Test Date: 2019-02-12 Pat Name: MILEY RICHARDSON Department: Room: - Gender: M Leno Sewer: CHASITY : [id number] Requested By: MERRY Marroquin Order Number: [id number] Reading MD: Marcello Hernandez Measurements Intervals Pine Rate: 83 P: 19 SD: 204 QRS: -43 QRSD: 170 T: -22 QT: 416 QTc: 491 Interpretive Statements SINUS RHYTHM MARKED LEFT AXIS DEVIATION RIGHT BUNDLE BRANCH BLOCK MINIMAL VOLTAGE CRITERIA FOR LVH, CONSIDER NORMAL VARIANT RATE CHANGE COMPARED TO 10/18/18 Electronically Signed On 02-12-2019 22:23:10 EDT by Marcello Hernandez
[2019-02-12 23:15] VITALS: BP 162/77
[2019-02-13] MEDS: PYRIDOXINE 50 MG TAB PO SCH ×2 (00:52→21:29)
[2019-02-13] MEDS: DONEPEZIL 5 MG TAB PO SCH ×2 (00:52→21:29)
--- NOTE | 2019-02-13 05:31 | REP ---
AP LATERAL HIP, PELVIS, THREE VIEWS: HISTORY: Leg pain. COMPARISON: 10/16/2018. The patient is status post ORIF of a right femoral neck fracture. An intramedullary praveen and gamma nails are present. There is no acute fracture or dislocation. There is mild narrowing of the joint space. The patient is status post left total hip replacement. IMPRESSION: The patient is status post ORIF of a right intertrochanteric fracture. There is no acute fracture or dislocation. Electronically Signed by Sunil Suarez MD 02/13/2019 08:31 A
--- NOTE | 2019-02-13 05:32 | REP ---
RIGHT FEMUR, THREE VIEWS: HISTORY: Leg pain. The patient is status post ORIF of an intertrochanteric fracture. An intramedullary praveen and gamma nails are present. There is no acute fracture or dislocation. There is mild narrowing of the hip and knee joint spaces. IMPRESSION: The patient is status post ORIF of an intertrochanteric fracture. There is no acute fracture or dislocation. Electronically Signed by Sunil Suarez MD 02/13/2019 08:32 A
[2019-02-13 06:00] VITALS: BP 142/67
[2019-02-13 06:22] LABS: HEMATOCRIT 38.4 % (42.0-52.0); HEMOGLOBIN 12.6 g/dl (13.5-17.5); MEAN CORPUSCULAR HEMOGLOBIN 29.8 pg (27.0-33.0); MEAN CORPUSCULAR HGB CONC 32.8 g/dl (32.0-36.5); MEAN CORPUSCULAR VOLUME 90.8 fl (80.0-96.0); PLATELET COUNT, AUTOMATED 195 10^3/uL (150-450); RED BLOOD COUNT 4.23 10^6/uL (4.30-6.10)
[2019-02-13] MEDS: SINEMET 25-100 MG TAB PO SCH ×5 (06:31→18:16)
[2019-02-13 06:46] LABS: ALT/SGPT 15 U/L (12-78); BILIRUBIN,TOTAL 0.9 MG/DL (0.2-1.0); BLOOD UREA NITROGEN 21 MG/DL (7-18); CALCIUM LEVEL 8.6 MG/DL (8.8-10.2); CARBON DIOXIDE LEVEL 28 MEQ/L (21-32); CHLORIDE LEVEL 106 MEQ/L (98-107); CREATININE FOR GFR 0.99 MG/DL (0.70-1.30); GLOMERULAR FILTRATION RATE > 60.0 (>42); GLUCOSE, FASTING 97 MG/DL (70-100); POTASSIUM SERUM 3.8 MEQ/L (3.5-5.1); SODIUM LEVEL 140 MEQ/L (136-145); TOTAL PROTEIN 7.1 GM/DL (6.4-8.2)
[2019-02-13] MEDS: ASPIRIN 81 MG ENTERIC TAB PO SCH (09:14)
[2019-02-13] MEDS: VITAMIN D 1,000 INTERNATIONAL UNITS TABLET PO SCH (09:14)
[2019-02-13 14:00] VITALS: BP 141/69
--- NOTE | 2019-02-13 14:03 | IPN ---
DATE OF VISIT: 02/13/2019 SUBJECTIVE: Patient is seen and examined in the room today. Patient denied any acute complaints. No fever. No chills. No chest pain. No shortness of breath. No abdominal pain. No diarrhea. OBJECTIVE: VITAL SIGNS: Temperature 99.3, pulse 83, respirations 19, blood pressure 142/67, pulse oximetry 95% in room air. GENERAL: Patient is alert and awake, comfortable. HEENT: Normocephalic, atraumatic. Extraocular motor grossly intact. CARDIOVASCULAR: Positive S1, S2, regular rate. LUNGS: Clear to auscultation bilaterally. ABDOMEN: Soft, nontender. Bowel sounds present. EXTREMITIES: No edema. LABORATORY DATA: WBC is 8, hemoglobin 12.6, hematocrit 38.4, platelet count is 195. Sodium is 140, potassium 3.8, chloride 106, carbon dioxide 28, BUN is 21, creatinine 0.99, GFR greater than 60, fasting glucose 97, calcium is 8.6, total bilirubin is 0.9, AST 18, ALT 15, alkaline phosphatase is 162, total protein 6.1, albumin 3. ASSESSMENT AND PLAN: 1. Parkinson disease. Patient is currently on Sinemet. Continue donepezil. 2. Left hip fracture status hemiarthroplasty on 10/17/2018. Patient was in acute rehabilitation unit (ARU) for rehab in October 2018. Patient has had a very poor functional status. According to the family members, they are not able to take care of the patient anymore. They are seeking assistance for placement. 3. History of hypertension. Currently, patient is not on any blood pressure medication. Blood pressure is in the satisfactory range. Will continue to monitor, start medication if needed. 4. Gastroesophageal reflux disease. Continue to monitor. Patient is not on any home medications. 5. Deep venous thrombosis (DVT) prophylaxis. On heparin. MTDD
--- NOTE | 2019-02-13 15:20 | HPE ---
DATE OF ADMISSION: 02/12/2019 CHIEF COMPLAINT: Ambulatory dysfunction. HISTORY OF PRESENTING ILLNESS: 79-year-old gentleman with history of Parkinson's was brought to the emergency department the fourth time by the family members in a month. Patient is almost bed bound after a fall and fracture of left hip. The patient was not able to get out of bed his own or walk around without assistance. Family members were concerned that patient is a high risk of fall, and he was brought to emergency department for further workup. At home, patient was also having intermittent episodes of confusion and visual hallucinations. As per the family members, these episodes might be related to worsening Parkinson's. In the emergency room (ER), patient was found hemodynamically stable with vital signs of temperature 98.2, heart rate 93, respiratory rate 20, blood pressure 130/62, saturating 97% on room air. Workup including urine analysis, chest x-ray, CT head, did not show any acute pathology. Hospitalist's service was consulted to admit the patient for observation for a physical therapy (PT) evaluation. Patient was seen and examined at bedside in the emergency department. Daughter at bedside. Patient was resting comfortably in bed and stated that he is feeling fine and did not have any physical complaint. PAST MEDICAL HISTORY: Parkinson's, ambulatory dysfunction. PAST SURGICAL HISTORY: Bilateral hip replacement, cholecystectomy. ALLERGIES: No known drug allergies. HOME MEDICATIONS: Reviewed. Please refer to permanent medical records. 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 FAMILY HISTORY: Reviewed, noncontributory. REVIEW OF SYSTEMS: 10-point review of systems was performed, and it was negative except as per history of present illness (HPI). PHYSICAL EXAMINATION: GENERAL: Comfortable, not in acute distress. HEENT: Oral mucosa moist. NECK: Supple. LUNGS: Clear to auscultation. No added sound. CARDIOVASCULAR: S1, S2 positive. Regular rate and rhythm. EXTREMITIES: Bilateral lower extremities neurovascularly intact. No peripheral edema. ABDOMEN: Soft, normal bowel sounds, no tenderness. CENTRAL NERVOUS SYSTEM: Alert, oriented to place and person and time. No focal deficit. SKIN: No rash. ASSESSMENT: 79-year-old gentleman with history of Parkinson's who was brought to emergency department for complaint of ambulatory dysfunction, increased requirement of assistance, and intermittent episode of visual hallucinations. Labs and imaging studies reviewed. White count 8.5, hemoglobin 13.6, platelet 197. BUN 24, creatinine 1.03, blood glucose 103. Urine, negative for infection. Chest x-ray did not show any acute pathology. CT head; no acute pathology, but showed small vessel ischemic disease. Ultrasound right lower extremity was done for the complaint of pain and it was negative for deep venous thrombosis (DVT). IMPRESSION: Ambulatory dysfunction. PLAN: 1. Ambulatory dysfunction. Supportive care. We will follow with physical therapy. 2. We will follow with social service. 3. Parkinson's. Supportive care, home medication.
[2019-02-13] MEDS: HEPARIN SOD (PORCINE) 5000 UNITS/ML VIAL SQ SCH ×2 (15:22→21:29)
[2019-02-13] MEDS: AMANTADINE 100 MG CAP PO SCH (21:29)
[2019-02-14 06:00] VITALS: BP 153/64
[2019-02-14 06:03] LABS: HEMATOCRIT 39.5 % (42.0-52.0); HEMOGLOBIN 12.9 g/dl (13.5-17.5); MEAN CORPUSCULAR HEMOGLOBIN 30.1 pg (27.0-33.0); MEAN CORPUSCULAR HGB CONC 32.7 g/dl (32.0-36.5); MEAN CORPUSCULAR VOLUME 92.3 fl (80.0-96.0); PLATELET COUNT, AUTOMATED 195 10^3/uL (150-450); RED BLOOD COUNT 4.28 10^6/uL (4.30-6.10); WHITE BLOOD COUNT 6.9 10^3/uL (4.0-10.0)
[2019-02-14] MEDS: HEPARIN SOD (PORCINE) 5000 UNITS/ML VIAL SQ SCH ×3 (06:04→22:13)
[2019-02-14] MEDS: SINEMET 25-100 MG TAB PO SCH ×5 (06:04→18:17)
[2019-02-14 06:27] LABS: BLOOD UREA NITROGEN 20 MG/DL (7-18); CARBON DIOXIDE LEVEL 28 MEQ/L (21-32); CHLORIDE LEVEL 104 MEQ/L (98-107); CREATININE FOR GFR 1.06 MG/DL (0.70-1.30); GLOMERULAR FILTRATION RATE > 60.0 (>42); GLUCOSE, FASTING 83 MG/DL (70-100); MAGNESIUM LEVEL 2.1 MG/DL (1.8-2.4); POTASSIUM SERUM 3.8 MEQ/L (3.5-5.1); SODIUM LEVEL 138 MEQ/L (136-145)
[2019-02-14] MEDS: VITAMIN D 1,000 INTERNATIONAL UNITS TABLET PO SCH (10:20)
[2019-02-14] MEDS: ASPIRIN 81 MG ENTERIC TAB PO SCH (10:20)
--- NOTE | 2019-02-14 13:16 | IPNPDOC ---
Text Note Date of Service The patient was seen on 02/14/19. NOTE SUBJECTIVE: Patient is seen and examined in the room today. Patient denied any acute complaints. No event is reported OBJECTIVE: VITAL SIGNS: Listed below. GENERAL: Patient is alert and awake, comfortable. HEENT: Normocephalic, atraumatic. Extraocular motor grossly intact. CARDIOVASCULAR: Positive S1, S2, regular rate. LUNGS: Clear to auscultation bilaterally. ABDOMEN: Soft, nontender. Bowel sounds present. EXTREMITIES: No edema. LABORATORY DATA: Listed below. ASSESSMENT AND PLAN: #. Parkinson disease. - On Sinemet and donepezil. - Poor functional status. Patient needs placement. #. Left hip fracture status hemiarthroplasty - Left hemiarthroplasty on 10/17/2018. Patient was in acute rehabilitation unit (ARU) for rehab in October 2018. - Patient has had a very poor functional status. According to the family members, they are not able to take care of the patient anymore. They are seeking assistance for placement. #. History of hypertension. - On amlodipine. #. Gastroesophageal reflux disease. - Continue to monitor. Patient is not on any home medications. #. Deep venous thrombosis (DVT) prophylaxis. On heparin. A-FIB/CHADSVASC A-FIB History Current/History of A-Fib/PAF?: No VS,Fishbone, I+O VS, Fishbone, I+O Laboratory Tests 02/14/19 05:16 Red Blood Count 4.28 L, Mean Corpuscular Volume 92.3, Mean Corpuscular Hemoglobin 30.1, Mean Corpuscular Hemoglobin Concent 32.7, Red Cell Distribution Width 12.8, Calcium Level 9.0 Vital Signs Date Time Temp Pulse Resp B/P (MAP) Pulse Ox O2 Delivery O2 Flow Rate FiO2 02/14/19 06:00 98.7 84 20 153/64 (93) 95 02/12/19 23:25 Room Air I&O- Last 24 Hours up to 6 AM 02/14/19 06:00 Intake Total 986 ml Output Total 0 ml Balance 986 ml SANDRA BABCOCK DO Feb 14, 2019 13:16
[2019-02-14 14:00] VITALS: BP 141/71
[2019-02-14] MEDS: amLODIPine 10 MG TAB PO SCH (14:21)
[2019-02-14 22:00] VITALS: BP 107/79
[2019-02-14] MEDS: DONEPEZIL 5 MG TAB PO SCH (22:13)
[2019-02-14] MEDS: AMANTADINE 100 MG CAP PO SCH (22:13)
[2019-02-14] MEDS: PYRIDOXINE 50 MG TAB PO SCH (22:13)
[2019-02-15 06:00] VITALS: BP 114/75
[2019-02-15] MEDS: HEPARIN SOD (PORCINE) 5000 UNITS/ML VIAL SQ SCH ×3 (06:10→21:14)
[2019-02-15] MEDS: SINEMET 25-100 MG TAB PO SCH ×5 (06:10→18:29)
[2019-02-15] MEDS: NYSTATIN 100,000 UNITS/GM TOPICAL PWD 15 GM TOP PRN (06:14)
[2019-02-15 07:12] LABS: HEMATOCRIT 41.6 % (42.0-52.0); HEMOGLOBIN 13.6 g/dl (13.5-17.5); MEAN CORPUSCULAR HEMOGLOBIN 29.9 pg (27.0-33.0); MEAN CORPUSCULAR HGB CONC 32.7 g/dl (32.0-36.5); MEAN CORPUSCULAR VOLUME 91.4 fl (80.0-96.0); PLATELET COUNT, AUTOMATED 219 10^3/uL (150-450); RED BLOOD COUNT 4.55 10^6/uL (4.30-6.10); WHITE BLOOD COUNT 7.8 10^3/uL (4.0-10.0)
[2019-02-15 07:24] LABS: BLOOD UREA NITROGEN 21 MG/DL (7-18); CALCIUM LEVEL 9.1 MG/DL (8.8-10.2); CARBON DIOXIDE LEVEL 25 MEQ/L (21-32); CHLORIDE LEVEL 107 MEQ/L (98-107); CREATININE FOR GFR 1.18 MG/DL (0.70-1.30); GLOMERULAR FILTRATION RATE > 60.0 (>42); GLUCOSE, FASTING 88 MG/DL (70-100); MAGNESIUM LEVEL 2.1 MG/DL (1.8-2.4); POTASSIUM SERUM 3.8 MEQ/L (3.5-5.1); SODIUM LEVEL 139 MEQ/L (136-145)
[2019-02-15] MEDS: VITAMIN D 1,000 INTERNATIONAL UNITS TABLET PO SCH (09:39)
[2019-02-15] MEDS: ASPIRIN 81 MG ENTERIC TAB PO SCH (09:39)
[2019-02-15] MEDS: amLODIPine 10 MG TAB PO SCH (09:39)
--- NOTE | 2019-02-15 12:02 | IPNPDOC ---
Text Note Date of Service The patient was seen on 02/15/19. NOTE SUBJECTIVE: Patient is seen and examined in the room today. Patient was sleeping comfortably before the encounter. Denied any acute complaint. No event is reported OBJECTIVE: VITAL SIGNS: Listed below. GENERAL: Alert and awake, comfortable. HEENT: Normocephalic, atraumatic. Extraocular motor grossly intact. CARDIOVASCULAR: Positive S1, S2, regular rate. LUNGS: Clear to auscultation bilaterally. ABDOMEN: Soft, nontender. Bowel sounds present. EXTREMITIES: No edema. LABORATORY DATA: Listed below. ASSESSMENT AND PLAN: #. Parkinson disease. - On Sinemet and donepezil. - Poor functional status. Patient needs placement. #. Left hip fracture status hemiarthroplasty - Left hemiarthroplasty on 10/17/2018. Patient was in acute rehabilitation unit (ARU) for rehab in October 2018. - Patient has had a very poor functional status. According to the family member s, they are not able to take care of the patient anymore. #. History of hypertension. - On amlodipine. #. Gastroesophageal reflux disease. - Continue to monitor. Patient is not on any home medications. #. Deep venous thrombosis (DVT) prophylaxis. On heparin. A-FIB/CHADSVASC A-FIB History Current/History of A-Fib/PAF?: No VS,Fishbone, I+O VS, Fishbone, I+O Laboratory Tests 02/15/19 06:44 Red Blood Count 4.55, Mean Corpuscular Volume 91.4, Mean Corpuscular Hemoglobin 29.9, Mean Corpuscular Hemoglobin Concent 32.7, Red Cell Distribution Width 12.7, Calcium Level 9.1 Vital Signs Date Time Temp Pulse Resp B/P (MAP) Pulse Ox O2 Delivery O2 Flow Rate FiO2 02/15/19 09:39 95 145/76 02/15/19 06:00 97.6 19 97 02/12/19 23:25 Room Air I&O- Last 24 Hours up to 6 AM 02/15/19 06:00 Intake Total 416 ml Output Total 0 ml Balance 416 ml SANDRA BABCOCK DO Feb 15, 2019 12:02
[2019-02-15 14:00] VITALS: BP 107/59
[2019-02-15] MEDS: AMANTADINE 100 MG CAP PO SCH (20:27)
[2019-02-15] MEDS: PYRIDOXINE 50 MG TAB PO SCH (20:27)
[2019-02-15] MEDS: DONEPEZIL 5 MG TAB PO SCH (20:27)
[2019-02-15] MEDS: ACETAMINOPHEN 500 MG TAB PO PRN (21:14)
[2019-02-15 22:00] VITALS: BP 127/67
[2019-02-16 06:00] VITALS: BP 135/78
[2019-02-16] MEDS: SINEMET 25-100 MG TAB PO SCH ×5 (06:14→18:29)
[2019-02-16] MEDS: HEPARIN SOD (PORCINE) 5000 UNITS/ML VIAL SQ SCH ×3 (06:14→21:34)
[2019-02-16 07:01] LABS: HEMATOCRIT 41.1 % (42.0-52.0); HEMOGLOBIN 13.2 g/dl (13.5-17.5); MEAN CORPUSCULAR HEMOGLOBIN 29.9 pg (27.0-33.0); MEAN CORPUSCULAR HGB CONC 32.1 g/dl (32.0-36.5); PLATELET COUNT, AUTOMATED 210 10^3/uL (150-450); RED BLOOD COUNT 4.42 10^6/uL (4.30-6.10); WHITE BLOOD COUNT 6.4 10^3/uL (4.0-10.0)
[2019-02-16 07:18] LABS: BLOOD UREA NITROGEN 27 MG/DL (7-18); CALCIUM LEVEL 8.6 MG/DL (8.8-10.2); CARBON DIOXIDE LEVEL 28 MEQ/L (21-32); CHLORIDE LEVEL 110 MEQ/L (98-107); CREATININE FOR GFR 1.11 MG/DL (0.70-1.30); GLOMERULAR FILTRATION RATE > 60.0 (>42); GLUCOSE, FASTING 89 MG/DL (70-100); MAGNESIUM LEVEL 2.3 MG/DL (1.8-2.4); POTASSIUM SERUM 3.9 MEQ/L (3.5-5.1); SODIUM LEVEL 142 MEQ/L (136-145)
[2019-02-16] MEDS: ASPIRIN 81 MG ENTERIC TAB PO SCH (08:07)
[2019-02-16] MEDS: VITAMIN D 1,000 INTERNATIONAL UNITS TABLET PO SCH (08:07)
[2019-02-16] MEDS: amLODIPine 10 MG TAB PO SCH (08:07)
[2019-02-16 14:00] VITALS: BP 131/63
--- NOTE | 2019-02-16 14:33 | IPNPDOC ---
Text Note Date of Service The patient was seen on 02/16/19. NOTE SUBJECTIVE: Patient is seen and examined in the room today. Denied any acute complaint. No event is reported OBJECTIVE: VITAL SIGNS: Listed below. GENERAL: Alert and awake, comfortable. HEENT: Normocephalic, atraumatic. Extraocular motor grossly intact. CARDIOVASCULAR: Positive S1, S2, regular rate. LUNGS: Clear to auscultation bilaterally. ABDOMEN: Soft, nontender. Bowel sounds present. EXTREMITIES: No edema. LABORATORY DATA: Listed below. ASSESSMENT AND PLAN: #. Parkinson disease. - On Sinemet and donepezil. - Poor functional status. Patient needs placement. - Vitals are stable. No acute event is reported. #. Left hip fracture status hemiarthroplasty - Left hemiarthroplasty on 10/17/2018. Patient was in acute rehabilitation unit (ARU) for rehab in October 2018. - Patient has had a very poor functional status. According to the family members, they are not able to take care of the patient anymore. #. History of hypertension. - On amlodipine. #. Gastroesophageal reflux disease. - Continue to monitor. Patient is not on any home medications. #. Deep venous thrombosis (DVT) prophylaxis. On heparin. A-FIB/CHADSVASC A-FIB History Current/History of A-Fib/PAF?: No VS,Fishbone, I+O VS, Fishbone, I+O Laboratory Tests 02/16/19 06:34 Red Blood Count 4.42, Mean Corpuscular Volume 93.0, Mean Corpuscular Hemoglobin 29.9, Mean Corpuscular Hemoglobin Concent 32.1, Red Cell Distribution Width 12.7, Calcium Level 8.6 L Vital Signs Date Time Temp Pulse Resp B/P (MAP) Pulse Ox O2 Delivery O2 Flow Rate FiO2 02/16/19 14:00 97.4 89 16 131/63 (85) 99 02/12/19 23:25 Room Air I&O- Last 24 Hours up to 6 AM 02/16/19 06:00 Intake Total 370 ml Output Total 0 ml Balance 370 ml SANDRA BABCOCK DO Feb 16, 2019 14:33
[2019-02-16] MEDS: PYRIDOXINE 50 MG TAB PO SCH (21:34)
[2019-02-16] MEDS: AMANTADINE 100 MG CAP PO SCH (21:34)
[2019-02-16] MEDS: DONEPEZIL 5 MG TAB PO SCH (21:34)
[2019-02-16 22:00] VITALS: BP 108/63
[2019-02-17 06:00] VITALS: BP 137/66
[2019-02-17] MEDS: HEPARIN SOD (PORCINE) 5000 UNITS/ML VIAL SQ SCH ×3 (06:17→21:03)
[2019-02-17] MEDS: SINEMET 25-100 MG TAB PO SCH ×5 (06:18→18:27)
[2019-02-17 06:33] LABS: HEMOGLOBIN 12.9 g/dl (13.5-17.5); MEAN CORPUSCULAR HEMOGLOBIN 29.7 pg (27.0-33.0); MEAN CORPUSCULAR HGB CONC 32.3 g/dl (32.0-36.5); PLATELET COUNT, AUTOMATED 226 10^3/uL (150-450); RED BLOOD COUNT 4.35 10^6/uL (4.30-6.10); WHITE BLOOD COUNT 5.9 10^3/uL (4.0-10.0)
[2019-02-17 06:53] LABS: BLOOD UREA NITROGEN 22 MG/DL (7-18); CALCIUM LEVEL 8.7 MG/DL (8.8-10.2); CARBON DIOXIDE LEVEL 26 MEQ/L (21-32); CHLORIDE LEVEL 108 MEQ/L (98-107); CREATININE FOR GFR 1.03 MG/DL (0.70-1.30); GLOMERULAR FILTRATION RATE > 60.0 (>42); GLUCOSE, FASTING 88 MG/DL (70-100); MAGNESIUM LEVEL 2.2 MG/DL (1.8-2.4); POTASSIUM SERUM 3.8 MEQ/L (3.5-5.1); SODIUM LEVEL 140 MEQ/L (136-145)
[2019-02-17] MEDS: ASPIRIN 81 MG ENTERIC TAB PO SCH (08:52)
[2019-02-17] MEDS: VITAMIN D 1,000 INTERNATIONAL UNITS TABLET PO SCH (08:52)
[2019-02-17] MEDS: amLODIPine 10 MG TAB PO SCH (08:53)
[2019-02-17 14:00] VITALS: BP 124/71
--- NOTE | 2019-02-17 16:04 | IPNPDOC ---
Text Note Date of Service The patient was seen on 02/17/19. NOTE SUBJECTIVE: Patient is seen and examined in the room today. Patient states he is comfortable. He has good oral intake. Denied any acute complaint. OBJECTIVE: VITAL SIGNS: Listed below. GENERAL: Alert and awake, comfortable. HEENT: Normocephalic, atraumatic. Extraocular motor grossly intact. CARDIOVASCULAR: Positive S1, S2, regular rate. LUNGS: Clear to auscultation bilaterally. ABDOMEN: Soft, nontender. Bowel sounds present. EXTREMITIES: No edema. LABORATORY DATA: Listed below. ASSESSMENT AND PLAN: #. Parkinson disease. - On Sinemet and donepezil. - Poor functional status. Patient needs placement. - Vitals are stable. No acute event is reported. #. Left hip fracture status hemiarthroplasty - Left hemiarthroplasty on 10/17/2018. Patient was in acute rehabilitation unit (ARU) for rehab in October 2018. - Patient has had a very poor functional status. According to the family members, they are not able to take care of the patient at home anymore. #. History of hypertension. - On amlodipine. Blood pressure in satisfactory range. No adjustment needed. #. Gastroesophageal reflux disease. - Continue to monitor. Patient is not on any home medications. #. Deep venous thrombosis (DVT) prophylaxis. On heparin. A-FIB/CHADSVASC A-FIB History Current/History of A-Fib/PAF?: No VS,Fishbone, I+O VS, Fishbone, I+O Laboratory Tests 02/17/19 05:38 Red Blood Count 4.35, Mean Corpuscular Volume 92.0, Mean Corpuscular Hemoglobin 29.7, Mean Corpuscular Hemoglobin Concent 32.3, Red Cell Distribution Width 12.6, Calcium Level 8.7 L Vital Signs Date Time Temp Pulse Resp B/P (MAP) Pulse Ox O2 Delivery O2 Flow Rate FiO2 02/17/19 08:53 89 142/79 02/17/19 06:00 97.8 17 97 02/12/19 23:25 Room Air I&O- Last 24 Hours up to 6 AM 02/17/19 06:00 Intake Total 860 ml Output Total 200 ml Balance 660 ml SANDRA BABCOCK DO Feb 17, 2019 16:04
[2019-02-17] MEDS: AMANTADINE 100 MG CAP PO SCH (21:02)
[2019-02-17] MEDS: PYRIDOXINE 50 MG TAB PO SCH (21:02)
[2019-02-17] MEDS: DONEPEZIL 5 MG TAB PO SCH (21:02)
[2019-02-17 22:00] VITALS: BP 143/75
[2019-02-17] MEDS: ACETAMINOPHEN 500 MG TAB PO PRN (23:46)
[2019-02-18 06:00] VITALS: BP 140/72
[2019-02-18] MEDS: HEPARIN SOD (PORCINE) 5000 UNITS/ML VIAL SQ SCH ×3 (06:00→22:19)
[2019-02-18] MEDS: SINEMET 25-100 MG TAB PO SCH ×5 (06:32→19:43)
[2019-02-18] MEDS: VITAMIN D 1,000 INTERNATIONAL UNITS TABLET PO SCH (10:06)
[2019-02-18] MEDS: amLODIPine 10 MG TAB PO SCH (10:06)
[2019-02-18] MEDS: ASPIRIN 81 MG ENTERIC TAB PO SCH (10:07)
[2019-02-18 10:30] LABS: HEMATOCRIT 41.7 % (42.0-52.0); HEMOGLOBIN 13.5 g/dl (13.5-17.5); MEAN CORPUSCULAR HEMOGLOBIN 30.2 pg (27.0-33.0); MEAN CORPUSCULAR HGB CONC 32.4 g/dl (32.0-36.5); MEAN CORPUSCULAR VOLUME 93.3 fl (80.0-96.0); PLATELET COUNT, AUTOMATED 215 10^3/uL (150-450); RED BLOOD COUNT 4.47 10^6/uL (4.30-6.10); WHITE BLOOD COUNT 5.8 10^3/uL (4.0-10.0)
[2019-02-18] MEDS: ACETAMINOPHEN 500 MG TAB PO PRN (10:45)
[2019-02-18 10:48] LABS: BLOOD UREA NITROGEN 20 MG/DL (7-18); CALCIUM LEVEL 8.8 MG/DL (8.8-10.2); CARBON DIOXIDE LEVEL 26 MEQ/L (21-32); CHLORIDE LEVEL 107 MEQ/L (98-107); CREATININE FOR GFR 1.08 MG/DL (0.70-1.30); GLOMERULAR FILTRATION RATE > 60.0 (>42); GLUCOSE, FASTING 93 MG/DL (70-100); MAGNESIUM LEVEL 2.1 MG/DL (1.8-2.4); POTASSIUM SERUM 3.8 MEQ/L (3.5-5.1); SODIUM LEVEL 141 MEQ/L (136-145)
--- NOTE | 2019-02-18 12:51 | IPNPDOC ---
Text Note Date of Service The patient was seen on 02/18/19. NOTE SUBJECTIVE: Patient seen and examined at bedside. No acute overnight events reported. Patient has no new medical complaints this morning. OBJECTIVE: VITAL SIGNS: Listed below. GENERAL: Alert and awake, comfortable. HEENT: Normocephalic, atraumatic. Extraocular motor grossly intact. CARDIOVASCULAR: Positive S1, S2, regular rate. LUNGS: Clear to auscultation bilaterally. ABDOMEN: Soft, nontender. Bowel sounds present. EXTREMITIES: No edema. LABORATORY DATA: Listed below. ASSESSMENT AND PLAN: #Parkinson disease. - On Sinemet and donepezil. - Poor functional status. Patient needs placement. #Left hip fracture status hemiarthroplasty - Left hemiarthroplasty on 10/17/2018. Patient was in acute rehabilitation unit (ARU) for rehab in October 2018. - Patient has had a very poor functional status. According to the family members, they are not able to take care of the patient at home anymore. #HTN - On amlodipine. Blood pressure in satisfactory range. No adjustment needed. #GERD - Continue to monitor. Patient is not on any home medications. #Deep venous thrombosis (DVT) prophylaxis. On heparin. Disposition: pending placement VS,Fishbone, I+O VS, Fishbone, I+O Laboratory Tests 02/18/19 10:10 Red Blood Count 4.47, Mean Corpuscular Volume 93.3, Mean Corpuscular Hemoglobin 30.2, Mean Corpuscular Hemoglobin Concent 32.4, Red Cell Distribution Width 12.7, Calcium Level 8.8 Vital Signs Date Time Temp Pulse Resp B/P (MAP) Pulse Ox O2 Delivery O2 Flow Rate FiO2 02/18/19 06:00 97.7 80 18 140/72 (94) 99 02/12/19 23:25 Room Air I&O- Last 24 Hours up to 6 AM 02/18/19 06:00 Intake Total 800 ml Output Total 0 ml Balance 800 ml MELISSA LIN MD Feb 18, 2019 12:51
[2019-02-18 14:00] VITALS: BP 137/73
[2019-02-18] MEDS: PYRIDOXINE 50 MG TAB PO SCH (21:00)
[2019-02-18 22:00] VITALS: BP 129/73
[2019-02-18] MEDS: DONEPEZIL 5 MG TAB PO SCH (22:19)
[2019-02-18] MEDS: AMANTADINE 100 MG CAP PO SCH (22:20)
[2019-02-19] MEDS: HEPARIN SOD (PORCINE) 5000 UNITS/ML VIAL SQ SCH ×3 (05:47→21:53)
[2019-02-19 06:00] VITALS: BP 140/66
[2019-02-19] MEDS: SINEMET 25-100 MG TAB PO SCH ×6 (06:29→18:24)
[2019-02-19 06:47] LABS: HEMATOCRIT 41.2 % (42.0-52.0); HEMOGLOBIN 13.6 g/dl (13.5-17.5); MEAN CORPUSCULAR VOLUME 90.9 fl (80.0-96.0); PLATELET COUNT, AUTOMATED 219 10^3/uL (150-450); RED BLOOD COUNT 4.53 10^6/uL (4.30-6.10)
[2019-02-19 07:14] LABS: BLOOD UREA NITROGEN 19 MG/DL (7-18); CALCIUM LEVEL 8.9 MG/DL (8.8-10.2); CARBON DIOXIDE LEVEL 26 MEQ/L (21-32); CHLORIDE LEVEL 107 MEQ/L (98-107); CREATININE FOR GFR 1.01 MG/DL (0.70-1.30); GLOMERULAR FILTRATION RATE > 60.0 (>42); GLUCOSE, FASTING 105 MG/DL (70-100); MAGNESIUM LEVEL 2.1 MG/DL (1.8-2.4); POTASSIUM SERUM 3.7 MEQ/L (3.5-5.1); SODIUM LEVEL 140 MEQ/L (136-145)
[2019-02-19] MEDS: VITAMIN D 1,000 INTERNATIONAL UNITS TABLET PO SCH (10:55)
[2019-02-19] MEDS: ASPIRIN 81 MG ENTERIC TAB PO SCH (10:56)
[2019-02-19] MEDS: amLODIPine 10 MG TAB PO SCH (10:57)
--- NOTE | 2019-02-19 12:12 | IPNPDOC ---
Text Note Date of Service The patient was seen on 02/19/19. NOTE SUBJECTIVE: Patient seen and examined at bedside. No acute overnight events r eported. Patient has no new medical complaints this morning. OBJECTIVE: VITAL SIGNS: Listed below. GENERAL: NAD, lying comfortably in bed HEENT: NC/AT CARDIOVASCULAR: +S12S2 LUNGS: CTA B/L ABDOMEN: Soft, NT, +BS EXTREMITIES: No edema. LABORATORY DATA: Listed below. ASSESSMENT AND PLAN: #Parkinson disease. - On Sinemet and donepezil. - Poor functional status. Patient needs placement. #Left hip fracture status hemiarthroplasty - Left hemiarthroplasty on 10/17/2018. Patient was in acute rehabilitation unit (ARU) for rehab in October 2018. - Patient has had a very poor functional status. According to the family members, they are not able to take care of the patient at home anymore. #HTN - On amlodipine. Blood pressure in satisfactory range. No adjustment needed. #GERD - Continue to monitor. Patient is not on any home medications. #Deep venous thrombosis (DVT) prophylaxis. On heparin. Disposition: pending placement VS,Fishbone, I+O VS, Fishbone, I+O Laboratory Tests 02/19/19 06:21 Red Blood Count 4.53, Mean Corpuscular Volume 90.9, Mean Corpuscular Hemoglobin 30.0, Mean Corpuscular Hemoglobin Concent 33.0, Red Cell Distribution Width 12.7 02/19/19 06:22 Calcium Level 8.9 Vital Signs Date Time Temp Pulse Resp B/P (MAP) Pulse Ox O2 Delivery O2 Flow Rate FiO2 02/19/19 10:57 102 151/77 02/19/19 06:00 97.4 18 96 I&O- Last 24 Hours up to 6 AM 02/19/19 06:00 Intake Total 480 ml Output Total 0 ml Balance 480 ml MELISSA LIN MD February 19, 2019 12:12
[2019-02-19 14:00] VITALS: BP 148/76
[2019-02-19] MEDS: DONEPEZIL 5 MG TAB PO SCH (21:52)
[2019-02-19] MEDS: PYRIDOXINE 50 MG TAB PO SCH (21:53)
[2019-02-19] MEDS: AMANTADINE 100 MG CAP PO SCH (21:53)
[2019-02-19 22:00] VITALS: BP 133/68
[2019-02-20 06:00] VITALS: BP 135/68
[2019-02-20] MEDS: SINEMET 25-100 MG TAB PO SCH ×5 (06:03→18:15)
[2019-02-20] MEDS: HEPARIN SOD (PORCINE) 5000 UNITS/ML VIAL SQ SCH ×3 (06:03→21:07)
[2019-02-20 06:19] LABS: HEMATOCRIT 41.3 % (42.0-52.0); HEMOGLOBIN 13.4 g/dl (13.5-17.5); MEAN CORPUSCULAR HEMOGLOBIN 29.8 pg (27.0-33.0); MEAN CORPUSCULAR HGB CONC 32.4 g/dl (32.0-36.5); MEAN CORPUSCULAR VOLUME 91.8 fl (80.0-96.0); PLATELET COUNT, AUTOMATED 207 10^3/uL (150-450); WHITE BLOOD COUNT 5.8 10^3/uL (4.0-10.0)
[2019-02-20 06:31] LABS: BLOOD UREA NITROGEN 22 MG/DL (7-18); CALCIUM LEVEL 9.2 MG/DL (8.8-10.2); CARBON DIOXIDE LEVEL 27 MEQ/L (21-32); CHLORIDE LEVEL 108 MEQ/L (98-107); CREATININE FOR GFR 1.01 MG/DL (0.70-1.30); GLOMERULAR FILTRATION RATE > 60.0 (>42); GLUCOSE, FASTING 89 MG/DL (70-100); MAGNESIUM LEVEL 2.1 MG/DL (1.8-2.4); POTASSIUM SERUM 3.7 MEQ/L (3.5-5.1); SODIUM LEVEL 141 MEQ/L (136-145)
[2019-02-20] MEDS: amLODIPine 10 MG TAB PO SCH (08:46)
[2019-02-20] MEDS: ASPIRIN 81 MG ENTERIC TAB PO SCH (08:47)
[2019-02-20] MEDS: VITAMIN D 1,000 INTERNATIONAL UNITS TABLET PO SCH (08:47)
--- NOTE | 2019-02-20 13:56 | IPNPDOC ---
Text Note Date of Service The patient was seen on 02/20/19. NOTE SUBJECTIVE: Patient seen and examined at bedside. No acute overnight events r eported. Patient has no new medical complaints this morning. OBJECTIVE: VITAL SIGNS: Listed below. GENERAL: NAD, lying comfortably in bed HEENT: NC/AT CARDIOVASCULAR: +S12S2 LUNGS: CTA B/L ABDOMEN: Soft, NT, +BS EXTREMITIES: No edema. LABORATORY DATA: Listed below. ASSESSMENT AND PLAN: #Parkinson disease. - On Sinemet and donepezil. - Poor functional status. Patient needs placement. #Left hip fracture status hemiarthroplasty - Left hemiarthroplasty on 10/17/2018. Patient was in acute rehabilitation unit (ARU) for rehab in October 2018. - Patient has had a very poor functional status. According to the family members, they are not able to take care of the patient at home anymore. #HTN - On amlodipine. Blood pressure in satisfactory range. No adjustment needed. #GERD - Continue to monitor. Patient is not on any home medications. #Deep venous thrombosis (DVT) prophylaxis. On heparin. Disposition: pending placement A-FIB/CHADSVASC A-FIB History Current/History of A-Fib/PAF?: No VS,Fishbone, I+O VS, Fishbone, I+O Laboratory Tests 02/20/19 05:23 Red Blood Count 4.50, Mean Corpuscular Volume 91.8, Mean Corpuscular Hemoglobin 29.8, Mean Corpuscular Hemoglobin Concent 32.4, Red Cell Distribution Width 12.6, Calcium Level 9.2 Vital Signs Date Time Temp Pulse Resp B/P (MAP) Pulse Ox O2 Delivery O2 Flow Rate FiO2 02/20/19 08:46 86 133/71 02/20/19 06:00 97.7 20 97 I&O- Last 24 Hours up to 6 AM 02/20/19 06:00 Intake Total 580 ml Output Total 225 ml Balance 355 ml MELISSA LIN MD February 20, 2019 13:56
[2019-02-20 14:00] VITALS: BP 124/71
[2019-02-20] MEDS: PYRIDOXINE 50 MG TAB PO SCH (21:07)
[2019-02-20] MEDS: DONEPEZIL 5 MG TAB PO SCH (21:07)
[2019-02-20] MEDS: AMANTADINE 100 MG CAP PO SCH (21:07)
[2019-02-20 22:00] VITALS: BP 134/61
[2019-02-21 06:00] VITALS: BP 132/68
[2019-02-21] MEDS: ASPIRIN 81 MG ENTERIC TAB PO SCH (08:41)
[2019-02-21] MEDS: VITAMIN D 1,000 INTERNATIONAL UNITS TABLET PO SCH (08:41)
[2019-02-21] MEDS: SINEMET 25-100 MG TAB PO SCH ×5 (08:41→21:11)
[2019-02-21] MEDS: HEPARIN SOD (PORCINE) 5000 UNITS/ML VIAL SQ SCH ×3 (08:42→21:08)
[2019-02-21] MEDS: amLODIPine 10 MG TAB PO SCH (08:42)
--- NOTE | 2019-02-21 10:31 | IPNPDOC ---
Text Note Date of Service The patient was seen on 02/21/19. NOTE SUBJECTIVE: Patient seen and examined at bedside. No acute overnight events reported. Patient has no new medical complaints this morning. OBJECTIVE: VITAL SIGNS: Listed below. GENERAL: NAD HEENT: NC/AT CARDIOVASCULAR: +S12S2 LUNGS: CTA B/L ABDOMEN: Soft, NT, +BS EXTREMITIES: No edema. LABORATORY DATA: Listed below. ASSESSMENT AND PLAN: #Parkinson disease. - On Sinemet and symmetrel - Poor functional status. Patient needs placement. #Left hip fracture status hemiarthroplasty - Left hemiarthroplasty on 10/17/2018. Patient was in acute rehabilitation unit (ARU) for rehab in October 2018. - Patient has had a very poor functional status. According to the family members, they are not able to take care of the patient at home anymore. #HTN - On amlodipine #GERD - Continue to monitor. Patient is not on any home medications. #Deep venous thrombosis (DVT) prophylaxis. On heparin. Disposition: pending placement A-FIB/CHADSVASC A-FIB History Current/History of A-Fib/PAF?: No VS,Fishbone, I+O VS, Fishbone, I+O Vital Signs Date Time Temp Pulse Resp B/P (MAP) Pulse Ox O2 Delivery O2 Flow Rate FiO2 02/21/19 08:42 69 132/68 02/21/19 06:00 97.3 18 97 I&O- Last 24 Hours up to 6 AM 02/21/19 06:00 Intake Total 1040 ml Output Total 350 ml Balance 690 ml MELISSA LIN MD February 21, 2019 10:31
[2019-02-21 14:00] VITALS: BP 122/62
[2019-02-21] MEDS: AMANTADINE 100 MG CAP PO SCH (21:08)
[2019-02-21] MEDS: PYRIDOXINE 50 MG TAB PO SCH (21:08)
[2019-02-21] MEDS: DONEPEZIL 5 MG TAB PO SCH (21:08)
[2019-02-21 22:00] VITALS: BP 135/73
[2019-02-22 06:00] VITALS: BP 162/80
[2019-02-22] MEDS: SINEMET 25-100 MG TAB PO SCH ×5 (06:31→18:42)
[2019-02-22] MEDS: HEPARIN SOD (PORCINE) 5000 UNITS/ML VIAL SQ SCH ×3 (06:32→21:27)
[2019-02-22 10:30] VITALS: BP 135/91
[2019-02-22] MEDS: amLODIPine 10 MG TAB PO SCH (10:46)
[2019-02-22] MEDS: ASPIRIN 81 MG ENTERIC TAB PO SCH (10:47)
[2019-02-22] MEDS: VITAMIN D 1,000 INTERNATIONAL UNITS TABLET PO SCH (10:47)
[2019-02-22 12:20] VITALS: BP 135/91
--- NOTE | 2019-02-22 12:57 | IPNPDOC ---
Text Note Date of Service The patient was seen on 02/22/19. NOTE SUBJECTIVE: Patient seen and examined at bedside. Patient has no new medical complaints this morning. No acute overnight events reported. OBJECTIVE: VITAL SIGNS: Listed below. GENERAL: NAD HEENT: NC/AT CARDIOVASCULAR: +S12S2 LUNGS: CTA B/L ABDOMEN: Soft, NT, +BS EXTREMITIES: No edema. LABORATORY DATA: Listed below. ASSESSMENT AND PLAN: #Parkinson disease. - On Sinemet and symmetrel - Poor functional status. Patient needs placement. #Left hip fracture status hemiarthroplasty - Left hemiarthroplasty on 10/17/2018. Patient was in acute rehabilitation unit (ARU) for rehab in October 2018. - Patient has had a very poor functional status. According to the family members, they are not able to take care of the patient at home anymore. #HTN - On amlodipine #GERD - Continue to monitor. Patient is not on any home medications. #Deep venous thrombosis (DVT) prophylaxis. On heparin. Disposition: pending placement VS,Fishbone, I+O VS, Fishbone, I+O Vital Signs Date Time Temp Pulse Resp B/P (MAP) Pulse Ox O2 Delivery O2 Flow Rate FiO2 02/22/19 12:20 97.2 92 18 135/91 97 I&O- Last 24 Hours up to 6 AM 02/22/19 06:00 Intake Total 270 ml Output Total 0 ml Balance 270 ml MELISSA LIN MD February 22, 2019 12:57
[2019-02-22 14:00] VITALS: BP_SYST 125; BP_SYST 129; BP_DIAS 63; BP_DIAS 80
[2019-02-22] MEDS: AMANTADINE 100 MG CAP PO SCH (21:28)
[2019-02-22] MEDS: PYRIDOXINE 50 MG TAB PO SCH (21:28)
[2019-02-22] MEDS: DONEPEZIL 5 MG TAB PO SCH (21:28)
[2019-02-22 22:00] VITALS: BP 122/80
[2019-02-23 06:00] VITALS: BP 121/70
[2019-02-23] MEDS: HEPARIN SOD (PORCINE) 5000 UNITS/ML VIAL SQ SCH ×3 (06:02→21:03)
[2019-02-23] MEDS: SINEMET 25-100 MG TAB PO SCH ×5 (06:02→18:28)
[2019-02-23] MEDS: VITAMIN D 1,000 INTERNATIONAL UNITS TABLET PO SCH (09:21)
[2019-02-23] MEDS: ASPIRIN 81 MG ENTERIC TAB PO SCH (09:21)
[2019-02-23] MEDS: amLODIPine 10 MG TAB PO SCH (09:22)
--- NOTE | 2019-02-23 11:18 | IPNPDOC ---
Text Note Date of Service The patient was seen on 02/23/19. NOTE SUBJECTIVE: Patient seen and examined at bedside. Eating breakfast on arrival. Patient has no new medical complaints this morning. No acute overnight events reported. OBJECTIVE: VITAL SIGNS: Listed below. GENERAL: NAD HEENT: NC/AT CARDIOVASCULAR: +S12S2 LUNGS: CTA B/L ABDOMEN: Soft, NT, +BS EXTREMITIES: No edema. LABORATORY DATA: Listed below. ASSESSMENT AND PLAN: #Parkinson disease. - On Sinemet and symmetrel - Poor functional status. Patient needs placement. #Left hip fracture status hemiarthroplasty - Left hemiarthroplasty on 10/17/2018. Patient was in acute rehabilitation unit (ARU) for rehab in October 2018. - Patient has had a very poor functional status. According to the family members, they are not able to take care of the patient at home anymore. #HTN - On amlodipine #GERD - Continue to monitor. Patient is not on any home medications. #Deep venous thrombosis (DVT) prophylaxis. On heparin. Disposition: pending placement VS,Fishbone, I+O VS, Fishbone, I+O Vital Signs Date Time Temp Pulse Resp B/P (MAP) Pulse Ox O2 Delivery O2 Flow Rate FiO2 02/23/19 09:22 73 124/70 02/23/19 06:00 97.3 16 95 I&O- Last 24 Hours up to 6 AM 02/23/19 06:00 Intake Total 1560 ml Output Total 525 ml Balance 1035 ml MELISSA LIN MD February 23, 2019 11:18
[2019-02-23] MEDS: AMANTADINE 100 MG CAP PO SCH (21:03)
[2019-02-23] MEDS: PYRIDOXINE 50 MG TAB PO SCH (21:03)
[2019-02-23] MEDS: DONEPEZIL 5 MG TAB PO SCH (21:03)
[2019-02-24 06:00] VITALS: BP 122/69
[2019-02-24] MEDS: HEPARIN SOD (PORCINE) 5000 UNITS/ML VIAL SQ SCH ×3 (06:35→21:07)
[2019-02-24] MEDS: SINEMET 25-100 MG TAB PO SCH ×5 (06:35→19:26)
[2019-02-24] MEDS: VITAMIN D 1,000 INTERNATIONAL UNITS TABLET PO SCH (08:18)
[2019-02-24] MEDS: ASPIRIN 81 MG ENTERIC TAB PO SCH (08:19)
[2019-02-24] MEDS: amLODIPine 10 MG TAB PO SCH (08:19)
--- NOTE | 2019-02-24 10:50 | IPNPDOC ---
Text Note Date of Service The patient was seen on 02/24/19. NOTE SUBJECTIVE: Patient seen and examined at bedside. Eating breakfast on arrival. Patient has no new medical complaints this morning. No acute overnight events reported. OBJECTIVE: VITAL SIGNS: Listed below. GENERAL: NAD HEENT: NC/AT CARDIOVASCULAR: +S12S2 LUNGS: CTA B/L ABDOMEN: Soft, NT, +BS EXTREMITIES: No edema. LABORATORY DATA: Listed below. ASSESSMENT AND PLAN: #Parkinson disease. - On Sinemet and symmetrel - Poor functional status. Patient needs placement. #Left hip fracture status hemiarthroplasty - Left hemiarthroplasty on 10/17/2018. Patient was in acute rehabilitation unit (ARU) for rehab in October 2018. - Patient has had a very poor functional status. According to the family members, they are not able to take care of the patient at home anymore. #HTN - On amlodipine #GERD - Continue to monitor. Patient is not on any home medications. #Deep venous thrombosis (DVT) prophylaxis. On heparin. Disposition: pending placement VS,Fishbone, I+O VS, Fishbone, I+O Vital Signs Date Time Temp Pulse Resp B/P (MAP) Pulse Ox O2 Delivery O2 Flow Rate FiO2 02/24/19 08:19 86 119/70 02/24/19 06:00 97.3 17 100 I&O- Last 24 Hours up to 6 AM 02/24/19 06:00 Intake Total 300 ml Output Total 200 ml Balance 100 ml MELISSA LIN MD February 24, 2019 10:49
[2019-02-24] MEDS: DONEPEZIL 5 MG TAB PO SCH (21:05)
[2019-02-24] MEDS: PYRIDOXINE 50 MG TAB PO SCH (21:05)
[2019-02-24] MEDS: ACETAMINOPHEN 500 MG TAB PO PRN (21:07)
[2019-02-24] MEDS: AMANTADINE 100 MG CAP PO SCH (21:07)
[2019-02-24 22:00] VITALS: BP 140/79
[2019-02-25 06:00] VITALS: BP 144/80
[2019-02-25] MEDS: SINEMET 25-100 MG TAB PO SCH ×5 (06:15→18:02)
[2019-02-25] MEDS: HEPARIN SOD (PORCINE) 5000 UNITS/ML VIAL SQ SCH ×3 (06:15→21:22)
[2019-02-25] MEDS: VITAMIN D 1,000 INTERNATIONAL UNITS TABLET PO SCH (09:00)
[2019-02-25] MEDS: amLODIPine 10 MG TAB PO SCH (09:01)
[2019-02-25] MEDS: ASPIRIN 81 MG ENTERIC TAB PO SCH (09:01)
[2019-02-25 09:08] LABS: HEMATOCRIT 44.3 % (42.0-52.0); HEMOGLOBIN 14.4 g/dl (13.5-17.5); MEAN CORPUSCULAR HEMOGLOBIN 29.5 pg (27.0-33.0); MEAN CORPUSCULAR HGB CONC 32.5 g/dl (32.0-36.5); MEAN CORPUSCULAR VOLUME 90.8 fl (80.0-96.0); PLATELET COUNT, AUTOMATED 200 10^3/uL (150-450); RED BLOOD COUNT 4.88 10^6/uL (4.30-6.10); WHITE BLOOD COUNT 7.6 10^3/uL (4.0-10.0)
[2019-02-25 09:31] LABS: BLOOD UREA NITROGEN 25 MG/DL (7-18); CALCIUM LEVEL 9.4 MG/DL (8.8-10.2); CARBON DIOXIDE LEVEL 26 MEQ/L (21-32); CHLORIDE LEVEL 106 MEQ/L (98-107); CREATININE FOR GFR 1.09 MG/DL (0.70-1.30); GLOMERULAR FILTRATION RATE > 60.0 (>42); GLUCOSE, FASTING 125 MG/DL (70-100); MAGNESIUM LEVEL 1.9 MG/DL (1.8-2.4); POTASSIUM SERUM 4.1 MEQ/L (3.5-5.1); SODIUM LEVEL 139 MEQ/L (136-145)
[2019-02-25] MEDS: ACETAMINOPHEN 500 MG TAB PO PRN (12:47)
--- NOTE | 2019-02-25 13:24 | IPNPDOC ---
Text Note Date of Service The patient was seen on 02/25/19. NOTE SUBJECTIVE: Patient is seen and examined in the room today. No event is reported. Denied any acute complaint. OBJECTIVE: VITAL SIGNS: Listed below. GENERAL: Alert and awake, comfortable. HEENT: Normocephalic, atraumatic. Extraocular motor grossly intact. CARDIOVASCULAR: Positive S1, S2, regular rate. LUNGS: Clear to auscultation bilaterally. ABDOMEN: Soft, nontender. Bowel sounds present. EXTREMITIES: No edema. LABORATORY DATA: Listed below. ASSESSMENT AND PLAN: #. Parkinson disease. - On Sinemet and donepezil. - Poor functional status. PFS and case management are assisting on placement arrangement. - No acute event is reported. #. Left hip fracture status hemiarthroplasty - Left hemiarthroplasty on 10/17/2018. Patient was in acute rehabilitation unit (ARU) for rehab in October 2018. - According to the family members, they are not able to take care of the patient at home anymore. Patient needs placement #. History of hypertension. - On amlodipine. Blood pressure in satisfactory range. No adjustment needed. #. History of gastroesophageal reflux disease. - Continue to monitor. Patient is not on any home medication. #. Deep venous thrombosis (DVT) prophylaxis. On heparin. VS,Fishbone, I+O VS, Fishbone, I+O Laboratory Tests 02/25/19 08:51 Red Blood Count 4.88, Mean Corpuscular Volume 90.8, Mean Corpuscular Hemoglobin 29.5, Mean Corpuscular Hemoglobin Concent 32.5, Red Cell Distribution Width 12.8, Calcium Level 9.4 Vital Signs Date Time Temp Pulse Resp B/P (MAP) Pulse Ox O2 Delivery O2 Flow Rate FiO2 02/25/19 09:01 80 144/80 02/25/19 06:00 97.8 18 94 I&O- Last 24 Hours up to 6 AM 02/25/19 06:00 Intake Total 510 ml Output Total 200 ml Balance 310 ml SANDRA BABCOCK DO February 25, 2019 13:24
[2019-02-25 14:00] VITALS: BP 124/71
[2019-02-25] MEDS: DONEPEZIL 5 MG TAB PO SCH (20:25)
[2019-02-25] MEDS: PYRIDOXINE 50 MG TAB PO SCH (20:25)
[2019-02-25] MEDS: AMANTADINE 100 MG CAP PO SCH (20:25)
[2019-02-25 22:00] VITALS: BP 130/73
[2019-02-26] MEDS: HEPARIN SOD (PORCINE) 5000 UNITS/ML VIAL SQ SCH ×3 (05:42→22:08)
[2019-02-26 06:00] VITALS: BP 145/77
[2019-02-26] MEDS: SINEMET 25-100 MG TAB PO SCH ×5 (06:23→18:23)
[2019-02-26] MEDS: ASPIRIN 81 MG ENTERIC TAB PO SCH (08:36)
[2019-02-26] MEDS: VITAMIN D 1,000 INTERNATIONAL UNITS TABLET PO SCH (08:36)
[2019-02-26] MEDS: amLODIPine 10 MG TAB PO SCH (08:37)
--- NOTE | 2019-02-26 12:42 | IPNPDOC ---
Text Note Date of Service The patient was seen on 02/26/19. NOTE SUBJECTIVE: Patient is seen and examined in the room today. He did not finish the whole breakfast. Denies loss of appetite. Denies nausea or vomiting. No event is reported. Denied any acute complaint. OBJECTIVE: VITAL SIGNS: Listed below. GENERAL: Alert and awake, comfortable. HEENT: Normocephalic, atraumatic. Extraocular motor grossly intact. CARDIOVASCULAR: Positive S1, S2, regular rate. LUNGS: Clear to auscultation bilaterally. ABDOMEN: Soft, nontender. Bowel sounds present. EXTREMITIES: No edema. LABORATORY DATA: Listed below. ASSESSMENT AND PLAN: #. Parkinson disease. - On Sinemet and donepezil. - Poor functional status. PFS and case management are assisting on placement arrangement. - Continue physical therapy. - No acute event is reported. #. Left hip fracture status hemiarthroplasty - Left hemiarthroplasty on 10/17/2018. Patient was in acute rehabilitation unit (ARU) for rehab in October 2018. - According to the family members, they are not able to take care of the patient at home anymore. Patient needs placement #. History of hypertension. - On amlodipine. Blood pressure in satisfactory range. No adjustment needed. #. History of gastroesophageal reflux disease. - Continue to monitor. Patient is not on any home medication. #. Deep venous thrombosis (DVT) prophylaxis. On heparin. A-FIB/CHADSVASC A-FIB History Current/History of A-Fib/PAF?: No VS,Fishbone, I+O VS, Fishbone, I+O Vital Signs Date Time Temp Pulse Resp B/P (MAP) Pulse Ox O2 Delivery O2 Flow Rate FiO2 02/26/19 08:37 74 145/77 02/26/19 06:00 97.2 15 96 I&O- Last 24 Hours up to 6 AM 02/26/19 06:00 Intake Total 350 ml Output Total 0 ml Balance 350 ml SANDRA BABCOCK DO February 26, 2019 12:42
[2019-02-26] MEDS: ACETAMINOPHEN 500 MG TAB PO PRN (15:58)
[2019-02-26] MEDS: DONEPEZIL 5 MG TAB PO SCH (20:00)
[2019-02-26] MEDS: PYRIDOXINE 50 MG TAB PO SCH (20:00)
[2019-02-26] MEDS: AMANTADINE 100 MG CAP PO SCH (20:00)
[2019-02-27 06:00] VITALS: BP 159/69
[2019-02-27] MEDS: SINEMET 25-100 MG TAB PO SCH ×5 (06:04→19:43)
[2019-02-27] MEDS: HEPARIN SOD (PORCINE) 5000 UNITS/ML VIAL SQ SCH ×3 (06:04→21:03)
[2019-02-27 07:22] LABS: HEMATOCRIT 40.5 % (42.0-52.0); HEMOGLOBIN 13.4 g/dl (13.5-17.5); MEAN CORPUSCULAR HGB CONC 33.1 g/dl (32.0-36.5); MEAN CORPUSCULAR VOLUME 90.8 fl (80.0-96.0); PLATELET COUNT, AUTOMATED 179 10^3/uL (150-450); RED BLOOD COUNT 4.46 10^6/uL (4.30-6.10); WHITE BLOOD COUNT 6.5 10^3/uL (4.0-10.0)
[2019-02-27 07:48] LABS: BLOOD UREA NITROGEN 24 MG/DL (7-18); CALCIUM LEVEL 9.1 MG/DL (8.8-10.2); CARBON DIOXIDE LEVEL 26 MEQ/L (21-32); CHLORIDE LEVEL 108 MEQ/L (98-107); CREATININE FOR GFR 0.94 MG/DL (0.70-1.30); GLOMERULAR FILTRATION RATE > 60.0 (>42); GLUCOSE, FASTING 95 MG/DL (70-100); MAGNESIUM LEVEL 2.1 MG/DL (1.8-2.4); POTASSIUM SERUM 3.9 MEQ/L (3.5-5.1); SODIUM LEVEL 140 MEQ/L (136-145)
[2019-02-27] MEDS: amLODIPine 10 MG TAB PO SCH (09:13)
[2019-02-27] MEDS: ASPIRIN 81 MG ENTERIC TAB PO SCH (09:13)
[2019-02-27] MEDS: VITAMIN D 1,000 INTERNATIONAL UNITS TABLET PO SCH (09:13)
[2019-02-27] MEDS: PANTOPRAZOLE 40MG TAB (PROTONIX) PO SCH (09:13)
--- NOTE | 2019-02-27 14:30 | IPNPDOC ---
Text Note Date of Service The patient was seen on 02/27/19. NOTE SUBJECTIVE: Patient is seen and examined in the room today. He had upset stomach yesterday. He states his GI symptoms have improved. Denies loss of appetite. Denies nausea or vomiting. No event is reported. Denied any acute complaint. OBJECTIVE: VITAL SIGNS: Listed below. GENERAL: Alert and awake, comfortable. HEENT: Normocephalic, atraumatic. Extraocular motor grossly intact. CARDIOVASCULAR: Positive S1, S2, regular rate. LUNGS: Clear to auscultation bilaterally. ABDOMEN: Soft, nontender. Bowel sounds present. EXTREMITIES: No edema. LABORATORY DATA: Listed below. ASSESSMENT AND PLAN: #. Parkinson disease. - On Sinemet and donepezil. - Poor functional status. PFS and case management are assisting on placement arrangement. - Continue physical therapy. - No acute event is reported. # Dyspepsia. - Improving. Trial of protonix. #. Left hip fracture status hemiarthroplasty - Left hemiarthroplasty on 10/17/2018. Patient was in acute rehabilitation unit (ARU) for rehab in October 2018. - According to the family members, they are not able to take care of the patient at home anymore. Patient needs placement #. History of hypertension. - On amlodipine. Blood pressure in satisfactory range. No adjustment needed. #. History of gastroesophageal reflux disease. - Continue to monitor. Patient is not on any home medication. #. Deep venous thrombosis (DVT) prophylaxis. On heparin. A-FIB/CHADSVASC A-FIB History Current/History of A-Fib/PAF?: No VS,Fishbone, I+O VS, Fishbone, I+O Laboratory Tests 02/27/19 07:13 Red Blood Count 4.46, Mean Corpuscular Volume 90.8, Mean Corpuscular Hemoglobin 30.0, Mean Corpuscular Hemoglobin Concent 33.1, Red Cell Distribution Width 12.9, Calcium Level 9.1 Vital Signs Date Time Temp Pulse Resp B/P (MAP) Pulse Ox O2 Delivery O2 Flow Rate FiO2 02/27/19 09:13 74 159/69 02/27/19 06:00 97.4 20 96 I&O- Last 24 Hours up to 6 AM 02/27/19 06:00 Intake Total 220 ml Output Total 200 ml Balance 20 ml SANDRA BABCOCK DO February 27, 2019 14:30
[2019-02-27] MEDS: PYRIDOXINE 50 MG TAB PO SCH (21:03)
[2019-02-27] MEDS: AMANTADINE 100 MG CAP PO SCH (21:04)
[2019-02-27] MEDS: DONEPEZIL 5 MG TAB PO SCH (21:04)
[2019-02-27] MEDS: ACETAMINOPHEN 500 MG TAB PO PRN (21:04)
[2019-02-28 06:00] VITALS: BP 135/66
[2019-02-28] MEDS: HEPARIN SOD (PORCINE) 5000 UNITS/ML VIAL SQ SCH ×2 (06:15→13:20)
[2019-02-28] MEDS: SINEMET 25-100 MG TAB PO SCH ×5 (06:16→18:42)
[2019-02-28] MEDS: PANTOPRAZOLE 40MG TAB (PROTONIX) PO SCH (08:58)
[2019-02-28] MEDS: amLODIPine 10 MG TAB PO SCH (08:58)
[2019-02-28] MEDS: ASPIRIN 81 MG ENTERIC TAB PO SCH (08:58)
[2019-02-28] MEDS: VITAMIN D 1,000 INTERNATIONAL UNITS TABLET PO SCH (08:58)
--- NOTE | 2019-02-28 17:45 | IPNPDOC ---
Text Note Date of Service The patient was seen on 02/28/19. NOTE SUBJECTIVE: Patient is seen and examined in the room today. He states his GI discomfort has resolved completely. He states he does not want to get heparin anymore. Denies nausea or vomiting. No event is reported. Denied any acute complaint. OBJECTIVE: VITAL SIGNS: Listed below. GENERAL: Alert and awake, comfortable. HEENT: Normocephalic, atraumatic. Extraocular motor grossly intact. CARDIOVASCULAR: Positive S1, S2, regular rate. LUNGS: Clear to auscultation bilaterally. ABDOMEN: Soft, nontender. Bowel sounds present. EXTREMITIES: No edema. LABORATORY DATA: Listed below. ASSESSMENT AND PLAN: #. Parkinson disease. - On Sinemet and donepezil. - Poor functional status. PFS and case management are assisting on placement arrangement. - Continue physical therapy. - No acute event is reported. # Dyspepsia. - Improving. Trial of protonix. #. Left hip fracture status hemiarthroplasty - Left hemiarthroplasty on 10/17/2018. Patient was in acute rehabilitation unit (ARU) for rehab in October 2018. - According to the family members, they are not able to take care of the patient at home anymore. Patient needs placement #. History of hypertension. - On amlodipine. Blood pressure in satisfactory range. No adjustment needed. #. History of gastroesophageal reflux disease. - Continue to monitor. Patient is not on any home medication. #. Deep venous thrombosis (DVT) prophylaxis. On JILLIAN Compression. A-FIB/CHADSVASC A-FIB History Current/History of A-Fib/PAF?: No VS,Fishbone, I+O VS, Fishbone, I+O Vital Signs Date Time Temp Pulse Resp B/P (MAP) Pulse Ox O2 Delivery O2 Flow Rate FiO2 02/28/19 08:58 74 135/66 02/28/19 06:00 98.7 16 92 I&O- Last 24 Hours up to 6 AM 02/28/19 06:00 Intake Total 1100 ml Output Total 175 ml Balance 925 ml SANDRA BABCOCK DO February 28, 2019 17:45
[2019-02-28] MEDS: PYRIDOXINE 50 MG TAB PO SCH (21:36)
[2019-02-28] MEDS: DONEPEZIL 5 MG TAB PO SCH (21:36)
[2019-02-28] MEDS: AMANTADINE 100 MG CAP PO SCH (21:37)
[2019-03-01 06:00] VITALS: BP 138/66
[2019-03-01] MEDS: SINEMET 25-100 MG TAB PO SCH ×5 (06:28→19:22)
[2019-03-01 08:46] LABS: HEMATOCRIT 42.4 % (42.0-52.0); HEMOGLOBIN 13.8 g/dl (13.5-17.5); MEAN CORPUSCULAR HEMOGLOBIN 30.4 pg (27.0-33.0); MEAN CORPUSCULAR HGB CONC 32.5 g/dl (32.0-36.5); MEAN CORPUSCULAR VOLUME 93.4 fl (80.0-96.0); PLATELET COUNT, AUTOMATED 187 10^3/uL (150-450); RED BLOOD COUNT 4.54 10^6/uL (4.30-6.10); WHITE BLOOD COUNT 5.8 10^3/uL (4.0-10.0)
[2019-03-01] MEDS: PANTOPRAZOLE 40MG TAB (PROTONIX) PO SCH (08:52)
[2019-03-01] MEDS: VITAMIN D 1,000 INTERNATIONAL UNITS TABLET PO SCH (08:52)
[2019-03-01] MEDS: ASPIRIN 81 MG ENTERIC TAB PO SCH (08:53)
[2019-03-01] MEDS: amLODIPine 10 MG TAB PO SCH (08:53)
[2019-03-01 09:18] LABS: BLOOD UREA NITROGEN 21 MG/DL (7-18); CARBON DIOXIDE LEVEL 27 MEQ/L (21-32); CHLORIDE LEVEL 106 MEQ/L (98-107); CREATININE FOR GFR 1.07 MG/DL (0.70-1.30); GLOMERULAR FILTRATION RATE > 60.0 (>42); GLUCOSE, FASTING 138 MG/DL (70-100); SODIUM LEVEL 141 MEQ/L (136-145)
[2019-03-01 14:00] VITALS: BP 131/71
--- NOTE | 2019-03-01 16:57 | IPNPDOC ---
Text Note Date of Service The patient was seen on 03/01/19. NOTE SUBJECTIVE: Patient is seen and examined in the room today. He did not finish his breakfast. He denies abdominal pain or poor appetite or any GI upset. Denied any acute complaint. OBJECTIVE: VITAL SIGNS: Listed below. GENERAL: Alert and awake, comfortable. HEENT: Normocephalic, atraumatic. Extraocular motor grossly intact. CARDIOVASCULAR: Positive S1, S2, regular rate. LUNGS: Clear to auscultation bilaterally. ABDOMEN: Soft, nontender. Bowel sounds present. EXTREMITIES: No edema. LABORATORY DATA: Listed below. ASSESSMENT AND PLAN: #. Parkinson disease. - On Sinemet and donepezil. - Poor functional status. PFS and case management are assisting on placement arrangement. - Continue physical therapy. - No acute event is reported. # Dyspepsia. - Resolved. On protonix. #. Left hip fracture status hemiarthroplasty - Left hemiarthroplasty on 10/17/2018. Patient was in acute rehabilitation unit ([facility]U) for rehab in October 2018. - According to the family members, they are not able to take care of the patient at home anymore. Patient needs placement #. History of hypertension. - On amlodipine. Blood pressure in satisfactory range. No adjustment needed. #. History of gastroesophageal reflux disease. - Continue to monitor. Patient is not on any home medication. #. Deep venous thrombosis (DVT) prophylaxis. On JILLIAN Compression. A-FIB/CHADSVASC A-FIB History Current/History of A-Fib/PAF?: No VS,Fishbone, I+O VS, Fishbone, I+O Laboratory Tests 03/01/19 08:34 Red Blood Count 4.54, Mean Corpuscular Volume 93.4, Mean Corpuscular Hemoglobin 30.4, Mean Corpuscular Hemoglobin Concent 32.5, Red Cell Distribution Width 13.0, Calcium Level 9.0 Vital Signs Date Time Temp Pulse Resp B/P (MAP) Pulse Ox O2 Delivery O2 Flow Rate FiO2 03/01/19 14:00 97.1 86 17 131/71 (91) 99 I&O- Last 24 Hours up to 6 AM 03/01/19 06:00 Intake Total 420 ml Output Total 1125 ml Balance -705 ml SANDRA BABCOCK DO March 01, 2019 16:57
[2019-03-01] MEDS: PYRIDOXINE 50 MG TAB PO SCH (20:42)
[2019-03-01] MEDS: AMANTADINE 100 MG CAP PO SCH (20:42)
[2019-03-01] MEDS: DONEPEZIL 5 MG TAB PO SCH (20:42)
[2019-03-02 06:00] VITALS: BP 136/71
[2019-03-02] MEDS: SINEMET 25-100 MG TAB PO SCH ×5 (06:10→18:08)
[2019-03-02 08:27] LABS: HEMATOCRIT 41.7 % (42.0-52.0); HEMOGLOBIN 13.6 g/dl (13.5-17.5); MEAN CORPUSCULAR HEMOGLOBIN 30.4 pg (27.0-33.0); MEAN CORPUSCULAR HGB CONC 32.6 g/dl (32.0-36.5); MEAN CORPUSCULAR VOLUME 93.3 fl (80.0-96.0); PLATELET COUNT, AUTOMATED 185 10^3/uL (150-450); RED BLOOD COUNT 4.47 10^6/uL (4.30-6.10); WHITE BLOOD COUNT 5.5 10^3/uL (4.0-10.0)
[2019-03-02 08:55] LABS: BLOOD UREA NITROGEN 19 MG/DL (7-18); CALCIUM LEVEL 8.9 MG/DL (8.8-10.2); CARBON DIOXIDE LEVEL 26 MEQ/L (21-32); CHLORIDE LEVEL 107 MEQ/L (98-107); CREATININE FOR GFR 0.96 MG/DL (0.70-1.30); GLOMERULAR FILTRATION RATE > 60.0 (>42); GLUCOSE, FASTING 100 MG/DL (70-100); MAGNESIUM LEVEL 1.8 MG/DL (1.8-2.4); POTASSIUM SERUM 4.1 MEQ/L (3.5-5.1); SODIUM LEVEL 141 MEQ/L (136-145)
[2019-03-02] MEDS: PANTOPRAZOLE 40MG TAB (PROTONIX) PO SCH (09:34)
[2019-03-02] MEDS: ASPIRIN 81 MG ENTERIC TAB PO SCH (09:34)
[2019-03-02] MEDS: VITAMIN D 1,000 INTERNATIONAL UNITS TABLET PO SCH (09:34)
[2019-03-02] MEDS: amLODIPine 10 MG TAB PO SCH (09:36)
[2019-03-02] MEDS: NYSTATIN 100,000 UNITS/GM TOPICAL PWD 15 GM TOP PRN (16:12)
--- NOTE | 2019-03-02 18:06 | IPNPDOC ---
Text Note Date of Service The patient was seen on 03/02/19. NOTE SUBJECTIVE: Patient is seen and examined in the room today. He did not finish all his meal. He thinks he has poor appetite. Denies GI discomfort. OBJECTIVE: VITAL SIGNS: Listed below. GENERAL: Alert and awake, comfortable. HEENT: Normocephalic, atraumatic. Extraocular motor grossly intact. CARDIOVASCULAR: Positive S1, S2, regular rate. LUNGS: Clear to auscultation bilaterally. ABDOMEN: Soft, nontender. Bowel sounds present. EXTREMITIES: No edema. LABORATORY DATA: Listed below. ASSESSMENT AND PLAN: #. Parkinson disease. - On Sinemet and donepezil. - Poor functional status. PFS and case management are assisting on placement arrangement. - Continue physical therapy. - No acute event is reported. # Dyspepsia. - Resolved. On protonix. - Trial of dietary supplement. #. Left hip fracture status hemiarthroplasty - Left hemiarthroplasty on 10/17/2018. Patient was in acute rehabilitation unit ([facility]U) for rehab in October 2018. - According to the family members, they are not able to take care of the patient at home anymore. Patient needs placement #. History of hypertension. - On amlodipine. Blood pressure in satisfactory range. No adjustment needed. #. History of gastroesophageal reflux disease. - Continue to monitor. Patient is not on any home medication. #. Deep venous thrombosis (DVT) prophylaxis. On JILLIAN Compression. A-FIB/CHADSVASC A-FIB History Current/History of A-Fib/PAF?: No VS,Fishbone, I+O VS, Fishbone, I+O Laboratory Tests 03/02/19 07:50 Red Blood Count 4.47, Mean Corpuscular Volume 93.3, Mean Corpuscular Hemoglobin 30.4, Mean Corpuscular Hemoglobin Concent 32.6, Red Cell Distribution Width 13.2, Calcium Level 8.9 Vital Signs Date Time Temp Pulse Resp B/P (MAP) Pulse Ox O2 Delivery O2 Flow Rate FiO2 03/02/19 09:36 72 138/72 03/02/19 06:00 97.5 17 98 I&O- Last 24 Hours up to 6 AM 03/02/19 06:00 Intake Total 1440 ml Output Total 650 ml Balance 790 ml SANDRA BABCOCK DO March 02, 2019 18:06
[2019-03-02] MEDS: PYRIDOXINE 50 MG TAB PO SCH (20:30)
[2019-03-02] MEDS: DONEPEZIL 5 MG TAB PO SCH (20:30)
[2019-03-02] MEDS: AMANTADINE 100 MG CAP PO SCH (20:30)
[2019-03-03 05:24] LABS: HEMATOCRIT 40.9 % (42.0-52.0); HEMOGLOBIN 13.6 g/dl (13.5-17.5); MEAN CORPUSCULAR HEMOGLOBIN 30.4 pg (27.0-33.0); MEAN CORPUSCULAR HGB CONC 33.3 g/dl (32.0-36.5); MEAN CORPUSCULAR VOLUME 91.3 fl (80.0-96.0); PLATELET COUNT, AUTOMATED 187 10^3/uL (150-450); RED BLOOD COUNT 4.48 10^6/uL (4.30-6.10); WHITE BLOOD COUNT 6.1 10^3/uL (4.0-10.0)
[2019-03-03 05:42] LABS: BLOOD UREA NITROGEN 17 MG/DL (7-18); CALCIUM LEVEL 8.8 MG/DL (8.8-10.2); CARBON DIOXIDE LEVEL 28 MEQ/L (21-32); CHLORIDE LEVEL 107 MEQ/L (98-107); CREATININE FOR GFR 1.05 MG/DL (0.70-1.30); GLOMERULAR FILTRATION RATE > 60.0 (>42); GLUCOSE, FASTING 96 MG/DL (70-100); MAGNESIUM LEVEL 1.9 MG/DL (1.8-2.4); POTASSIUM SERUM 3.8 MEQ/L (3.5-5.1); SODIUM LEVEL 140 MEQ/L (136-145)
[2019-03-03 06:00] VITALS: BP 130/71
[2019-03-03] MEDS: SINEMET 25-100 MG TAB PO SCH ×5 (06:37→18:12)
[2019-03-03] MEDS: ASPIRIN 81 MG ENTERIC TAB PO SCH (09:52)
[2019-03-03] MEDS: amLODIPine 10 MG TAB PO SCH (09:52)
[2019-03-03] MEDS: PANTOPRAZOLE 40MG TAB (PROTONIX) PO SCH (09:52)
[2019-03-03] MEDS: VITAMIN D 1,000 INTERNATIONAL UNITS TABLET PO SCH (09:52)
--- NOTE | 2019-03-03 13:37 | IPNPDOC ---
Text Note Date of Service The patient was seen on 03/03/19. NOTE SUBJECTIVE: Patient is seen and examined in the room today. Patient states her appetite is fine. Denies stomach discomfort. Denies fever or chill. OBJECTIVE: VITAL SIGNS: Listed below. GENERAL: Alert and awake, comfortable. HEENT: Normocephalic, atraumatic. Extraocular motor grossly intact. CARDIOVASCULAR: Positive S1, S2, regular rate. LUNGS: Clear to auscultation bilaterally. ABDOMEN: Soft, nontender. Bowel sounds present. EXTREMITIES: No edema. LABORATORY DATA: Listed below. ASSESSMENT AND PLAN: #. Parkinson disease. - On Sinemet and donepezil. - Poor functional status. PFS and case management are assisting on placement arrangement. - Continue physical therapy. - No acute event is reported. # Dyspepsia. - History of GERD - Resolved. On protonix. - Trial of dietary supplement. #. Left hip fracture status hemiarthroplasty - Left hemiarthroplasty on 10/17/2018. Patient was in acute rehabilitation unit ([facility]U) for rehab in October 2018. - According to the family members, they are not able to take care of the patient at home anymore. Patient needs placement #. History of hypertension. - On amlodipine. Blood pressure in satisfactory range. No adjustment needed. #. Deep venous thrombosis (DVT) prophylaxis. On JILLIAN Compression. VS,Fishbone, I+O VS, Fishbone, I+O Laboratory Tests 03/03/19 04:35 Red Blood Count 4.48, Mean Corpuscular Volume 91.3, Mean Corpuscular Hemoglobin 30.4, Mean Corpuscular Hemoglobin Concent 33.3, Red Cell Distribution Width 13.1, Calcium Level 8.8 Vital Signs Date Time Temp Pulse Resp B/P (MAP) Pulse Ox O2 Delivery O2 Flow Rate FiO2 03/03/19 06:00 97.8 78 19 130/71 (90) 96 I&O- Last 24 Hours up to 6 AM 03/03/19 05:59 Intake Total 540 ml Output Total 350 ml Balance 190 ml SANDRA BABCOCK DO March 03, 2019 13:37
[2019-03-03] MEDS: AMANTADINE 100 MG CAP PO SCH (20:28)
[2019-03-03] MEDS: PYRIDOXINE 50 MG TAB PO SCH (20:29)
[2019-03-03] MEDS: DONEPEZIL 5 MG TAB PO SCH (20:29)
[2019-03-03 22:00] VITALS: BP 134/74
[2019-03-04 06:00] VITALS: BP_SYST 124
[2019-03-04 06:05] LABS: HEMATOCRIT 40.1 % (42.0-52.0); HEMOGLOBIN 13.3 g/dl (13.5-17.5); MEAN CORPUSCULAR HGB CONC 33.2 g/dl (32.0-36.5); MEAN CORPUSCULAR VOLUME 90.5 fl (80.0-96.0); PLATELET COUNT, AUTOMATED 184 10^3/uL (150-450); RED BLOOD COUNT 4.43 10^6/uL (4.30-6.10); WHITE BLOOD COUNT 7.2 10^3/uL (4.0-10.0)
[2019-03-04 06:23] LABS: BLOOD UREA NITROGEN 23 MG/DL (7-18); CALCIUM LEVEL 8.6 MG/DL (8.8-10.2); CARBON DIOXIDE LEVEL 25 MEQ/L (21-32); CHLORIDE LEVEL 108 MEQ/L (98-107); CREATININE FOR GFR 0.98 MG/DL (0.70-1.30); GLOMERULAR FILTRATION RATE > 60.0 (>42); GLUCOSE, FASTING 93 MG/DL (70-100); MAGNESIUM LEVEL 1.7 MG/DL (1.8-2.4); POTASSIUM SERUM 3.8 MEQ/L (3.5-5.1); SODIUM LEVEL 141 MEQ/L (136-145)
[2019-03-04] MEDS: SINEMET 25-100 MG TAB PO SCH ×5 (07:49→18:47)
[2019-03-04] MEDS: amLODIPine 10 MG TAB PO SCH (09:18)
[2019-03-04] MEDS: VITAMIN D 1,000 INTERNATIONAL UNITS TABLET PO SCH (09:18)
[2019-03-04] MEDS: ASPIRIN 81 MG ENTERIC TAB PO SCH (09:18)
[2019-03-04] MEDS: PANTOPRAZOLE 40MG TAB (PROTONIX) PO SCH (09:18)
[2019-03-04] MEDS: ACETAMINOPHEN 500 MG TAB PO PRN (09:19)
[2019-03-04] MEDS ORDERED: MAGNESIUM OXIDE 400 MG TAB (MAG-OX) PO ONE (10:00)
[2019-03-04] MEDS ORDERED: KETOROLAC TROMETHAMINE 10 MG TAB PO ONE (11:00)
--- NOTE | 2019-03-04 11:14 | IPNPDOC ---
Date Seen The patient was seen on 03/04/19. Progress Note SUBJECTIVE: pt c/o left popliteal fossa pain on prn acetaminophen for rodriguez's cyst. PT is for fdc placement per family request. OBJECTIVE: VITAL SIGNS: Listed below. GENERAL: Alert and awake, comfortable. HEENT: Normocephalic, atraumatic. Extraocular motor grossly intact. CARDIOVASCULAR: Positive S1, S2, regular rate. LUNGS: Clear to auscultation bilaterally. ABDOMEN: Soft, nontender. Bowel sounds present. EXTREMITIES: No edema. LABORATORY DATA: Listed below. ASSESSMENT AND PLAN: 79-year-old gentleman with history of Parkinson's was brought to the emergency department the fourth time by the family members in a month. Patient is almost bed bound after a fall and fracture of left hip. The patient was not able to get out of bed his own or walk around without antoinette tance. Family members were concerned that patient is a high risk of fall, and he was brought to emergency department for further workup. At home, patient was also having intermittent episodes of confusion and visual hallucinations. As per the family members, these episodes might be related to worsening Parkinson's. In the emergency room (ER), patient was found hemodynamically stable with vital signs of temperature 98.2, heart rate 93, respiratory rate 20, blood pressure 130/62, saturating 97% on room air. Workup including urine analysis, chest x- ray, CT head, did not show any acute pathology. Hospitalist's service was consulted to admit the patient for observation for a physical therapy (PT) evaluation. Patient was seen and examined at bedside in the emergency department. Daughter at bedside. Patient was resting comfortably in bed and stated that he is feeling fine and did not have any physical complaint. left LE rodriguez's cyst prn pain meds Parkinson disease. - On Sinemet and donepezil. - Poor functional status. PFS and case management are assisting on placement arrangement. - Continue physical therapy. - No acute event is reported. Dyspepsia. - History of GERD - Resolved. On protonix. - Trial of dietary supplement. Left hip fracture status hemiarthroplasty - Left hemiarthroplasty on 10/17/2018. Patient was in acute rehabilitation unit (ARU) for rehab in October 2018. - According to the family members, they are not able to take care of the patient at home anymore. Patient needs placement History of hypertension. - On amlodipine. Blood pressure in satisfactory range. No adjustment needed. Deep venous thrombosis (DVT) prophylaxis. On JILLIAN Compression. disposition: placement. change to alc/snf status. A-FIB/CHADSVASC A-FIB History Current/History of A-Fib/PAF?: No Current Oral Anticoagulant The: No VS, I&O, 24H, Fishbone Vital Signs/I&O Vital Signs Date Time Temp Pulse Resp B/P (MAP) Pulse Ox O2 Delivery O2 Flow Rate FiO2 03/04/19 06:00 98.4 85 16 124/ (72) 26 I&O- Last 24 Hours up to 6 AM 03/04/19 06:00 Intake Total 930 ml Output Total 200 ml Balance 730 ml Laboratory Data 24H LABS Laboratory Tests 2 03/04/19 05:23: Nucleated Red Blood Cells % (auto) 0.0, Anion Gap 8, Glomerular Filtration Rate > 60.0, Blood Urea Nitrogen 23H, Creatinine 0.98, Sodium Level 141, Potassium Level 3.8, Chloride Level 108H, Carbon Dioxide Level 25, Calcium Level 8.6L, Magnesium Level 1.7L CBC/BMP Laboratory Tests 03/04/19 05:23 Red Blood Count 4.43, Mean Corpuscular Volume 90.5, Mean Corpuscular Hemoglobin 30.0, Mean Corpuscular Hemoglobin Concent 33.2, Red Cell Distribution Width 13.2, Calcium Level 8.6 L JOCELYN VICENTE MD March 04, 2019 11:13
[2019-03-04] MEDS ORDERED: MOM 30ML SUSPENSION UDC PO PRN (11:15)
[2019-03-04] MEDS: PYRIDOXINE 50 MG TAB PO SCH (20:43)
[2019-03-04] MEDS: AMANTADINE 100 MG CAP PO SCH (20:43)
[2019-03-04] MEDS: DONEPEZIL 5 MG TAB PO SCH (20:43)
[2019-03-05 06:00] VITALS: BP 120/62
[2019-03-05] MEDS: SINEMET 25-100 MG TAB PO SCH ×5 (06:29→21:00)
[2019-03-05] MEDS: PANTOPRAZOLE 40MG TAB (PROTONIX) PO SCH (09:02)
[2019-03-05] MEDS: VITAMIN D 1,000 INTERNATIONAL UNITS TABLET PO SCH (09:02)
[2019-03-05] MEDS: ASPIRIN 81 MG ENTERIC TAB PO SCH (09:02)
[2019-03-05] MEDS: amLODIPine 10 MG TAB PO SCH (09:02)
[2019-03-05] MEDS: DONEPEZIL 5 MG TAB PO SCH (21:00)
[2019-03-05] MEDS: AMANTADINE 100 MG CAP PO SCH (21:00)
[2019-03-05] MEDS: PYRIDOXINE 50 MG TAB PO SCH (21:00)
[2019-03-06 06:00] VITALS: BP 127/65
[2019-03-06] MEDS: SINEMET 25-100 MG TAB PO SCH ×5 (06:19→18:26)
[2019-03-06] MEDS: ASPIRIN 81 MG ENTERIC TAB PO SCH (08:26)
[2019-03-06] MEDS: PANTOPRAZOLE 40MG TAB (PROTONIX) PO SCH (08:26)
[2019-03-06] MEDS: amLODIPine 10 MG TAB PO SCH (08:26)
[2019-03-06] MEDS: VITAMIN D 1,000 INTERNATIONAL UNITS TABLET PO SCH (08:27)
[2019-03-06] MEDS: PYRIDOXINE 50 MG TAB PO SCH (20:05)
[2019-03-06] MEDS: DONEPEZIL 5 MG TAB PO SCH (20:05)
[2019-03-06] MEDS: AMANTADINE 100 MG CAP PO SCH (20:05)
[2019-03-07] MEDS: SINEMET 25-100 MG TAB PO SCH ×5 (05:59→19:20)
[2019-03-07 06:00] VITALS: BP 134/67
[2019-03-07] MEDS: VITAMIN D 1,000 INTERNATIONAL UNITS TABLET PO SCH (08:51)
[2019-03-07] MEDS: ASPIRIN 81 MG ENTERIC TAB PO SCH (08:51)
[2019-03-07] MEDS: PANTOPRAZOLE 40MG TAB (PROTONIX) PO SCH (08:51)
[2019-03-07] MEDS: amLODIPine 10 MG TAB PO SCH (08:51)
[2019-03-07] MEDS: DONEPEZIL 5 MG TAB PO SCH (20:18)
[2019-03-07] MEDS: AMANTADINE 100 MG CAP PO SCH (20:18)
[2019-03-07] MEDS: PYRIDOXINE 50 MG TAB PO SCH (20:18)
[2019-03-08 06:00] VITALS: BP 156/69
[2019-03-08] MEDS: SINEMET 25-100 MG TAB PO SCH ×5 (06:01→18:35)
[2019-03-08] MEDS: ACETAMINOPHEN 500 MG TAB PO PRN (10:32)
[2019-03-08] MEDS: PANTOPRAZOLE 40MG TAB (PROTONIX) PO SCH (10:33)
[2019-03-08] MEDS: VITAMIN D 1,000 INTERNATIONAL UNITS TABLET PO SCH (10:33)
[2019-03-08] MEDS: amLODIPine 10 MG TAB PO SCH (10:34)
[2019-03-08] MEDS: ASPIRIN 81 MG ENTERIC TAB PO SCH (10:34)
[2019-03-08] MEDS: AMANTADINE 100 MG CAP PO SCH (20:35)
[2019-03-08] MEDS: DONEPEZIL 5 MG TAB PO SCH (20:35)
[2019-03-08] MEDS: PYRIDOXINE 50 MG TAB PO SCH (20:35)
[2019-03-09] MEDS: SINEMET 25-100 MG TAB PO SCH ×5 (05:59→18:14)
[2019-03-09 06:00] VITALS: BP 156/67
[2019-03-09] MEDS: amLODIPine 10 MG TAB PO SCH (09:40)
[2019-03-09] MEDS: PANTOPRAZOLE 40MG TAB (PROTONIX) PO SCH (09:40)
[2019-03-09] MEDS: VITAMIN D 1,000 INTERNATIONAL UNITS TABLET PO SCH (09:40)
[2019-03-09] MEDS: ASPIRIN 81 MG ENTERIC TAB PO SCH (09:41)
[2019-03-09] MEDS: MIRALAX *UNIT DOSE* 17GM PACKET PO PRN (18:16)
[2019-03-09] MEDS: ACETAMINOPHEN 500 MG TAB PO PRN (18:16)
[2019-03-09] MEDS: DONEPEZIL 5 MG TAB PO SCH (21:05)
[2019-03-09] MEDS: AMANTADINE 100 MG CAP PO SCH (21:05)
[2019-03-09] MEDS: PYRIDOXINE 50 MG TAB PO SCH (21:05)
[2019-03-10 06:00] VITALS: BP 147/72
[2019-03-10] MEDS: SINEMET 25-100 MG TAB PO SCH ×5 (06:10→20:48)
[2019-03-10] MEDS: ASPIRIN 81 MG ENTERIC TAB PO SCH (08:35)
[2019-03-10] MEDS: PANTOPRAZOLE 40MG TAB (PROTONIX) PO SCH (08:35)
[2019-03-10] MEDS: amLODIPine 10 MG TAB PO SCH (08:37)
[2019-03-10] MEDS: VITAMIN D 1,000 INTERNATIONAL UNITS TABLET PO SCH (08:37)
[2019-03-10 11:14] LABS: HEMATOCRIT 42.9 % (42.0-52.0); HEMOGLOBIN 14.4 g/dl (13.5-17.5); MEAN CORPUSCULAR HEMOGLOBIN 31.2 pg (27.0-33.0); MEAN CORPUSCULAR HGB CONC 33.6 g/dl (32.0-36.5); MEAN CORPUSCULAR VOLUME 93.1 fl (80.0-96.0); PLATELET COUNT, AUTOMATED 185 10^3/uL (150-450); RED BLOOD COUNT 4.61 10^6/uL (4.30-6.10); WHITE BLOOD COUNT 8.9 10^3/uL (4.0-10.0)
[2019-03-10 11:41] LABS: BLOOD UREA NITROGEN 21 MG/DL (7-18); CALCIUM LEVEL 9.4 MG/DL (8.8-10.2); CARBON DIOXIDE LEVEL 27 MEQ/L (21-32); CHLORIDE LEVEL 107 MEQ/L (98-107); CREATININE FOR GFR 1.03 MG/DL (0.70-1.30); GLOMERULAR FILTRATION RATE > 60.0 (>42); GLUCOSE, FASTING 114 MG/DL (70-100); POTASSIUM SERUM 4.2 MEQ/L (3.5-5.1); SODIUM LEVEL 140 MEQ/L (136-145)
[2019-03-10] MEDS: PYRIDOXINE 50 MG TAB PO SCH (20:48)
[2019-03-10] MEDS: AMANTADINE 100 MG CAP PO SCH (20:48)
[2019-03-10] MEDS: DONEPEZIL 5 MG TAB PO SCH (20:48)
[2019-03-11 06:00] VITALS: BP 125/74
[2019-03-11] MEDS: SINEMET 25-100 MG TAB PO SCH ×5 (06:30→18:26)
[2019-03-11] MEDS: PANTOPRAZOLE 40MG TAB (PROTONIX) PO SCH (08:20)
[2019-03-11] MEDS: ASPIRIN 81 MG ENTERIC TAB PO SCH (08:20)
[2019-03-11] MEDS: VITAMIN D 1,000 INTERNATIONAL UNITS TABLET PO SCH (08:20)
[2019-03-11] MEDS: amLODIPine 10 MG TAB PO SCH (09:18)
--- NOTE | 2019-03-11 10:23 | IPN ---
DATE: 03/11/2019 Kwabena is on custodial facility (SNF) level. He is on the hospitalist service. He expresses no change in his status or any concerns compared to last week. PHYSICAL EXAMINATION: Vital signs stable. Alert, conversant. Lungs clear. Heart, regular rhythm. Abdomen soft, nontender. No peripheral edema. LABS: CBC and BMP from yesterday are stable. IMPRESSION: Parkinson's disease. PLAN: Awaiting placement. His status is unchanged from last week. He expresses no concerns or issues. He has lab work already ordered going forward.
[2019-03-11] MEDS: DONEPEZIL 5 MG TAB PO SCH (20:58)
[2019-03-11] MEDS: PYRIDOXINE 50 MG TAB PO SCH (20:58)
[2019-03-11] MEDS: AMANTADINE 100 MG CAP PO SCH (20:58)
[2019-03-12 06:00] VITALS: BP 122/73
[2019-03-12] MEDS: SINEMET 25-100 MG TAB PO SCH ×5 (06:13→18:51)
[2019-03-12] MEDS: ASPIRIN 81 MG ENTERIC TAB PO SCH (09:09)
[2019-03-12] MEDS: VITAMIN D 1,000 INTERNATIONAL UNITS TABLET PO SCH (09:09)
[2019-03-12] MEDS: PANTOPRAZOLE 40MG TAB (PROTONIX) PO SCH (09:09)
[2019-03-12] MEDS: amLODIPine 10 MG TAB PO SCH (09:10)
[2019-03-12] MEDS: AMANTADINE 100 MG CAP PO SCH (21:03)
[2019-03-12] MEDS: DONEPEZIL 5 MG TAB PO SCH (21:03)
[2019-03-12] MEDS: PYRIDOXINE 50 MG TAB PO SCH (21:03)
[2019-03-12] MEDS: NYSTATIN 100,000 UNITS/GM TOPICAL PWD 15 GM TOP PRN (21:04)
[2019-03-12 22:00] VITALS: BP 117/58
[2019-03-13 06:00] VITALS: BP 144/81
[2019-03-13] MEDS: SINEMET 25-100 MG TAB PO SCH ×5 (06:41→18:50)
[2019-03-13] MEDS: ASPIRIN 81 MG ENTERIC TAB PO SCH (07:48)
[2019-03-13] MEDS: PANTOPRAZOLE 40MG TAB (PROTONIX) PO SCH (07:48)
[2019-03-13] MEDS: amLODIPine 10 MG TAB PO SCH (07:48)
[2019-03-13] MEDS: VITAMIN D 1,000 INTERNATIONAL UNITS TABLET PO SCH (07:48)
[2019-03-13] MEDS: PYRIDOXINE 50 MG TAB PO SCH (20:57)
[2019-03-13] MEDS: AMANTADINE 100 MG CAP PO SCH (20:57)
[2019-03-13] MEDS: DONEPEZIL 5 MG TAB PO SCH (20:57)
[2019-03-14] MEDS: SINEMET 25-100 MG TAB PO SCH ×5 (06:31→18:12)
[2019-03-14] MEDS: PANTOPRAZOLE 40MG TAB (PROTONIX) PO SCH (10:15)
[2019-03-14] MEDS: amLODIPine 10 MG TAB PO SCH (10:15)
[2019-03-14] MEDS: VITAMIN D 1,000 INTERNATIONAL UNITS TABLET PO SCH (10:15)
[2019-03-14] MEDS: ASPIRIN 81 MG ENTERIC TAB PO SCH (10:15)
[2019-03-14 14:00] VITALS: BP 118/71
[2019-03-14] MEDS: PYRIDOXINE 50 MG TAB PO SCH (21:13)
[2019-03-14] MEDS: AMANTADINE 100 MG CAP PO SCH (21:13)
[2019-03-14] MEDS: DONEPEZIL 5 MG TAB PO SCH (21:13)
[2019-03-15 06:00] VITALS: BP 121/73
[2019-03-15] MEDS: SINEMET 25-100 MG TAB PO SCH ×5 (06:17→18:54)
[2019-03-15 07:59] LABS: MAGNESIUM LEVEL 2.2 MG/DL (1.8-2.4)
[2019-03-15] MEDS: amLODIPine 10 MG TAB PO SCH (08:07)
[2019-03-15] MEDS: PANTOPRAZOLE 40MG TAB (PROTONIX) PO SCH (08:07)
[2019-03-15] MEDS: VITAMIN D 1,000 INTERNATIONAL UNITS TABLET PO SCH (08:07)
[2019-03-15] MEDS: ASPIRIN 81 MG ENTERIC TAB PO SCH (08:07)
[2019-03-15] MEDS: PYRIDOXINE 50 MG TAB PO SCH (20:31)
[2019-03-15] MEDS: AMANTADINE 100 MG CAP PO SCH (20:31)
[2019-03-15] MEDS: DONEPEZIL 5 MG TAB PO SCH (20:31)
[2019-03-15] MEDS: NYSTATIN 100,000 UNITS/GM TOPICAL PWD 15 GM TOP PRN (20:46)
[2019-03-16 06:00] VITALS: BP 150/73
[2019-03-16] MEDS: SINEMET 25-100 MG TAB PO SCH ×5 (06:29→19:09)
[2019-03-16] MEDS: VITAMIN D 1,000 INTERNATIONAL UNITS TABLET PO SCH (09:26)
[2019-03-16] MEDS: amLODIPine 10 MG TAB PO SCH (09:26)
[2019-03-16] MEDS: PANTOPRAZOLE 40MG TAB (PROTONIX) PO SCH (09:26)
[2019-03-16] MEDS: ASPIRIN 81 MG ENTERIC TAB PO SCH (09:26)
[2019-03-16] MEDS: AMANTADINE 100 MG CAP PO SCH (21:18)
[2019-03-16] MEDS: DONEPEZIL 5 MG TAB PO SCH (21:19)
[2019-03-16] MEDS: PYRIDOXINE 50 MG TAB PO SCH (21:19)
[2019-03-16] MEDS: NYSTATIN 100,000 UNITS/GM TOPICAL PWD 15 GM TOP PRN (21:40)
[2019-03-17] MEDS: SINEMET 25-100 MG TAB PO SCH ×5 (06:37→19:00)
[2019-03-17 07:33] VITALS: BP 146/75
[2019-03-17] MEDS: ASPIRIN 81 MG ENTERIC TAB PO SCH (09:59)
[2019-03-17] MEDS: amLODIPine 10 MG TAB PO SCH (09:59)
[2019-03-17] MEDS: PANTOPRAZOLE 40MG TAB (PROTONIX) PO SCH (09:59)
[2019-03-17] MEDS: VITAMIN D 1,000 INTERNATIONAL UNITS TABLET PO SCH (10:00)
[2019-03-17 11:52] LABS: HEMATOCRIT 40.6 % (42.0-52.0); HEMOGLOBIN 13.4 g/dl (13.5-17.5); MEAN CORPUSCULAR HEMOGLOBIN 30.5 pg (27.0-33.0); MEAN CORPUSCULAR VOLUME 92.5 fl (80.0-96.0); PLATELET COUNT, AUTOMATED 187 10^3/uL (150-450); RED BLOOD COUNT 4.39 10^6/uL (4.30-6.10); WHITE BLOOD COUNT 6.6 10^3/uL (4.0-10.0)
[2019-03-17 12:12] LABS: BLOOD UREA NITROGEN 20 MG/DL (7-18); CALCIUM LEVEL 9.1 MG/DL (8.8-10.2); CARBON DIOXIDE LEVEL 28 MEQ/L (21-32); CHLORIDE LEVEL 107 MEQ/L (98-107); CREATININE FOR GFR 1.04 MG/DL (0.70-1.30); GLOMERULAR FILTRATION RATE > 60.0 (>42); GLUCOSE, FASTING 102 MG/DL (70-100); SODIUM LEVEL 142 MEQ/L (136-145)
[2019-03-17] MEDS: PYRIDOXINE 50 MG TAB PO SCH (21:17)
[2019-03-17] MEDS: DONEPEZIL 5 MG TAB PO SCH (21:17)
[2019-03-17] MEDS: AMANTADINE 100 MG CAP PO SCH (21:17)
[2019-03-18 06:00] VITALS: BP 143/77
[2019-03-18] MEDS: SINEMET 25-100 MG TAB PO SCH ×5 (06:48→18:01)
[2019-03-18] MEDS: VITAMIN D 1,000 INTERNATIONAL UNITS TABLET PO SCH (09:11)
[2019-03-18] MEDS: PANTOPRAZOLE 40MG TAB (PROTONIX) PO SCH (09:11)
[2019-03-18] MEDS: ASPIRIN 81 MG ENTERIC TAB PO SCH (09:11)
[2019-03-18] MEDS: amLODIPine 10 MG TAB PO SCH (09:11)
[2019-03-18] MEDS: MIRALAX *UNIT DOSE* 17GM PACKET PO PRN (09:17)
--- NOTE | 2019-03-18 18:59 | IPNPDOC ---
Subjective Date Seen The patient was seen on 03/18/19. Subjective Chief Complaint/HPI Ambulatory dysfunction/weakness Events since last encounter Patient complains of pain in his right knee. Reports his left hip does not hurt as much. Denies any chest shortness of breath. No cough/fever/chills or sweats. Tolerating oral intake. No nausea or vomiting. No problems of bladder/bowel habits. Objective Physical Examination General Exam: Positive: Alert, No Acute Distress Eye Exam: Positive: PERRLA ENT Exam: Positive: Mucous membr. moist/pink Chest Exam: Positive: Clear to auscultation; Negative: Rales, Rhonchi, Wheezing Heart Exam: Positive: Rate Normal, Other (S1 and S2 heard, no rubs or gallops) Abdomen Exam: Positive: Soft; Negative: Tenderness Neuro Exam: Positive: Other (awake, alert, thought month is March but otherwise oriented to place and person. Moving all 4 extremities to command.) Assessment /Plan Assessment Current Medications Acetaminophen (Tylenol Tab) 1,000 mg TID PRN PO PAIN Last administered on 03/09/19at 18:16; Start 02/12/19 at 22:30 Amantadine HCl (Symmetrel Syrup) 150 mg QHS PO Last administered on 02/13/19at 00:53; Start 02/12/19 at 21:00; Stop 02/13/19 at 14:58; Status DC Amantadine HCl (Symmetrel) 100 mg QHS PO Last administered on 03/17/19at 21:17; Start 02/13/19 at 21:00 Amantadine HCl (Symmetrel) 150 mg QHS PO ; Start 02/12/19 at 21:00; Stop 02/13/19 at 00:39; Status DC Amlodipine Besylate (Norvasc) 10 mg DAILY PO Last administered on 03/18/19 09:11; Start 02/14/19 at 13:15 Aspirin (Ecotrin) 81 mg DAILY PO Last administered on 03/18/19 09:11; Start 02/13/19 at 09:00 Carbidopa/Levodopa (Sinemet 25/100) 1 tab TID@1300,1600,1900 PO Last administered on 03/18/19 18:01; Start 02/13/19 at 13:00 Carbidopa/Levodopa (Sinemet 25/100) 2 tab BID@0700,1000 PO Last administered on 03/18/19 09:11; Start 02/13/19 at 07:00 Donepezil HCl (AriCEPT) 10 mg QHS PO Last administered on 03/17/19 21:17; Start 02/12/19 at 23:00 Heparin Sodium (Porcine) (Heparin) 5,000 units Q8H SQ Last administered on 02/28/19 13:20; Start 02/13/19 at 14:00; Stop 02/28/19 at 13:56; Status DC Home Med (Med Rec Complete!) ASDIRECTED XX ; Start 02/12/19 at 20:45; Stop 02/12/19 at 20:45; Status DC Magnesium Hydroxide (Milk Of Magnesia) 30 ml DAILYPRN PRN PO CONSTIPATION Last administered on 03/09/19 10:43; Start 03/04/19 at 11:15 Nystatin (Mycostatin Powder, Nystop) 1 dose BIDP PRN TOP RASH Last administered on 03/16/19 21:40; Start 02/14/19 at 01:30 Pantoprazole Sodium (Protonix) 40 mg DAILY PO Last administered on 03/18/19 09:11; Start 02/27/19 at 09:00 Polyethylene Glycol (Miralax) 1 pkt BIDP PRN PO constipation Last administered on 03/18/19 09:17; Start 03/09/19 at 16:30 Pyridoxine HCl (Vitamin B6) 50 mg QHS PO Last administered on 03/17/19 21:17; Start 02/12/19 at 21:00 Vitamin D (Vitamin D) 2,000 units DAILY PO Last administered on 03/18/19 09:11; Start 02/13/19 at 09:00 Left LE rodriguez's cyst -Ct prn pain meds /prn acetaminophen -Added topical lidocaine/when necessary Biofreeze Parkinson disease. -Ct Sinemet and donepezil. -Ct PT/OT Dyspepsia. -Ct PPI h/o Left hip fracture status hemiarthroplasty -Left hemiarthroplasty on 10/17/2018. Patient was in acute rehabilitation unit (ARU) for rehab in October 2018. -According to the family members, they are not able to take care of the patient at home anymore. Patient awaiting placement - per d/w CM today, patient is thinking of hiring private caregivers and possibly going home as well for long- term care placement. However, caser has been unable to reach patient's family and it is unclear as to the patient's financial situation and if he is able to afford caregivers. Hypertension. -Ct amlodipine. DVT PPX: -Teds Plan/VTE VTE Prophylaxis Ordered?: Yes VS, I&O, 24H, Fishbone Vital Signs/I&O Vital Signs Date Time Temp Pulse Resp B/P (MAP) Pulse Ox O2 Delivery O2 Flow Rate FiO2 03/18/19 06:00 98.2 83 17 143/77 (99) 97 I&O- Last 24 Hours up to 6 AM 03/18/19 05:59 Intake Total 1523 ml Output Total 400 ml Balance 1123 ml VIANEY BERGERON MD March 18, 2019 18:59
[2019-03-18] MEDS: AMANTADINE 100 MG CAP PO SCH (20:30)
[2019-03-18] MEDS: PYRIDOXINE 50 MG TAB PO SCH (20:30)
[2019-03-18] MEDS: DONEPEZIL 5 MG TAB PO SCH (20:30)
[2019-03-19 06:00] VITALS: BP 132/70
[2019-03-19] MEDS: SINEMET 25-100 MG TAB PO SCH ×5 (06:21→19:38)
[2019-03-19] MEDS: LIDOCAINE 5% (LIDODERM) PATCH TD SCH (08:38)
[2019-03-19] MEDS: PANTOPRAZOLE 40MG TAB (PROTONIX) PO SCH (08:39)
[2019-03-19] MEDS: ASPIRIN 81 MG ENTERIC TAB PO SCH (08:39)
[2019-03-19] MEDS: VITAMIN D 1,000 INTERNATIONAL UNITS TABLET PO SCH (08:39)
[2019-03-19] MEDS: amLODIPine 10 MG TAB PO SCH (08:39)
[2019-03-19] MEDS: PYRIDOXINE 50 MG TAB PO SCH (20:09)
[2019-03-19] MEDS: AMANTADINE 100 MG CAP PO SCH (20:09)
[2019-03-19] MEDS: DONEPEZIL 5 MG TAB PO SCH (20:09)
[2019-03-19] MEDS: **NOTE PATIENT COMMENT** MISC XX SCH (20:13)
[2019-03-20 06:00] VITALS: BP 145/79
[2019-03-20] MEDS: SINEMET 25-100 MG TAB PO SCH ×5 (06:33→20:29)
[2019-03-20] MEDS: PANTOPRAZOLE 40MG TAB (PROTONIX) PO SCH (08:09)
[2019-03-20] MEDS: VITAMIN D 1,000 INTERNATIONAL UNITS TABLET PO SCH (08:09)
[2019-03-20] MEDS: ASPIRIN 81 MG ENTERIC TAB PO SCH (08:09)
[2019-03-20] MEDS: amLODIPine 10 MG TAB PO SCH (08:10)
[2019-03-20] MEDS: LIDOCAINE 5% (LIDODERM) PATCH TD SCH (08:10)
[2019-03-20] MEDS: **NOTE PATIENT COMMENT** MISC XX SCH (20:29)
[2019-03-20] MEDS: DONEPEZIL 5 MG TAB PO SCH (20:29)
[2019-03-20] MEDS: PYRIDOXINE 50 MG TAB PO SCH (20:29)
[2019-03-20] MEDS: AMANTADINE 100 MG CAP PO SCH (20:29)
[2019-03-21 06:00] VITALS: BP 147/78
[2019-03-21] MEDS: SINEMET 25-100 MG TAB PO SCH ×5 (07:50→19:23)
[2019-03-21] MEDS: ASPIRIN 81 MG ENTERIC TAB PO SCH (09:48)
[2019-03-21] MEDS: VITAMIN D 1,000 INTERNATIONAL UNITS TABLET PO SCH (09:49)
[2019-03-21] MEDS: LIDOCAINE 5% (LIDODERM) PATCH TD SCH (09:49)
[2019-03-21] MEDS: amLODIPine 10 MG TAB PO SCH (09:49)
[2019-03-21] MEDS: PANTOPRAZOLE 40MG TAB (PROTONIX) PO SCH (09:49)
[2019-03-21] MEDS: **NOTE PATIENT COMMENT** MISC XX SCH (21:00)
[2019-03-21] MEDS: DONEPEZIL 5 MG TAB PO SCH (22:50)
[2019-03-21] MEDS: PYRIDOXINE 50 MG TAB PO SCH (22:50)
[2019-03-21] MEDS: AMANTADINE 100 MG CAP PO SCH (22:51)
[2019-03-22 06:00] VITALS: BP 143/77
[2019-03-22] MEDS: SINEMET 25-100 MG TAB PO SCH ×5 (06:11→18:29)
[2019-03-22] MEDS: VITAMIN D 1,000 INTERNATIONAL UNITS TABLET PO SCH (09:39)
[2019-03-22] MEDS: PANTOPRAZOLE 40MG TAB (PROTONIX) PO SCH (09:39)
[2019-03-22] MEDS: ASPIRIN 81 MG ENTERIC TAB PO SCH (09:40)
[2019-03-22] MEDS: amLODIPine 10 MG TAB PO SCH (09:40)
[2019-03-22] MEDS: LIDOCAINE 5% (LIDODERM) PATCH TD SCH ×2 (09:40→12:21)
[2019-03-22] MEDS: **NOTE PATIENT COMMENT** MISC XX SCH ×2 (19:41)
[2019-03-22] MEDS: DONEPEZIL 5 MG TAB PO SCH (19:41)
[2019-03-22] MEDS: PYRIDOXINE 50 MG TAB PO SCH (19:41)
[2019-03-22] MEDS: AMANTADINE 100 MG CAP PO SCH (19:41)
[2019-03-23 06:00] VITALS: BP 124/72
[2019-03-23] MEDS: SINEMET 25-100 MG TAB PO SCH ×5 (06:10→18:42)
[2019-03-23] MEDS: ASPIRIN 81 MG ENTERIC TAB PO SCH (09:36)
[2019-03-23] MEDS: PANTOPRAZOLE 40MG TAB (PROTONIX) PO SCH (09:37)
[2019-03-23] MEDS: amLODIPine 10 MG TAB PO SCH (09:37)
[2019-03-23] MEDS: VITAMIN D 1,000 INTERNATIONAL UNITS TABLET PO SCH (09:37)
[2019-03-23] MEDS: LIDOCAINE 5% (LIDODERM) PATCH TD SCH ×2 (09:37)
[2019-03-23] MEDS: AMANTADINE 100 MG CAP PO SCH (19:32)
[2019-03-23] MEDS: DONEPEZIL 5 MG TAB PO SCH (19:32)
[2019-03-23] MEDS: **NOTE PATIENT COMMENT** MISC XX SCH ×2 (19:33)
[2019-03-23] MEDS: PYRIDOXINE 50 MG TAB PO SCH (19:33)
[2019-03-24 06:00] VITALS: BP 132/73
[2019-03-24] MEDS: SINEMET 25-100 MG TAB PO SCH ×5 (06:08→21:05)
[2019-03-24] MEDS: VITAMIN D 1,000 INTERNATIONAL UNITS TABLET PO SCH (08:48)
[2019-03-24] MEDS: PANTOPRAZOLE 40MG TAB (PROTONIX) PO SCH (08:51)
[2019-03-24] MEDS: amLODIPine 10 MG TAB PO SCH (08:51)
[2019-03-24] MEDS: ASPIRIN 81 MG ENTERIC TAB PO SCH (08:51)
[2019-03-24] MEDS: LIDOCAINE 5% (LIDODERM) PATCH TD SCH ×2 (08:51→08:54)
[2019-03-24 11:26] LABS: HEMATOCRIT 42.7 % (42.0-52.0); HEMOGLOBIN 14.4 g/dl (13.5-17.5); MEAN CORPUSCULAR HEMOGLOBIN 31.7 pg (27.0-33.0); MEAN CORPUSCULAR HGB CONC 33.7 g/dl (32.0-36.5); MEAN CORPUSCULAR VOLUME 94.1 fl (80.0-96.0); PLATELET COUNT, AUTOMATED 178 10^3/uL (150-450); RED BLOOD COUNT 4.54 10^6/uL (4.30-6.10); WHITE BLOOD COUNT 8.6 10^3/uL (4.0-10.0)
[2019-03-24 11:56] LABS: BLOOD UREA NITROGEN 23 MG/DL (7-18); CALCIUM LEVEL 8.9 MG/DL (8.8-10.2); CARBON DIOXIDE LEVEL 29 MEQ/L (21-32); CHLORIDE LEVEL 107 MEQ/L (98-107); CREATININE FOR GFR 1.07 MG/DL (0.70-1.30); GLOMERULAR FILTRATION RATE > 60.0 (>42); GLUCOSE, FASTING 100 MG/DL (70-100); SODIUM LEVEL 143 MEQ/L (136-145)
[2019-03-24] MEDS: ACETAMINOPHEN 500 MG TAB PO PRN (15:20)
[2019-03-24] MEDS: **NOTE PATIENT COMMENT** MISC XX SCH ×3 (21:03→21:04)
[2019-03-24] MEDS: AMANTADINE 100 MG CAP PO SCH (21:04)
[2019-03-24] MEDS: PYRIDOXINE 50 MG TAB PO SCH (21:04)
[2019-03-24] MEDS: DONEPEZIL 5 MG TAB PO SCH (21:05)
[2019-03-25 06:00] VITALS: BP 131/71
[2019-03-25] MEDS: SINEMET 25-100 MG TAB PO SCH ×5 (06:36→21:13)
[2019-03-25] MEDS: VITAMIN D 1,000 INTERNATIONAL UNITS TABLET PO SCH (08:46)
[2019-03-25] MEDS: amLODIPine 10 MG TAB PO SCH (08:46)
[2019-03-25] MEDS: ASPIRIN 81 MG ENTERIC TAB PO SCH (08:46)
[2019-03-25] MEDS: PANTOPRAZOLE 40MG TAB (PROTONIX) PO SCH (08:46)
[2019-03-25] MEDS: LIDOCAINE 5% (LIDODERM) PATCH TD SCH ×2 (08:47)
--- NOTE | 2019-03-25 10:34 | IPNPDOC ---
Text Note Date of Service The patient was seen on 03/25/19. NOTE Subjective: Patient is a 79 year old male with a PMHx of Parkinson's who presented to the ER because of poor functional status after having a left hip fracture. At home, patient was also having intermittent episodes of confusion and visual hallucinations. Patient has been brought to the ER on several occasions for similar presentations. Patient was admitted to the hospital service for further evaluation. Patient was seen and examined at the bedside. Currently patient has no new complaints. Denies chest pain, shortness breath or palpitations. He reports that he continues to work with physical therapy and is looking for to continuing this outside the hospital. Objective: Vitals (See below) General: Lying in bed, no acute distress, comfortable, Awake / Alert HEENT: NC, AT CVS: RRR, +S1S2 Lungs: Fair air entry b/l, -w/r/r Abdomen: Soft, ND, NT Extremities: - Edema, - Calf tenderness Assessment and plan: Parkinson disease - Poor functional status; PFS and case management are assisting on placement arrangement - c/w Donepezil, Carbidopa/Levodopa, Amantadine - c/w PT Left hip fracture status hemiarthroplasty - Left hemiarthroplasty on 10/17/2018 - Patient was in acute rehabilitation unit (ARU) for rehab in October 2018. - Family is unable to care of the patient at home anymore - Looking into placement options History of hypertension. - BP appears well controlled - c/w amlodipine Left LE rodriguez's cyst - c/w pain control as ordered GERD - s/p Dyspepsia - c/w Protonix DVT prophylaxis - c/w JILLIAN/Sequentials Disposition: - Looking into placement VS,Fishbone, I+O VS, Fishbone, I+O Laboratory Tests 03/24/19 11:15 Red Blood Count 4.54, Mean Corpuscular Volume 94.1, Mean Corpuscular Hemoglobin 31.7, Mean Corpuscular Hemoglobin Concent 33.7, Red Cell Distribution Width 13.4, Calcium Level 8.9 Vital Signs Date Time Temp Pulse Resp B/P (MAP) Pulse Ox O2 Delivery O2 Flow Rate FiO2 03/25/19 08:46 82 131/71 03/25/19 06:00 98.5 17 94 I&O- Last 24 Hours up to 6 AM 03/25/19 06:00 Intake Total 630 ml Output Total 1075 ml Balance -445 ml TRENT ARIZA MD Mar 25, 2019 10:34
[2019-03-25] MEDS: AMANTADINE 100 MG CAP PO SCH (21:12)
[2019-03-25] MEDS: PYRIDOXINE 50 MG TAB PO SCH (21:12)
[2019-03-25] MEDS: **NOTE PATIENT COMMENT** MISC XX SCH ×2 (21:13)
[2019-03-25] MEDS: DONEPEZIL 5 MG TAB PO SCH (21:13)
[2019-03-26 06:00] VITALS: BP 105/63
[2019-03-26] MEDS: SINEMET 25-100 MG TAB PO SCH ×5 (06:07→18:21)
[2019-03-26] MEDS: LIDOCAINE 5% (LIDODERM) PATCH TD SCH ×2 (09:18)
[2019-03-26] MEDS: VITAMIN D 1,000 INTERNATIONAL UNITS TABLET PO SCH (09:19)
[2019-03-26] MEDS: ASPIRIN 81 MG ENTERIC TAB PO SCH (09:19)
[2019-03-26] MEDS: PANTOPRAZOLE 40MG TAB (PROTONIX) PO SCH (09:19)
[2019-03-26] MEDS: amLODIPine 10 MG TAB PO SCH (09:20)
[2019-03-26 14:00] VITALS: BP 108/59
[2019-03-26] MEDS: AMANTADINE 100 MG CAP PO SCH (20:03)
[2019-03-26] MEDS: PYRIDOXINE 50 MG TAB PO SCH (20:04)
[2019-03-26] MEDS: DONEPEZIL 5 MG TAB PO SCH (20:04)
[2019-03-26] MEDS: **NOTE PATIENT COMMENT** MISC XX SCH ×2 (20:22)
[2019-03-27 06:00] VITALS: BP 121/64
[2019-03-27] MEDS: SINEMET 25-100 MG TAB PO SCH ×2 (06:37→10:48)
[2019-03-27 08:18] VITALS: BP 110/70
[2019-03-27] MEDS: PANTOPRAZOLE 40MG TAB (PROTONIX) PO SCH (08:18)
[2019-03-27] MEDS: amLODIPine 10 MG TAB PO SCH (08:18)
[2019-03-27] MEDS: ASPIRIN 81 MG ENTERIC TAB PO SCH (08:19)
[2019-03-27] MEDS: VITAMIN D 1,000 INTERNATIONAL UNITS TABLET PO SCH (08:19)
[2019-03-27] MEDS: LIDOCAINE 5% (LIDODERM) PATCH TD SCH ×2 (08:21)
[2019-03-27] MEDS ORDERED: AMAN100T PO (10:39)
[2019-03-27] MEDS ORDERED: AMLO10TA5 PO (10:39)
[2019-03-27] MEDS ORDERED: PROTPAK PO (10:39)
[2019-03-27] MEDS: ACETAMINOPHEN 500 MG TAB PO PRN (10:48)
--- NOTE | 2019-03-27 14:51 | DS.PDOC ---
Discharge Summary General Date of Admission Feb 13, 2019 at 09:59 Date of Discharge 03/27/2019 Discharge Summary PROCEDURES PERFORMED DURING STAY: [None]. ADMITTING DIAGNOSES / DISCHARGE DIAGNOSES: Parkinson disease Left hip fracture status hemiarthroplasty History of hypertension Left LE rodriguez's cyst GERD DVT prophylaxis COMPLICATIONS/CHIEF COMPLAINT: Weakness / Frequent falls HISTORY OF PRESENT ILLNESS: Patient is a 79 year old male with a PMHx of Parkinson's who presented to the ER because of poor functional status after having a left hip fracture. At home, patient was also having intermittent episodes of confusion and visual hallucinations. Patient has been brought to the ER on several occasions for similar presentations. Patient was admitted to the hospital service for further evaluation. HOSPITAL COURSE: Parkinson disease - Poor functional status; PFS and case management are assisting on placement arrangement - c/w Donepezil, Carbidopa/Levodopa, Amantadine - c/w PT Left hip fracture status hemiarthroplasty - Left hemiarthroplasty on 10/17/2018 - Patient was in acute rehabilitation unit (ARU) for rehab in October 2018. - Family is unable to care of the patient at home anymore - Has been accepted at [facility] for continued rehabilitation History of hypertension. - BP appears well controlled - c/w amlodipine with holding parameters Left LE rodriguez's cyst - c/w pain control as ordered - Will c/w topical pain control GERD - s/p Dyspepsia - c/w Protonix DVT prophylaxis - c/w JILLIAN/Sequentials DISCHARGE MEDICATIONS: Please see below. ALLERGIES: Please see below. PHYSICAL EXAMINATION ON DISCHARGE: Vitals (See below) General: Lying in bed, no acute distress, comfortable, Awake / Alert HEENT: NC, AT CVS: RRR, +S1S2 Lungs: Fair air entry b/l, no wheezing / rhonchi / rales Abdomen: Soft, ND, NT Extremities: No evidence of edema, - Calf tenderness LABORATORY DATA: Please see below. ACTIVITY: [As tolerated]. DISCHARGE PLAN: Follow up [facility] Dr. Waqar Lomas within 7 days Remain compliant with treatment plan and medications Return to the ER if you experience any problems DISPOSITION: [facility]. DISCHARGE CONDITION: [Stable]. TIME SPENT ON DISCHARGE: 35 minutes Vital Signs/I&Os Vital Signs Date Time Temp Pulse Resp B/P (MAP) Pulse Ox O2 Delivery O2 Flow Rate FiO2 03/27/19 08:18 84 110/70 03/27/19 06:00 97.9 18 94 I&O- Last 24 Hours up to 6 AM 03/27/19 06:00 Intake Total 1510 ml Output Total 1425 ml Balance 85 ml Discharge Medications Scheduled Amantadine HCl (Amantadine) 100 Mg Tablet, 100 MG PO QHS Amlodipine Besylate (Amlodipine Besylate) 10 Mg Tablet, 1 TAB PO DAILY Aspirin (Aspir 81) 81 Mg Tablet.dr, 81 MG PO DAILY, (Reported) Carbidopa/Levodopa (Carbidopa-Levodopa 25-100 Tab) 1 Each Tablet, 2 TAB PO BID, (Reported) AT 0700 AND 1000 Carbidopa/Levodopa (Carbidopa-Levodopa 25-100 Tab) 1 Each Tablet, 1 TAB PO TID, (Reported) AT 1300, 1600, AND 1900 Cholecalciferol (Vitamin D3) (Vitamin D3) 2,000 Unit Tab, 2,000 UNITS PO DAILY, (Reported) Donepezil HCl (Donepezil HCl) 10 Mg Tablet, 10 MG PO QHS, (Reported) Melatonin (Melatonin) 10 Mg Capsule, 10 MG PO QHS, (Reported) Multivitamin (Multi-Vitamin Daily) 1 Tab Tab, 1 TAB PO DAILY, (Reported) [place]-3 Fatty Acids/Fish Oil (Fish Oil 1,000 mg Capsule) 1 Each Capsule, 1,000 MG PO DAILY, (Reported) Pantoprazole Sodium (Protonix) 40 Mg Granpkt.dr, 40 MG PO DAILY Pyridoxine HCl (Vitamin B6) (Pyridoxine HCl) 50 Mg Tablet, 50 MG PO QHS, (Reported) Scheduled PRN Acetaminophen (Acetaminophen) 500 Mg Tablet, 1,000 MG PO TID PRN for PAIN, (Reported) Menthol (Biofreeze) 118 Ml Gel..ml., 1 APLCT TOP QID PRN for PAIN, (Reported) APPLIES MAINLY TO R LEG; OCCASIONALLY L LEG OR SHOULDERS Allergies Coded Allergies: No Known Allergies (Unverified , 01/28/19) TRENT ARIZA MD Mar 27, 2019 14:51
== END 2019-03-27 12:15 | DRG 57 ==
LOC: EDBD 16:14 → M ED 16:14 → M ED INP 16:15 → M MSPAV 23:35 → OBSVTOIN 02-13 09:59
PROVIDERS: ADMIT Internal Medicine; ATTEND Internal Medicine
DX: G20 Parkinson's disease (principal); I10 Essential (primary) hypertension; R26.89 Other abnormalities of gait and mobility; K21.9 Gastro-esophageal reflux disease without esophagitis; R44.1 Visual hallucinations; M71.22 Synovial cyst of popliteal space [Baker], left knee; R10.13 Epigastric pain; Z90.49 Acquired absence of other specified parts of digestive tract; Z96.643 Presence of artificial hip joint, bilateral; Z79.899 Other long term (current) drug therapy; Z74.01 Bed confinement status; Z75.1 Person awaiting admission to adequate facility elsewhere

== ENCOUNTER → 2019-03-31 | Outpatient (REF) ==
[~2019-03-31] MED LIST changes: +ACET500T15 PO; +AMLO10TA5 PO; +BIOF4GEL4 TOP; +DONE10TA90 PO; +PROTPAK PO; +PYRI50TA8 PO
[2019-03-31 07:25] LABS: HEMATOCRIT 40.2 % (42.0-52.0); HEMOGLOBIN 13.2 g/dl (13.5-17.5); MEAN CORPUSCULAR HEMOGLOBIN 30.6 pg (27.0-33.0); MEAN CORPUSCULAR HGB CONC 32.8 g/dl (32.0-36.5); MEAN CORPUSCULAR VOLUME 93.1 fl (80.0-96.0); PLATELET COUNT, AUTOMATED 181 10^3/uL (150-450); RED BLOOD COUNT 4.32 10^6/uL (4.30-6.10); WHITE BLOOD COUNT 7.1 10^3/uL (4.0-10.0)
[2019-03-31 08:07] LABS: ALBUMIN 3.3 GM/DL (3.2-5.2); ALT/SGPT 8 U/L (12-78); BILIRUBIN,TOTAL 0.6 MG/DL (0.2-1.0); BLOOD UREA NITROGEN 23 MG/DL (7-18); CALCIUM LEVEL 8.7 MG/DL (8.8-10.2); CARBON DIOXIDE LEVEL 30 MEQ/L (21-32); CHLORIDE LEVEL 105 MEQ/L (98-107); CREATININE FOR GFR 1.08 MG/DL (0.70-1.30); GLOMERULAR FILTRATION RATE > 60.0 (>42); GLUCOSE, FASTING 90 MG/DL (70-100); POTASSIUM SERUM 3.9 MEQ/L (3.5-5.1); SODIUM LEVEL 141 MEQ/L (136-145); TOTAL PROTEIN 7.3 GM/DL (6.4-8.2)
[2019-03-31 11:07] LABS: VITAMIN B12 LEVEL 400 PG/ML (247-911)
== END ==
LOC: SKLAB2 07:00
DX: F03.90 Unspecified dementia, unspecified severity, without behavioral disturbance, psychotic disturbance, mood disturbance, and anxiety (principal); I10 Essential (primary) hypertension; G20 Parkinson's disease

== ENCOUNTER → 2019-08-25 | Outpatient (REF) | payer MEDICARE | LOC: SKLAB2 08:49 | PROVIDERS: ATTEND Nurse Practitioner Family | DX: R05 Cough (principal) ==

== ENCOUNTER → 2019-09-22 | Outpatient (REF) | payer MEDICARE ==
[2019-09-22 10:56] LABS: HEMATOCRIT 44.3 % (42.0-52.0); HEMOGLOBIN 14.5 g/dl (13.5-17.5); MEAN CORPUSCULAR HGB CONC 32.7 g/dl (32.0-36.5); MEAN CORPUSCULAR VOLUME 94.9 fl (80.0-96.0); PLATELET COUNT, AUTOMATED 167 10^3/uL (150-450); RED BLOOD COUNT 4.67 10^6/uL (4.30-6.10); WHITE BLOOD COUNT 6.2 10^3/uL (4.0-10.0)
[2019-09-22 11:17] LABS: BLOOD UREA NITROGEN 20 MG/DL (7-18); CARBON DIOXIDE LEVEL 25 MEQ/L (21-32); CHLORIDE LEVEL 110 MEQ/L (98-107); CREATININE FOR GFR 1.13 MG/DL (0.70-1.30); GLOMERULAR FILTRATION RATE > 60.0 (>42); GLUCOSE, FASTING 117 MG/DL (70-100); POTASSIUM SERUM 3.8 MEQ/L (3.5-5.1); SODIUM LEVEL 142 MEQ/L (136-145)
[2019-09-22 11:37] LABS: TOTAL 25(OH) VITAMIN D 26.8 NG/ML (30.0-100.0)
== END ==
LOC: SKLAB2 07:16
PROVIDERS: ATTEND Internal Medicine
DX: D64.9 Anemia, unspecified (principal); R41.0 Disorientation, unspecified; Z79.899 Other long term (current) drug therapy

== ENCOUNTER → 2020-01-27 | Outpatient (REF) | payer MEDICARE | LOC: SKLAB2 07:00 | PROVIDERS: ATTEND Internal Medicine | DX: G20 Parkinson's disease (principal); I10 Essential (primary) hypertension; Z79.899 Other long term (current) drug therapy ==

== ENCOUNTER → 2020-03-02 | Outpatient (REF) | LOC: SKLAB2 07:00 | PROVIDERS: ATTEND Internal Medicine | DX: Z03.818 Encounter for observation for suspected exposure to other biological agents ruled out (principal) ==

== ENCOUNTER → 2020-03-30 | Outpatient (REF) | payer MEDICARE ==
[2020-03-30 09:40] LABS: HEMATOCRIT 44.8 % (42.0-52.0); HEMOGLOBIN 14.7 g/dl (13.5-17.5); MEAN CORPUSCULAR HEMOGLOBIN 30.7 pg (27.0-33.0); MEAN CORPUSCULAR HGB CONC 32.8 g/dl (32.0-36.5); MEAN CORPUSCULAR VOLUME 93.5 fl (80.0-96.0); PLATELET COUNT, AUTOMATED 136 10^3/uL (150-450); RED BLOOD COUNT 4.79 10^6/uL (4.30-6.10); WHITE BLOOD COUNT 6.2 10^3/uL (4.0-10.0)
[2020-03-30 10:15] LABS: ALBUMIN 3.3 GM/DL (3.2-5.2); ALT/SGPT 8 U/L (12-78); BILIRUBIN,TOTAL 0.7 MG/DL (0.2-1.0); BLOOD UREA NITROGEN 16 MG/DL (7-18); CALCIUM LEVEL 8.9 MG/DL (8.8-10.2); CARBON DIOXIDE LEVEL 25 MEQ/L (21-32); CHLORIDE LEVEL 110 MEQ/L (98-107); CREATININE FOR GFR 1.12 MG/DL (0.70-1.30); GLOMERULAR FILTRATION RATE > 60.0 (>42); GLUCOSE, FASTING 137 MG/DL (70-100); POTASSIUM SERUM 3.8 MEQ/L (3.5-5.1); SODIUM LEVEL 143 MEQ/L (136-145); TOTAL PROTEIN 7.4 GM/DL (6.4-8.2)
== END ==
LOC: SKLAB2 07:30
PROVIDERS: ATTEND Internal Medicine
DX: F03.90 Unspecified dementia, unspecified severity, without behavioral disturbance, psychotic disturbance, mood disturbance, and anxiety (principal); G20 Parkinson's disease

== ENCOUNTER → 2020-09-02 | Outpatient (REF) | payer MEDICARE ==
[~2020-09-02] MED LIST changes: -AMLO10TA5 PO; +AMLO1TAB25 PO; -ASPI81TA85 PO; +ASPI81TA86 PO
== END ==
LOC: SKLAB2 11:48
PROVIDERS: ATTEND Internal Medicine
DX: Z20.828 Contact with and (suspected) exposure to other viral communicable diseases (principal)

== ENCOUNTER → 2020-09-22 | Outpatient (REF) | payer MEDICARE | LOC: SKLAB2 08:00 | PROVIDERS: ATTEND Internal Medicine | DX: Z20.828 Contact with and (suspected) exposure to other viral communicable diseases (principal) ==

== ENCOUNTER → 2020-09-29 | Outpatient (REF) | payer MEDICARE | LOC: SKLAB2 07:28 | PROVIDERS: ATTEND Internal Medicine | DX: Z20.828 Contact with and (suspected) exposure to other viral communicable diseases (principal) ==

== ENCOUNTER → 2020-10-05 | Outpatient (REF) | payer MEDICARE ==
[2020-10-05 10:11] LABS: MEAN CORPUSCULAR HEMOGLOBIN 29.7 pg (27.0-33.0); MEAN CORPUSCULAR HGB CONC 31.8 g/dl (32.0-36.5); MEAN CORPUSCULAR VOLUME 93.4 fl (80.0-96.0); PLATELET COUNT, AUTOMATED 156 10^3/uL (150-450); RED BLOOD COUNT 4.71 10^6/uL (4.30-6.10); WHITE BLOOD COUNT 6.9 10^3/uL (4.0-10.0)
[2020-10-05 10:44] LABS: ALBUMIN 3.3 GM/DL (3.2-5.2); ALT/SGPT 8 U/L (12-78); BLOOD UREA NITROGEN 19 MG/DL (7-18); CALCIUM LEVEL 8.9 MG/DL (8.8-10.2); CARBON DIOXIDE LEVEL 23 MEQ/L (21-32); CHLORIDE LEVEL 109 MEQ/L (98-107); CREATININE FOR GFR 0.98 MG/DL (0.70-1.30); GLOMERULAR FILTRATION RATE > 60.0 (>42); GLUCOSE, FASTING 98 MG/DL (70-100); POTASSIUM SERUM 3.9 MEQ/L (3.5-5.1); SODIUM LEVEL 141 MEQ/L (136-145)
== END ==
LOC: SKLAB2 08:00
PROVIDERS: ATTEND Internal Medicine
DX: G31.83 Neurocognitive disorder with Lewy bodies (principal); F02.80 Dementia in other diseases classified elsewhere, unspecified severity, without behavioral disturbance, psychotic disturbance, mood disturbance, and anxiety

== ENCOUNTER → 2020-10-06 | Outpatient (REF) | payer MEDICARE | LOC: SKLAB2 11:30 | PROVIDERS: ATTEND Internal Medicine | DX: Z20.828 Contact with and (suspected) exposure to other viral communicable diseases (principal) ==

== ENCOUNTER → 2020-10-13 | Outpatient (REF) | payer MEDICARE | LOC: SKLAB2 07:49 | PROVIDERS: ATTEND Internal Medicine | DX: Z20.828 Contact with and (suspected) exposure to other viral communicable diseases (principal) ==

== ENCOUNTER → 2020-10-20 | Outpatient (REF) | payer MEDICARE | LOC: SKLAB2 10:25 | PROVIDERS: ATTEND Internal Medicine | DX: Z20.828 Contact with and (suspected) exposure to other viral communicable diseases (principal) ==

== ENCOUNTER → 2020-10-27 | Outpatient (REF) | payer MEDICARE | LOC: SKLAB2 07:00 | PROVIDERS: ATTEND Internal Medicine | DX: Z11.52 Encounter for screening for COVID-19 (principal) ==

== ENCOUNTER → 2020-11-03 | Outpatient (REF) | payer MEDICARE | LOC: SKLAB2 07:00 | PROVIDERS: ATTEND Internal Medicine | DX: Z20.822 Contact with and (suspected) exposure to COVID-19 (principal) ==

== ENCOUNTER → 2020-11-10 | Outpatient (REF) | payer MEDICARE ==
[~2020-11-10] MED LIST changes: +LISI10TA22 PO; -LISI10TA4 PO
== END ==
LOC: SKLAB2 07:00
PROVIDERS: ATTEND Internal Medicine
DX: Z20.822 Contact with and (suspected) exposure to COVID-19 (principal)

== ENCOUNTER → 2020-11-17 | Outpatient (REF) | payer MEDICARE ==
[~2020-11-17] MED LIST changes: -LISI10TA22 PO; +LISI10TA4 PO
== END ==
LOC: SKLAB2 14:10
PROVIDERS: ATTEND Internal Medicine
DX: Z20.822 Contact with and (suspected) exposure to COVID-19 (principal)

== ENCOUNTER → 2020-11-24 | Outpatient (REF) | payer MEDICARE ==
[~2020-11-24] MED LIST changes: +LISI10TA22 PO; -LISI10TA4 PO
== END ==
LOC: SKLAB2 10:55
PROVIDERS: ATTEND Internal Medicine
DX: Z11.52 Encounter for screening for COVID-19 (principal)

== ENCOUNTER → 2020-12-01 | Outpatient (REF) | payer MEDICARE | LOC: SKLAB2 10:43 | PROVIDERS: ATTEND Internal Medicine | DX: Z20.822 Contact with and (suspected) exposure to COVID-19 (principal) ==

== ENCOUNTER → 2020-12-08 | Outpatient (REF) | payer MEDICARE | LOC: SKLAB2 07:35 | PROVIDERS: ATTEND Internal Medicine | DX: Z11.52 Encounter for screening for COVID-19 (principal) ==

== ENCOUNTER → 2020-12-15 | Outpatient (REF) | payer MEDICARE | LOC: SKLAB2 09:02 | PROVIDERS: ATTEND Internal Medicine | DX: Z20.822 Contact with and (suspected) exposure to COVID-19 (principal) ==

== ENCOUNTER → 2020-12-29 | Outpatient (REF) | payer MEDICARE ==
[~2020-12-29] MED LIST changes: +PYRI50TA41 PO; -VITA50TA7 PO
== END ==
LOC: SKLAB2 08:00
PROVIDERS: ATTEND Internal Medicine
DX: Z11.52 Encounter for screening for COVID-19 (principal)

== ENCOUNTER → 2021-01-05 | Outpatient (REF) | payer MEDICARE | LOC: SKLAB2 13:19 | PROVIDERS: ATTEND Internal Medicine | DX: Z20.822 Contact with and (suspected) exposure to COVID-19 (principal) ==

== ENCOUNTER → 2021-01-21 | Outpatient (REF) | payer MEDICARE | LOC: SKLAB2 12:34 | PROVIDERS: ATTEND Internal Medicine | DX: Z20.822 Contact with and (suspected) exposure to COVID-19 (principal) ==

== ENCOUNTER → 2021-02-21 | Outpatient (REF) | payer MEDICARE ==
[2021-02-21 12:18] LABS: RSV AMPLIFICATION NEGATIVE (NEGATIVE)
== END ==
LOC: SKLAB2 11:14
PROVIDERS: ATTEND Internal Medicine
DX: Z20.822 Contact with and (suspected) exposure to COVID-19 (principal)

== ENCOUNTER → 2021-02-21 | Outpatient (REF) | payer MEDICARE | LOC: SKLAB2 11:10 | PROVIDERS: ATTEND Internal Medicine | DX: Z20.822 Contact with and (suspected) exposure to COVID-19 (principal) ==

== ENCOUNTER → 2021-03-03 | Outpatient (REF) | payer MEDICARE ==
[2021-03-03 08:40] LABS: HEMATOCRIT 44.2 % (42.0-52.0); HEMOGLOBIN 14.3 g/dl (13.5-17.5); MEAN CORPUSCULAR HEMOGLOBIN 30.8 pg (27.0-33.0); MEAN CORPUSCULAR HGB CONC 32.4 g/dl (32.0-36.5); MEAN CORPUSCULAR VOLUME 95.3 fl (80.0-96.0); PLATELET COUNT, AUTOMATED 147 10^3/uL (150-450); RED BLOOD COUNT 4.64 10^6/uL (4.30-6.10); WHITE BLOOD COUNT 5.4 10^3/uL (4.0-10.0)
[2021-03-03 09:07] LABS: ALBUMIN 3.5 GM/DL (3.2-5.2); ALT/SGPT 6 U/L (12-78); BILIRUBIN,TOTAL 0.8 MG/DL (0.2-1.0); BLOOD UREA NITROGEN 20 MG/DL (7-18); CALCIUM LEVEL 8.9 MG/DL (8.8-10.2); CARBON DIOXIDE LEVEL 28 MEQ/L (21-32); CHLORIDE LEVEL 111 MEQ/L (98-107); CREATININE FOR GFR 0.88 MG/DL (0.70-1.30); GLOMERULAR FILTRATION RATE > 60.0 (>35); GLUCOSE, FASTING 86 MG/DL (70-100); POTASSIUM SERUM 3.7 MEQ/L (3.5-5.1); SODIUM LEVEL 142 MEQ/L (136-145); TOTAL PROTEIN 7.6 GM/DL (6.4-8.2)
[2021-03-03 14:20] LABS: APPEARANCE, URINE CLEAR (CLEAR); BACTERIA, URINE AUTO NEGATIVE (NEGATIVE); BILIRUBIN, URINE AUTO NEGATIVE (NEGATIVE); BLOOD, URINE BLOOD NEGATIVE (NEGATIVE); COLOR, URINE YELLOW (YELLOW); GLUCOSE, URINE (UA) AUTO NEGATIVE (NEGATIVE); KETONE, URINE AUTO TRACE mg/dL (NEGATIVE); LEUKOCYTE ESTERASE, URINE AUTO NEGATIVE (NEGATIVE); MUCUS, URINE SMALL (NEGATIVE); NITRITE, URINE AUTO NEGATIVE (NEGATIVE); PROTEIN, URINE AUTO NEGATIVE (NEGATIVE); RBC, URINE AUTO 0 /HPF (0-3); SPECIFIC GRAVITY URINE AUTO 1.026 (1.002-1.035); SQUAMOUS EPITHELIAL CELL UR AU 0 /HPF (0-6); WBC, URINE AUTO 0 /HPF (0-3)
== END ==
LOC: SKLAB2 11:37
PROVIDERS: ATTEND Internal Medicine
DX: F03.91 Unspecified dementia, unspecified severity, with behavioral disturbance (principal); F29 Unspecified psychosis not due to a substance or known physiological condition

== ENCOUNTER → 2021-03-22 | Outpatient (REF) | payer MEDICARE ==
[2021-03-22 11:01] LABS: HEMATOCRIT 43.3 % (42.0-52.0); HEMOGLOBIN 14.3 g/dl (13.5-17.5); MEAN CORPUSCULAR HEMOGLOBIN 31.2 pg (27.0-33.0); MEAN CORPUSCULAR VOLUME 94.5 fl (80.0-96.0); PLATELET COUNT, AUTOMATED 150 10^3/uL (150-450); RED BLOOD COUNT 4.58 10^6/uL (4.30-6.10); WHITE BLOOD COUNT 5.6 10^3/uL (4.0-10.0)
== END ==
LOC: SKLAB2 10:05
PROVIDERS: ATTEND Internal Medicine
DX: K62.5 Hemorrhage of anus and rectum (principal)

== ENCOUNTER → 2021-03-29 | Outpatient (REF) | payer MEDICARE ==
[2021-03-29 11:06] LABS: HEMATOCRIT 44.9 % (42.0-52.0); HEMOGLOBIN 14.6 g/dl (13.5-17.5); MEAN CORPUSCULAR HEMOGLOBIN 30.9 pg (27.0-33.0); MEAN CORPUSCULAR HGB CONC 32.5 g/dl (32.0-36.5); MEAN CORPUSCULAR VOLUME 95.1 fl (80.0-96.0); PLATELET COUNT, AUTOMATED 141 10^3/uL (150-450); RED BLOOD COUNT 4.72 10^6/uL (4.30-6.10); WHITE BLOOD COUNT 5.6 10^3/uL (4.0-10.0)
[2021-03-29 11:37] LABS: ALBUMIN 3.5 GM/DL (3.2-5.2); ALT/SGPT 7 U/L (12-78); BILIRUBIN,TOTAL 0.6 MG/DL (0.2-1.0); BLOOD UREA NITROGEN 17 MG/DL (7-18); CARBON DIOXIDE LEVEL 24 MEQ/L (21-32); CHLORIDE LEVEL 111 MEQ/L (98-107); CREATININE FOR GFR 0.95 MG/DL (0.70-1.30); GLOMERULAR FILTRATION RATE > 60.0 (>35); GLUCOSE, FASTING 110 MG/DL (70-100); POTASSIUM SERUM 3.8 MEQ/L (3.5-5.1); SODIUM LEVEL 143 MEQ/L (136-145); TOTAL PROTEIN 7.3 GM/DL (6.4-8.2)
== END ==
LOC: SKLAB2 13:02
PROVIDERS: ATTEND Internal Medicine
DX: F03.90 Unspecified dementia, unspecified severity, without behavioral disturbance, psychotic disturbance, mood disturbance, and anxiety (principal)

== ENCOUNTER → 2021-04-03 | Outpatient (REF) | payer MEDICARE | LOC: SKLAB2 16:30 | PROVIDERS: ATTEND Internal Medicine | DX: K92.1 Melena (principal) ==

== ENCOUNTER → 2021-04-08 | Outpatient (REF) | payer MEDICARE | LOC: SKLAB2 14:14 | PROVIDERS: ATTEND Internal Medicine | DX: K92.1 Melena (principal) ==

== ENCOUNTER → 2021-07-08 | Outpatient (REF) | payer MEDICARE ==
[2021-07-08 14:22] LABS: APPEARANCE, URINE CLEAR (CLEAR); BILIRUBIN, URINE AUTO NEGATIVE (NEGATIVE); BLOOD, URINE BLOOD NEGATIVE (NEGATIVE); COLOR, URINE YELLOW (YELLOW); GLUCOSE, URINE (UA) AUTO NEGATIVE (NEGATIVE); KETONE, URINE AUTO TRACE mg/dL (NEGATIVE); LEUKOCYTE ESTERASE, URINE AUTO NEGATIVE (NEGATIVE); NITRITE, URINE AUTO NEGATIVE (NEGATIVE); PROTEIN, URINE AUTO NEGATIVE (NEGATIVE); SPECIFIC GRAVITY URINE AUTO 1.023 (1.002-1.035); UROBILINOGEN, URINE AUTO 0.2 mg/dL (0.0-2.0)
[2021-07-08 14:25] LABS: BACTERIA, URINE AUTO NEGATIVE (NEGATIVE); MUCUS, URINE SMALL (NEGATIVE); RBC, URINE AUTO 1 /HPF (0-3); SQUAMOUS EPITHELIAL CELL UR AU 0 /HPF (0-6); WBC, URINE AUTO 2 /HPF (0-3)
== END ==
LOC: SKLAB7 14:04
PROVIDERS: ATTEND Internal Medicine
DX: N48.1 Balanitis (principal); Z79.899 Other long term (current) drug therapy

== ENCOUNTER → 2021-07-13 | Outpatient (REF) | payer MEDICARE ==
[2021-07-13 11:40] LABS: ALT/SGPT < 6 U/L (12-78); BLOOD UREA NITROGEN 23 MG/DL (7-18); CALCIUM LEVEL 9.2 MG/DL (8.8-10.2); CARBON DIOXIDE LEVEL 26 MEQ/L (21-32); CHLORIDE LEVEL 109 MEQ/L (98-107); CREATININE FOR GFR 1.24 MG/DL (0.70-1.30); GLOMERULAR FILTRATION RATE 59.7 (>35); GLUCOSE, FASTING 83 MG/DL (70-100); POTASSIUM SERUM 3.8 MEQ/L (3.5-5.1); SODIUM LEVEL 143 MEQ/L (136-145); TOTAL PROTEIN 7.1 GM/DL (6.4-8.2)
== END ==
LOC: SKLAB7 07:13
PROVIDERS: ATTEND Internal Medicine
DX: R69 Illness, unspecified (principal); R50.9 Fever, unspecified

== ENCOUNTER → 2021-08-09 | Outpatient (REF) | payer MEDICARE | LOC: SKLAB7 10:31 | PROVIDERS: ATTEND Internal Medicine | DX: Z20.822 Contact with and (suspected) exposure to COVID-19 (principal) ==

== ENCOUNTER → 2021-08-11 | Outpatient (REF) | payer MEDICARE | LOC: SKLAB7 06:34 | PROVIDERS: ATTEND Internal Medicine | DX: Z20.822 Contact with and (suspected) exposure to COVID-19 (principal) ==

== ENCOUNTER → 2021-08-15 | Outpatient (REF) | payer MEDICARE | LOC: SKLAB7 09:00 | PROVIDERS: ATTEND Internal Medicine | DX: Z20.822 Contact with and (suspected) exposure to COVID-19 (principal) ==

== ENCOUNTER → 2021-08-18 | Outpatient (REF) | payer MEDICARE | LOC: SKLAB7 07:51 | PROVIDERS: ATTEND Internal Medicine | DX: Z20.822 Contact with and (suspected) exposure to COVID-19 (principal) ==

== ENCOUNTER → 2021-08-22 | Outpatient (REF) | payer MEDICARE | LOC: SKLAB7 08:20 | PROVIDERS: ATTEND Internal Medicine | DX: Z20.822 Contact with and (suspected) exposure to COVID-19 (principal) ==

== ENCOUNTER → 2021-08-25 | Outpatient (REF) | payer MEDICARE | LOC: SKLAB7 06:14 | PROVIDERS: ATTEND Internal Medicine | DX: Z20.822 Contact with and (suspected) exposure to COVID-19 (principal) ==

== ENCOUNTER → 2021-08-31 | Outpatient (REF) | payer MEDICARE | LOC: SKLAB7 05:56 | PROVIDERS: ATTEND Internal Medicine | DX: Z20.822 Contact with and (suspected) exposure to COVID-19 (principal) ==

== ENCOUNTER → 2021-09-07 | Outpatient (REF) | payer MEDICARE | LOC: SKLAB7 09:44 | PROVIDERS: ATTEND Internal Medicine | DX: Z20.822 Contact with and (suspected) exposure to COVID-19 (principal) ==

== ENCOUNTER → 2021-09-28 | Outpatient (REF) | payer MEDICARE | LOC: SKLAB7 13:42 | PROVIDERS: ATTEND Internal Medicine | DX: Z20.822 Contact with and (suspected) exposure to COVID-19 (principal) ==

== ENCOUNTER → 2021-10-05 | Outpatient (REF) | payer MEDICARE | LOC: SKLAB7 14:59 | PROVIDERS: ATTEND Internal Medicine | DX: Z20.822 Contact with and (suspected) exposure to COVID-19 (principal) ==

== ENCOUNTER → 2021-10-06 | Outpatient (REF) | payer MEDICARE ==
[2021-10-06 09:14] LABS: HEMATOCRIT 42.3 % (42.0-52.0); HEMOGLOBIN 14.3 g/dl (13.5-17.5); MEAN CORPUSCULAR HEMOGLOBIN 32.3 pg (27.0-33.0); MEAN CORPUSCULAR HGB CONC 33.8 g/dl (32.0-36.5); MEAN CORPUSCULAR VOLUME 95.5 fl (80.0-96.0); PLATELET COUNT, AUTOMATED 147 10^3/uL (150-450); RED BLOOD COUNT 4.43 10^6/uL (4.30-6.10)
== END ==
LOC: SKLAB7 09:37
PROVIDERS: ATTEND Internal Medicine
DX: G20 Parkinson's disease (principal)

== ENCOUNTER → 2021-10-10 | Outpatient (REF) | payer MEDICARE ==
[2021-10-10 16:09] LABS: HEMATOCRIT 43.9 % (42.0-52.0); HEMOGLOBIN 14.7 g/dl (13.5-17.5); MEAN CORPUSCULAR HEMOGLOBIN 31.8 pg (27.0-33.0); MEAN CORPUSCULAR HGB CONC 33.5 g/dl (32.0-36.5); PLATELET COUNT, AUTOMATED 156 10^3/uL (150-450); RED BLOOD COUNT 4.62 10^6/uL (4.30-6.10); WHITE BLOOD COUNT 6.8 10^3/uL (4.0-10.0)
[2021-10-10 16:42] LABS: BLOOD UREA NITROGEN 24 MG/DL (7-18); CALCIUM LEVEL 9.4 MG/DL (8.8-10.2); CARBON DIOXIDE LEVEL 27 MEQ/L (21-32); CHLORIDE LEVEL 109 MEQ/L (98-107); CREATININE FOR GFR 0.98 MG/DL (0.70-1.30); GLOMERULAR FILTRATION RATE > 60.0 (>35); GLUCOSE, FASTING 103 MG/DL (70-100); MAGNESIUM LEVEL 2.4 MG/DL (1.8-2.4); POTASSIUM SERUM 4.1 MEQ/L (3.5-5.1); SODIUM LEVEL 142 MEQ/L (136-145)
== END ==
LOC: SKLAB7 15:14
PROVIDERS: ATTEND Internal Medicine
DX: R41.82 Altered mental status, unspecified (principal); G20 Parkinson's disease

== ENCOUNTER → 2021-10-12 | Outpatient (REF) | payer MEDICARE | LOC: SKLAB7 07:00 | PROVIDERS: ATTEND Internal Medicine | DX: Z20.822 Contact with and (suspected) exposure to COVID-19 (principal) ==

== ENCOUNTER → 2021-10-19 | Outpatient (REF) | payer MEDICARE | LOC: SKLAB7 10:27 | PROVIDERS: ATTEND Internal Medicine | DX: Z20.822 Contact with and (suspected) exposure to COVID-19 (principal) ==

== ENCOUNTER → 2021-10-26 | Outpatient (REF) | payer MEDICARE | LOC: SKLAB7 09:34 | PROVIDERS: ATTEND Internal Medicine | DX: Z20.822 Contact with and (suspected) exposure to COVID-19 (principal) ==

== ENCOUNTER → 2021-11-02 | Outpatient (REF) | payer MEDICARE ==
[2021-11-02 16:02] LABS: HEMATOCRIT 43.7 % (42.0-52.0); HEMOGLOBIN 14.7 g/dl (13.5-17.5); MEAN CORPUSCULAR HEMOGLOBIN 32.4 pg (27.0-33.0); MEAN CORPUSCULAR HGB CONC 33.6 g/dl (32.0-36.5); MEAN CORPUSCULAR VOLUME 96.3 fl (80.0-96.0); PLATELET COUNT, AUTOMATED 153 10^3/uL (150-450); RED BLOOD COUNT 4.54 10^6/uL (4.30-6.10); WHITE BLOOD COUNT 6.2 10^3/uL (4.0-10.0)
[2021-11-02 17:07] LABS: ERYTHROCYTE SEDIMENTATION RATE 24 mm/hr (0-20)
== END ==
LOC: SKLAB7 13:46
PROVIDERS: ATTEND Internal Medicine
DX: M79.89 Other specified soft tissue disorders (principal)

== ENCOUNTER → 2021-12-01 | Outpatient (REF) | payer MEDICARE | LOC: SKLAB7 07:00 | PROVIDERS: ATTEND Internal Medicine | DX: Z51.81 Encounter for therapeutic drug level monitoring (principal); Z79.899 Other long term (current) drug therapy ==

== ENCOUNTER → 2022-03-01 | Outpatient (REF) | payer MEDICARE | LOC: SKLAB7 12-02 07:00 | PROVIDERS: ATTEND Internal Medicine | DX: Z51.81 Encounter for therapeutic drug level monitoring (principal); Z79.899 Other long term (current) drug therapy ==

== ENCOUNTER → 2022-03-16 | Outpatient (REF) | payer MEDICARE | LOC: SKLAB7 10:02 | PROVIDERS: ATTEND Internal Medicine | DX: M79.662 Pain in left lower leg (principal); Z91.81 History of falling; Z96.642 Presence of left artificial hip joint ==

== ENCOUNTER → 2022-04-13 | Outpatient (REF) | payer MEDICARE ==
[2022-04-13 07:43] LABS: HEMATOCRIT 44.4 % (42.0-52.0); HEMOGLOBIN 15.1 g/dl (13.5-17.5); MEAN CORPUSCULAR HEMOGLOBIN 32.1 pg (27.0-33.0); MEAN CORPUSCULAR VOLUME 94.5 fl (80.0-96.0); PLATELET COUNT, AUTOMATED 167 10^3/uL (150-450); WHITE BLOOD COUNT 5.8 10^3/uL (4.0-10.0)
[2022-04-13 08:09] LABS: ALBUMIN 3.4 GM/DL (3.2-5.2); ALT/SGPT 7 U/L (12-78); BILIRUBIN,TOTAL 0.8 MG/DL (0.2-1.0); BLOOD UREA NITROGEN 22 MG/DL (7-18); CALCIUM LEVEL 9.4 MG/DL (8.8-10.2); CARBON DIOXIDE LEVEL 22 MEQ/L (21-32); CHLORIDE LEVEL 113 MEQ/L (98-107); CREATININE FOR GFR 0.81 MG/DL (0.70-1.30); GLOMERULAR FILTRATION RATE > 60.0 (>35); GLUCOSE, FASTING 87 MG/DL (70-100); SODIUM LEVEL 143 MEQ/L (136-145); TOTAL PROTEIN 6.9 GM/DL (6.4-8.2)
[2022-04-13 19:57] LABS: TOTAL 25(OH) VITAMIN D 46.8 NG/ML (30.0-100.0)
== END ==
LOC: SKLAB7 07:00
PROVIDERS: ATTEND Internal Medicine
DX: G20 Parkinson's disease (principal); Z79.899 Other long term (current) drug therapy

== ENCOUNTER → 2022-05-13 | Outpatient (REF) | payer MEDICARE ==
[2022-05-13 08:45] LABS: HEMOGLOBIN 12.5 g/dl (13.5-17.5); MEAN CORPUSCULAR HEMOGLOBIN 32.3 pg (27.0-33.0); MEAN CORPUSCULAR HGB CONC 33.8 g/dl (32.0-36.5); MEAN CORPUSCULAR VOLUME 95.6 fl (80.0-96.0); PLATELET COUNT, AUTOMATED 151 10^3/uL (150-450); RED BLOOD COUNT 3.87 10^6/uL (4.30-6.10); WHITE BLOOD COUNT 4.6 10^3/uL (4.0-10.0)
[2022-05-13 09:10] LABS: ALBUMIN 2.6 GM/DL (3.2-5.2); ALT/SGPT 7 U/L (12-78); BILIRUBIN,TOTAL 0.5 MG/DL (0.2-1.0); BLOOD UREA NITROGEN 16 MG/DL (7-18); CALCIUM LEVEL 8.4 MG/DL (8.8-10.2); CARBON DIOXIDE LEVEL 25 MEQ/L (21-32); CHLORIDE LEVEL 114 MEQ/L (98-107); CREATININE FOR GFR 0.72 MG/DL (0.70-1.30); GLOMERULAR FILTRATION RATE > 60.0 (>35); GLUCOSE, FASTING 85 MG/DL (70-100); POTASSIUM SERUM 3.6 MEQ/L (3.5-5.1); SODIUM LEVEL 146 MEQ/L (136-145); TOTAL PROTEIN 5.9 GM/DL (6.4-8.2)
== END ==
LOC: SKLAB2 10:24
PROVIDERS: ATTEND Internal Medicine
DX: U07.1 COVID-19 (principal); Z79.899 Other long term (current) drug therapy

== ENCOUNTER → 2022-05-14 | Outpatient (REF) | payer MEDICARE | LOC: SKLAB2 05-13 07:00 | PROVIDERS: ATTEND Internal Medicine | DX: U07.1 COVID-19 (principal) ==

== ENCOUNTER → 2022-05-15 | Outpatient (REF) | payer MEDICARE ==
[2022-05-15 11:20] LABS: HEMATOCRIT 42.6 % (42.0-52.0); HEMOGLOBIN 14.4 g/dl (13.5-17.5); MEAN CORPUSCULAR HEMOGLOBIN 31.4 pg (27.0-33.0); MEAN CORPUSCULAR HGB CONC 33.8 g/dl (32.0-36.5); PLATELET COUNT, AUTOMATED 178 10^3/uL (150-450); RED BLOOD COUNT 4.58 10^6/uL (4.30-6.10); WHITE BLOOD COUNT 6.8 10^3/uL (4.0-10.0)
[2022-05-15 12:07] LABS: ALBUMIN 3.1 GM/DL (3.2-5.2); ALT/SGPT < 6 U/L (12-78); BILIRUBIN,TOTAL 0.5 MG/DL (0.2-1.0); BLOOD UREA NITROGEN 15 MG/DL (7-18); CALCIUM LEVEL 9.2 MG/DL (8.8-10.2); CARBON DIOXIDE LEVEL 25 MEQ/L (21-32); CHLORIDE LEVEL 111 MEQ/L (98-107); CREATININE FOR GFR 0.84 MG/DL (0.70-1.30); GLOMERULAR FILTRATION RATE > 60.0 (>35); GLUCOSE, FASTING 108 MG/DL (70-100); POTASSIUM SERUM 3.7 MEQ/L (3.5-5.1); SODIUM LEVEL 145 MEQ/L (136-145)
== END ==
LOC: SKLAB2 07:00
PROVIDERS: ATTEND Internal Medicine
DX: U07.1 COVID-19 (principal); Z79.899 Other long term (current) drug therapy

== ENCOUNTER → 2022-05-18 | Outpatient (REF) | payer MEDICARE ==
[2022-05-18 13:17] LABS: HEMATOCRIT 43.5 % (42.0-52.0); HEMOGLOBIN 14.5 g/dl (13.5-17.5); MEAN CORPUSCULAR HEMOGLOBIN 31.4 pg (27.0-33.0); MEAN CORPUSCULAR HGB CONC 33.3 g/dl (32.0-36.5); MEAN CORPUSCULAR VOLUME 94.2 fl (80.0-96.0); PLATELET COUNT, AUTOMATED 196 10^3/uL (150-450); RED BLOOD COUNT 4.62 10^6/uL (4.30-6.10); WHITE BLOOD COUNT 6.1 10^3/uL (4.0-10.0)
[2022-05-18 14:32] LABS: ALBUMIN 3.1 GM/DL (3.2-5.2); ALT/SGPT 7 U/L (12-78); BILIRUBIN,TOTAL 0.6 MG/DL (0.2-1.0); BLOOD UREA NITROGEN 15 MG/DL (7-18); CALCIUM LEVEL 9.4 MG/DL (8.8-10.2); CARBON DIOXIDE LEVEL 24 MEQ/L (21-32); CHLORIDE LEVEL 111 MEQ/L (98-107); CREATININE FOR GFR 0.84 MG/DL (0.70-1.30); GLOMERULAR FILTRATION RATE > 60.0 (>35); GLUCOSE, FASTING 90 MG/DL (70-100); POTASSIUM SERUM 3.9 MEQ/L (3.5-5.1); SODIUM LEVEL 144 MEQ/L (136-145); TOTAL PROTEIN 6.9 GM/DL (6.4-8.2)
== END ==
LOC: SKLAB2 09:58
PROVIDERS: ATTEND Internal Medicine
DX: U07.1 COVID-19 (principal); Z79.899 Other long term (current) drug therapy

== ENCOUNTER → 2022-05-22 | Outpatient (REF) | payer MEDICARE ==
[2022-05-22 08:50] LABS: HEMATOCRIT 44.4 % (42.0-52.0); HEMOGLOBIN 14.5 g/dl (13.5-17.5); MEAN CORPUSCULAR HEMOGLOBIN 31.2 pg (27.0-33.0); MEAN CORPUSCULAR HGB CONC 32.7 g/dl (32.0-36.5); MEAN CORPUSCULAR VOLUME 95.5 fl (80.0-96.0); PLATELET COUNT, AUTOMATED 191 10^3/uL (150-450); RED BLOOD COUNT 4.65 10^6/uL (4.30-6.10); WHITE BLOOD COUNT 6.4 10^3/uL (4.0-10.0)
[2022-05-22 09:27] LABS: ALBUMIN 3.1 GM/DL (3.2-5.2); ALT/SGPT < 6 U/L (12-78); BILIRUBIN,TOTAL 0.7 MG/DL (0.2-1.0); BLOOD UREA NITROGEN 14 MG/DL (7-18); CARBON DIOXIDE LEVEL 26 MEQ/L (21-32); CHLORIDE LEVEL 111 MEQ/L (98-107); CREATININE FOR GFR 0.78 MG/DL (0.70-1.30); GLOMERULAR FILTRATION RATE > 60.0 (>35); GLUCOSE, FASTING 88 MG/DL (70-100); POTASSIUM SERUM 4.1 MEQ/L (3.5-5.1); SODIUM LEVEL 144 MEQ/L (136-145); TOTAL PROTEIN 6.9 GM/DL (6.4-8.2)
== END ==
LOC: SKLAB2 09:45
PROVIDERS: ATTEND Nurse Practitioner Family
DX: U07.1 COVID-19 (principal); Z79.899 Other long term (current) drug therapy

== ENCOUNTER → 2022-05-29 | Outpatient (REF) | payer MEDICARE | LOC: SKLAB2 14:57 | PROVIDERS: ATTEND Nurse Practitioner Family | DX: U07.1 COVID-19 (principal); Z53.9 Procedure and treatment not carried out, unspecified reason ==

== ENCOUNTER 2022-08-09 14:00 | Emergency (ER) | payer MEDICARE ==
[~2022-08-09] VITALS: Ht 152.4 cm; Wt 74.1 kg
[~2022-08-09 14:00] MED LIST changes: -CARB25TA18 PO; -SENN-23 PO; -SORB70SO36 PO; -SYST0.4D2 OP
[2022-08-09] MEDS ORDERED: SYST0.4D2 OP (14:51)
[2022-08-09] MEDS ORDERED: SENN-23 PO (14:51)
[2022-08-09] MEDS ORDERED: CARB25TA18 PO (14:51)
[2022-08-09] MEDS ORDERED: SORB70SO36 PO (14:51)
[2022-08-09] MEDS ORDERED: HOME MED LIST COMPLETE! XX SCH (14:55)
[2022-08-09 15:33] LABS: BASO % 0.7 % (0.0-1.0); EOS # 0.1 10^3/uL (0.0-0.5); EOS % 1.4 % (0.0-3.0); HEMATOCRIT 43.3 % (42.0-52.0); HEMOGLOBIN 14.4 g/dl (13.5-17.5); LYMPH # 1.3 10^3/uL (1.5-5.0); LYMPH % 23.7 % (24.0-44.0); MEAN CORPUSCULAR HEMOGLOBIN 31.9 pg (27.0-33.0); MEAN CORPUSCULAR HGB CONC 33.3 g/dl (32.0-36.5); MEAN CORPUSCULAR VOLUME 95.8 fl (80.0-96.0); MONO # 0.4 10^3/uL (0.0-0.8); MONO % 7.7 % (2.0-8.0); NEUTROPHILS # 3.7 10^3/uL (1.5-8.5); NEUTROPHILS % 66.1 % (36.0-66.0); PLATELET COUNT, AUTOMATED 154 10^3/uL (150-450); RED BLOOD COUNT 4.52 10^6/uL (4.30-6.10); WHITE BLOOD COUNT 5.6 10^3/uL (4.0-10.0)
[2022-08-09 16:14] LABS: CK-MB VALUE MASS 1.9 NG/ML (<3.6); MB/CK RELATIVE INDEX 4.22 (< OR =4)
[2022-08-09 16:35] LABS: RSV AMPLIFICATION NEGATIVE (NEGATIVE)
[2022-08-09 16:55] LABS: ALBUMIN 3.2 GM/DL (3.2-5.2); ALKALINE PHOSPHATASE 89 U/L (45-117); ALT/SGPT 7 U/L (12-78); AST/SGOT 13 U/L (7-37); BILIRUBIN,DIRECT 0.2 MG/DL (0.0-0.2); BILIRUBIN,TOTAL 0.7 MG/DL (0.2-1.0); BLOOD UREA NITROGEN 16 MG/DL (7-18); CARBON DIOXIDE LEVEL 28 MEQ/L (21-32); CHLORIDE LEVEL 108 MEQ/L (98-107); GLOMERULAR FILTRATION RATE > 60.0 (>35); GLUCOSE, FASTING 109 MG/DL (70-100); POTASSIUM SERUM 4.1 MEQ/L (3.5-5.1); SODIUM LEVEL 141 MEQ/L (136-145); TOTAL PROTEIN 6.8 GM/DL (6.4-8.2)
[2022-08-09 17:13] VITALS: BP 152/73
== END 2022-08-09 17:15 | disposition short-term general hospital (02) ==
LOC: M ED 14:00
DX: S12.110A Anterior displaced Type II dens fracture, initial encounter for closed fracture (principal); W19.XXXA Unspecified fall, initial encounter; Y92.129 Unspecified place in nursing home as the place of occurrence of the external cause; F03.90 Unspecified dementia, unspecified severity, without behavioral disturbance, psychotic disturbance, mood disturbance, and anxiety; G20 Parkinson's disease; Z79.899 Other long term (current) drug therapy

== ENCOUNTER → 2022-08-09 | Outpatient (REF) | payer MEDICARE ==
[~2022-08-09] MED LIST changes: +CARB25TA18 PO; +SENN-23 PO; +SORB70SO36 PO; +SYST0.4D2 OP
[2022-08-09 11:57] LABS: BASO # 0.1 10^3/uL (0.0-0.2); BASO % 0.6 % (0.0-1.0); EOS # 0.1 10^3/uL (0.0-0.5); EOS % 1.5 % (0.0-3.0); HEMATOCRIT 45.5 % (42.0-52.0); HEMOGLOBIN 14.9 g/dl (13.5-17.5); LYMPH # 1.3 10^3/uL (1.5-5.0); LYMPH % 16.7 % (24.0-44.0); MEAN CORPUSCULAR HEMOGLOBIN 31.6 pg (27.0-33.0); MEAN CORPUSCULAR HGB CONC 32.7 g/dl (32.0-36.5); MEAN CORPUSCULAR VOLUME 96.4 fl (80.0-96.0); MONO # 0.6 10^3/uL (0.0-0.8); MONO % 7.1 % (2.0-8.0); NEUTROPHILS # 5.9 10^3/uL (1.5-8.5); NEUTROPHILS % 73.8 % (36.0-66.0); PLATELET COUNT, AUTOMATED 145 10^3/uL (150-450); RED BLOOD COUNT 4.72 10^6/uL (4.30-6.10); WHITE BLOOD COUNT 7.9 10^3/uL (4.0-10.0)
[2022-08-09 12:36] LABS: ALBUMIN 3.3 GM/DL (3.2-5.2); ALKALINE PHOSPHATASE 95 U/L (45-117); ALT/SGPT < 6 U/L (12-78); AST/SGOT 14 U/L (7-37); BILIRUBIN,TOTAL 0.7 MG/DL (0.2-1.0); BLOOD UREA NITROGEN 16 MG/DL (7-18); CALCIUM LEVEL 9.2 MG/DL (8.8-10.2); CARBON DIOXIDE LEVEL 26 MEQ/L (21-32); CHLORIDE LEVEL 109 MEQ/L (98-107); CREATININE FOR GFR 0.87 MG/DL (0.70-1.30); GLOMERULAR FILTRATION RATE > 60.0 (>35); GLUCOSE, FASTING 98 MG/DL (70-100); MAGNESIUM LEVEL 2.3 MG/DL (1.8-2.4); POTASSIUM SERUM 4.3 MEQ/L (3.5-5.1); SODIUM LEVEL 141 MEQ/L (136-145); TOTAL PROTEIN 7.2 GM/DL (6.4-8.2)
[2022-08-09 13:03] LABS: HEMOGLOBIN A1c 5.1 %
== END ==
LOC: SKLAB7 07:00
PROVIDERS: ATTEND Internal Medicine
DX: R41.82 Altered mental status, unspecified (principal); I45.10 Unspecified right bundle-branch block; Z79.899 Other long term (current) drug therapy

== ENCOUNTER → 2022-08-12 | Outpatient (REF) ==
[~2022-08-12] MED LIST changes: +CARB25TA18 PO; +SENN-23 PO; +SORB70SO36 PO; +SYST0.4D2 OP
[2022-08-12 15:41] LABS: CK-MB VALUE MASS 2.9 NG/ML (<3.6); LDH LACTATE DEHYDROGENASE 74 U/L (87-241); MB/CK RELATIVE INDEX 4.26 (< OR =4); NT-PRO BNP 944 PG/ML (<450)
== END ==
LOC: SKLAB7 10:39
PROVIDERS: ATTEND Internal Medicine
DX: I22.9 Subsequent ST elevation (STEMI) myocardial infarction of unspecified site (principal)

== ENCOUNTER → 2022-10-05 | Outpatient (REF) | payer MEDICARE | LOC: SKLAB7 07:00 | PROVIDERS: ATTEND Nurse Practitioner Family | DX: Z79.899 Other long term (current) drug therapy (principal) ==

== ENCOUNTER → 2023-02-08 | Outpatient (REF) | payer MEDICARE ==
[2023-02-08 08:42] LABS: HEMATOCRIT 42.9 % (42.0-52.0); HEMOGLOBIN 14.1 g/dl (13.5-17.5); MEAN CORPUSCULAR HEMOGLOBIN 32.3 pg (27.0-33.0); MEAN CORPUSCULAR HGB CONC 32.9 g/dl (32.0-36.5); MEAN CORPUSCULAR VOLUME 98.2 fl (80.0-96.0); PLATELET COUNT, AUTOMATED 142 10^3/uL (150-450); RED BLOOD COUNT 4.37 10^6/uL (4.30-6.10); WHITE BLOOD COUNT 5.2 10^3/uL (4.0-10.0)
[2023-02-08 09:06] LABS: ALBUMIN 3.2 G/DL (3.2-5.2); ALKALINE PHOSPHATASE 94 U/L (46-116); ALT/SGPT < 9 U/L (7.0-40); AST/SGOT 19 U/L (<34); BILIRUBIN,TOTAL 0.8 MG/DL (0.3-1.2); BLOOD UREA NITROGEN 20 MG/DL (9-23); CARBON DIOXIDE LEVEL 28 MMOL/L (20-31); CHLORIDE LEVEL 108 MMOL/L (98-107); CREATININE FOR GFR 0.66 MG/DL (0.70-1.30); GLOMERULAR FILTRATION RATE > 60.0 (>35); GLUCOSE, FASTING 72 MG/DL (74-106); POTASSIUM SERUM 3.9 MMOL/L (3.5-5.1); SODIUM LEVEL 142 MMOL/L (136-145); TOTAL PROTEIN 6.8 G/DL (5.7-8.2)
== END ==
LOC: SKLAB7 14:06
PROVIDERS: ATTEND Internal Medicine
DX: I10 Essential (primary) hypertension (principal); G20 Parkinson's disease

== ENCOUNTER → 2023-08-09 | Outpatient (REF) | payer MEDICARE ==
[2023-08-09 10:19] LABS: HEMATOCRIT 40.2 % (42.0-52.0); HEMOGLOBIN 13.2 g/dl (13.5-17.5); MEAN CORPUSCULAR HEMOGLOBIN 33.2 pg (27.0-33.0); MEAN CORPUSCULAR HGB CONC 32.8 g/dl (32.0-36.5); PLATELET COUNT, AUTOMATED 115 10^3/uL (150-450); RED BLOOD COUNT 3.98 10^6/uL (4.30-6.10); WHITE BLOOD COUNT 5.5 10^3/uL (4.0-10.0)
[2023-08-13 13:57] LABS: AST/SGOT 18 IU/L (0-40); BLOOD UREA NITROGEN 26 MG/DL (8-27); CALCIUM LEVEL 9.3 MG/DL (8.7-10.3); CARBON DIOXIDE LEVEL 23 mmol/L (20-29); CHLORIDE LEVEL 110 mmol/L (96-106); CREATININE FOR GFR 0.74 MG/DL (0.57-1.00); GLOMERULAR FILTRATION RATE > 60.0 (>59); POTASSIUM SERUM 3.8 mmol/L (3.5-5.2); SODIUM LEVEL 147 mmol/L (134-144)
[2023-08-13 13:58] LABS: ALKALINE PHOSPHATASE 93 IU/L (44-121); BILIRUBIN,TOTAL 0.5 MG/DL (0.0-1.2); TOTAL PROTEIN 6.3 G/DL (6.0-8.5)
[2023-08-13 13:59] LABS: ALBUMIN 3.8 G/DL (3.9-4.9); GLUCOSE, FASTING 95 MG/DL (70-99)
== END ==
LOC: SKLAB7 07:00
PROVIDERS: ATTEND Internal Medicine
DX: G20.C Parkinsonism, unspecified (principal); F03.90 Unspecified dementia, unspecified severity, without behavioral disturbance, psychotic disturbance, mood disturbance, and anxiety; I10 Essential (primary) hypertension

== ENCOUNTER → 2023-12-04 | Outpatient (REF) | payer MEDICARE ==
[2023-12-04 13:20] LABS: BASO % 0.8 % (0.0-1.0); EOS # 0.1 10^3/uL (0.0-0.5); HEMATOCRIT 41.7 % (42.0-52.0); HEMOGLOBIN 13.7 g/dl (13.5-17.5); LYMPH # 1.4 10^3/uL (1.5-5.0); LYMPH % 28.1 % (24.0-44.0); MEAN CORPUSCULAR HEMOGLOBIN 33.2 pg (27.0-33.0); MEAN CORPUSCULAR HGB CONC 32.9 g/dl (32.0-36.5); MONO # 0.3 10^3/uL (0.0-0.8); MONO % 6.1 % (2.0-8.0); NEUTROPHILS # 3.1 10^3/uL (1.5-8.5); NEUTROPHILS % 62.8 % (36.0-66.0); PLATELET COUNT, AUTOMATED 122 10^3/uL (150-450); RED BLOOD COUNT 4.13 10^6/uL (4.30-6.10); WHITE BLOOD COUNT 4.9 10^3/uL (4.0-10.0)
[2023-12-04 13:51] LABS: ALBUMIN 3.5 G/DL (3.2-5.2); ALKALINE PHOSPHATASE 82 U/L (46-116); ALT/SGPT < 9 U/L (7.0-40); AST/SGOT 19 U/L (<34); BILIRUBIN,TOTAL 0.7 MG/DL (0.3-1.2); BLOOD UREA NITROGEN 19 MG/DL (9-23); CARBON DIOXIDE LEVEL 32 MMOL/L (20-31); CHLORIDE LEVEL 109 MMOL/L (98-107); CREATININE FOR GFR 0.62 MG/DL (0.70-1.30); GLOMERULAR FILTRATION RATE > 60.0 (>35); GLUCOSE, FASTING 89 MG/DL (74-106); POTASSIUM SERUM 3.7 MMOL/L (3.5-5.1); SODIUM LEVEL 144 MMOL/L (136-145); TOTAL PROTEIN 6.6 G/DL (5.7-8.2)
[2023-12-04 13:52] LABS: THYROID STIMULATING HORMONE 1.195 uIU/ML (0.55-4.78); VITAMIN B12 LEVEL 468 PG/ML (211-911)
== END ==
LOC: SKLAB7 12:16
PROVIDERS: ATTEND Internal Medicine
DX: R41.82 Altered mental status, unspecified (principal); F03.918 Unspecified dementia, unspecified severity, with other behavioral disturbance

== ENCOUNTER → 2024-02-05 | Outpatient (REF) | payer MEDICARE ==
[~2024-02-05] MED LIST changes: +ACET1TAB55 PO; +MENT120C TP; +MIRA33506 PO; +QUET1TAB17 PO; +SERT50TA29 PO; -SYST0.4D2 OP; +SYST0.4D2 OU
[2024-02-05 11:07] LABS: ALBUMIN 2.2 G/DL (3.2-5.2); ALKALINE PHOSPHATASE 72 U/L (46-116); ALT/SGPT < 9 U/L (7.0-40); AST/SGOT 14 U/L (<34); BILIRUBIN,TOTAL 0.5 MG/DL (0.3-1.2); BLOOD UREA NITROGEN 16 MG/DL (9-23); CARBON DIOXIDE LEVEL 28 MMOL/L (20-31); CHLORIDE LEVEL 111 MMOL/L (98-107); CREATININE FOR GFR 0.65 MG/DL (0.70-1.30); GLOMERULAR FILTRATION RATE > 60.0 (>35); GLUCOSE, FASTING 96 MG/DL (74-106); POTASSIUM SERUM 3.5 MMOL/L (3.5-5.1); SODIUM LEVEL 145 MMOL/L (136-145); TOTAL PROTEIN 5.4 G/DL (5.7-8.2)
== END ==
LOC: SKLAB7 09:15
PROVIDERS: ATTEND Internal Medicine
DX: R46.89 Other symptoms and signs involving appearance and behavior (principal)

== ENCOUNTER → 2024-02-28 | Outpatient (REF) | payer MEDICARE, MEDICAID ==
[2024-02-28 14:15] LABS: HEMATOCRIT 37.8 % (42.0-52.0); HEMOGLOBIN 12.7 g/dl (13.5-17.5); MEAN CORPUSCULAR HEMOGLOBIN 32.6 pg (27.0-33.0); MEAN CORPUSCULAR HGB CONC 33.6 g/dl (32.0-36.5); MEAN CORPUSCULAR VOLUME 96.9 fl (80.0-96.0); PLATELET COUNT, AUTOMATED 142 10^3/uL (150-450); WHITE BLOOD COUNT 5.7 10^3/uL (4.0-10.0)
[2024-02-28 14:32] LABS: IRON (FE) 87 UG/DL (65-175); PERCENT SATURATION 37.3 % (19.7-50.0); TOTAL IRON BINDING CAPACITY 233 UG/DL (250-425)
[2024-02-28 14:37] LABS: BLOOD UREA NITROGEN 24 MG/DL (9-23); CALCIUM LEVEL 9.3 MG/DL (8.3-10.6); CARBON DIOXIDE LEVEL 28 MMOL/L (20-31); CHLORIDE LEVEL 109 MMOL/L (98-107); CREATININE FOR GFR 0.67 MG/DL (0.70-1.30); GLOMERULAR FILTRATION RATE > 60.0 (>35); GLUCOSE, FASTING 106 MG/DL (74-106); POTASSIUM SERUM 3.8 MMOL/L (3.5-5.1); SODIUM LEVEL 143 MMOL/L (136-145)
== END ==
LOC: SKLAB7 12:59
PROVIDERS: ATTEND Internal Medicine
DX: D64.9 Anemia, unspecified (principal)

== ENCOUNTER → 2024-03-11 | Outpatient (REF) | payer MEDICARE, MEDICAID ==
[2024-03-11 08:56] LABS: HEMATOCRIT 42.1 % (42.0-52.0); HEMOGLOBIN 13.8 g/dl (13.5-17.5); MEAN CORPUSCULAR HEMOGLOBIN 32.1 pg (27.0-33.0); MEAN CORPUSCULAR HGB CONC 32.8 g/dl (32.0-36.5); MEAN CORPUSCULAR VOLUME 97.9 fl (80.0-96.0); PLATELET COUNT, AUTOMATED 148 10^3/uL (150-450); WHITE BLOOD COUNT 6.5 10^3/uL (4.0-10.0)
[2024-03-11 09:12] LABS: BLOOD UREA NITROGEN 22 MG/DL (9-23); CALCIUM LEVEL 9.5 MG/DL (8.3-10.6); CARBON DIOXIDE LEVEL 31 MMOL/L (20-31); CHLORIDE LEVEL 109 MMOL/L (98-107); CREATININE FOR GFR 0.63 MG/DL (0.70-1.30); GLOMERULAR FILTRATION RATE > 60.0 (>35); GLUCOSE, FASTING 81 MG/DL (74-106); POTASSIUM SERUM 3.9 MMOL/L (3.5-5.1); SODIUM LEVEL 144 MMOL/L (136-145)
== END ==
LOC: SKLAB7 07:28
PROVIDERS: ATTEND Internal Medicine
DX: G20.C Parkinsonism, unspecified (principal); Z79.899 Other long term (current) drug therapy

== ENCOUNTER → 2024-05-20 | Outpatient (REF) | payer MEDICARE, MEDICAID ==
[2024-05-20 08:21] LABS: BASO % 0.7 % (0.0-1.0); EOS # 0.1 10^3/uL (0.0-0.5); HEMATOCRIT 38.2 % (42.0-52.0); HEMOGLOBIN 12.6 g/dl (13.5-17.5); LYMPH % 34.1 % (24.0-44.0); MEAN CORPUSCULAR HEMOGLOBIN 32.8 pg (27.0-33.0); MEAN CORPUSCULAR VOLUME 99.5 fl (80.0-96.0); MONO # 0.4 10^3/uL (0.0-0.8); NEUTROPHILS # 3.4 10^3/uL (1.5-8.5); PLATELET COUNT, AUTOMATED 137 10^3/uL (150-450); RED BLOOD COUNT 3.84 10^6/uL (4.30-6.10); WHITE BLOOD COUNT 5.8 10^3/uL (4.0-10.0)
[2024-05-20 08:50] LABS: BLOOD UREA NITROGEN 30 MG/DL (9-23); CARBON DIOXIDE LEVEL 26 MMOL/L (20-31); CHLORIDE LEVEL 111 MMOL/L (98-107); CREATININE FOR GFR 0.57 MG/DL (0.70-1.30); GLOMERULAR FILTRATION RATE > 60.0 (>35); GLUCOSE, FASTING 81 MG/DL (74-106); SODIUM LEVEL 143 MMOL/L (136-145)
== END ==
LOC: SKLAB7 07:29
PROVIDERS: ATTEND Internal Medicine
DX: R53.83 Other fatigue (principal)